=== PATIENT | female | born 1950 | race Caucasian/White ===

== ENCOUNTER → 2016-05-16 | Outpatient (CLI) | payer BC, OTHER ==
[~2016-05-16] MED LIST: ASPI-428 PO; BUSP15TA70 PO; CHOL2000 PO; CLOP1TAB5 PO; CYCL10TA6 PO; FLUO40CA8 PO; HYDR-5688 PO; INSPMPNVLG; ISOS60TA2 PO; LISI-725 PO; MISCCHW PO; MYCO500T5 PO; NITR0.4S UT; OXYC1TAB3 PO; POTA-74 PO; ROPI0.25 PO; ROSU40TA PO; TPRSR/100 PO
[2016-05-16 13:05] LABS: BASO % 0.6 %; BASO ABS # 0.04 K/uL (0-0.2); COMPLETE YES; EOS % 2.2 %; HEMATOCRIT 41.7 % (37-47); IG% 0.1 %; LYMPH % 21.6 %; LYMPH ABS # 1.44 K/uL (1.2-3.4); MEAN CELL VOLUME 86.9 fL (80-100); MEAN CORPUSCULAR HEMOGLOBIN 28.3 pg (25-34); MEAN CORPUSCULAR HGB CONC 32.6 g/dl (32-36); MEAN PLATELET VOLUME 10.5 fL (7.4-10.4); MONO % 14.2 %; NEUT % 61.3 %; PLATELET COUNT 272 K/uL (130-400); WHITE BLOOD COUNT 6.67 K/uL (4.8-10.8)
[2016-05-16 13:39] LABS: ESTIMATED AVERAGE GLUCOSE 232 mg/dl; HA1C FLAG Normal (Normal)
[2016-05-16 13:41] LABS: ALT/SGPT 40 U/L (12-78); AST/SGOT 20 U/L (15-37); BLOOD UREA NITROGEN 18 mg/dl (7-18); BUN/CREATININE RATIO 19.9 (10-20); CALCIUM 9.8 mg/dl (8.5-10.1); CARBON DIOXIDE 24 mmol/L (21-32); CHLORIDE 105 mmol/L (98-107); CREATININE 0.88 mg/dl (0.60-1.20); GLUCOSE 186 mg/dl (70-99); POTASSIUM 4.5 mmol/L (3.5-5.1); SODIUM 138 mmol/L (136-145)
[2016-05-16 13:43] LABS: ALB/GLOB RATIO 1.2 (0.9-2); ALKALINE PHOSPHATASE 106 U/L (45-117)
== END | disposition home or self-care (01) ==
LOC: C.LABPVFM 08:48
PROVIDERS: ATTEND Psychiatry & Neurology Clinical Neurophysiology
DX: G70.00 Myasthenia gravis without (acute) exacerbation (principal); E10.65 Type 1 diabetes mellitus with hyperglycemia

== ENCOUNTER → 2016-06-26 | Outpatient (CLI) | payer BC ==
[2016-06-26 13:46] LABS: BLOOD UREA NITROGEN 31 mg/dl (7-18)
[2016-06-26 14:02] LABS: ESTIMATED AVERAGE GLUCOSE 240 mg/dl; HA1C FLAG Normal (Normal)
== END | disposition home or self-care (01) ==
LOC: C.LAB 12:12
PROVIDERS: ATTEND Podiatrist Primary Podiatric Medicine
DX: E10.65 Type 1 diabetes mellitus with hyperglycemia (principal); Z13.9 Encounter for screening, unspecified; E55.9 Vitamin D deficiency, unspecified

== ENCOUNTER → 2016-07-01 | Outpatient (CLI) | payer BC ==
[~2016-07-01] MED LIST changes: +GADAVIST IV PRN
--- NOTE | 2016-07-01 21:38 | DIAGNOSTIC IMAGING REPORT ---
MRI OF THE LEFT FOOT WITH AND WITHOUT CONTRAST CLINICAL HISTORY: Left plantar fibroma. Plantar fibromatosis. Painful left foot lump. COMPARISON STUDY: Left foot ultrasound November 25, 2015. TECHNIQUE: Utilizing 1.5 Tisha magnet and dedicated coil, multiplanar, multiecho imaging of the left foot was performed pre and postcontrast ministration. Injection of 6 cc of Gadavist IV was uneventful. FINDINGS: A marker was placed on the skin at site of palpable abnormality. This overlies the plantar aspect of the medial left midfoot. Immediately deep to this marker, there is an ill-defined 1.8 x 0.9 x 0.5 cm T1 and T2 hypointense abnormality along the inferior aspect of the plantar fascia. This likely corresponds to the abnormality shown on ultrasound of November 25, 2015. This demonstrates minimal enhancement. A second marker was placed with the left forefoot. No corresponding abnormality was identified at this marker. Alignment of the left foot is anatomic. The tarsometatarsal joints are intact. There is no marrow replacement or marrow edema. No erosions are identified. No additional masses are identified. No neuroma is identified. Visual portions of the flexor and extensor tendons are intact. IMPRESSION: Ill-defined 1.8 x 0.9 x 0.5 cm T1 and T2 hypointense minimally enhancing abnormality of the plantar medial left midfoot, along the inferior aspect of the plantar fascia. This likely corresponds to the abnormality shown on exam of November 25, 2015 and is suggestive of plantar fibromatosis. Electronically signed by: Brady Marcelo M.D. 07/01/2016 9:37 PM Dictated Date/Time: 07/01/2016 4:22 PM
== END | disposition home or self-care (01) ==
LOC: C.MRI 14:37
PROVIDERS: ATTEND Podiatrist Primary Podiatric Medicine
DX: M79.672 Pain in left foot (principal)

== ENCOUNTER 2016-08-18 15:43 | Emergency (ER) | payer BC ==
[~2016-08-18] VITALS: Ht 149.9 cm; Wt 68.2 kg
[~2016-08-18 15:43] MED LIST changes: -CYCL10TA6 PO; -GADAVIST IV PRN; -HYDR-5688 PO; -INSPMPNVLG; -LISI-725 PO; -MISCCHW PO; -MYCO500T5 PO; -OXYC1TAB3 PO; -POTA-74 PO; -ROPI0.25 PO; -TPRSR/100 PO
[2016-08-18 15:44] VITALS: TEMP 36.7; Ht 149.9 cm; Wt 68.2 kg
[2016-08-18] MEDS ORDERED: KETOROLAC TROMETHAMINE 60 MG/2 ML VIAL IM STA (15:58)
[2016-08-18] MEDS ORDERED: CYCLOBENZAPRINE HCL 10 MG TAB PO STA (15:58)
[2016-08-18] MEDS ORDERED: OXYCODONE HCL IR 5 MG TAB (IMMEDIATE RELEASE) PO STA (15:58)
--- NOTE | 2016-08-18 16:50 | DIAGNOSTIC IMAGING REPORT ---
L-SPINE MIN 4 VIEWS ROUTINE CLINICAL HISTORY: Low back pain. COMPARISON: Lumbar spine radiographs November 02, 2014. FINDINGS: Incidental note is made of bilateral common iliac artery stents. There are also stents which project over each groin. Alignment of the lumbar spine is anatomic. Vertebral body heights are maintained. There is no fracture or suspicious lesion. Mild concavity of the superior endplate of T12 is unchanged. Mild multiple the level osteophytosis and facet arthrosis is noted. IMPRESSION: 1. No acute lumbar spine fracture or subluxation. 2. Mild multilevel degenerative disc disease and facet arthrosis. Electronically signed by: Brady Marcelo M.D. 08/18/2016 4:49 PM Dictated Date/Time: 08/18/2016 4:47 PM
[2016-08-18] MEDS ORDERED: MoRPHine SULFATE 10 MG/ML CARP/VIAL IM STA (17:00)
[2016-08-18] MEDS ORDERED: MoRPHine SULFATE 4 MG/ML 1 ML CARP\\VIAL ONE (17:23)
[2016-08-18] MEDS ORDERED: OXYC1TAB3 PO (17:58)
[2016-08-18] MEDS ORDERED: CYCL10TA6 PO (17:58)
--- NOTE | 2016-08-18 17:58 | EMERGENCY ROOM VISIT NOTE ---
History First contact with patient: 15:48 Chief Complaint: BACK PAIN Stated Complaint: BACK PAIN History of Present Illness The patient is a 66 year old female who presents to the Emergency Room with complaints of low back pain the patient states yesterday morning when she was trying to get out of bed she twisted to the right and felt a sharp pain in the lower back. The patient states that she had surgery to her left leg on July 23 and therefore she hasn't been rolling to her right side in order to get out of bed. The patient states the pain is in the lower back and hurts with any type of movement. The patient states it goes into the right buttocks. But does not go down the leg. The patient denies any numbness and tingling in her lower leg. The patient denies any saddle anesthesia. The patient denies any loss of bowel or bladder control. The patient denies any urinary symptoms. Review of Systems 10 system review was performed and was negative unless stated otherwise history of present illness. Past Medical/Surgical History Medical Problems: (1) Anxiety (2) CAD (coronary artery disease) (3) Compression fracture (4) Depression (5) GERD (gastroesophageal reflux disease) (6) HTN (hypertension) (7) Hypercholesteremia (8) Myasthenia gravis (9) Rosacea (10) Type 1 diabetes mellitus (11) Vitamin D deficiency Surgical Problems: (1) H/O vertebroplasty (2) History of laparoscopic cholecystectomy (3) History of thymectomy (4) History of tracheostomy Social History Smoking Status: Former Smoker Alcohol Use: none Drug Use: none Marital Status: Housing Status: lives with family Occupation Status: employed Current/Historical Medications Scheduled Aspirin (Ecotrin Low Strength), 81 MG PO DAILY Buspirone Hcl (Buspar), 15 MG PO BID Cholecalciferol (Vitamin D3), 2,000 INTER.UNIT PO DAILY Clopidogrel Bisulfate (Plavix), 75 MG PO DAILY Fluoxetine Hcl (Prozac), 40 MG PO DAILY Insulin Aspart (novoLOG INSULIN PUMP ), 1 EA N/A UD Isosorbide Mononitrate (Imdur Ext Rel), 60 MG PO QAM Lisinopril (Zestril), 20 MG PO DAILY Metoprolol Succinate (Metoprolol Succinate ER), 100 MG PO BID Mycophenolate Mofetil (Mycophenolate Mofetil), 1,000 MG PO BID Potassium Chloride (Potassium Chloride Er), 10 MEQ PO BID Probiotic Product (Acidophilus), 1 TAB PO DAILY Rosuvastatin Calcium (Crestor), 40 MG PO DAILY Scheduled PRN Nitroglycerin (Nitrostat), 0.4 MG UT UD PRN for Chest Pain Ropinirole (Requip), 0.25 MG PO HS PRN for Restless Legs Allergies Coded Allergies: Chlorpromazine (Verified Allergy, Unknown, PHENOTHIAZINES, 08/18/16) Colistin (Verified Allergy, Unknown, 08/18/16) Gentamicin (Verified Allergy, Unknown, 08/18/16) Kanamycin (Verified Allergy, Unknown, 08/18/16) Neomycin (Verified Allergy, Unknown, 08/18/16) Polymyxin B (Verified Allergy, Unknown, 08/18/16) Procainamide (Verified Allergy, Unknown, 08/18/16) Propranolol (Verified Allergy, Unknown, 08/18/16) Quinidine (Verified Allergy, Unknown, 08/18/16) Streptomycin (Verified Allergy, Unknown, 08/18/16) Tetracycline (Verified Allergy, Unknown, 08/18/16) Physical Exam Vital Signs Date Time Temp Pulse Resp B/P Pulse Ox O2 Delivery O2 Flow Rate FiO2 08/18/16 17:24 78 17 164/74 96 08/18/16 15:44 36.7 92 20 159/79 98 Room Air Physical Exam PHYSICAL EXAM: Vital Signs normal: Reviewed Nurse's notes and agree. GEN.: 66- year-old white female appears uncomfortable secondary to back pain. MENTAL STATUS: Alert and oriented in no acute distress. LUMBAR SPINE: No gross bony abnormality noted. Patient is tender to palpation over the mid to l. Muscle strength is 5 out of 5 bilateral lower extremities and symmetrical. NEURO: Patient is able to heel and toe walk without difficulty. I lateral patellar and Achilles reflexes are 2+. Sensation is intact to pinprick bilateral lower extremities. Negative straight leg raise bilaterally. Medical Decision & Procedures ER Provider Diagnostic Interpretation: L-SPINE MIN 4 VIEWS ROUTINE CLINICAL HISTORY: Low back pain. COMPARISON: Lumbar spine radiographs November 02, 2014. FINDINGS: Incidental note is made of bilateral common iliac artery stents. There are also stents which project over each groin. Alignment of the lumbar spine is anatomic. Vertebral body heights are maintained. There is no fracture or suspicious lesion. Mild concavity of the superior endplate of T12 is unchanged. Mild multiple the level osteophytosis and facet arthrosis is noted. IMPRESSION: 1. No acute lumbar spine fracture or subluxation. 2. Mild multilevel degenerative disc disease and facet arthrosis. Electronically signed by: Brady Marcelo M.D. 08/18/2016 4:49 PM Medications Administered Medications (Trade) Dose Ordered Sig/Yovana Route Start Time Stop Time Status Last Admin Dose Admin Cyclobenzaprine HCl (Flexeril Tab) 10 mg NOW STAT PO 08/18/16 15:58 08/18/16 16:00 DC 08/18/16 16:15 10 MG Ketorolac Tromethamine (Toradol Inj) 60 mg NOW STAT IM 08/18/16 15:58 08/18/16 16:00 DC 08/18/16 16:16 60 MG Oxycodone HCl (Roxicodone Immediate Rel Tab) 10 mg NOW STAT PO 08/18/16 15:58 08/18/16 16:00 DC 08/18/16 16:16 10 MG Morphine Sulfate (MoRPHine SULFATE INJ) 4 mg STK-MED ONCE .ROUTE 08/18/16 17:23 08/18/16 17:24 DC 08/18/16 17:26 4 MG ED Course The patient was evaluated. The patient was given Flexeril 10 mg by mouth, Toradol 60 mg IM and OxyIR 10 mg by mouth. X-ray of the lumbar spine was ordered and interpreted by the radiologist and myself as above without any acute fractures. The patient was informed of the findings. The patient was reevaluated and was still in significant pain and therefore she was given morphine 4 mg IM. The patient was once again reevaluated and was feeling much better. The patient was discharged home in stable condition with a family member driving.. Medical Decision Differential diagnosis include muscular strain, compression fracture, sciatica, degenerative disc disease Impression Primary Impression: Strain of lumbar region Departure Information Dispostion Home / Self-Care Condition GOOD Prescriptions Oxycodone Immediate Rel Tab (ROXICODONE IR) 5 Mg Tab 1-2 TAB PO Q6 Y for Pain, #20 TAB Prov: Lindsay Clark, CHACHA 08/18/16 Cyclobenzaprine Hcl (FLEXERIL) 10 Mg Tab 10 MG PO TID for 7 Days, #21 TAB Prov: Lindsay Clark PA-C 08/18/16 Referrals Amanda Sequeira C.R.N.P (PCP) Forms HOME CARE DOCUMENTATION FORM, IMPORTANT VISIT INFORMATION Patient Instructions My [facility] Additional Instructions DISCHARGE INSTRUCTIONS AND TREATMENT: Ibuprofen 600 mg every 6 hours with food for pain. Rx is given for OxyIR 5 mg. 1-2 tablets every 6 hours as needed for more severe pain. Dispense [address] while taking the OxyIR. Patient was also given Rx for Flexeril 10 mg. One tablet p.o. every 8 hours for muscle spasms. Dispense [address] taking the Flexeril. Avoid staying in any one position for an extended period of time. If symptoms persist or worsen, follow up with your family doctor for referral for additional testing. Problem Qualifiers Primary Impression: Strain of lumbar region Encounter type: initial encounter Qualified Codes: S39.012A - Strain of muscle, fascia and tendon of lower back, initial encounter
[2016-08-18 18:07] VITALS: BP 158/67; PULSE 80; O2SAT 95
[2016-08-18] MEDS ORDERED: ROPI0.25 PO (21:32)
[2016-08-18] MEDS ORDERED: INSPMPNVLG (21:32)
[2016-08-18] MEDS ORDERED: TPRSR/100 PO (21:32)
[2016-08-18] MEDS ORDERED: POTA-74 PO (21:32)
[2016-08-18] MEDS ORDERED: LISI-725 PO (21:32)
[2016-08-18] MEDS ORDERED: MYCO500T5 PO (21:32)
[2016-08-18] MEDS ORDERED: MISCCHW PO (21:32)
[2017-01-06] MEDS ORDERED: HYDR-5688 PO (14:06)
== END 2016-08-18 18:09 | disposition home or self-care (01) ==
LOC: C.EDB 15:43
DX: S39.012A Strain of muscle, fascia and tendon of lower back, initial encounter (principal); X58.XXXA Exposure to other specified factors, initial encounter; M54.5 Low back pain; F41.9 Anxiety disorder, unspecified; I25.10 Atherosclerotic heart disease of native coronary artery without angina pectoris; I10 Essential (primary) hypertension; F32.9 Major depressive disorder, single episode, unspecified; E78.00 Pure hypercholesterolemia, unspecified; G70.00 Myasthenia gravis without (acute) exacerbation; E10.9 Type 1 diabetes mellitus without complications; E55.9 Vitamin D deficiency, unspecified; Z87.891 Personal history of nicotine dependence; Z79.4 Long term (current) use of insulin

== ENCOUNTER → 2016-09-11 | Outpatient (CLI) | payer BC ==
[~2016-09-11] MED LIST changes: +HYDR-5688 PO; +INSPMPNVLG; +LISI-725 PO; +MISCCHW PO; +MYCO500T5 PO; +OXYC1TAB3 PO; +POTA-74 PO; +ROPI0.25 PO; +TPRSR/100 PO
--- NOTE | 2016-09-11 12:53 | MAMMOGRAPHY REPORT ---
BILATERAL DIGITAL SCREENING MAMMOGRAM WITH CAD: 09/11/2016 TECHNIQUE: Current study was also evaluated with a Computer Aided Detection (CAD) system. Bilatera l CC and MLO views were obtained. COMPARISON: Comparison is made to exams dated: 09/02/2015 mammogram, 08/30/2014 mammogram, 10/30/2011 mammogram, 10/24/2010 mammogram, 10/18/2009 mammogram - [facility], and 10/03/2008. BREAST COMPOSITION: There are scattered areas of fibroglandular density in both breasts. FINDINGS: No suspicious masses, calcifications, or areas of architectural distortion are noted in e ither breast. There has been no significant interval change compared to prior exams. Scattered bila teral benign-appearing calcifications are not significantly changed. Benign-appearing masses scatte red within the left breast are stable compared to prior exams. IMPRESSION: ACR BI-RADS CATEGORY 2: BENIGN There is no mammographic evidence of malignancy. A 1 year screening mammogram is recommended. The p atient will receive written notification of the results. Approximately 10% of breast cancers are not detected with mammography. A negative mammographic repor t should not delay biopsy if a clinically suggestive mass is present. Johanna Thayer M.D. ah/:09/11/2016 11:47:42 Stave Hewer: Mayra BUNN(Clive)(M), [facility] letter sent: Normal 1/2 BI-RADS Code: ACR BI-RADS Category 2: Benign
== END | disposition home or self-care (01) ==
LOC: C.MAMM 10:01
PROVIDERS: ATTEND Nurse Practitioner
DX: Z12.31 Encounter for screening mammogram for malignant neoplasm of breast (principal)

== ENCOUNTER → 2016-09-26 | Outpatient (CLI) | payer BC ==
[2016-09-26 13:18] LABS: BASO % 0.7 %; BASO ABS # 0.04 K/uL (0-0.2); COMPLETE YES; EOS % 2.3 %; HEMATOCRIT 39.3 % (37-47); IG% 0.4 %; LYMPH ABS # 1.45 K/uL (1.2-3.4); MEAN CELL VOLUME 87.5 fL (80-100); MEAN CORPUSCULAR HEMOGLOBIN 27.2 pg (25-34); MEAN PLATELET VOLUME 10.1 fL (7.4-10.4); MONO % 12.7 %; NEUT % 57.9 %; PLATELET COUNT 278 K/uL (130-400); RED BLOOD COUNT 4.49 M/uL (4.2-5.4); WHITE BLOOD COUNT 5.58 K/uL (4.8-10.8)
[2016-09-26 13:39] LABS: ALT/SGPT 42 U/L (12-78); AST/SGOT 22 U/L (15-37); BLOOD UREA NITROGEN 18 mg/dl (7-18); BUN/CREATININE RATIO 18.6 (10-20); CALCIUM 9.4 mg/dl (8.5-10.1); CARBON DIOXIDE 25 mmol/L (21-32); CHLORIDE 106 mmol/L (98-107); CREATININE 0.99 mg/dl (0.60-1.20); ESTIMATED AVERAGE GLUCOSE 214 mg/dl; GLUCOSE 299 mg/dl (70-99); HA1C FLAG Normal (Normal); POTASSIUM 4.5 mmol/L (3.5-5.1); SODIUM 139 mmol/L (136-145)
[2016-09-26 13:41] LABS: ALB/GLOB RATIO 0.9 (0.9-2); ALKALINE PHOSPHATASE 148 U/L (45-117)
== END | disposition home or self-care (01) ==
LOC: C.LABPVFM 08:52
PROVIDERS: ATTEND Psychiatry & Neurology Clinical Neurophysiology
DX: G70.00 Myasthenia gravis without (acute) exacerbation (principal)

== ENCOUNTER → 2016-11-19 | Outpatient (CLI) | payer BC | END | disposition home or self-care (01) | LOC: C.MAMM 13:12 | PROVIDERS: ATTEND Nurse Practitioner | DX: S22.000A Wedge compression fracture of unspecified thoracic vertebra, initial encounter for closed fracture (principal); X58.XXXA Exposure to other specified factors, initial encounter; M85.852 Other specified disorders of bone density and structure, left thigh ==

== ENCOUNTER → 2017-01-09 | Outpatient (CLI) | payer BC ==
[2017-01-09 13:21] LABS: BASO ABS # 0.06 K/uL (0-0.2); COMPLETE YES; EOS % 2.8 %; HEMATOCRIT 41.8 % (37-47); IG% 0.3 %; LYMPH % 25.3 %; LYMPH ABS # 1.55 K/uL (1.2-3.4); MEAN CELL VOLUME 87.8 fL (80-100); MEAN CORPUSCULAR HEMOGLOBIN 27.9 pg (25-34); MEAN CORPUSCULAR HGB CONC 31.8 g/dl (32-36); MONO % 11.3 %; NEUT % 59.3 %; PLATELET COUNT 240 K/uL (130-400); RED BLOOD COUNT 4.76 M/uL (4.2-5.4); WHITE BLOOD COUNT 6.13 K/uL (4.8-10.8)
[2017-01-09 13:42] LABS: ALT/SGPT 32 U/L (12-78); AST/SGOT 20 U/L (15-37); BLOOD UREA NITROGEN 10 mg/dl (7-18); BUN/CREATININE RATIO 13.1 (10-20); CALCIUM 9.5 mg/dl (8.5-10.1); CARBON DIOXIDE 28 mmol/L (21-32); CHLORIDE 106 mmol/L (98-107); CREATININE 0.77 mg/dl (0.60-1.20); GLUCOSE 110 mg/dl (70-99); POTASSIUM 4.3 mmol/L (3.5-5.1); SODIUM 140 mmol/L (136-145)
[2017-01-09 13:44] LABS: ALB/GLOB RATIO 0.9 (0.9-2); ALKALINE PHOSPHATASE 139 U/L (45-117)
== END | disposition home or self-care (01) ==
LOC: C.LABPVFM 08:58
PROVIDERS: ATTEND Psychiatry & Neurology Clinical Neurophysiology
DX: G47.00 Insomnia, unspecified (principal)

== ENCOUNTER → 2017-02-25 | Outpatient (CLI) | payer BC ==
[~2017-02-25] MED LIST changes: -HYDR-5688 PO; -OXYC1TAB3 PO; -ROPI0.25 PO
[2017-02-25 13:41] LABS: CREATININE RANDOM URINE 99.9 mg/dl
[2017-02-25 13:51] LABS: RATIO 18.8 mcg/mg (0-30.0)
== END | disposition home or self-care (01) ==
LOC: C.LABPVFM 13:05
PROVIDERS: ATTEND Nurse Practitioner Adult Health
DX: E10.65 Type 1 diabetes mellitus with hyperglycemia (principal); I10 Essential (primary) hypertension; E78.5 Hyperlipidemia, unspecified; R80.9 Proteinuria, unspecified; E55.9 Vitamin D deficiency, unspecified

== ENCOUNTER → 2017-03-20 | Outpatient (CLI) | payer BC ==
[2017-03-20 13:05] LABS: BLOOD UREA NITROGEN 14 mg/dl (7-18); CALCIUM 9.3 mg/dl (8.5-10.1); CARBON DIOXIDE 30 mmol/L (21-32); CHLORIDE 103 mmol/L (98-107); CREATININE 0.83 mg/dl (0.60-1.20); GLUCOSE 160 mg/dl (70-99); POTASSIUM 3.9 mmol/L (3.5-5.1); SODIUM 137 mmol/L (136-145)
== END | disposition home or self-care (01) ==
LOC: C.LABPVFM 08:03
PROVIDERS: ATTEND Nurse Practitioner Adult Health
DX: E10.65 Type 1 diabetes mellitus with hyperglycemia (principal); E87.8 Other disorders of electrolyte and fluid balance, not elsewhere classified

== ENCOUNTER → 2017-03-27 | Outpatient (CLI) | payer BC ==
[2017-03-27 13:21] LABS: ALT/SGPT 27 U/L (12-78); BLOOD UREA NITROGEN 18 mg/dl (7-18); BUN/CREATININE RATIO 19.9 (10-20); CALCIUM 9.4 mg/dl (8.5-10.1); CARBON DIOXIDE 26 mmol/L (21-32); CHLORIDE 103 mmol/L (98-107); GLUCOSE 190 mg/dl (70-99); POTASSIUM 4.2 mmol/L (3.5-5.1); SODIUM 135 mmol/L (136-145)
[2017-03-27 13:24] LABS: ALKALINE PHOSPHATASE 130 U/L (45-117); AST/SGOT 17 U/L (15-37)
== END | disposition home or self-care (01) ==
LOC: C.LABPVFM 09:05
PROVIDERS: ATTEND Psychiatry & Neurology Clinical Neurophysiology
DX: G70.00 Myasthenia gravis without (acute) exacerbation (principal)

== ENCOUNTER → 2017-04-30 | Outpatient (CLI) | payer BC ==
[2017-04-30 12:45] LABS: BASO % 0.8 %; BASO ABS # 0.06 K/uL (0-0.2); EOS % 1.6 %; EOS ABS # 0.13 K/uL (0-0.5); HEMATOCRIT 43.2 % (37-47); HEMOGLOBIN 14.1 g/dL (12.0-16.0); IG# 0.02 K/uL (0.00-0.02); LYMPH % 23.9 %; MEAN CELL VOLUME 89.4 fL (80-100); MEAN CORPUSCULAR HEMOGLOBIN 29.2 pg (25-34); MEAN CORPUSCULAR HGB CONC 32.6 g/dl (32-36); MEAN PLATELET VOLUME 9.8 fL (7.4-10.4); MONO % 12.2 %; MONO ABS # 0.97 K/uL (0.11-0.59); NEUT % 61.2 %; NEUT ABS # 4.86 K/uL (1.4-6.5); PLATELET COUNT 310 K/uL (130-400); RED CELL DISTRIBUTION WIDTH CV 14.4 % (11.5-14.5); RED CELL DISTRIBUTION WIDTH SD 47.3 fL (36.4-46.3); WHITE BLOOD COUNT 7.94 K/uL (4.8-10.8)
[2017-04-30 13:51] LABS: ALBUMIN 4.1 gm/dl (3.4-5.0); ALT/SGPT 29 U/L (12-78); AST/SGOT 14 U/L (15-37); BLOOD UREA NITROGEN 27 mg/dl (7-18); CALCIUM 9.4 mg/dl (8.5-10.1); CARBON DIOXIDE 27 mmol/L (21-32); CREATININE 0.92 mg/dl (0.60-1.20); GLUCOSE 86 mg/dl (70-99); POTASSIUM 4.5 mmol/L (3.5-5.1); SODIUM 138 mmol/L (136-145)
[2017-04-30 13:53] LABS: ALKALINE PHOSPHATASE 121 U/L (45-117); TOTAL PROTEIN 8.2 gm/dl (6.4-8.2)
== END | disposition home or self-care (01) ==
LOC: C.LABPVFM 08:56
PROVIDERS: ATTEND Psychiatry & Neurology Clinical Neurophysiology
DX: G70.00 Myasthenia gravis without (acute) exacerbation (principal)

== ENCOUNTER → 2017-05-25 | Outpatient (CLI) | payer BC ==
--- NOTE | 2017-05-25 15:10 | DIAGNOSTIC IMAGING REPORT ---
(CHEST) THORAX WITHOUT CLINICAL HISTORY: R91.1 pulmonary nodule COMPARISON STUDY: 02/21/2017 CT DOSE: 433.23 mGy.cm TECHNIQUE: CT of the thorax was performed from the thoracic inlet to the lung bases. Images are reviewed in the axial, sagittal, and coronal planes. IV contrast was not administered for this examination. A dose lowering technique was utilized adhering to the principles of ALARA. FINDINGS: Thyroid: Imaged portions of the thyroid gland are normal in appearance. Thoracic aorta: The thoracic aorta is normal in course and caliber, noting standard 3 vessel arch anatomy. Heart: There are coronary artery calcifications present. The heart is borderline enlarged. Lungs and pleural spaces: There are mild dependent atelectatic changes. There are no pleural effusions. There is no focal pulmonary consolidation. There is a persistent pancake ovoid nodule abutting the minor fissure measuring 12 mm in long axis as measured on the reformatted sagittal image. This is felt to remain essentially unchanged in size compared the prior study. There are multiple scattered calcified granulomas. Continued follow-up is recommended Mediastinum: There is no mediastinal lymphadenopathy. Eri: Clear. Axilla: Clear. Upper abdomen: Partially visualized upper abdominal viscera is within normal limits. Skeletal structures: There is a stable T8 compression deformity. IMPRESSION: Stable, pancake ovoid nodule abutting the minor fissure measuring 12 mm in long axis. Continued follow-up is recommended. An additional 3-6 month follow-up is recommended Please refer to below summary of Fleischner criteria recommendations for follow-up of incidental CT nodules (Emery Echeverria, Guidelines for management of small pulmonary nodules detected on CT scans: A statement from the Fleischner Society, Radiology 237: [phone].) SOLID NODULES Solitary nodule size: <6 mm * low risk patients: no follow-up needed * high risk patients: optional CT at 12 months Solitary nodule size: 6-8 mm * low risk patients: follow-up at 6-12 months, then consider further follow-up at 18-24 months * high risk patients: initial follow-up CT at 6-12 months and then at 18-24 months if no change Solitary nodule size: >8 mm * either low or high risk patients - consider follow-up CT at 3 months, and/or CT-PET, and/or biopsy Multiple nodules size: <6 mm * low risk patients: no routine follow-up * high risk patients: optional CT at 12 months Multiple nodules size: 6-8 mm * low risk patients: follow-up at 3-6 months, then consider further follow-up at 18-24 months * high risk patients: follow-up at 3-6 months, then at 18-24 months if no change Multiple nodules size: >8 mm * low risk patients: follow-up at 3-6 months, then consider further follow-up at 18-24 months * high risk patients: follow-up at 3-6 months, then at 18-24 months if no change Note: newly detected indeterminate nodule in persons 35 years of age or older. * low risk patients: minimal or absent history of smoking and/or other known risk factors * high risk patients: history of smoking or of other known risk factors (e.g. first degree relative with lung cancer, or exposure to asbestos, radon, uranium) * if a nodule up to 8 mm is partly solid or is ground glass further follow-up is required after 24 months to exclude possible slow growing adenocarcinoma (STACEY) SUBSOLID NODULES Solitary pure ground-glass nodule * nodule size <6 mm - no CT follow-up required * nodule size >=6 mm - follow-up CT at 6-12 months, then every 2 years until 5 years Solitary part-solid nodule * nodule size <6 mm - no CT follow-up required * nodule size >=6 mm - follow-up CT at 3-6 months. If unchanged, and solid component remains <6 mm, then annual follow-up for 5 years Multiple subsolid nodules * nodule size <6 mm - follow-up CT at 3-6 months, consider further follow-up at 2 and 4 years if stable * nodule size >=6 mm - follow-up CT at 3-6 months, subsequent management based on the most suspicious nodule(s) Electronically signed by: Guy Cavazos M.D. 05/25/2017 3:08 PM Dictated Date/Time: 05/25/2017 2:59 PM
== END | disposition home or self-care (01) ==
LOC: C.CTS 14:43
PROVIDERS: ATTEND Nurse Practitioner
DX: R91.1 Solitary pulmonary nodule (principal)

== ENCOUNTER → 2017-07-23 | Outpatient (CLI) | payer OTHER ==
[~2017-07-23] MED LIST changes: +ASPI-563
--- NOTE | 2017-07-23 10:38 | DIAGNOSTIC IMAGING REPORT ---
L-SPINE MIN 4 VIEWS ROUTINE CLINICAL HISTORY: LUMBAGO COMPARISON: Lumbar spine radiographs August 18, 2016. FINDINGS: Incidental note is made of bilateral common iliac artery stents. There is a bone island within the left acetabulum. There is mild leftward curvature of the lumbar spine which has developed since exam of August 18, 2016. In addition, there has been interval development of a L3 fracture with moderate loss of vertebral body height as well as a mild L1 fracture. The bones appear heterogeneous, particularly the L3 vertebral body. Disc spaces are preserved. There is mild multilevel facet arthrosis. IMPRESSION: 1. Interval development of L1 and L3 fractures since exam of August 18, 2016 with moderate loss of height of L3. Heterogeneity of L3 could be seen with a benign compression fracture however the appearance raises the possibility of a pathologic fracture in the setting of metastatic disease or multiple myeloma. An MRI of the lumbar spine is recommended for further evaluation. 2. Mild multilevel degenerative disc disease and mild to moderate multilevel facet arthrosis. Electronically signed by: Brady Marcelo M.D. 07/23/2017 10:36 AM Dictated Date/Time: 07/23/2017 10:25 AM
== END | disposition home or self-care (01) ==
LOC: C.LABBC 09:57
PROVIDERS: ATTEND Physician Assistant
DX: M54.5 Low back pain (principal); S32.019A Unspecified fracture of first lumbar vertebra, initial encounter for closed fracture; S32.039A Unspecified fracture of third lumbar vertebra, initial encounter for closed fracture; X58.XXXA Exposure to other specified factors, initial encounter

== ENCOUNTER → 2017-07-28 | Outpatient (CLI) | payer OTHER ==
[2017-07-28 13:17] LABS: BLOOD UREA NITROGEN 26 mg/dl (7-18); CREATININE 0.98 mg/dl (0.60-1.20)
== END | disposition home or self-care (01) ==
LOC: C.LABPVFM 10:35
PROVIDERS: ATTEND Physician Assistant
DX: Z01.812 Encounter for preprocedural laboratory examination (principal); I10 Essential (primary) hypertension; E55.9 Vitamin D deficiency, unspecified

== ENCOUNTER → 2017-07-30 | Outpatient (CLI) | payer OTHER ==
[~2017-07-30] MED LIST changes: +GADAVIST IV PRN
--- NOTE | 2017-07-30 15:46 | DIAGNOSTIC IMAGING REPORT ---
LUMBAR SPINE MRI WITH AND WITHOUT CONTRAST HISTORY: LOW BACK PAIN TECHNIQUE: Multiplanar multisequence MRI of the lumbar spine was performed both before and after the intravenous administration of contrast. COMPARISON: Lumbar spine 05/25/2017. FINDINGS: For the purpose of the report the L5-S1 disc space will be located on axial image 28 of 30. Mild levoscoliosis. Alignment is intact. Mild superior endplate compression fracture at T12. No associated edema. Therefore, this is likely old. Moderate supra endplate compression fracture and a mild inferior endplate compression fracture at L1. This demonstrates up to 50% loss of height centrally. There is an enhancing mass within the left posterior L1 vertebral body which extends into the left pedicle. This measures approximately 2.5 x 1.8 cm. This extends into the left posterior epidural space. However, this does not result in significant central canal narrowing. The epidural component measures approximate 1 mm in thickness. There is mild left-sided neural foraminal narrowing at L1-L2. The conus terminates at the L1 level. There is also a [id number] compression deformity within the L3 vertebral body. The L3 vertebral body is completely replaced with an enhancing mass. This mass extends into the right pedicle and right L3 facet. This also extends beyond the cortex into the paravertebral/right paraspinal soft tissues. This extends into the right posterior epidural space with a maximal thickness of 2 mm. This does not result in significant central canal narrowing. This results in mild right L3-L4 neural foraminal narrowing. Paraspinal soft tissue extension of the mass measures up to 4 mm in thickness. No additional fractures or lesions identified within the lumbar spine. A few bilateral renal cysts. The 1.1 cm exophytic cyst within the lower pole demonstrates layering T1 hyperintense signal suggestive of calcification. IMPRESSION: Enhancing lesions at L1 and L3 resulting in the pathologic compression fractures as described above. These lesions demonstrate a small amount of epidural extension. However, there is no significant central canal narrowing at this time. This is consistent with metastatic disease until proven otherwise. Electronically signed by: Ryan Geronimo M.D. 07/30/2017 3:45 PM Dictated Date/Time: 07/30/2017 3:32 PM
== END | disposition home or self-care (01) ==
LOC: C.MRI 14:28
PROVIDERS: ATTEND Physician Assistant
DX: M54.5 Low back pain (principal); M84.48XA Pathological fracture, other site, initial encounter for fracture

== ENCOUNTER → 2017-08-05 | Outpatient (CLI) | payer OTHER ==
[~2017-08-05] MED LIST changes: -GADAVIST IV PRN
[2017-08-05 12:29] LABS: BASO % 0.3 %; BASO ABS # 0.03 K/uL (0-0.2); EOS % 1.6 %; EOS ABS # 0.16 K/uL (0-0.5); HEMATOCRIT 37.2 % (37-47); HEMOGLOBIN 12.1 g/dL (12.0-16.0); IG# 0.02 K/uL (0.00-0.02); LYMPH % 14.2 %; LYMPH ABS # 1.38 K/uL (1.2-3.4); MEAN CELL VOLUME 87.5 fL (80-100); MEAN CORPUSCULAR HEMOGLOBIN 28.5 pg (25-34); MEAN CORPUSCULAR HGB CONC 32.5 g/dl (32-36); MEAN PLATELET VOLUME 9.7 fL (7.4-10.4); MONO % 13.5 %; MONO ABS # 1.31 K/uL (0.11-0.59); NEUT % 70.2 %; NEUT ABS # 6.82 K/uL (1.4-6.5); PLATELET COUNT 251 K/uL (130-400); RED CELL DISTRIBUTION WIDTH CV 14.7 % (11.5-14.5); WHITE BLOOD COUNT 9.72 K/uL (4.8-10.8)
[2017-08-05 13:16] LABS: ALBUMIN 4.2 gm/dl (3.4-5.0); ALT/SGPT 34 U/L (12-78); AST/SGOT 17 U/L (15-37); BLOOD UREA NITROGEN 16 mg/dl (7-18); CALCIUM 9.6 mg/dl (8.5-10.1); CARBON DIOXIDE 25 mmol/L (21-32); CREATININE 0.97 mg/dl (0.60-1.20); GLUCOSE 221 mg/dl (70-99); POTASSIUM 4.3 mmol/L (3.5-5.1); SODIUM 140 mmol/L (136-145)
[2017-08-05 13:18] LABS: ALKALINE PHOSPHATASE 84 U/L (45-117); TOTAL PROTEIN 6.4 gm/dl (6.4-8.2)
== END | disposition home or self-care (01) ==
LOC: C.LABPVFM 10:34
PROVIDERS: ATTEND Nurse Practitioner
DX: M54.2 Cervicalgia (principal); R93.7 Abnormal findings on diagnostic imaging of other parts of musculoskeletal system; R51 Headache; R42 Dizziness and giddiness; R26.81 Unsteadiness on feet; G89.3 Neoplasm related pain (acute) (chronic); G95.9 Disease of spinal cord, unspecified

== ENCOUNTER → 2017-08-11 | Outpatient (CLI) | payer OTHER ==
[~2017-08-11] MED LIST changes: +ACET-24 PO; +DRGTP12 TD; +FRRG PO; +IMDSR/30 PO; +INSDGI SC; +METO1TAB54 PO; +MRLP17X PO; +NVLG INJ; +OPTIRAY 320 IV PRN; +RXC5 PO; +SENN-61 PO; +TPRSR/50 PO
--- NOTE | 2017-08-11 12:43 | DIAGNOSTIC IMAGING REPORT ---
CT SCAN OF THE BRAIN WITHOUT IV CONTRAST CLINICAL HISTORY: Metastatic survey. COMPARISON STUDY: CT of the brain dated 09/29/2011. TECHNIQUE: Axial CT scan of the brain is performed from the vertex to the skull base before and following the IV administration of 95 cc of Optiray 320. IV contrast was administered without complication. A dose lowering technique was utilized adhering to the principles of ALARA. CT DOSE: 2233.28 mGycm FINDINGS: Brain parenchyma: There are age-related involutional changes noting minimal subcortical and periventricular microangiopathic change. There is no hemorrhage, mass effect, or evidence of acute territorial ischemia by CT criteria. No enhancing intracranial lesions on the postcontrast series. Parisi-white matter is preserved. No extra-axial fluid collection is seen. Ventricles, sulci, cisterns: Prominent secondary to involutional change. Intracranial vasculature: There is atherosclerotic calcification of the cavernous carotid vertebral arteries. 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 No additional calvarial lesion is suspected. Sinuses and mastoids: The visualized paranasal sinuses are clear. The mastoid air cells are well pneumatized. Orbits: The bony orbits are grossly intact. There are bilateral ocular lens implants. IMPRESSION: 1. There is no hemorrhage, enhancing mass, or evidence of acute territorial ischemia by CT criteria. 2. 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 No additional calvarial lesion is suggested. Electronically signed by: Emile Godwin M.D. 08/11/2017 12:41 PM Dictated Date/Time: 08/11/2017 12:33 PM
--- NOTE | 2017-08-11 13:45 | DIAGNOSTIC IMAGING REPORT ---
ABDOMEN AND PELVIS CT WITH IV AND ORAL CONTRAST CT DOSE: HISTORY: R93.7 Abnormal MRI, lumbar [id number] Malignant bone [id number] TECHNIQUE: Multiaxial CT images of the abdomen and pelvis were performed following the use of intravenous and oral contrast. A dose lowering technique was utilized adhering to the principles of ALARA. COMPARISON STUDY: Lumbar spine MRI 07/30/2017. FINDINGS: Multiple scattered osteolytic lesions seen throughout the abdomen and pelvis. This includes the proximal right femur, right iliac wing, bilateral ribs, and the L1 and L3 vertebral bodies. These demonstrate pathologic compression fractures which are better appreciated on the recent lumbar spine MRI. There is small amount of tumor extending into the posterior epidural space at these levels. The L3 lesion extends into the right posterior elements. No hepatic or splenic masses. Small bilateral adrenal gland nodules. The largest on the left measures 11 mm. Cholecystectomy. The pancreas is unremarkable. Mild fullness within the right renal collecting system without benitez hydronephrosis. Subcentimeter bilateral renal hypodense lesions are too small to characterize but statistically represent cysts. No retroperitoneal lymphadenopathy. Bilateral common iliac artery stents are noted. No bowel wall thickening or obstruction. Normal appendix. Multifocal stenosis of the superior mesenteric artery due to the calcified plaque. No pelvic lymphadenopathy. The bladder is unremarkable. The uterus and right ovary are within normal limits. A 4.2 cm cyst within the left adnexa. Colonic diverticulosis. Ill-defined 11 mm soft tissue focus adjacent to the descending colon on image 320 within the left lower quadrant. Scarring seen within the left groin. There is a left superficial femoral artery stent which is occluded. There is evidence for bypass of the left superficial femoral artery. A right superficial femoral artery stent is patent. Of note, the 1.6 cm lytic lesion within the proximal shaft of the right femur results in destruction of the posterior cortex. Therefore, this would be consistent with an impending fracture of the subtrochanteric right femur. Possible 1 cm enhancing nodule within the right breast on image 1. This is only partially visualized. IMPRESSION: 1. Multiple scattered osteolytic metastatic lesions as described above. The 1.6 cm lytic lesion within the proximal shaft of the right femur results in destruction of the posterior cortex. Therefore, this would be consistent with an impending fracture of the subtrochanteric right femur. Orthopedic consultation is recommended. 2. Redemonstration of the pathologic compression fractures within the L1 and L3 vertebral bodies. These demonstrate tumor extension into the epidural space. This is better appreciated on the recent lumbar spine MRI. 3. 4.2 cm cyst within the left adnexa. This is considered pathologic in a postmenopausal female. This is nonspecific and could represent an adnexal cyst, hydrosalpinx, or exophytic ovarian cyst. Neoplasm is considered less likely but not entirely excluded. Gynecologic consultation recommended. 4. An ill-defined 11 mm soft tissue nodule within the left lower quadrant adjacent to the descending colon. This is of uncertain clinical significance. One month abdomen and pelvis CT follow is recommended to exclude the possibility of a peritoneal implant. 5. Possible 1 cm enhancing nodule within the right breast which is only partially visualized. Dedicated mammogram and ultrasound is recommended to exclude a primary malignancy. 6. These findings were called/faxed to the referring physician's office following dictation. Electronically signed by: Ryan Geronimo M.D. 08/11/2017 1:43 PM Dictated Date/Time: 08/11/2017 1:11 PM
== END | disposition home or self-care (01) ==
LOC: C.CTS 11:50
PROVIDERS: ATTEND Nurse Practitioner
DX: G89.3 Neoplasm related pain (acute) (chronic) (principal); R93.7 Abnormal findings on diagnostic imaging of other parts of musculoskeletal system; M54.2 Cervicalgia; R42 Dizziness and giddiness; R26.81 Unsteadiness on feet; R51 Headache; G95.9 Disease of spinal cord, unspecified; R11.2 Nausea with vomiting, unspecified

== ENCOUNTER → 2017-08-13 | Outpatient (CLI) | payer OTHER ==
[~2017-08-13] MED LIST changes: -DRGTP12 TD; -FRRG PO; -IMDSR/30 PO; -INSDGI SC; -METO1TAB54 PO; -MRLP17X PO; -NVLG INJ; -OPTIRAY 320 IV PRN; -SENN-61 PO; -TPRSR/50 PO
--- NOTE | 2017-08-13 11:57 | DIAGNOSTIC IMAGING REPORT ---
CERVICAL SPINE MRI HISTORY: R51 New onset of [id number] Cervical spinal mass. TECHNIQUE: Multiplanar multisequence MRI of the cervical spine was performed without the use of contrast. COMPARISON STUDY: Head CT 08/11/2017. FINDINGS: Alignment and curvature intact. The T1 and T2 hyperintense lesions at the C6 and T1 vertebral bodies favors hemangiomas. The suprasellar the inversion recovery sequences. No fractures of dictation within the cervical spine. Prevertebral soft tissues and the C1-C2 interval are intact. Disc spaces are preserved. The visualized posterior fossa is unremarkable. The cervical spinal cord is normal and course, caliber, and signal intensity. Small broad-based posterior disc bulges at C3-C4 and C4-C5 without significant central canal narrowing. There is mild left-sided neural foraminal narrowing at C4-C5. There is a 7 mm T2 hyperintense, T1 hypointense focus within the right C7 facet. There is also a 9 mm T2 hyperintense, T1 hypointense focus within the C7 spinous process. These are concerning for metastatic foci. Questionable nondisplaced pathologic fracture at the tip of the C7 spinous process. IMPRESSION: 1. There are 2, T2 hyperintense, T1 hypointense foci seen within the right C7 facet and C7 spinous process. These likely represent metastatic foci. 2. There is also a questionable nondisplaced pathologic fracture the tip of the C7 spinous process. 3. No significant central canal narrowing. Electronically signed by: Ryan Geronimo M.D. 08/13/2017 11:56 AM Dictated Date/Time: 08/13/2017 11:38 AM
== END | disposition home or self-care (01) ==
LOC: C.MRI 10:20
PROVIDERS: ATTEND Nurse Practitioner
DX: R42 Dizziness and giddiness (principal); R51 Headache; G95.9 Disease of spinal cord, unspecified

== ENCOUNTER 2017-08-16 15:53 | Inpatient (IN) | payer OTHER ==
[~2017-08-16] VITALS: Ht 149.9 cm; Wt 68.2 kg
[~2017-08-16 15:53] MED LIST changes: -ACET-24 PO; -RXC5 PO
[2017-08-16] MEDS ORDERED: ACETAMINOPHEN 325 MG TAB PO PRN (16:15)
[2017-08-16 17:00] VITALS: BP 108/70; PULSE 86; TEMP 36.4; O2SAT 97
[2017-08-16] MEDS ORDERED: PATIENT'S HEIGHT AND/OR WEIGHT NEEDED SCH (17:15)
[2017-08-16 17:20] LABS: HEMATOCRIT 38.7 % (37-47); HEMOGLOBIN 12.7 g/dL (12.0-16.0); MEAN CELL VOLUME 86.4 fL (80-100); MEAN CORPUSCULAR HEMOGLOBIN 28.3 pg (25-34); MEAN CORPUSCULAR HGB CONC 32.8 g/dl (32-36); MEAN PLATELET VOLUME 9.5 fL (7.4-10.4); PLATELET COUNT 270 K/uL (130-400); RED CELL DISTRIBUTION WIDTH CV 14.5 % (11.5-14.5); RED CELL DISTRIBUTION WIDTH SD 45.6 fL (36.4-46.3); WHITE BLOOD COUNT 8.84 K/uL (4.8-10.8)
[2017-08-16 17:36] LABS: BLOOD UREA NITROGEN 20 mg/dl (7-18); CALCIUM 10.1 mg/dl (8.5-10.1); CARBON DIOXIDE 26 mmol/L (21-32); CREATININE 1.26 mg/dl (0.60-1.20); GLUCOSE 171 mg/dl (70-99); POTASSIUM 4.4 mmol/L (3.5-5.1); SODIUM 137 mmol/L (136-145)
--- NOTE | 2017-08-16 17:56 | HISTORY & PHYSICAL EXAMINATION ---
DATE OF ADMISSION: 08/16/2017 CHIEF COMPLAINT: Right thigh pain. HISTORY OF PRESENT ILLNESS: Jillian is a 67-year-old female, insulin-dependent diabetic who presented to the office today with right thigh pain with possible metastatic disease and impending pathological fracture of her femur. She has had pain in the thigh for over 2 months now. No injury that she recalls. She began with low back pain and then had MRI study which showed a L1-L3 pathological compression fractures that were likely metastatic. She had CT scan done as well on 08/11/2017 which showed multiple osteolytic metastatic lesions including one of the proximal femoral shaft with destruction of the posterior cortex. At this time, she complains of low back pain and right thigh pain. She has had pain and difficulty with weightbearing. She denies any pain in the left lower extremity or her upper extremities at this time. PAST MEDICAL HISTORY: Includes insulin-dependent diabetes, heart disease with cardiac stenting, elevated cholesterol, hypertension, history of cancer, which they thought maybe multiple myeloma, but with possible breast lesion, history of vertebral fractures L1-L3, myasthenia gravis, Gerber esophagus. PAST SURGICAL HISTORY: Thymus surgery, , venous surgery on her lower extremity. FAMILY HISTORY: Includes cardiac disease, hypertension, and cancer. SOCIAL HISTORY: Rarely drinks alcohol. Quit tobacco use 25 years ago. Lives with her . MEDICATIONS: Include aspirin, Imdur, nitroglycerin, Plavix, omeprazole, buspirone, fluoxetine, Crestor, amlodipine, lisinopril, potassium chloride, Toprol-XL, cyclobenzaprine, CellCept, fexofenadine, metronidazole, prednisone, and NovoLog insulin pump. ALLERGIES: INCLUDE GENTAMICIN SULFATE, INDERAL, KANAMYCIN, NEOMYCIN, PRIMAXIN, PROCAINAMIDE, CLONIDINE, STREPTOMYCIN SULFATE, AND SULFA DRUGS. REVIEW OF SYSTEMS: Positive for gastrointestinal symptoms including vomiting and nausea and endocrine including diabetes. Denies any chest pain, shortness of breath. PHYSICAL EXAMINATION: Today, she ambulates independently but with an abnormal antalgic gait favoring her right lower extremity. She has painful motion with minimal motion of the right hip. She is able to flex and extend her knee. She has no pain or tenderness along the tibia. She is tender along her thigh and femur area of the right leg. No pain with range of motion of her left lower extremity. She is able to dorsiflex, plantarflex bilaterally. Her sensation is intact to touch. Imaging studies were reviewed again. She had CT scan showing multiple osteolytic lesions including of the right femoral shaft as well as compression fractures L1 and L3. Her CT scan did show a 4.2 cm cyst within the left adnexa, 11 mm soft tissue nodule in the left lower quadrant adjacent to the descending colon, possible 1 cm nodule within the right breast, only partially visualized on her CT scan. IMPRESSION: Right thigh pain with impending pathological fracture of her right femur with likely metastatic disease. PLAN: She is being admitted a direct admission from our office today under Dr. Perkins's service. We will make her non weightbearing to the [facility] on admission. We will order diet today, but n.p.o. after midnight. Would recommend IM nailing for the right impending femur fracture. She would like to proceed with that. We will order SHE stockings and SCDs for DVT prophylaxis. Consult the [facility] service for further medical management as well. We will plan for IM nailing of the right femur tentatively on Wednesday08/17/2017. SHEKHAR
[2017-08-16 17:57] VITALS: BMI 30.4
[2017-08-16] MEDS ORDERED: NITROGLYCERIN 0.4 MG SL PER TAB CHARGE UT PRN (18:00)
[2017-08-16] MEDS ORDERED: NURSING VERBAL MED ORDER ONE (18:15)
[2017-08-16] MEDS: OXYCODONE/ACETAMINOPHEN 5-325 TAB PO PRN ×2 (18:23→23:53)
[2017-08-16 18:28] LABS: BASO % 0.2 %; BASO ABS # 0.02 K/uL (0-0.2); EOS ABS # 0.18 K/uL (0-0.5); IG# 0.02 K/uL (0.00-0.02); LYMPH % 13.8 %; LYMPH ABS # 1.22 K/uL (1.2-3.4); MONO % 8.4 %; MONO ABS # 0.74 K/uL (0.11-0.59); NEUT % 75.4 %; NEUT ABS # 6.68 K/uL (1.4-6.5)
[2017-08-16] MEDS ORDERED: PHARMACY GLYCEMIC MGMT CONSULT PRN (18:33)
[2017-08-16 18:34] LABS: ALBUMIN 4.7 gm/dl (3.4-5.0); ALKALINE PHOSPHATASE 145 U/L (45-117); ALT/SGPT 35 U/L (12-78); AST/SGOT 28 U/L (15-37); TOTAL PROTEIN 7.9 gm/dl (6.4-8.2)
[2017-08-16] MEDS: SODIUM CHLORIDE 0.9% 1000ML 1,000 ML IV SCH (18:36)
--- NOTE | 2017-08-16 18:41 | Medical Consult ---
Consultation Date of Consultation: Aug 16, 2017. Attending Physician: Connor Perkins M.D. Reason for Consultation: medical co management History of Present Illness 67-year-old female with past medical history of hypertension, dyslipidemia, mycelia gravis, peripheral vascular disease status post left lower extremity venous graft and right arterial stent, CAD status post coronary stent all stents are more than 10 years old. Also has history of left carotid stenosis status post CEA, patient has diabetes mellitus insulin requiring on insulin pump. Around May patient started having lower back pain affecting her right thigh. Patient showed she had some arthritis. CT scan was done in August 11 that showed multiple osteolytic metastatic lesions with a metastatic lesion to the proximal femur, osteolytic in nature associated with femoral shaft destruction. Patient was sent to the hospital for alyson fixation and stabilization of her femur. Currently has no new symptoms. No new complaints aside from her back pain and right femur pain. A lesion was found in her right breast it is under investigation. Dr. Montilla as her oncologist. We were consulted for medical comanagement Past Medical/Surgical History Medical Problems: (1) Diarrhea Status: Acute (2) Hypoglycemia Status: Acute (3) Strain of lumbar region Status: Acute Social History Smoking Status: Former Smoker Drug Use: none Marital Status: Housing Status: lives with family Occupation Status: employed Allergies Coded Allergies: Chlorpromazine (Verified Allergy, Unknown, PHENOTHIAZINES, 02/21/17) Colistin (Verified Allergy, Unknown, 02/21/17) Gentamicin (Verified Allergy, Unknown, 02/21/17) Kanamycin (Verified Allergy, Unknown, 02/21/17) Neomycin (Verified Allergy, Unknown, 02/21/17) Polymyxin B (Verified Allergy, Unknown, 02/21/17) Procainamide (Verified Allergy, Unknown, 02/21/17) Propranolol (Verified Allergy, Unknown, 02/21/17) Quinidine (Verified Allergy, Unknown, 02/21/17) Streptomycin (Verified Allergy, Unknown, 02/21/17) Tetracycline (Verified Allergy, Unknown, 02/21/17) Current Inpatient Medications Current Inpatient Medications Medications (Trade) Dose Ordered Sig/Yovana Route Start Time Stop Time Status Last Admin Dose Admin Oxycodone/ Acetaminophen (Percocet 5-325mg Tab) `1-2 TABS FOR PAIN `1 TAB... Q4H PRN PO 08/16/17 16:15 08/30/17 16:14 Acetaminophen (Tylenol Tab) 650 mg Q6H PRN PO 08/16/17 16:15 09/15/17 16:14 Sodium Chloride 1,000 ml @ 75 mls/hr [id number] IV 08/16/17 17:15 09/15/17 17:14 Cefazolin Sodium 15 ml @ 225 mls/hr PREOP IV 08/17/17 06:00 08/17/17 15:00 Hydromorphone HCl (Dilaudid Inj) 0.5 mg Q3HWA PRN IV 08/16/17 16:15 08/30/17 16:14 Buspirone HCl (BusPAR TAB) 15 mg BID PO 08/16/17 21:00 09/15/17 20:59 Fluoxetine HCl (Prozac Cap) 40 mg DAILY PO 08/17/17 09:00 09/16/17 08:59 Isosorbide Mononitrate (Imdur Ext Rel Tab) 60 mg QAM PO 08/17/17 09:00 09/16/17 08:59 Nitroglycerin (Nitrostat Tab) 0.4 mg UD PRN UT 08/16/17 18:00 09/15/17 17:59 Rosuvastatin Calcium (Crestor Tab) 40 mg DAILY PO 08/17/17 09:00 09/16/17 08:59 Cholecalciferol (Vitamin D Tab) 2,000 inter.unit DAILY PO 08/17/17 09:00 09/16/17 08:59 Metoprolol Succinate (Toprol Xl Tab) 100 mg BID PO 08/16/17 21:00 09/15/17 20:59 Mycophenolate Mofetil (Cellcept Cap) 1,000 mg BID PO 08/16/17 21:00 09/15/17 20:59 Potassium Chloride (Klor-Con M10) 10 meq BID PO 08/16/17 21:00 09/15/17 20:59 Lactobacillus Acidophilus (Floranex Tab) 1 tab DAILY PO 08/17/17 09:00 09/16/17 08:59 Miscellaneous Information (Nursing Verbal Med Order) 1 ea ONE ONCE N/A 08/16/17 18:15 08/16/17 18:16 UNV Miscellaneous Information (Consult Glycemic Management Pharmacy) 1 ea NOW STAT N/A 08/16/17 18:02 08/16/17 18:03 UNV Review of Systems Review of system Constitutional: No fever / no chills / no sweats / no weakness / no fatigue Eyes: no blurring of vision / no eye pain / no discharge / no redness ENT: no hearing loss / no epistaxis /no swallowing problems Respiratory: no cough / no wheezing / no SOB / no hemoptysis Cardiovascular: no Chest pain / no lower extremity edema / no palpitation Abdomen: no pain / no nausea / no vomiting / no constipation Musculoskeletal: Significant lower back pain, right femur pain, Genitourinary: no dysuria / no incontinence / no urinary retention Neurologic: no focal weakness / no numbness/tingling / no ataxia Psychiatric: no depression symptoms / no anxiety / no insomnia Endocrine: no excessive thirst / no excessive urination Hematologic: no abnormal bleeding / no bruising / no LN swelling Skin: No rash / no pallor Physical Exam Date Time Temp Pulse Resp B/P (MAP) Pulse Ox O2 Delivery O2 Flow Rate FiO2 08/16/17 17:00 36.4 86 18 108/70 (83) 97 Room Air Physical examination General patient appears to be comfortable, not in acute distress HEENT: Atraumatic , normocephalic /no jaundice /no pallor /anicteric /no dry mucous membrane /normal external ear inspection Neck: Supple /no swelling /central trach Heart: S1/S2 normal/regular rate and rhythm/no gallop /no rub /no murmur Lungs: Clear to auscultation bilaterally/normal chest with expansion/no rhonchi/ no rales/no wheezing/no use of accessory muscles of respiration Abdomen: Soft/nontender/no guarding/no rebound/no organomegaly/no pulsatile mass Musculoskeletal: No swelling/no edema/tenderness and decreased range of motion in right hip and lower back Neuro exam: Awake alert oriented 3/cranial nerves II through XII appear to be intact/sensation intact/moves all extremities/no abnormal movements Psychiatric evaluation: No depressed mood/normal affect Skin: No rash on exposed skin area/no erythema Extremity: Normal pulse/no pitting edema/no clubbing or cyanosis Endocrine/lymphatic: No obvious lymphadenopathy /no lymphedema Laboratory Results Last 24 Hours Test 08/16/17 17:02 08/16/17 17:38 08/16/17 17:48 08/16/17 18:18 White Blood Count 8.84 K/uL Red Blood Count 4.48 M/uL Hemoglobin 12.7 g/dL Hematocrit 38.7 % Mean Corpuscular Volume 86.4 fL Mean Corpuscular Hemoglobin 28.3 pg Mean Corpuscular Hemoglobin Concent 32.8 g/dl RDW Standard Deviation 45.6 fL RDW Coefficient of Variation 14.5 % Platelet Count 270 K/uL Mean Platelet Volume 9.5 fL Prothrombin Time 10.4 SECONDS Prothromb Time International Ratio 1.0 Sodium Level 137 mmol/L Potassium Level 4.4 mmol/L Chloride Level 104 mmol/L Carbon Dioxide Level 26 mmol/L Anion Gap 7.0 mmol/L Blood Urea Nitrogen 20 mg/dl Creatinine 1.26 mg/dl Estimated GFR () 51.8 Estimated GFR (Non- 44.7 BUN/Creatinine Ratio 15.9 Random Glucose 171 mg/dl Calcium Level 10.1 mg/dl Bedside Glucose 150 mg/dl Assessment & Plan 67-year-old female with past medical history of hypertension, dyslipidemia, myasthenia gravis, peripheral vascular disease status post left lower extremity venous graft and right arterial stent, CAD status post coronary stent all stents are more than 10 years old. Also has history of left carotid stenosis status post CEA, patient has diabetes mellitus insulin requiring on insulin pump. 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 Assessment Pathologic fracture of shaft of right femur Pathologic compression vertebral fracture with osteolytic metastatic lesions Right breast lesion Diabetes mellitus insulin requiring on insulin pump Hypertension controlled on medication Myasthenia gravis Dyslipidemia Obesity Peripheral vascular disease status post venous graft left lower extremity and arterial stent on right lower extremity Carotid stenosis status post left CEA CAD status post cardiac stent Plan Old patient stents are more than 10 years old. Patient is currently on Plavix and aspirin Last Plavix dose was today, patient will start holding Plavix and aspirin Patient does not have any active chest pain symptoms, despite of significant risk of the procedure, it appears to be that benefits outweighs the risk. Also a biopsy will be obtained from her lesion in the shaft of femur. Timing of the surgery will be left up to the discretion of orthopedic team in regards of the time she stopped her Plavix. Continue her home medications except losartan which will be held to avoid hypotension during the procedure. Continue supportive care. Physical therapy and DVT prophylaxis will be left up to the discretion of primary orthopedic team
[2017-08-16] MEDS ORDERED: GLUCAGON FOR INJ 1 MG VIAL SQ PRN (19:45)
[2017-08-16] MEDS ORDERED: GLUCOSE 40% GEL 15 GM TUBE PO PRN (19:45)
[2017-08-16] MEDS ORDERED: GLUCOSE 10 TABS/TUBE PO PRN (19:45)
[2017-08-16] MEDS ORDERED: INSULIN ASPART 100 UNITS/ML VIAL SC PRN (19:45)
[2017-08-16] MEDS ORDERED: DEXTROSE 50% 50 ML SYR IV PRN (19:45)
[2017-08-16] MEDS: NovoLOG INSULIN PUMP SCH ×2 (20:00→23:51)
--- NOTE | 2017-08-16 20:18 | Pharmacy Progress Note ---
Glycemic: Assessment & Plan Date of Service Aug 16, 2017. Assessment & Plan Pt is a type-I DM with fractured femur, scheduled for surgery to pin 08/17/17. ASSESSMENT: [facility] Endo manages her diabetes. See was last seen 07/26/17 and had the following pump settings noted. She has an OmniPod-Novolog Insulin Pump. * Reported Basal Rates (from Allscripts 07/26/17) * 0000: 2.85 u/hr * 0700: 2 u/hr * 1630: 2.85 u/hr * Total Basal Dose: 60 units * Goal BSG Range: 80-110 mg/dL * Ordered Correction Factor: 15mg/dL/unit * Ordered Carb Ratio: 1 unit per 4 or 5 grams CHO consumed. PLAN: 1. Check BSGs q 4 hours. Continue Pt's Own OmniPod (Novolog) sq Insulin Pump per basal rate settings and correction factor (sensitivity factor). 2. If BSG less than 100mg/dL. Stop insulin sq pump and start IV-Insulin infusion once BSG > 140mg/dL (use q 1 hour BSG monitoring). IV Insulin infusion- -No Bolus. Start infusion at 1.5 units/hour then per insulin calculator to achieve goal BSG 140-180 mg/dL. 3. If BSG > 275mg/dL, stop sq insulin pump. Start IV Insulin infusion--No Bolus. Start infusion at 2 units/hour then per insulin calculator to achieve goal BSG 140-180 mg/dL. Pharmacy will REASSESS 5/1-am with new orders in preparation of upcoming surgery. * Please note that the plan above was derived based on current level of insulin resistance and hospital stress. These recommendations are appropriate for inpatient admission only. Plan of care upon discharge will need to be reassessed to avoid potential outpatient hypo/hyperglycemia.
--- NOTE | 2017-08-16 20:20 | DIAGNOSTIC IMAGING REPORT ---
R FEMUR 2 VIEWS ROUTINE CLINICAL HISTORY: Right Femur mets - need entire femur on film metastatic disease COMPARISON: None. DISCUSSION: Several lytic defects are identified within the right femur. There is a vague 8 mm focal area of demineralization of the femoral neck. The proximal femoral shaft demonstrates a 2 cm lytic defect. At the medial aspect of the proximal femoral shaft is a 1 cm cortical defect. There is a 3 mm cortical defect of the distal femoral shaft. There is soft tissue vascular stents. There is no evidence for soft tissue swelling. IMPRESSION: 1. Several lytic defects involving the proximal and mid right femoral shaft. 2. Less prominent lytic defect involving the distal femoral shaft posteriorly. 3. The largest proximal femoral shaft lesion measures 2 cm 4. Largest distal femoral lesion measures 3 mm. 5. No evidence for fracture or pathologic fracture at this time. The above report was generated using voice recognition software. It may contain grammatical, syntax or spelling errors. Electronically signed by: Bebo Clark M.D. 08/16/2017 8:19 PM Dictated Date/Time: 08/16/2017 8:16 PM
[2017-08-16] MEDS: BusPIRone 15 MG TAB PO SCH (20:42)
[2017-08-16 20:43] VITALS: BP 118/69; PULSE 86
[2017-08-16] MEDS: MYCOPHENOLATE MOFETIL 250 MG CAP (CELLCEPT) PO SCH (20:43)
[2017-08-16] MEDS: POTASSIUM CHLORIDE 10 MEQ TABCR PO SCH (20:43)
[2017-08-16] MEDS: METOPROLOL SUCC 50MG EXT REL TAB PO SCH (20:44)
[2017-08-16 21:12] LABS: PTT PATIENT 23.1 SECONDS (21.0-31.0)
[2017-08-16 23:25] VITALS: BP 104/58; PULSE 72; TEMP 36.7; O2SAT 96
[2017-08-17] VITALS (10 sets, daily range): BP systolic 86–143; BP diastolic 47–73; PULSE 74–93; TEMP 36.3–37.6; O2SAT 90–99; BMI 30.4
[2017-08-17] MEDS: NovoLOG INSULIN PUMP SCH (03:51)
[2017-08-17] MEDS: SODIUM CHLORIDE 0.9% 1000ML 1,000 ML IV SCH (05:21)
[2017-08-17] MEDS ORDERED: D5W AND NSS 1,000 ML IV SCH (05:45)
[2017-08-17] MEDS ORDERED: CEFAZOLIN 2000MG IV PUSH 15 ML IV SCH (06:00)
[2017-08-17] MEDS: OXYCODONE/ACETAMINOPHEN 5-325 TAB PO PRN (07:44)
--- NOTE | 2017-08-17 08:44 | Pharmacy Progress Note ---
Pharmacy Glycemic Short Note 2 Date of Service August 17, 2017. OUTPATIENT ANTIDIABETIC REGIMEN: * [facility] Endo manages her diabetes. See was last seen 07/26/17 and had the following pump settings noted. She has an OmniPod-Novolog Insulin Pump. * Reported Basal Rates (from Allscripts 07/26/17) * 0000: 2.85 u/hr * 0700: 2 u/hr * 1630: 2.85 u/hr * Total Basal Dose: 60 units * Goal BSG Range: 80-110 mg/dL * Ordered Correction Factor: 15mg/dL/unit * Ordered Carb Ratio: 1 unit per 4 or 5 grams CHO consumed. Item Value Date Time Bedside Glucose 150 mg/dl H 08/16/17 1738 Bedside Glucose 121 mg/dl H 08/16/17 2024 Bedside Glucose 105 mg/dl H 08/16/17 2351 Bedside Glucose 68 mg/dl *L 08/17/17 0348 Bedside Glucose 58 mg/dl *L 08/17/17 0449 Bedside Glucose 63 mg/dl *L 08/17/17 0509 Bedside Glucose 118 mg/dl H 08/17/17 0548 Bedside Glucose 192 mg/dl H 08/17/17 0650 ASSESSMENT: * T1DM female currently NPO for surgery this afternoon for fractured femur * Pt remained on insulin pump overnight per outpatient settings and bolused q4hrs * Unfortunately, pt with hypoglycemia around 0400 d/t boluses and continuing full basal rate while NPO * Pump removed for hypoglycemia and D5W IVF started * BSG up to 192 mg/dl after treatment of hypo. * Pt unable to replace her insulin pump because she needs a new site. Pt will need basal insulin despite NPO d/t T1DM. Pt will need ~8-12 hrs of basal insulin coverage while pump off. * Total daily basal rate/needs per insulin pump = 60 units * Pt NPO for surgery, therefore, will reduce outpatient basal dose by 20% ( since T1DM) * Therefore, total basal while NPO - 48 units/day (or ~ 2units/hr) * 2 units/hr * 9hrs hrs (without pump) = 18 units * Will give NPH 18 units now while pump is off and re-evaluate after surgery. PLAN FOR INPATIENT GLYCEMIC CONTROL: * Hold outpatient insulin ppump this morning. May resume post-operatively once supplies brought in by * Basal insulin * NPH 18 units SQ x 1 dose this AM while pump off * Bolus insulin * not needed at this time for NPO
--- NOTE | 2017-08-17 08:53 | Orthopedic Progress Note ---
Orthopedic Progress Note Date of Service August 17, 2017. Subjective Additional Notes: 67 y/o female with continued right thigh/hip pain. No new complaints this am. Objective She's alert/oriented. NAD. Tender to palpation along right thigh. able to DF/ PF. NVI Date Time Temp Pulse Resp B/P (MAP) Pulse Ox O2 Delivery O2 Flow Rate FiO2 08/17/17 07:53 37.0 75 18 108/70 (83) 98 Room Air 08/16/17 23:50 Room Air 08/16/17 23:25 36.7 72 16 104/58 (73) 96 Room Air 08/16/17 20:43 86 118/69 (85) 08/16/17 19:26 Room Air 08/16/17 17:10 Room Air 08/16/17 17:00 36.4 86 18 108/70 (83) 97 Room Air Laboratory Results 24 Hours: Test 08/16/17 17:02 White Blood Count 8.84 K/uL Red Blood Count 4.48 M/uL Hemoglobin 12.7 g/dL Hematocrit 38.7 % Mean Corpuscular Volume 86.4 fL Mean Corpuscular Hemoglobin 28.3 pg Mean Corpuscular Hemoglobin Concent 32.8 g/dl Platelet Count 270 K/uL Mean Platelet Volume 9.5 fL Neutrophils (%) (Auto) 75.4 % Lymphocytes (%) (Auto) 13.8 % Monocytes (%) (Auto) 8.4 % Eosinophils (%) (Auto) 2.0 % Basophils (%) (Auto) 0.2 % Neutrophils # (Auto) 6.68 K/uL Lymphocytes # (Auto) 1.22 K/uL Monocytes # (Auto) 0.74 K/uL Eosinophils # (Auto) 0.18 K/uL Basophils # (Auto) 0.02 K/uL Prothromb Time International Ratio 1.0 Prothrombin Time 10.4 SECONDS Assessment & Plan Assessment: Impending pathologic right femur fx Plan: NPO except meds. Plan for OR today for prophylactic IM nailing of right femur. Procedure explained including risks, benefits, alternatives to surgery. She wished to proceed. Consent obtained. Shahriar's/scd's for dvt prophylaxis
[2017-08-17] MEDS ORDERED: NovoLIN-N (NPH) PER UNIT CHARGE SQ SCH (09:00)
--- NOTE | 2017-08-17 09:20 | Hospitalist Progress Note ---
Hospitalist Progress Note Date of Service August 17, 2017. Objective Vital Signs Date Time Temp Pulse Resp B/P (MAP) Pulse Ox O2 Delivery O2 Flow Rate FiO2 08/17/17 07:53 37.0 75 18 108/70 (83) 98 Room Air 08/16/17 23:50 Room Air 08/16/17 23:25 36.7 72 16 104/58 (73) 96 Room Air 08/16/17 20:43 86 118/69 (85) 08/16/17 19:26 Room Air 08/16/17 17:10 Room Air 08/16/17 17:00 36.4 86 18 108/70 (83) 97 Room Air Laboratory Results Last 24 Hours Test 08/16/17 17:02 08/16/17 17:38 08/16/17 18:25 08/16/17 18:30 White Blood Count 8.84 K/uL Red Blood Count 4.48 M/uL Hemoglobin 12.7 g/dL Hematocrit 38.7 % Mean Corpuscular Volume 86.4 fL Mean Corpuscular Hemoglobin 28.3 pg Mean Corpuscular Hemoglobin Concent 32.8 g/dl Platelet Count 270 K/uL Mean Platelet Volume 9.5 fL Neutrophils (%) (Auto) 75.4 % Lymphocytes (%) (Auto) 13.8 % Monocytes (%) (Auto) 8.4 % Eosinophils (%) (Auto) 2.0 % Basophils (%) (Auto) 0.2 % Neutrophils # (Auto) 6.68 K/uL Lymphocytes # (Auto) 1.22 K/uL Monocytes # (Auto) 0.74 K/uL Eosinophils # (Auto) 0.18 K/uL Basophils # (Auto) 0.02 K/uL RDW Standard Deviation 45.6 fL RDW Coefficient of Variation 14.5 % Immature Granulocyte % (Auto) 0.2 % Immature Granulocyte # (Auto) 0.02 K/uL Nucleated RBC Absolute Count (auto) 0.00 K/uL Nucleated Red Blood Cells % 0.0 % Prothrombin Time 10.4 SECONDS Prothromb Time International Ratio 1.0 Sodium Level 137 mmol/L Potassium Level 4.4 mmol/L Chloride Level 104 mmol/L Carbon Dioxide Level 26 mmol/L Anion Gap 7.0 mmol/L Blood Urea Nitrogen 20 mg/dl Creatinine 1.26 mg/dl Estimated GFR () 51.8 Estimated GFR (Non- 44.7 BUN/Creatinine Ratio 15.9 Random Glucose 171 mg/dl Calcium Level 10.1 mg/dl Total Bilirubin 0.5 mg/dl Aspartate Amino Transf (AST/SGOT) 28 U/L Alanine Aminotransferase (ALT/SGPT) 35 U/L Alkaline Phosphatase 145 U/L Total Protein 7.9 gm/dl Albumin 4.7 gm/dl Globulin 3.2 gm/dl Albumin/Globulin Ratio 1.5 Bedside Glucose 150 mg/dl Procalcitonin 0.06 ng/ml Test 08/16/17 20:24 08/16/17 20:42 08/16/17 23:51 08/17/17 03:48 Bedside Glucose 121 mg/dl 105 mg/dl 68 mg/dl Activated Partial Thromboplast Time 23.1 SECONDS Partial Thromboplastin Ratio 0.9 Test 08/17/17 04:49 08/17/17 05:09 08/17/17 05:48 08/17/17 06:24 Bedside Glucose 58 mg/dl 63 mg/dl 118 mg/dl Magnesium Level 2.0 mg/dl Test 08/17/17 06:50 08/17/17 07:52 Bedside Glucose 192 mg/dl 168 mg/dl Assessment and Plan 67-year-old female with past medical history of hypertension, dyslipidemia, myasthenia gravis, peripheral vascular disease status post left lower extremity venous graft and right arterial stent, CAD status post coronary stent all stents are more than 10 years old. Also has history of left carotid stenosis status post CEA, patient has diabetes mellitus insulin requiring on insulin pump. 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 Pathologic fracture of shaft of right femur Pathologic compression vertebral fracture with osteolytic metastatic lesions - Old patient stents are more than 10 years old. Patient is currently on Plavix and aspirin - Last Plavix dose was today, patient will start holding Plavix and aspirin Patient does not have any active chest pain symptoms, despite of significant risk of the procedure, it appears to be that benefits outweighs the risk. - Also a biopsy will be obtained from her lesion in the shaft of femur. - Timing of the surgery will be left up to the discretion of orthopedic team in regards of the time she stopped her Plavix. - Continue her home medications except losartan which will be held to avoid hypotension during the procedure. Right breast lesion Diabetes mellitus insulin requiring on insulin pump Hypertension controlled on medication Myasthenia gravis Dyslipidemia Obesity Peripheral vascular disease status post venous graft left lower extremity and arterial stent on right lower extremity Carotid stenosis status post left CEA CAD status post cardiac stent Plan DVT ppx: Physical therapy and DVT prophylaxis will be left up to the discretion of primary orthopedic team
[2017-08-17] MEDS: BusPIRone 15 MG TAB PO SCH ×2 (09:34→20:35)
[2017-08-17] MEDS: ROSUVASTATIN CALCIUM 20 MG TAB PO SCH (09:35)
[2017-08-17] MEDS: LACTOBACILLUS ACIDOPHILUS (FLORANEX) TAB PO SCH (09:36)
[2017-08-17] MEDS: POTASSIUM CHLORIDE 10 MEQ TABCR PO SCH (09:36)
[2017-08-17] MEDS: CHOLECALCIFEROL 1000 INTER.UNIT TAB PO SCH (09:37)
[2017-08-17] MEDS: FLUOXETINE HCL 20 MG CAP PO SCH (09:37)
[2017-08-17] MEDS ORDERED: LIDOCAINE HCL 2% 2 ML VIAL (20MG/ML) ONE (09:38)
[2017-08-17] MEDS ORDERED: MIDAZOLAM HCL 1 MG/ML 2ML VIAL ONE (09:38)
[2017-08-17] MEDS: MYCOPHENOLATE MOFETIL 250 MG CAP (CELLCEPT) PO SCH ×2 (09:38→20:36)
[2017-08-17] MEDS ORDERED: FENTANYL CITRATE INJ 50 MCG/1 ML 2 ML VIAL ONE (09:38)
[2017-08-17] MEDS ORDERED: PROPOFOL IV EMULSION 10 MG/ML 20 ML VIAL ONE (09:38)
[2017-08-17] MEDS ORDERED: EpHEDrine SULFATE 50MG/5ML SYR ONE (09:38)
[2017-08-17] MEDS: METOPROLOL SUCC 50MG EXT REL TAB PO SCH ×2 (09:46→20:39)
[2017-08-17] MEDS: ISOSORBIDE MONONITRATE 60 MG TABCR PO SCH (09:47)
--- NOTE | 2017-08-17 09:59 | History & Physical Bridge Note ---
H&P Re-Evaluation Bridge Note: I have examined the patient, reviewed the History & Physical and in the interval since the performance of the History & Physical I have noted the following changes of clinical significance: No changes noted
[2017-08-17] MEDS ORDERED: ONDANSETRON INJ 2 MG/ML 2 ML VIAL ONE (10:52)
--- NOTE | 2017-08-17 10:54 | PROGRESS NOTE ---
DATE: 08/17/2017 SUBJECTIVE: A 67-year-old female admitted from our clinic yesterday with impending pathological fracture of her right femur. The exact primary is unknown. She got multiple metastatic lesions including her cervical and thoracic spine as well as her skull and possible abdomen. No new complaints. She describes isolated thigh pain. She is ready to have her thigh fixed. OBJECTIVE: VITAL SIGNS: Temperature is 37.0. Stable. GENERAL: Examination reveals a pleasant middle-aged female, looks a little bit older than her stated age. She is lying in bed, looks pretty comfortable. EXTREMITIES: Examination of the right leg reveals no obvious deformity. There are no palpable masses. Leg lengths are equal. Minimal pain with hip and knee motion. No knee effusion. She is neurologically intact. IMAGING: X-rays of the right femur were reviewed. She has multiple lytic lesions in her femur extending from the subtroch region down to the distal diaphyseal region. ASSESSMENT: A 67-year-old female with impending pathological fracture of her right femur from unknown primary. There is certainly a metastatic disease. PLAN: We talked about treatment options with the patient as well as with her oncologist. We are going to proceed with prophylactic IM nailing. We will send the reamings off for pathological evaluation. The risks and benefits of this procedure were explained to the patient in depth and include but not limited to DVT, PE, , infection, neurological injury, vascular injury, bleeding problem, pain, persistent pain, fracture despite the nailing, etc. The patient understands and desires to proceed. Informed consent was obtained.
[2017-08-17] MEDS ORDERED: SUCCINYLCHOLINE CHLORIDE 20 MG/ML 10 ML VIAL IV ONE (11:20)
[2017-08-17] MEDS ORDERED: BUPIVACAINE 0.25% 30 ML VIAL ONE (11:53)
[2017-08-17] MEDS ORDERED: EpINEphrine INJ 1MG/ML AMP 1 MG/ML AMP ONE (11:53)
[2017-08-17] MEDS ORDERED: HYDROmorphone INJ 2 MG/ML SYR/VIAL ONE (12:21)
[2017-08-17] MEDS ORDERED: ONDANSETRON INJ 2 MG/ML 2 ML VIAL IV PRN (13:15)
[2017-08-17] MEDS ORDERED: PHENYLEPHRINE 100MCG/ML 5ML SYR IV PRN (13:15)
[2017-08-17] MEDS ORDERED: ATROPINE SULFATE 0.1 MG/ML 5ML SYR IV PRN (13:15)
[2017-08-17] MEDS ORDERED: EpHEDrine SULFATE INJ 50 MG/ML AMP IV PRN (13:15)
[2017-08-17] MEDS ORDERED: HYDROmorphone INJ 2 MG/ML SYR/VIAL IV PRN (13:15)
--- NOTE | 2017-08-17 13:16 | DIAGNOSTIC IMAGING REPORT ---
INTRAOPERATIVE RADIOGRAPHS CLINICAL HISTORY: Internal fixation of the right hip. Femoral metastases. Fluoroscopy time: 67 seconds. FINDINGS: 4 spot fluoroscopic views of the right hip are presented. Intertrochanteric and intramedullary nails have been placed. A single screw transfixes the distal aspect of the intramedullary nail. No fracture is clearly identified on the fluoroscopic images. A stent is noted in the right femoral artery. IMPRESSION: Intraoperative images from intertrochanteric and intramedullary nail placement in the right femur. Electronically signed by: Emile Godwin M.D. 08/17/2017 1:15 PM Dictated Date/Time: 08/17/2017 1:13 PM
--- NOTE | 2017-08-17 13:22 | [facility] Post Operative Brief Note ---
Immediate Operative Summary Operative Date August 17, 2017. Pre-Operative Diagnosis Right thigh pain with impending pathological fracture of her right femur with likely metastatic disease. Post-Operative Diagnosis Same Procedure(s) Performed 1.) Right Long Trochanteric nail of Impending Pathological Femur Fracture 2.) Biopsy Right Femur Surgeon Dr. Garo Perkins Brand Mgr Surgeon(s) Clint Urbina PA-C Estimated Blood Loss 100ml Findings Consistent with Post-Op Diagnosis Specimens A: Right IM reaming of femur B: Currettings of right femur Drains None Anesthesia Type General Complication(s) none Disposition Accompanied Pt To Recover: no Disposition: Recovery Room / PACU
[2017-08-17] MEDS ORDERED: NovoLOG INSULIN PUMP SCH (13:30)
[2017-08-17] MEDS ORDERED: METOCLOPRAMIDE HCL INJ 5 MG/ML 2 ML VIAL IV PRN (13:30)
[2017-08-17] MEDS ORDERED: BISACODYL 10 MG SUPP PR PRN (13:30)
[2017-08-17] MEDS ORDERED: ALUMINUM/MAGNESIUM/SIMETH (MAALOX MAX) 30 ML UDC PO PRN (13:30)
[2017-08-17] MEDS ORDERED: ZOLPIDEM TARTRATE 5 MG TAB PO PRN (13:30)
[2017-08-17] MEDS ORDERED: MAGNESIUM HYDROXIDE SUSP 30 ML UDC PO PRN (13:30)
--- NOTE | 2017-08-17 14:24 | Anesthesiology Progress Note ---
Anesthesia Post Op Note Date & Time August 17, 2017 at 14:24 Vital Signs Pain Intensity: 0 Vital Signs Past 12 Hours Date Time Temp Pulse Resp B/P (MAP) Pulse Ox O2 Delivery O2 Flow Rate FiO2 08/17/17 14:15 74 12 117/56 100 Nasal Cannula 2 08/17/17 14:05 36.6 74 16 129/66 98 Nasal Cannula 2 08/17/17 13:55 73 13 133/63 99 Nasal Cannula 2 08/17/17 13:45 74 11 125/66 100 Oxymask 10 08/17/17 13:35 79 13 136/73 99 Oxymask 10 08/17/17 13:25 36.8 82 13 145/67 97 Oxymask 10 08/17/17 09:44 86 130/73 (92) 08/17/17 07:53 37.0 75 18 108/70 (83) 98 Room Air 08/17/17 07:30 Room Air Notes Mental Status: alert / awake / arousable, participated in evaluation Pt Amnestic to Procedure: Yes Nausea / Vomiting: adequately controlled Pain: adequately controlled Airway Patency, RR, SpO2: stable & adequate BP & HR: stable & adequate Hydration State: stable & adequate Anesthetic Complications: no major complications apparent
[2017-08-17] MEDS ORDERED: INSULIN HUMAN NPH SC ONE (15:00)
[2017-08-17] MEDS ORDERED: INSULIN ASPART 100 UNITS/ML 3 ML PEN SC ONE (15:00)
[2017-08-17] MEDS: OXYCODONE HCL IR 5 MG TAB (IMMEDIATE RELEASE) PO PRN (15:08)
--- NOTE | 2017-08-17 16:18 | OPERATIVE REPORT ---
DATE OF OPERATION: 08/17/2017 SYSTEMS DESIGN ENGINEER: Jagjit BRAUN. PREOPERATIVE DIAGNOSIS: Right impending pathological femur fracture from metastatic disease. POSTOPERATIVE DIAGNOSIS: Right impending pathological femur fracture from metastatic disease. PROCEDURES PERFORMED: 1. Right femur long cephalomedullary prophylactic intramedullary nailing. 2. Right femur biopsy. COMPLICATIONS: None. ESTIMATED BLOOD LOSS: 100 mL FLUID REPLACEMENT: 1750 mL of crystalloid fluid replacement. ANESTHESIA: General. SPECIMENS: 1. Right femur reaming sent for pathology. 2. Right femur curettings sent for pathology. OPERATIVE INDICATIONS: The patient is a 67-year-old female who has had about a 2 months history of increasing right thigh pain and discomfort. She had an extensive workup which revealed likely metastatic disease with lesions to her lumbar and cervical spine as well as her skull and possibly abdominal area and right femur. She was indicated for prophylactic IM nailing of a right impending femur fracture as well as biopsy the tissue. OPERATIVE IMPLANTS: Consisted of 1. Synthes right 320 mm x 10 mm long trochanteric nail. 2. An 80 mm helical blade. 3. A 5.0 x 38 mm distal interlocking screw. OPERATIVE PROCEDURE: The patient was taken to the operating room, identified and placed on the operating room table in supine position. All contact areas were appropriately padded. IV antibiotics provided by anesthesia team. A general anesthetic was implemented by the anesthesia team. The patient was then placed on the fracture table. The right leg was placed in boot traction, and the left leg was placed in a well leg wilkins. I then applied some longitudinal traction to the leg and internally rotated the foot so that the kneecap pointed to the ceiling. X-rays brought in, and we could get adequate x-rays. The right leg was then scrubbed with Hibiclens, then prepped with ChloraPrep, and draped in the usual sterile fashion. A slightly curvilinear incision was made just proximal to the tip of the greater trochanter. Sharp dissection was carried through subcutaneous tissue down to the level of the gluteal fascia. The gluteal fascia was incised longitudinally in line with skin incision. I then took a guidewire and placed guidewire just lateral to the tip of the trochanter in line with the IM canal in both the AP and lateral planes. It was advanced down the IM canal. It was overreamed with a 17 mm reamer. Guidewire was removed. We did send some of these reamings off for pathology. I, also, used a curet to curet some of the intramedullary canal contents to sent for pathology. The ball tipped guidewire was then placed. I measured for nail length, and a 320 mm nail was selected. I then made a stab incision in the area of the proposed helical blade and drilled a 4.0mm hole in the lateral cortex to vent the femur and allow marrow content to escape during reaming and placing the nail. I then reamed over the guidewire beginning with a size 10 and progressing up to 11.5 mm reamer. We sent all the reamings we could get for pathology as well. A 320 mm x 10 mm long trochanteric nail was placed over the guidewire. We tapped this into position. The lateral aiming arm was attached. The distal stab incision was extended proximally. The lateral aiming arm was advanced to the lateral aspect of the femur. A guidewire was placed in the central aspect of the femoral head and neck in both the AP and lateral planes. I measured for a helical blade length. A cortical step drill was then used to breach the cortex for the helical blade. We did take these reamings and sent them for pathology as well. I did also place a curette in the IM canal before placing the nail and sent these intramedullary contents for analysis. I then overreamed the guidewire with a triple reamer. An 80 mm helical blade was then placed. The proximal set screw was tightened. The lateral aiming arm was removed, and some final x-rays were obtained. Attention was then drawn toward distal interlocking. Using the perfect [place] technique, a distal interlocking screw was placed in the central aspect of the dynamic hole. Stab incision was made. I drilled across the canal with a 4.0 drill bit. A 35.0 x 38 mm interlocking screw was selected and placed through the distal interlocking hole. Some final x-rays were obtained. Attention was then drawn toward closing. All wounds were irrigated with copious amounts of normal saline. I injected locally with 30 mL of 0.5% Marcaine with epinephrine. The gluteal fascia and the IT band of all wounds were closed with #1 Vicryl suture in running fashion. The subcutaneous tissues of all incisions were closed with 2-0 Dexon suture in buried interrupted fashion. Skin was closed with skin tex. Leg was then cleaned and dried, and a sterile dressing of Xeroform, 4x4s, sterile ABD pad, and foam tape was applied. The patient was then taken off the fracture table. She was brought out of general anesthesia and transferred to the recovery room in stable condition. The patient tolerated the procedure well without complication. All needle and sponge counts were correct at the end of the operation. I attest to the content of the Intraoperative Record and any orders documented therein. Any exceptions are noted below. MTDD
[2017-08-17] MEDS: FERROUS GLUCONATE 324 MG TAB PO SCH (17:45)
[2017-08-17] MEDS: ONDANSETRON INJ 2 MG/ML 2 ML VIAL IV PRN (18:13)
--- NOTE | 2017-08-17 18:21 | Hospitalist Progress Note ---
Hospitalist Progress Note Date of Service August 17, 2017. Subjective Pt evaluation today including: conversation w/ patient, conversation w/ family , chart review (reviewed outpatient records) Voiding: no voiding problems Pt returned from surgery this evening. Denies pain. Is having her usual nausea and feels like she is going to vomit. Has a long h/o gastroparesis, but feels she has vomited almost daily for the last 3 months, not related to opioid pain meds. No abd pain, no blood in stool, no hematemesis, no CP or SOB. Does have right shoulder pain with shooting pains down rt arm for months. Constitutional: No fever Eyes: No problem reported ENT: No problem reported Respiratory: No shortness of breath Cardiovascular: No chest pain Breast: No problem reported Abdomen: + nausea, + vomiting, No diarrhea, No constipation, No GI bleeding Musculoskeletal: + joint pain Female : No problem reported Neurologic: No problem reported Psychiatric: No problem reported Heme: No problem reported Endo: No problem reported Skin: No problem reported All Other Systems: Reviewed and Negative Objective Vital Signs Date Time Temp Pulse Resp B/P (MAP) Pulse Ox O2 Delivery O2 Flow Rate FiO2 08/17/17 17:33 36.8 86 16 97/58 (71) 97 Nasal Cannula 2.0 08/17/17 16:27 36.7 83 18 91/48 (62) 99 Nasal Cannula 2.0 08/17/17 15:34 36.3 86 16 90/47 (61) 99 Nasal Cannula 2.0 08/17/17 15:30 Nasal Cannula 2.0 08/17/17 15:00 36.7 82 18 113/67 (82) 99 Nasal Cannula 2.0 08/17/17 14:30 36.6 74 16 143/71 (95) 98 Nasal Cannula 2.0 08/17/17 14:30 98 Nasal Cannula 2.0 08/17/17 14:15 74 12 117/56 100 Nasal Cannula 2 08/17/17 14:05 36.6 74 16 129/66 98 Nasal Cannula 2 08/17/17 13:55 73 13 133/63 99 Nasal Cannula 2 08/17/17 13:45 74 11 125/66 100 Oxymask 10 08/17/17 13:35 79 13 136/73 99 Oxymask 10 08/17/17 13:25 36.8 82 13 145/67 97 Oxymask 10 08/17/17 09:44 86 130/73 (92) 08/17/17 07:53 37.0 75 18 108/70 (83) 98 Room Air 08/17/17 07:30 Room Air 08/16/17 23:50 Room Air 08/16/17 23:25 36.7 72 16 104/58 (73) 96 Room Air 08/16/17 20:43 86 118/69 (85) 08/16/17 19:26 Room Air Physical Exam General Appearance: WD/WN, no apparent distress Eyes: normal inspection, EOMI, sclerae normal ENT: hearing grossly normal, pharynx normal, + pertinent finding (bulbous nose with mild erythema) Neck: trachea midline Respiratory/Chest: lungs clear, normal breath sounds, no respiratory distress, no accessory muscle use Cardiovascular: regular rate, rhythm, no edema, no gallop, no murmur Abdomen: normal bowel sounds, non tender, soft, no organomegaly Extremities: no pedal edema, no calf tenderness, + pertinent finding (rt hip in dressing not removed) Neurologic/Psychiatric: alert, normal mood/affect, oriented x 3 Skin: normal color, warm/dry, no rash Laboratory Results Last 24 Hours Test 08/16/17 18:25 08/16/17 18:30 08/16/17 20:24 08/16/17 20:42 Procalcitonin 0.06 ng/ml Bedside Glucose 121 mg/dl Activated Partial Thromboplast Time 23.1 SECONDS Partial Thromboplastin Ratio 0.9 Test 08/16/17 23:51 08/17/17 03:48 08/17/17 04:49 08/17/17 05:09 Bedside Glucose 105 mg/dl 68 mg/dl 58 mg/dl 63 mg/dl Test 08/17/17 05:48 08/17/17 06:24 08/17/17 06:50 08/17/17 07:52 Bedside Glucose 118 mg/dl 192 mg/dl 168 mg/dl Magnesium Level 2.0 mg/dl Hepatitis C Antibody Screen NEG Test 08/17/17 10:46 08/17/17 13:29 08/17/17 17:03 Bedside Glucose 202 mg/dl 210 mg/dl 195 mg/dl Assessment and Plan Ths pt is a 67-year-old female with past medical history of hypertension, dyslipidemia, myasthenia gravis since age 15 s/p thymectomy x 2, peripheral vascular disease status post left lower extremity venous graft and right arterial stent, CAD status post coronary stent 10 years ago. Also has history of left carotid stenosis status post CEA, patient has diabetes mellitus insulin requiring on insulin pump, and gastroparesis. Patient was found to have multiple metastatic osteolytic lesions to lower back with compression fractures , Cspine lesions with possible C7 spinous process fracture, and with impending pathologic fracture shaft of right femur. Also with breast mass,ovarian cystic lesion, and rectal mass on imaging. Impending Pathologic fracture of shaft of right femur-with multiple osteolytic bony lesions on imaging recently. Now POD#0 right hip nailing. -Orthopedics/primary service post-op management -restarted home ASA, Plavix which can serve as DVT proph -pain control prn -biopsy of bone pending Pathology Pathologic compression vertebral fracture/C7 bony lesions and possible spinous process fracture- with osteolytic likely metastatic lesions . CT abd/pel with redemonstration of the pathologic compression fractures within the L1 and L3 vertebral bodies. These demonstrate tumor extension into the epidural space. This is better appreciated on the recent lumbar spine MRI. -likely with metastatic disease, unknown primary -await pathology results of bone -Consult Heme/Onc while here -consider Ortho spine consult vs Rad Onc Progressively worsening N/V x 2-3 months/Chronic gastroparesis/Early satiety -continue Zofran and add reglan prn -consider EGD in future Right breast lesion-seen on recent CT abd/pel. A mammogram was ordered as outpt by Oncology-awaiting for this to be completed Ovarian cyst- 4.2 cm cyst within the left adnexa seen on recent CT. This is considered pathologic in a postmenopausal female. This is nonspecific and could represent an adnexal cyst, hydrosalpinx, or exophytic ovarian cyst. Neoplasm is considered less likely but not entirely excluded. Gynecologic consultation recommended as an outpt LLQ mass seen on CT--> An ill-defined 11 mm soft tissue nodule within the left lower quadrant adjacent to the descending colon. This is of uncertain clinical significance. One month abdomen and pelvis CT follow is recommended to exclude the possibility of a peritoneal implant. CAD status post cardiac stent/CARLIE status post left CEA/HTN/HL-stable -continue ASA, Plavix, statin, Toprol XL, Imdur -holding lisinopril in post-op period in case of renal dysfunction and low blood pressures Diabetes mellitus insulin requiring on insulin pump-off pump now, Pharmacy Glycemic consult in place -basal bolus insulin -accuchecks Myasthenia gravis s/p tracheostomy x 3 for VDRF-stable for many years, trach removed 10 yrs ago -continue CellCept Obesity, BMI 30.3 PAD status post bilat iliac artery stents-stable -continue ASA,Plavix, statin as above Proph-SCDs, ASA, Plavix Dispo-to home when stable from Ortho perspective
[2017-08-17] MEDS: INSULIN ASPART 100 UNITS/ML 3 ML PEN SC SCH ×2 (18:22→20:45)
[2017-08-17] MEDS ORDERED: METOCLOPRAMIDE HCL INJ 5 MG/ML 2 ML VIAL IV. PRN (18:30)
[2017-08-17] MEDS ORDERED: RXC5 PO (19:40)
[2017-08-17] MEDS ORDERED: ACET-24 PO (19:40)
--- NOTE | 2017-08-17 19:43 | Discharge Instructions ---
Discharge Instructions Date of Service August 17, 2017. Admission Reason for Admission: Impending Pathologic Fracture Discharge Discharge Diagnosis / Problem: Right Femur IM Nailing for impending fracture Discharge Goals Goal(s): Decrease discomfort, Improve function, Increase independence, Improve disease control Activity Recommendations Activity Limitations: per Instructions/Follow-up section Weightbearing Status: Right weightbearing . Instructions / Follow-Up Instructions / Follow-Up May fully Weight-bear on right leg as tolerated Return to clinic 2 weeks from surgery date for suture/staple removal. Current Hospital Diet Patient's current hospital diet: Diabetes Type 2 Diet Discharge Diet Recommended Diet: Diabetes Type 2 Diet Procedures Procedures Performed: 1.) Right Long Trochanteric nail of Impending Pathological Femur Fracture 2.) Biopsy Right Femur Pending Studies Studies pending at discharge: no Medical Emergencies . Who to Call and When: Medical Emergencies: If at any time you feel your situation is an emergency, please call 911 immediately. . Non-Emergent Contact Non-Emergency issues call your: Surgeon . "Provider Documentation" section prepared by Connor Perkins. .
[2017-08-17] MEDS: SENNA 8.6 MG TAB PO SCH (20:34)
[2017-08-17] MEDS: DOCUSATE SODIUM 100 MG CAP PO SCH (20:37)
[2017-08-17] MEDS: CEFAZOLIN IV 2,000 MG in SYRINGE 0 ML IV SCH (20:47)
[2017-08-17] MEDS: ACETAMINOPHEN 500 MG TAB PO SCH (21:00)
[2017-08-18] VITALS (9 sets, daily range): BP systolic 82–132; BP diastolic 43–77; PULSE 85–109; TEMP 37.2–38; O2SAT 89–99; BMI 30.4
[2017-08-18] MEDS: OXYCODONE HCL IR 5 MG TAB (IMMEDIATE RELEASE) PO PRN ×4 (00:19→21:55)
[2017-08-18] MEDS: CEFAZOLIN IV 2,000 MG in SYRINGE 0 ML IV SCH (03:40)
[2017-08-18] MEDS: ACETAMINOPHEN 500 MG TAB PO SCH ×2 (05:10→13:37)
[2017-08-18 08:04] LABS: HEMOGLOBIN A1C 8.3 % (4.5-5.6)
[2017-08-18] MEDS ORDERED: INSULIN HUMAN NPH SC SCH (08:30)
[2017-08-18] MEDS: BusPIRone 15 MG TAB PO SCH ×2 (08:43→21:35)
[2017-08-18] MEDS: DOCUSATE SODIUM 100 MG CAP PO SCH ×2 (08:44→21:35)
[2017-08-18] MEDS: FERROUS GLUCONATE 324 MG TAB PO SCH ×3 (08:44→18:51)
[2017-08-18] MEDS: MYCOPHENOLATE MOFETIL 250 MG CAP (CELLCEPT) PO SCH ×2 (08:45→21:35)
[2017-08-18] MEDS: ROSUVASTATIN CALCIUM 20 MG TAB PO SCH (08:45)
[2017-08-18] MEDS: MULTIVITAMIN TAB PO SCH (08:46)
[2017-08-18] MEDS: CLOPIDOGREL BISULFATE 75 MG TAB PO SCH (08:46)
[2017-08-18] MEDS: LACTOBACILLUS ACIDOPHILUS (FLORANEX) TAB PO SCH (08:46)
[2017-08-18] MEDS: PANTOprazole SOD 40 MG TAB PO SCH (08:46)
[2017-08-18] MEDS: ASPIRIN 81 MG ECTAB PO SCH (08:46)
[2017-08-18] MEDS: FLUOXETINE HCL 20 MG CAP PO SCH (08:47)
[2017-08-18] MEDS: CHOLECALCIFEROL 1000 INTER.UNIT TAB PO SCH (08:47)
[2017-08-18] MEDS: INSULIN ASPART 100 UNITS/ML 3 ML PEN SC SCH ×4 (08:58→21:39)
[2017-08-18] MEDS: INSULIN HUMAN NPH SC SCH ×2 (08:59→18:48)
[2017-08-18] MEDS ORDERED: LISINOPRIL 20 MG TAB PO SCH (09:00)
[2017-08-18] MEDS ORDERED: METOPROLOL SUCC 50MG EXT REL TAB PO SCH (09:30)
--- NOTE | 2017-08-18 11:37 | PROGRESS NOTE ---
DATE: 08/18/2017 SUBJECTIVE: A 67-year-old white female postop day 1 from IM nailing of a right impending pathological femur fracture as well as biopsy. She is doing well. Having a moderate amount of pain. Therapy went pretty well this morning. She is doing okay with the pain medicines. No chest pain or shortness of breath. Not feeling dizzy or lightheaded. OBJECTIVE: VITAL SIGNS: Temperature is 37.5. Vital signs stable. GENERAL: Reveals a pleasant elderly female. She is sitting up in bed and talking to her . She looks comfortable. EXTREMITIES: Examination of the right leg reveals the leg to be well aligned. Dressing is clean, dry, and intact. Minimal swelling. She can dorsiflex and plantarflex her foot appropriately. ASSESSMENT: A 67-year-old white female postop day 1 from IM nailing of an impending pathological femur fracture as well as biopsy. The pathology results are pending. PLAN: 1. DVT prophylaxis including thigh-high TEDs, SCDs, and back on her Plavix as well as her baby aspirin once a day. I think this is adequate for her intervention. 2. PT/OT. She can fully weightbear on this right leg. 3. Pain control. Doing reasonably well with current pain regimen. 4. Disposition. Plan to discharge to home. We gave her options of alternatives and she has elected to go home and I think she can do fine with her 's assistance. I will see her back 2 weeks' postop. SHEKHAR
[2017-08-18] MEDS: SODIUM CHLORIDE 0.9% 1000ML 1,000 ML IV SCH ×2 (14:01→23:27)
[2017-08-18 14:03] LABS: CALCIUM 8.9 mg/dl (8.5-10.1); CREATININE 0.9 mg/dl (0.60-1.20); POTASSIUM 3.3 mmol/L (3.5-5.1)
[2017-08-18 14:09] LABS: HEMATOCRIT 27.7 % (37-47); HEMOGLOBIN 9.1 g/dL (12.0-16.0); MEAN CELL VOLUME 86.6 fL (80-100); MEAN CORPUSCULAR HEMOGLOBIN 28.4 pg (25-34); MEAN CORPUSCULAR HGB CONC 32.9 g/dl (32-36); MEAN PLATELET VOLUME 9.1 fL (7.4-10.4); PLATELET COUNT 177 K/uL (130-400); RED CELL DISTRIBUTION WIDTH CV 14.4 % (11.5-14.5); RED CELL DISTRIBUTION WIDTH SD 45.6 fL (36.4-46.3); WHITE BLOOD COUNT 7.17 K/uL (4.8-10.8)
--- NOTE | 2017-08-18 14:31 | Pharmacy Progress Note ---
Pharmacy Glycemic Short Note 2 Date of Service August 18, 2017. OUTPATIENT ANTIDIABETIC REGIMEN: * [facility] Endo manages her diabetes. See was last seen 07/26/17 and had the following pump settings noted. She has an OmniPod-Novolog Insulin Pump. * Reported Basal Rates (from Allscripts 07/26/17) * 0000: 2.85 u/hr * 0700: 2 u/hr * 1630: 2.85 u/hr * Total Basal Dose: 60 units * Goal BSG Range: 80-110 mg/dL * Ordered Correction Factor: 15mg/dL/unit * Ordered Carb Ratio: 1 unit per 4 or 5 grams CHO consumed. Test 08/17/17 17:03 08/17/17 20:37 08/18/17 08:15 08/18/17 13:18 Bedside Glucose 195 mg/dl (70-90) 190 mg/dl (70-90) 190 mg/dl (70-90) Random Glucose 200 mg/dl (70-99) ASSESSMENT: 08/18/17 * Patient was transitioned to SQ basal/bolus dosing yesterday and received a total of 70 units * BSGs remain slightly above goal * She was going to be discharged today but this has now been held until tomorrow d/t orthostatic issues * She will receive her outpatient dose of basal today, slightly higher than what she received yesterday, so I'm hesitant to make changes at this point * CR already fairly aggressive so will just tighten CF slightly to provide more correctional if necessary 08/17/17 * T1DM female currently NPO for surgery this afternoon for fractured femur * Pt remained on insulin pump overnight per outpatient settings and bolused q4hrs * Unfortunately, pt with hypoglycemia around 0400 d/t boluses and continuing full basal rate while NPO * Pump removed for hypoglycemia and D5W IVF started * BSG up to 192 mg/dl after treatment of hypo. * Pt unable to replace her insulin pump because she needs a new site. Pt will need basal insulin despite NPO d/t T1DM. Pt will need ~8-12 hrs of basal insulin coverage while pump off. * Total daily basal rate/needs per insulin pump = 60 units * Pt NPO for surgery, therefore, will reduce outpatient basal dose by 20% ( since T1DM) * Therefore, total basal while NPO - 48 units/day (or ~ 2units/hr) * 2 units/hr * 9hrs hrs (without pump) = 18 units * Will give NPH 18 units now while pump is off and re-evaluate after surgery. PLAN FOR INPATIENT GLYCEMIC CONTROL * Basal insulin * NPH 30 units BID - utilizing NPH for easier transition back to pump * Bolus insulin * Novolog ACHS * Goal 120-150 * TIGHTEN CF to 12 * CR 4 * Resume insulin pump on discharge as discussed w/ patient yesterday * Diet has been changed from type 2 to type 1
[2017-08-18] MEDS ORDERED: POTASSIUM CHLORIDE 20 MEQ TABCR PO STA (15:19)
[2017-08-18] MEDS: MAGNESIUM SULFATE 1GM / D5W 100 ML IV SCH ×2 (16:22→17:41)
--- NOTE | 2017-08-18 20:51 | Progress Note ---
Subjective Date of Service: August 18, 2017. Subjective Pt evaluation today including: conversation w/ patient, conversation w/ family ( at bedside), physical exam, chart review, lab review, review of inpatient medication list Pain: right leg, back PO Intake: fair Voiding: no voiding problems patient with significantly positive orthostatics today with 50-point drop in systolic BP w/ standing also, supine BPs were low most of yesterday & overnight she feels tired surprisingly she denies significant lightheadedness no stool yet but passing flatus Problem List Medical Problems: (1) Diarrhea Status: Acute (2) Hypoglycemia Status: Acute (3) Strain of lumbar region Status: Acute Review of Systems Constitutional: No chills Respiratory: No cough, No shortness of breath, No dyspnea on exertion Cardiac: No chest pain Abdomen: + constipation, No pain Female : No dysuria Objective Vital Signs Date Time Temp Pulse Resp B/P (MAP) Pulse Ox O2 Delivery O2 Flow Rate FiO2 08/18/17 16:54 Room Air 08/18/17 15:06 37.6 90 18 95/57 (70) 94 Room Air 08/18/17 12:52 93 130/77 (94) 100 132/75 (94) 109 82/43 (56) 08/18/17 11:27 37.5 94 18 91 Room Air 08/18/17 11:00 37.5 94 18 122/72 (89) 91 Room Air 08/18/17 10:33 91 106/64 (78) 08/18/17 07:30 Room Air 08/18/17 07:23 37.2 85 18 98/60 (73) 93 Room Air 08/18/17 02:57 37.4 86 14 91/50 (64) 91 Room Air 08/18/17 00:20 Room Air 08/17/17 23:46 37.6 88 14 86/47 (60) 90 Room Air 91 94/52 (66) 08/17/17 20:39 93 111/56 (74) Physical Exam General Appearance: no apparent distress ENT: + pertinent finding (MM dry) Neck: no JVD Respiratory/Chest: lungs clear, no respiratory distress, no accessory muscle use Cardiovascular: regular rate, rhythm, no gallop, no murmur Abdomen: normal bowel sounds, non tender, soft, no organomegaly Extremities: + swelling (right thigh) Neurologic/Psychiatric: alert, oriented x 3 Skin: + pertinent finding (dressings intact right leg) Laboratory Results Last 24 Hours Test 08/18/17 07:27 08/18/17 08:15 08/18/17 12:09 08/18/17 13:18 Estimated Average Glucose 192 mg/dl Hemoglobin A1c 8.3 % Bedside Glucose 190 mg/dl 208 mg/dl White Blood Count 7.17 K/uL Red Blood Count 3.20 M/uL Hemoglobin 9.1 g/dL Hematocrit 27.7 % Mean Corpuscular Volume 86.6 fL Mean Corpuscular Hemoglobin 28.4 pg Mean Corpuscular Hemoglobin Concent 32.9 g/dl RDW Standard Deviation 45.6 fL RDW Coefficient of Variation 14.4 % Platelet Count 177 K/uL Mean Platelet Volume 9.1 fL Sodium Level 136 mmol/L Potassium Level 3.3 mmol/L Chloride Level 102 mmol/L Carbon Dioxide Level 26 mmol/L Anion Gap 8.0 mmol/L Blood Urea Nitrogen 11 mg/dl Creatinine 0.90 mg/dl Est Creatinine Clear Calc Drug Dose 52.3 ml/min Estimated GFR () 77.8 Estimated GFR (Non- 67.1 BUN/Creatinine Ratio 12.5 Random Glucose 200 mg/dl Calcium Level 8.9 mg/dl Magnesium Level 1.6 mg/dl Test 08/18/17 17:01 Bedside Glucose 188 mg/dl Assessment and Plan 67yo female - 1. impending Pathologic fracture of shaft of right femur, POD#1 s/p right hip nailing - path pending. Appreciate orthopedic assistance. Asa/plavix for DVT proph. Pain control. 2. Pathologic compression vertebral fracture of L1/L3, C7 bony lytic lesions - likely due to metastatic disease from unknown primary. Await intra-op pathology report. Pain control. Heme/onc consulted for their opinion and any other additional recommendations. 3. severe orthostasis - check cortisol level in am, r/o adrenal insufficiency. this may be due to acute blood loss anemia with poor oral intake. holding SHALONDA. holding imdur. cut back beta jamarcus. hydrate. repeat orthostatic BPs in am. 4. nausea/emesis x 2-3 months/chronic gastroparesis/Early satiety - this could all be due to malignancy; also could be from her gastroparesis. 5. acute blood loss anemia 2nd to #1 - cbc in am for stability. 6. right breast lesion seen on recent imaging - outpatient mammo needed. 7. ovarian cyst- 4.2 cm cyst within the left adnexa seen on recent CT - control clerk subassembly follow-up after d/c. 8. LLQ mass seen on CT - at a minimum "One month abdomen and pelvis CT follow up is recommended to exclude the possibility of a peritoneal implant". 9. CAD status post cardiac stent - no ischemic symptoms at this time. Cont asa , plavix. Lower BB due to low BP. Holding SHALONDA, imdur due to low BP. 10. T1DM - pharmacy managing and assistance appreciated. 11. Myasthenia gravis - continue CellCept 12. low-grade fevers - possibly due to post-op inflammatory reaction, but in light of cellcept use she is immunocompromised and I would have low threshold for blood cultures, urine cx, cxr, etc. STOP scheduled tylenol for now and follow temps off the tylenol. 13. PAD - s/p iliac artery stents in the past - asa, plavix, statin. left message for Dr. Perkins about her orthostatic BPs and need to continue remaining hospitalized Continued [facility] stay due to: multiple IV medications needed Discharge planning: home with home health
[2017-08-18] MEDS ORDERED: POTASSIUM CHLORIDE 20 MEQ TABCR PO ONE (21:00)
[2017-08-18] MEDS: SENNA 8.6 MG TAB PO SCH (21:35)
[2017-08-18] MEDS: ACETAMINOPHEN 500 MG TAB PO PRN (23:27)
[2017-08-19] VITALS (11 sets, daily range): BP systolic 95–181; BP diastolic 55–93; PULSE 84–104; TEMP 37.1–38.4; O2SAT 89–94
[2017-08-19 07:26] LABS: BASO % 0.3 %; BASO ABS # 0.02 K/uL (0-0.2); EOS % 2.1 %; EOS ABS # 0.15 K/uL (0-0.5); HEMATOCRIT 28.1 % (37-47); HEMOGLOBIN 9.1 g/dL (12.0-16.0); IG# 0.01 K/uL (0.00-0.02); LYMPH % 11.3 %; LYMPH ABS # 0.81 K/uL (1.2-3.4); MEAN CELL VOLUME 87.5 fL (80-100); MEAN CORPUSCULAR HEMOGLOBIN 28.3 pg (25-34); MEAN CORPUSCULAR HGB CONC 32.4 g/dl (32-36); MEAN PLATELET VOLUME 8.9 fL (7.4-10.4); MONO % 16.5 %; MONO ABS # 1.18 K/uL (0.11-0.59); NEUT % 69.7 %; PLATELET COUNT 176 K/uL (130-400); RED CELL DISTRIBUTION WIDTH CV 14.6 % (11.5-14.5); RED CELL DISTRIBUTION WIDTH SD 46.6 fL (36.4-46.3); WHITE BLOOD COUNT 7.17 K/uL (4.8-10.8)
[2017-08-19 08:02] LABS: CALCIUM 8.4 mg/dl (8.5-10.1); CREATININE 0.7 mg/dl (0.60-1.20); POTASSIUM 3.9 mmol/L (3.5-5.1)
--- NOTE | 2017-08-19 08:20 | PROGRESS NOTE ---
DATE: 08/19/2017 SUBJECTIVE: A 67-year-old white female postop day 2 from a prophylactic IM nailing and biopsy of the right femoral lesion. She is doing better today. No complaints. Not feeling dizzy or lightheaded. No chest pain or shortness of breath. OBJECTIVE: VITAL SIGNS: Temperature 37.6. Vital signs stable. Blood pressure 133/75. GENERAL: Physical examination shows a pleasant, middle-aged female. She was in the bathroom when I visited her today. EXTREMITIES: Dressing is clean, dry and intact. Leg lengths were equal. NEUROLOGIC: She is neurologically intact. LABORATORY DATA: Hemoglobin is 9.1. Hematocrit 28.1. Electrolytes are pending. ASSESSMENT: A 67-year-old white female postop day 2 from a prophylactic IM nailing of the right femoral impending pathological fracture with biopsy, doing reasonably well. She was hypotensive previously, but blood pressure seems to be bounce back and certainly stable. She does not have any symptoms. Hemoglobin and hematocrit are stable. PLAN: 1. DVT prophylaxis including thigh high TEDs, SCDs, and she is back on her Plavix and aspirin. 2. PT, OT. She can weightbear as tolerated. 3. Pain control. Doing reasonably well with current pain regimen. 4. Pathology. Pathology results are still pending. 5. Disposition: From the orthopedic standpoint, she is acceptable for discharge. We will check with the medicine doctors. As long as they are okay, we will likely discharge later today.
[2017-08-19] MEDS ORDERED: BISACODYL 10 MG SUPP PR STA (09:03)
[2017-08-19] MEDS: DOCUSATE SODIUM 100 MG CAP PO SCH ×2 (09:18→09:19)
[2017-08-19] MEDS: OXYCODONE HCL IR 5 MG TAB (IMMEDIATE RELEASE) PO PRN ×2 (09:18→13:38)
[2017-08-19] MEDS: FERROUS GLUCONATE 324 MG TAB PO SCH ×3 (09:18→17:45)
[2017-08-19] MEDS: PANTOprazole SOD 40 MG TAB PO SCH (09:19)
[2017-08-19] MEDS: MULTIVITAMIN TAB PO SCH (09:19)
[2017-08-19] MEDS: METOPROLOL SUCC 50MG EXT REL TAB PO SCH (09:19)
[2017-08-19] MEDS: BusPIRone 15 MG TAB PO SCH ×2 (09:20→20:37)
[2017-08-19] MEDS: ASPIRIN 81 MG ECTAB PO SCH (09:20)
[2017-08-19] MEDS: FLUOXETINE HCL 20 MG CAP PO SCH (09:20)
[2017-08-19] MEDS: ROSUVASTATIN CALCIUM 20 MG TAB PO SCH (09:20)
[2017-08-19] MEDS: LACTOBACILLUS ACIDOPHILUS (FLORANEX) TAB PO SCH (09:21)
[2017-08-19] MEDS: CHOLECALCIFEROL 1000 INTER.UNIT TAB PO SCH (09:21)
[2017-08-19] MEDS: CLOPIDOGREL BISULFATE 75 MG TAB PO SCH (09:21)
[2017-08-19] MEDS: MYCOPHENOLATE MOFETIL 250 MG CAP (CELLCEPT) PO SCH ×2 (09:21→20:37)
[2017-08-19] MEDS: INSULIN ASPART 100 UNITS/ML 3 ML PEN SC SCH ×4 (09:28→20:35)
--- NOTE | 2017-08-19 09:53 | Pharmacy Progress Note ---
Pharmacy Glycemic Short Note 2 Date of Service August 19, 2017. OUTPATIENT ANTIDIABETIC REGIMEN: * [facility] Endo manages her diabetes. See was last seen 07/26/17 and had the following pump settings noted. She has an OmniPod-Novolog Insulin Pump. * Reported Basal Rates (from Allscripts 07/26/17) <---note: this was a 10% increase when on prednisone * 0000: 2.85 u/hr * 0700: 2 u/hr * 1630: 2.85 u/hr * Total Basal Dose: 60 units * Goal BSG Range: 80-110 mg/dL * Ordered Correction Factor: 15mg/dL/unit * Ordered Carb Ratio: 1 unit per 4 or 5 grams CHO consumed. Test 08/18/17 12:09 08/18/17 13:18 08/18/17 17:01 08/18/17 20:52 Bedside Glucose 208 mg/dl (70-90) 188 mg/dl (70-90) 202 mg/dl (70-90) Random Glucose 200 mg/dl (70-99) Test 08/19/17 07:07 Random Glucose 85 mg/dl (70-99) ASSESSMENT: 08/19/17 * Patient received 90 units of insulin yesterday, still using SQ basal/bolus injections with plan to transition back to pump upon discharge * She was potentially going to be discharged today but the nurse reports this is not happening now * PO intake minimal this AM (only 1/2 a banana) and fasting BSG on the lower side this AM * Will continue same scale of NPH - she will only receive 25 units this AM * Will loosen CF back to outpatient parameter of 15 08/18/17 * Patient was transitioned to SQ basal/bolus dosing yesterday and received a total of 70 units * BSGs remain slightly above goal * She was going to be discharged today but this has now been held until tomorrow d/t orthostatic issues * She will receive her outpatient dose of basal today, slightly higher than what she received yesterday, so I'm hesitant to make changes at this point * CR already fairly aggressive so will just tighten CF slightly to provide more correctional if necessary 08/17/17 * T1DM female currently NPO for surgery this afternoon for fractured femur * Pt remained on insulin pump overnight per outpatient settings and bolused q4hrs * Unfortunately, pt with hypoglycemia around 0400 d/t boluses and continuing full basal rate while NPO * Pump removed for hypoglycemia and D5W IVF started * BSG up to 192 mg/dl after treatment of hypo. * Pt unable to replace her insulin pump because she needs a new site. Pt will need basal insulin despite NPO d/t T1DM. Pt will need ~8-12 hrs of basal insulin coverage while pump off. * Total daily basal rate/needs per insulin pump = 60 units * Pt NPO for surgery, therefore, will reduce outpatient basal dose by 20% ( since T1DM) * Therefore, total basal while NPO - 48 units/day (or ~ 2units/hr) * 2 units/hr * 9hrs hrs (without pump) = 18 units * Will give NPH 18 units now while pump is off and re-evaluate after surgery. PLAN FOR INPATIENT GLYCEMIC CONTROL * Basal insulin * NPH 30 units BID (25 units if BSG < 100), will start 27 units BID tomorrow AM - utilizing NPH for easier transition back to pump * Bolus insulin * Novolog ACHS * Goal 120-150 * LOOSEN CF to 15 * CR 4 DISCHARGE RECOMMENDATIONS: * Transition back to Novolog pump on discharge * Make sure patient is using basal 1 on settings as per recent outpatient endo note. Her basal was increased 10% back in July when she was on prednisone. Patient was supposed to change it back after finishing prednisone.
--- NOTE | 2017-08-19 10:18 | DIAGNOSTIC IMAGING REPORT ---
CHEST 2 VIEWS ROUTINE CLINICAL HISTORY: assess for pneumonia dyspnea COMPARISON STUDY: 02/21/2017 FINDINGS: The bones soft tissues and hemidiaphragms are normal. The cardiomediastinal silhouette is normal. The lungs are clear. The pulmonary vasculature is normal. IMPRESSION: Negative chest. The above report was generated using voice recognition software. It may contain grammatical, syntax or spelling errors. Electronically signed by: Bebo Clark M.D. 08/19/2017 10:16 AM Dictated Date/Time: 08/19/2017 10:16 AM
[2017-08-19] MEDS: ISOSORBIDE MONONITRATE 60 MG TABCR PO SCH (10:31)
[2017-08-19] MEDS: FENTANYL 12 MCG/HR TDSY TD SCH (10:32)
[2017-08-19] MEDS: INSULIN HUMAN NPH SC SCH ×2 (10:35→18:53)
[2017-08-19] MEDS: SODIUM CHLORIDE 0.9% 1000ML 1,000 ML IV SCH (10:36)
[2017-08-19] MEDS: CHECK FENTANYL PATCH PLACEMENT SCH (15:28)
[2017-08-19] MEDS: ONDANSETRON INJ 2 MG/ML 2 ML VIAL IV PRN ×2 (15:35→23:49)
[2017-08-19] MEDS: HYDROmorphone INJ 0.5 MG/0.5 ML SYR IV PRN ×3 (15:36→23:49)
[2017-08-19 16:20] LABS: INFLUENZA A PCR Neg for Influ A (NEG); INFLUENZA B PCR Neg for Influ B (NEG)
[2017-08-19] MEDS ORDERED: BISACODYL 5 MG TABEC PO ONE (17:00)
--- NOTE | 2017-08-19 17:06 | Progress Note ---
Subjective Date of Service: August 19, 2017. Subjective Pt evaluation today including: conversation w/ patient, conversation w/ family ( at bedside), physical exam, chart review, lab review, conversation w/ customer sales consultant (ortho - Dr. Perkins) Pain: right leg, back PO Intake: very poor Voiding: no voiding problems still no BM; passing flatus pain is 7-8/10 at all times ambulating albeit very little nausea x 2 months 5 pounds of weight loss x 2 months no dyspnea no cough had fevers/chills/fatigue for 2 - 3 days prior to admission denies calf pain/cramps has insulin pump w/ her at bedside Problem List Medical Problems: (1) Diarrhea Status: Acute (2) Hypoglycemia Status: Acute (3) Strain of lumbar region Status: Acute Review of Systems Constitutional: + fever, + chills, + weakness, + fatigue Respiratory: No cough, No shortness of breath Cardiac: No chest pain, No orthopnea Abdomen: + nausea, + constipation, No pain, No vomiting, No diarrhea Objective Vital Signs Date Time Temp Pulse Resp B/P (MAP) Pulse Ox O2 Delivery O2 Flow Rate FiO2 08/19/17 08:10 Room Air 08/19/17 07:30 37.6 91 18 133/75 (94) 94 Room Air 172/69 (103) 181/93 (122) 08/19/17 05:28 84 117/61 (79) 92 118/67 (84) 96 128/69 (88) 08/19/17 01:27 37.2 08/19/17 00:43 37.9 08/18/17 23:31 Nasal Cannula 2.0 08/18/17 23:15 38.0 89 16 95/58 (70) 99 Nasal Cannula 2.0 08/18/17 23:14 89 Room Air 08/18/17 16:54 Room Air 08/18/17 15:06 37.6 90 18 95/57 (70) 94 Room Air 08/18/17 12:52 93 130/77 (94) 100 132/75 (94) 109 82/43 (56) 08/18/17 11:27 37.5 94 18 91 Room Air 08/18/17 11:00 37.5 94 18 122/72 (89) 91 Room Air 08/18/17 10:33 91 106/64 (78) Physical Exam General Appearance: no apparent distress ENT: pharynx normal Neck: no JVD Respiratory/Chest: lungs clear, no respiratory distress, no accessory muscle use Cardiovascular: regular rate, rhythm, no gallop, no murmur Abdomen: normal bowel sounds, non tender, soft, no organomegaly Extremities: no pedal edema, + swelling (right thigh) Neurologic/Psychiatric: alert, oriented x 3 Laboratory Results Last 24 Hours Test 08/18/17 12:09 08/18/17 13:18 08/18/17 17:01 08/18/17 20:52 Bedside Glucose 208 mg/dl 188 mg/dl 202 mg/dl White Blood Count 7.17 K/uL Red Blood Count 3.20 M/uL Hemoglobin 9.1 g/dL Hematocrit 27.7 % Mean Corpuscular Volume 86.6 fL Mean Corpuscular Hemoglobin 28.4 pg Mean Corpuscular Hemoglobin Concent 32.9 g/dl RDW Standard Deviation 45.6 fL RDW Coefficient of Variation 14.4 % Platelet Count 177 K/uL Mean Platelet Volume 9.1 fL Sodium Level 136 mmol/L Potassium Level 3.3 mmol/L Chloride Level 102 mmol/L Carbon Dioxide Level 26 mmol/L Anion Gap 8.0 mmol/L Blood Urea Nitrogen 11 mg/dl Creatinine 0.90 mg/dl Est Creatinine Clear Calc Drug Dose 52.3 ml/min Estimated GFR () 77.8 Estimated GFR (Non- 67.1 BUN/Creatinine Ratio 12.5 Random Glucose 200 mg/dl Calcium Level 8.9 mg/dl Magnesium Level 1.6 mg/dl Test 08/19/17 07:07 08/19/17 09:03 White Blood Count 7.17 K/uL Red Blood Count 3.21 M/uL Hemoglobin 9.1 g/dL Hematocrit 28.1 % Mean Corpuscular Volume 87.5 fL Mean Corpuscular Hemoglobin 28.3 pg Mean Corpuscular Hemoglobin Concent 32.4 g/dl Platelet Count 176 K/uL Mean Platelet Volume 8.9 fL Neutrophils (%) (Auto) 69.7 % Lymphocytes (%) (Auto) 11.3 % Monocytes (%) (Auto) 16.5 % Eosinophils (%) (Auto) 2.1 % Basophils (%) (Auto) 0.3 % Neutrophils # (Auto) 5.00 K/uL Lymphocytes # (Auto) 0.81 K/uL Monocytes # (Auto) 1.18 K/uL Eosinophils # (Auto) 0.15 K/uL Basophils # (Auto) 0.02 K/uL RDW Standard Deviation 46.6 fL RDW Coefficient of Variation 14.6 % Immature Granulocyte % (Auto) 0.1 % Immature Granulocyte # (Auto) 0.01 K/uL Sodium Level 140 mmol/L Potassium Level 3.9 mmol/L Chloride Level 108 mmol/L Carbon Dioxide Level 27 mmol/L Anion Gap 5.0 mmol/L Blood Urea Nitrogen 9 mg/dl Creatinine 0.70 mg/dl Est Creatinine Clear Calc Drug Dose 67.3 ml/min Estimated GFR () 105.4 Estimated GFR (Non- 90.9 BUN/Creatinine Ratio 12.4 Random Glucose 85 mg/dl Calcium Level 8.4 mg/dl Magnesium Level 2.1 mg/dl Cortisol AM Sample 19.84 mcg/dl Assessment and Plan 67yo female - 1. impending Pathologic fracture of shaft of right femur, POD#2 s/p right hip nailing - path report has returned; unfortunately nondiagnostic (no neoplastic cells seen). Appreciate orthopedic assistance. Asa/plavix for DVT proph. WBAT. 2. Pathologic compression vertebral fracture of L1/L3, C7 bony lytic lesions - likely due to metastatic disease from unknown primary. Path report from right femur bx nondiagnostic. Pain control is suboptimal - see below. 3. severe orthostasis - improved with fluids and with-holding/cutting back her normal meds. Cortisol wnl. 4. nausea/emesis x 2-3 months - 2008 gastric emptying study with gastroparesis. Will trial her on reglan 5mg/ac/hs. 5. acute blood loss anemia 2nd to #1 - cbc stable. 6. right breast lesion seen on recent imaging - outpatient mammo needed. 7. ovarian cyst- 4.2 cm cyst within the left adnexa seen on recent CT - transportation assistant follow-up after d/c. 8. LLQ mass seen on CT - at a minimum "One month abdomen and pelvis CT follow up is recommended to exclude the possibility of a peritoneal implant". 9. CAD status post cardiac stent - no ischemic symptoms at this time. Cont asa , plavix. Cont BB. Resume imdur. Holding SHALONDA. 10. T1DM - pharmacy managing and assistance appreciated. 11. Myasthenia gravis - continue CellCept 12. low-grade fevers - patient now reporting she had these fevers for 2-3 days prior to admission. In light of her cellcept use she is immunocompromised. Will check blood cx's x 2 sets, u/a & urine cx, PCR flu test, and cxr. Then re- eval. Hold off on antibiotics at this time unless focus of infection occurs. 13. PAD - s/p iliac artery stents in the past - asa, plavix, statin. 14. pain - due to metastatic disease to the bone - start fentanyl patch 12.5mcg. Cont oxycodone prn. 15. constipation - dulcolax suppos x 1 today w/o effect. Try dulcolax by mouth x 1. If still no improvement then milk of mag or mag citrate. Consider x-rays if not improving. I spoke with Dr. Perkins and recommended ongoing hospitalization due to the above issues. I plan to change the attending to myself today. Daughters updated at bedside today; updated at bedside today. total time today - 60 minutes which includes multiple visits to see patient, speaking with ortho, reviewing labs/imaging/etc Continued [facility] stay due to: fever, abnormal vital signs, inadequate po fluid intake, inadequate oral pain control, multiple IV medications needed Discharge planning: home with home health
[2017-08-19] MEDS: METOCLOPRAMIDE HCL 5 MG TAB PO SCH ×2 (17:09→20:37)
[2017-08-19] MEDS: SENNA 8.6 MG TAB PO SCH (20:37)
[2017-08-19] MEDS ORDERED: ENOXAPARIN 40 MG/0.4 ML SYR SQ ONE (20:45)
[2017-08-19] MEDS: ACETAMINOPHEN 500 MG TAB PO PRN (23:48)
[2017-08-20] VITALS (8 sets, daily range): BP systolic 104–168; BP diastolic 61–74; PULSE 94–122; TEMP 37–37.3; O2SAT 92–94
[2017-08-20] MEDS: SODIUM CHLORIDE 0.9% 1000ML 1,000 ML IV SCH ×2 (05:21→23:31)
[2017-08-20 06:49] LABS: BASO % 0.4 %; BASO ABS # 0.02 K/uL (0-0.2); EOS % 3.1 %; EOS ABS # 0.17 K/uL (0-0.5); HEMATOCRIT 24.7 % (37-47); HEMOGLOBIN 8.2 g/dL (12.0-16.0); IG# 0.01 K/uL (0.00-0.02); LYMPH % 18.9 %; LYMPH ABS # 1.04 K/uL (1.2-3.4); MEAN CELL VOLUME 87.6 fL (80-100); MEAN CORPUSCULAR HEMOGLOBIN 29.1 pg (25-34); MEAN CORPUSCULAR HGB CONC 33.2 g/dl (32-36); MEAN PLATELET VOLUME 8.8 fL (7.4-10.4); MONO % 16.4 %; NEUT ABS # 3.35 K/uL (1.4-6.5); PLATELET COUNT 210 K/uL (130-400); RED CELL DISTRIBUTION WIDTH CV 14.4 % (11.5-14.5); RED CELL DISTRIBUTION WIDTH SD 47.2 fL (36.4-46.3); WHITE BLOOD COUNT 5.49 K/uL (4.8-10.8)
[2017-08-20 07:22] LABS: CALCIUM 8.8 mg/dl (8.5-10.1); CREATININE 0.76 mg/dl (0.60-1.20); POTASSIUM 3.6 mmol/L (3.5-5.1)
[2017-08-20] MEDS: HYDROmorphone INJ 0.5 MG/0.5 ML SYR IV PRN ×3 (07:38→20:59)
[2017-08-20] MEDS: CHECK FENTANYL PATCH PLACEMENT SCH ×4 (07:46→23:29)
[2017-08-20] MEDS: METOCLOPRAMIDE HCL 5 MG TAB PO SCH ×4 (07:46→20:37)
[2017-08-20] MEDS: INSULIN ASPART 100 UNITS/ML 3 ML PEN SC SCH ×4 (08:00→20:41)
[2017-08-20] MEDS ORDERED: INSULIN HUMAN NPH SC SCH ×2 (08:30→17:45)
[2017-08-20] MEDS: ASPIRIN 81 MG ECTAB PO SCH (09:05)
[2017-08-20] MEDS: MYCOPHENOLATE MOFETIL 250 MG CAP (CELLCEPT) PO SCH ×2 (09:05→20:37)
[2017-08-20] MEDS: BusPIRone 15 MG TAB PO SCH ×2 (09:06→20:37)
[2017-08-20] MEDS: FLUOXETINE HCL 20 MG CAP PO SCH (09:06)
[2017-08-20] MEDS: FERROUS GLUCONATE 324 MG TAB PO SCH ×3 (09:06→17:45)
[2017-08-20] MEDS: ROSUVASTATIN CALCIUM 20 MG TAB PO SCH (09:06)
[2017-08-20] MEDS: DOCUSATE SODIUM 100 MG CAP PO SCH ×2 (10:22→20:37)
[2017-08-20] MEDS: PANTOprazole SOD 40 MG TAB PO SCH (10:23)
[2017-08-20] MEDS: MULTIVITAMIN TAB PO SCH (10:23)
[2017-08-20] MEDS: CLOPIDOGREL BISULFATE 75 MG TAB PO SCH (10:23)
[2017-08-20] MEDS: OXYCODONE HCL IR 5 MG TAB (IMMEDIATE RELEASE) PO PRN ×3 (10:28→23:34)
[2017-08-20] MEDS: CHOLECALCIFEROL 1000 INTER.UNIT TAB PO SCH (10:52)
[2017-08-20] MEDS: LACTOBACILLUS ACIDOPHILUS (FLORANEX) TAB PO SCH (10:53)
--- NOTE | 2017-08-20 10:55 | PROGRESS NOTE ---
DATE: 08/20/2017 SUBJECTIVE: A 67-year-old female postop day 3 from IM nailing of a right impending pathological femur fracture and biopsy. She appears stable. Still having some right thigh pain. She is having several other medical issues and they decided to keep her for a day or so to try and straighten things out. She is not eating well. Pain has been difficult to control. OBJECTIVE: VITAL SIGNS: Temperature 37.0. Vital signs stable. GENERAL: Physical examination shows a pleasant, middle-aged female. She is sitting up in bed and talking to her . Looks pretty comfortable. EXTREMITIES: Examination of the right hip and leg reveals the leg lengths were equal. Incisions are clean, dry and intact. Not much swelling. She is tender to palpate anywhere around her leg. She is neurologically intact. LABORATORY DATA: Hemoglobin 8.2. Hematocrit 24.7. Electrolytes are stable. PATHOLOGY: Pathology results show no obvious metastatic lesions or underlying pathology. No neoplasm identified. ASSESSMENT: A 67-year-old female postop day 3 from prophylactic IM nailing of right impending pathological femur fracture. Unfortunately, the biopsy specimens have been negative. She will likely need biopsy of some other location. PLAN: 1. DVT prophylaxis including thigh-high TEDs, SCDs, and back on her Plavix and her aspirin. 2. PT/OT. She can weightbear as tolerated, right leg. 3. Medical management as per the medicine service. She is orthopedically acceptable for discharge any time medically stable. 4. Pathology. Unfortunately, we do not have any specimen that showed any pathology. She will likely need biopsy of one of these other areas. Possible breast versus lumbar spine. If there is interest in lumbar spine biopsy, I would recommend contact Dr. Ochoa. 5. Disposition: She is orthopedically acceptable for discharge any time medically stable. I need to see her back 2 weeks out from her surgery date. Any questions can be directed to me at [phone].
--- NOTE | 2017-08-20 15:45 | Pharmacy Progress Note ---
Pharmacy Glycemic Short Note 2 Date of Service August 20, 2017. OUTPATIENT ANTIDIABETIC REGIMEN: * [facility] Endo manages her diabetes. See was last seen 07/26/17 and had the following pump settings noted. She has an OmniPod-Novolog Insulin Pump. * Reported Basal Rates (from Allscripts 07/26/17) <---note: this was a 10% increase when on prednisone * 0000: 2.85 u/hr * 0700: 2 u/hr * 1630: 2.85 u/hr * Total Basal Dose: 60 units * Goal BSG Range: 80-110 mg/dL * Ordered Correction Factor: 15mg/dL/unit * Ordered Carb Ratio: 1 unit per 4 or 5 grams CHO consumed. Item Value Date Time Bedside Glucose 99 mg/dl H 08/19/17 0809 Bedside Glucose 137 mg/dl H 08/19/17 1202 Bedside Glucose 113 mg/dl H 08/19/17 171 Bedside Glucose 120 mg/dl H 08/19/172015 Random Glucose 74 mg/dl 08/20/17 0608 Bedside Glucose 105 mg/dl 08/20/17 1100 ASSESSMENT: * Patient received 64 units of insulin yesterday, still using SQ basal/bolus injections with plan to transition back to pump upon discharge * 55 units of basal insulin with NPH * 9 units of prandial insulin with NovoLog * Prandial insulin coverage much less than basal insulin dosing secondary to poor PO intake * AM fasting BSG below goal range at 74 mg/dl this morning --> will decrease total daily basal insulin dose * Post-prandial BSGs in range, no changes needed PLAN FOR INPATIENT GLYCEMIC CONTROL * Basal insulin: decrease dosing * NPH 25 units BIDM (utilizing NPH for easier transition back to pump d/t its 12hr duration instead of 24hr Lantus) * Patient already received 27 units of NPH this morning, therefore, will give NPH 23 units this evening for a total dose of 50 units today * Bolus insulin: No change * Novolog ACHS * Goal 120-150 * CF 15 * CR 4 DISCHARGE RECOMMENDATIONS: * Transition back to Novolog pump on discharge * Make sure patient is using basal 1 on settings as per recent outpatient endo note. Her basal was increased 10% back in July when she was on prednisone. Patient was supposed to change it back after finishing prednisone.
[2017-08-20] MEDS: SENNA 8.6 MG TAB PO SCH (20:37)
[2017-08-20] MEDS: ENOXAPARIN 40 MG/0.4 ML SYR SQ SCH (20:38)
--- NOTE | 2017-08-20 23:39 | Progress Note ---
Subjective Date of Service: August 20, 2017. Subjective Pt evaluation today including: conversation w/ patient, conversation w/ family (daughter, - bedside), physical exam, chart review, lab review, conversation w/ law firm consultant (heme/onc), review of inpatient medication list Pain: back - severe; right leg PO Intake: tolerated meals better today; improved appetite Voiding: no voiding problems overall feels better finally had moderate bowel movement nausea improved w/ reglan no vomiting main issue is that of back pain despite institution of fentanyl patch yesterday was more active today reports she has had several months of sweats at home Problem List Medical Problems: (1) Diarrhea Status: Acute (2) Hypoglycemia Status: Acute (3) Strain of lumbar region Status: Acute Review of Systems Constitutional: + fever, + sweats Respiratory: No cough, No shortness of breath Cardiac: No chest pain Abdomen: + nausea, No pain, No vomiting, No constipation Female : No dysuria Objective Vital Signs Date Time Temp Pulse Resp B/P (MAP) Pulse Ox O2 Delivery O2 Flow Rate FiO2 08/20/17 21:00 117 138/61 (86) 120 134/70 (91) 122 128/70 (89) 08/20/17 15:40 93 Room Air 08/20/17 15:16 37.3 98 16 117/70 (86) 93 Room Air 08/20/17 07:35 Room Air 08/20/17 07:27 37.0 97 18 104/61 (75) 92 Room Air 08/20/17 05:30 94 111/61 (78) 103 144/69 (94) 105 152/74 (100) 08/20/17 00:45 37.2 08/19/17 23:45 38.4 08/19/17 23:41 Room Air 08/19/17 22:43 37.4 98 16 127/61 (83) 91 Room Air Physical Exam General Appearance: no apparent distress, + pertinent finding (overall looks better today) ENT: pharynx normal Neck: + adenopathy present (left neck, angle of jaw / posterior cervical chain) Respiratory/Chest: lungs clear, no respiratory distress, no accessory muscle use Cardiovascular: no gallop, no murmur, + tachycardia Abdomen: normal bowel sounds, non tender, soft, no organomegaly Extremities: no pedal edema, + swelling (right thigh) Neurologic/Psychiatric: alert, oriented x 3 Skin: + pallor, + pertinent finding (dressings intact right lateral thigh) Laboratory Results Last 24 Hours Test 08/20/17 06:08 08/20/17 12:16 08/20/17 13:26 08/20/17 14:27 White Blood Count 5.49 K/uL Red Blood Count 2.82 M/uL Hemoglobin 8.2 g/dL Hematocrit 24.7 % Mean Corpuscular Volume 87.6 fL Mean Corpuscular Hemoglobin 29.1 pg Mean Corpuscular Hemoglobin Concent 33.2 g/dl Platelet Count 210 K/uL Mean Platelet Volume 8.8 fL Neutrophils (%) (Auto) 61.0 % Lymphocytes (%) (Auto) 18.9 % Monocytes (%) (Auto) 16.4 % Eosinophils (%) (Auto) 3.1 % Basophils (%) (Auto) 0.4 % Neutrophils # (Auto) 3.35 K/uL Lymphocytes # (Auto) 1.04 K/uL Monocytes # (Auto) 0.90 K/uL Eosinophils # (Auto) 0.17 K/uL Basophils # (Auto) 0.02 K/uL RDW Standard Deviation 47.2 fL RDW Coefficient of Variation 14.4 % Immature Granulocyte % (Auto) 0.2 % Immature Granulocyte # (Auto) 0.01 K/uL Red Blood Cell Morphology Unremarkable Sodium Level 138 mmol/L Potassium Level 3.6 mmol/L Chloride Level 107 mmol/L Carbon Dioxide Level 26 mmol/L Anion Gap 5.0 mmol/L Blood Urea Nitrogen 9 mg/dl Creatinine 0.76 mg/dl Est Creatinine Clear Calc Drug Dose 62.0 ml/min Estimated GFR () 95.4 Estimated GFR (Non- 82.3 BUN/Creatinine Ratio 11.6 Random Glucose 74 mg/dl Calcium Level 8.8 mg/dl Bedside Glucose 105 mg/dl Erythrocyte Sedimentation Rate 78 mm/hr Lyme Disease IgG Antibody NEG Lyme Disease IgM Antibody NEG Test 08/20/17 17:13 08/20/17 20:20 Bedside Glucose 148 mg/dl 206 mg/dl Assessment and Plan 67yo female - 1. impending pathologic fracture of shaft of right femur, POD#3 s/p right hip nailing - bone bx/path report unfortunately nondiagnostic (no neoplastic cells seen). Appreciate orthopedic assistance. Asa/plavix for DVT proph. WBAT. 2. Pathologic compression vertebral fracture of L1/L3, C7 bony lytic lesions - due to metastatic disease from unknown primary. Path report from right femur bx nondiagnostic. Pain control still problematic despite institution of fentanyl patch 12mcg on 08/19. Increase dilaudid to 1mg q3h; increase oxycodone to 10mg prn. ?palliative radiation? 3. severe orthostasis - resolved. Cortisol wnl. 4. nausea/emesis x 2-3 months - 2008 gastric emptying study with gastroparesis. Improved with reglan 5mg/ac/hs suggesting gastroparesis playing a big role in this. Cont reglan. No apparent side effects. 5. acute blood loss anemia 2nd to #1 - cbc w/ Hb drop of 1gm overnight; dilutional? no obvious blood loss on exam. Repeat cbc am. 6. right breast lesion seen on recent imaging - outpatient mammo needed. 7. ovarian cyst- 4.2 cm cyst within the left adnexa seen on recent CT - last inserter follow-up after d/c. 8. LLQ mass seen on CT - at a minimum "One month abdomen and pelvis CT follow up is recommended to exclude the possibility of a peritoneal implant". 9. CAD status post cardiac stent - no ischemic symptoms at this time. Cont asa , plavix. Cont BB. Holding SHALONDA and imdur due to low BPs. 10. T1DM - pharmacy managing and assistance appreciated. 11. Myasthenia gravis - continue CellCept; not in exacerbation. 12. low-grade fevers - I am concerned this is due to her malignancy. Blood/urine cx's negative. Lyme titer negative. cxr negative. en re-eval. Hold off on antibiotics at this time unless focus of infection occurs. 13. PAD - s/p iliac artery stents in the past - asa, plavix, statin. 14. pain - due to metastatic disease to the bone - fentanyl patch 12.5mcg. Cont oxycodone prn and dilaudid prn - see above. Consider titration of fentanyl patch next couple of days if needed. 15. constipation - improved; continue on bowel regimen. 16. concern of malignancy - bones with numerous lytic lesions on imaging. Multiple myeloma?? Other solid organ tumor w/ mets? Send sed rate, SPEP, UPEP, light chains, etc. Spoke with Dr. Tate who will see in am. Biopsy of lytic lesion ultimately needed to make dx unless SPEP/UPEP suggest MM. Family updated. Cont low-grade fluids. PT, OT. Continued [facility] stay due to: fever, inadequate po fluid intake, inadequate oral pain control, multiple IV medications needed Discharge planning: home with home health
[2017-08-21] VITALS (18 sets, daily range): BP systolic 95–150; BP diastolic 55–79; PULSE 75–96; TEMP 36.5–37.2; O2SAT 91–97
[2017-08-21 07:07] LABS: BASO % 0.2 %; BASO ABS # 0.01 K/uL (0-0.2); EOS % 4.5 %; HEMOGLOBIN 7.6 g/dL (12.0-16.0); IG# 0.01 K/uL (0.00-0.02); LYMPH % 21.5 %; LYMPH ABS # 0.95 K/uL (1.2-3.4); MEAN CELL VOLUME 87.9 fL (80-100); MEAN CORPUSCULAR HEMOGLOBIN 27.8 pg (25-34); MEAN CORPUSCULAR HGB CONC 31.7 g/dl (32-36); MEAN PLATELET VOLUME 8.3 fL (7.4-10.4); MONO ABS # 0.75 K/uL (0.11-0.59); NEUT % 56.6 %; PLATELET COUNT 226 K/uL (130-400); RED CELL DISTRIBUTION WIDTH CV 14.6 % (11.5-14.5); RED CELL DISTRIBUTION WIDTH SD 47.2 fL (36.4-46.3); WHITE BLOOD COUNT 4.42 K/uL (4.8-10.8)
[2017-08-21 07:39] LABS: CALCIUM 8.4 mg/dl (8.5-10.1); CREATININE 0.67 mg/dl (0.60-1.20); POTASSIUM 3.5 mmol/L (3.5-5.1)
--- NOTE | 2017-08-21 08:05 | PROGRESS NOTE ---
DATE: 08/21/2017 SUBJECTIVE: A 67-year-old white female postop day 4 from prophylactic IM nailing and biopsy of impending pathological femur fracture. She seems stable. Continues to have some pain. She is seen in the hospital for medical issues and medical reasons. OBJECTIVE: VITAL SIGNS: Temperature 37.2. Vital signs stable. EXTREMITIES: Examination of the right hip and leg reveals incisions to be clean, dry and intact. Leg is well aligned. She is diffusely tender to palpation. She is neurologically intact. LABORATORY DATA: Hemoglobin 7.6. Hematocrit 24.0. Electrolytes are pending. ASSESSMENT: A 67-year-old white female postop day 4 from prophylactic IM nailing of impending pathological femur fracture as well as a biopsy. Unfortunately, the biopsy specimen has not shown any pathological cells. We took quite a bit of sample as well which is a bit surprising. Pain is reasonably well controlled. Everything from the orthopedic standpoint looks okay. She is pretty anemic. PLAN: 1. DVT prophylaxis including thigh-high TEDs, SCDs, and back on her Plavix as well as her aspirin. 2. PT/OT. She can fully weightbear on the right lower extremity. 3. Anemia. I do not think she will likely need a transfusion, but will leave that up to the medicine physicians. 4. Medical management as per the medicine service physicians. 5. Disposition: She is orthopedically stable and acceptable for discharge. I need to see her back 2 weeks from her surgery date. Any orthopedic questions can be directed to me at [phone].
[2017-08-21] MEDS: CHECK FENTANYL PATCH PLACEMENT SCH ×3 (09:09→23:47)
[2017-08-21] MEDS: METOCLOPRAMIDE HCL 5 MG TAB PO SCH ×4 (09:10→21:16)
[2017-08-21] MEDS: DOCUSATE SODIUM 100 MG CAP PO SCH ×2 (09:10→21:16)
[2017-08-21] MEDS: FERROUS GLUCONATE 324 MG TAB PO SCH ×3 (09:10→17:45)
[2017-08-21] MEDS: LACTOBACILLUS ACIDOPHILUS (FLORANEX) TAB PO SCH (09:10)
[2017-08-21] MEDS: METOPROLOL SUCC 50MG EXT REL TAB PO SCH (09:11)
[2017-08-21] MEDS: FLUOXETINE HCL 20 MG CAP PO SCH (09:11)
[2017-08-21] MEDS: CLOPIDOGREL BISULFATE 75 MG TAB PO SCH (09:11)
[2017-08-21] MEDS: CHOLECALCIFEROL 1000 INTER.UNIT TAB PO SCH (09:11)
[2017-08-21] MEDS: MULTIVITAMIN TAB PO SCH (09:12)
[2017-08-21] MEDS: MYCOPHENOLATE MOFETIL 250 MG CAP (CELLCEPT) PO SCH ×2 (09:12→21:16)
[2017-08-21] MEDS: ASPIRIN 81 MG ECTAB PO SCH (09:12)
[2017-08-21] MEDS: PANTOprazole SOD 40 MG TAB PO SCH (09:12)
[2017-08-21] MEDS: ROSUVASTATIN CALCIUM 20 MG TAB PO SCH (09:12)
[2017-08-21] MEDS: BusPIRone 15 MG TAB PO SCH ×2 (09:12→21:16)
[2017-08-21] MEDS: INSULIN ASPART 100 UNITS/ML 3 ML PEN SC SCH ×4 (09:22→21:00)
[2017-08-21] MEDS: INSULIN HUMAN NPH SC SCH ×2 (09:23→18:35)
[2017-08-21] MEDS: OXYCODONE HCL IR 5 MG TAB (IMMEDIATE RELEASE) PO PRN ×3 (09:24→21:21)
--- NOTE | 2017-08-21 10:18 | ONCOLOGY CONSULTATION ---
DATE OF CONSULTATION: 08/21/2017 REASON FOR CONSULTATION: The patient with extensive lytic osseous disease, diagnosis unknown. HISTORY OF PRESENT ILLNESS: Jillian is a pleasant 67-year-old female patient who was admitted on 08/16/2017 by the orthopedic service to correct an impending pathologic fracture of the right femur. She was admitted on Dr. Perkins's service for intramedullary nailing of the right femur which took place on 08/17/2017. Biopsy of the fracture site was also sent to pathology for analysis. Jillian is well known to [facility], evaluated initially by Dr. Zia Montilla on 08/13/2017. The patient was sent because of radiographically evident widespread bony metastatic disease. The patient had been suffering from back pain for quite a while; however, increased in intensity over the past couple of months. She had initial CT scan of the chest in February of 2017 for pleuritic chest pain that revealed an indeterminate 9 mm pleural based nodule in the right middle lobe. Repeat CT to followup the nodule was performed in May 2017 revealing a persistent 1.2 cm nodule abutting the minor fissure essentially unchanged in size, but also had revealed a compression deformity at T8. X-ray of the lumbar spine for low back pain was performed in early July revealing interval L1 and L3 fractures suspicious for pathologic fracture. Subsequent MRI was then performed revealing enhancing lesions at those sites with both lesions suggestive of epidural extension and/or without central canal narrowing. Finally, a CT scan of the abdomen and pelvis again in late July revealed scattered osteolytic lesions throughout her abdomen and pelvis with an 11 mm focus of soft tissue adjacent to the descending colon in the left lower quadrant and a 1 cm enhancing nodule within the right breast. A 1.6 cm lytic lesion was seen in the proximal shaft of the right femur with changes concerning for an impending fracture. Biopsy of the fracture site unfortunately was nondiagnostic. Serum protein electrophoresis with immunofixation has been ordered with results pending. PAST MEDICAL HISTORY: Includes insulin-dependent diabetes mellitus, heart disease with a cardiac stenting, hypercholesterolemia, hypertension, myasthenia gravis, Gerber's esophagus. Gastroparesis, hypertension, obesity, peripheral vascular disease, allergic rhinitis. PAST SURGICAL HISTORY: Includes thymus surgery, section and vein stripping of the lower extremity. MEDICATIONS: Include aspirin, Imdur, nitroglycerin, Plavix, omeprazole, buspirone, fluoxetine, Crestor, amlodipine, lisinopril, potassium chloride, Toprol-XL, cyclobenzaprine, CellCept, fexofenadine, metronidazole, prednisone and NovoLog insulin pump. ALLERGIES: INCLUDE GENTAMICIN, INDERAL, KANAMYCIN, NEOMYCIN, PRIMAXIN, PROCAINAMIDE, CLONIDINE, STREPTOMYCIN AND SULFA DRUGS. FAMILY HISTORY: Includes heart problems, hypertension and cancer. SOCIAL HISTORY: Lives with her . Rare social alcohol consumption, quit tobacco use 25 years ago. REVIEW OF SYSTEMS: CONSTITUTIONAL: Positive for skeletal pain. No fevers, chills or sweats. The patient is not anorexic or losing weight. SKIN: No rashes or lesions. No history of dermatosis. HEENT: Negative for headaches, lightheadedness or dizziness. No acute visual or hearing deficits. No sinus symptoms, sore throat or dysphagia. LYMPH: No history of lymphoproliferative disease. CARDIAC: Positive history of coronary artery disease. No current angina or palpitations. PULMONARY: Negative for COPD. She is not short of breath, dyspneic or orthopneic. No cough or hemoptysis. GASTROINTESTINAL: Positive for gastroparesis. No current abdominal pain, nausea, vomiting, diarrhea or constipation. GENITOURINARY: No hematuria, dysuria, urinary incontinence. PSYCHIATRIC: Negative for anxiety, depression or psychoses. ENDOCRINE: Positive for insulin-dependent diabetes mellitus. NEUROLOGIC: Negative for seizures or strokes. Positive history of myasthenia gravis. HEMATOLOGIC: Positive for normocytic normochromic anemia. PHYSICAL EXAMINATION: GENERAL: She is a very pleasant 67-year-old female patient, awake, alert and appropriate, in no acute distress at this time. VITAL SIGNS: Temperature 37.2, pulse 92, respiration 16, blood pressure 105/58. SKIN: Warm, dry, noncyanotic without petechiae, rash or ecchymosis. HEENT: Head: Atraumatic, normocephalic. Eyes: PERRLA, EOMI. Sclerae nonicteric. Nares patent without rhinorrhea or discharge. Throat is clear. Tongue is midline. Mucous membranes are moist. NECK: Supple without JVD or thyromegaly. LYMPH: No cervical, supraclavicular, axillary or inguinal palpable nodes. HEART: Regular rate and rhythm. No clicks, rubs, murmurs or gallops. LUNGS: Clear to auscultation bilaterally. ABDOMEN: Soft, nontender, nondistended, without palpable hepatosplenomegaly. EXTREMITIES: No calf tenderness or swelling. No clubbing, cyanosis or edema. Pneumatic device is in place. NEUROLOGICALLY: She is awake, alert and oriented. Cranial nerves are grossly intact. LABORATORY DATA: Sodium 136, potassium 3.5, chloride 105, carbon dioxide 27, creatinine 0.67, BUN 9. WBC count 4420, hemoglobin 7.6, platelet count 226,000. IMPRESSION: 1. Diffuse osteolytic disease, diagnosis unclear. Pathologic fracture of the right femur, status post intramedullary nailing. 2. Normocytic normochromic anemia. 3. Insulin-dependent diabetes mellitus. 4. Myasthenia gravis by history. PLAN: Jillina is a very pleasant 67-year-old female patient who was admitted to [facility] by the orthopedic service to perform intramedullary nailing for an impending proximal right femoral fracture. The fracture site pathology was nondiagnostic. This patient clearly has diffuse osteolytic disease, documented by multiple radiographic studies. Certainly, plasma cell dyscrasia such as multiple myeloma is high on the differential diagnosis list. SPEP with immunofixation was sent by the primary service and results pending. If both serum and urine are negative for multiple myeloma, would proceed with additional biopsies of the most assessable skeletal site. The patient remains hospitalized because she has been slow to recover and is not quite ready for rehabilitation placement. Dr. Montilla is aware that the fracture biopsy was nondiagnostic and will take over her workup moving forward. I have nothing further to add at this juncture. Thank you very much for allowing us to participate in the care of this very pleasant lady. I will remain call throughout the weekend if there are any questions or concerns. SHEKHAR
[2017-08-21] MEDS: HYDROmorphone INJ 0.5 MG/0.5 ML SYR IV PRN ×3 (10:52→22:12)
[2017-08-21] MEDS ORDERED: ONDANSETRON INJ 2 MG/ML 2 ML VIAL IV STA (15:47)
[2017-08-21] MEDS ORDERED: KETOROLAC TROMETHAMINE 30 MG/ML VIAL IV STA (15:47)
[2017-08-21] MEDS: SENNA 8.6 MG TAB PO SCH (21:16)
[2017-08-21] MEDS: ENOXAPARIN 40 MG/0.4 ML SYR SQ SCH (21:16)
[2017-08-22 02:16] VITALS: BP_SYST 107; BP_SYST 125; BP_SYST 154; BP_DIAS 62; BP_DIAS 70; BP_DIAS 76; PULSE 74; PULSE 81; PULSE 89
[2017-08-22] MEDS: OXYCODONE HCL IR 5 MG TAB (IMMEDIATE RELEASE) PO PRN ×4 (02:25→19:55)
[2017-08-22 07:41] VITALS: BP 128/71; PULSE 83; TEMP 36.8; O2SAT 96
--- NOTE | 2017-08-22 08:15 | Progress Note ---
Subjective Date of Service: August 21, 2017. Subjective Pt evaluation today including: conversation w/ patient, conversation w/ family (daughter at bedside), physical exam, chart review, lab review, review of inpatient medication list Pain: back, right leg - modestly improved today PO Intake: improved; tolerating regular diet w/ use of scheduled reglan Voiding: no voiding problems main complaint today is that of severe headache behind the eyes/frontal having "double vision" and vertigo with it this is not unusual for her with her headaches has had migraines "for years" and has had double vision w/ them before; latter resolves when headache resolves daughter has migraines usually has nausea w/ headaches +photophobia no stool yet but passing plenty of flatus no fevers overnight Problem List Medical Problems: (1) Diarrhea Status: Acute (2) Hypoglycemia Status: Acute (3) Strain of lumbar region Status: Acute Review of Systems Constitutional: No fever, No chills Respiratory: No shortness of breath, No dyspnea on exertion Cardiac: No chest pain Abdomen: No pain, No nausea, No vomiting Objective Vital Signs Date Time Temp Pulse Resp B/P (MAP) Pulse Ox O2 Delivery O2 Flow Rate FiO2 08/21/17 21:59 80 18 126/79 (95) 97 Nasal Cannula 1.0 08/21/17 21:58 76 18 108/61 (77) 96 Nasal Cannula 1.0 08/21/17 21:56 36.8 76 108/61 (77) 96 Nasal Cannula 1.0 08/21/17 21:55 36.8 78 18 108/61 96 1.0 08/21/17 21:15 36.6 75 18 102/58 97 2.0 08/21/17 20:53 36.5 75 18 99/58 95 08/21/17 20:18 36.9 75 20 95/62 95 08/21/17 19:04 36.7 75 18 103/61 95 1.0 08/21/17 18:05 36.8 83 17 110/65 95 1.0 08/21/17 17:35 36.9 79 16 105/61 97 2.0 08/21/17 17:20 37.0 80 17 95/59 91 08/21/17 17:02 36.9 82 20 95/55 91 08/21/17 15:50 94 Room Air 08/21/17 15:26 37.1 85 17 115/68 (84) 94 Room Air 08/21/17 09:24 96 150/68 (95) 95 Room Air 08/21/17 08:40 Room Air 96 08/21/17 07:09 37.2 92 16 105/58 (74) 92 2.0 08/20/17 23:37 115 17 152/74 (100) 93 Room Air 122 168/74 (105) 08/20/17 23:35 Nasal Cannula 2.0 08/20/17 23:24 37.2 101 16 125/66 (85) 94 Room Air Physical Exam General Appearance: no apparent distress, + pertinent finding (looks pretty good today) Eyes: PERRL, + pertinent finding (extraocular muscles intact except it appears she cannot move her right eye superiorly and laterally ) ENT: pharynx normal Neck: no JVD Respiratory/Chest: lungs clear, no respiratory distress, no accessory muscle use Cardiovascular: regular rate, rhythm, no gallop, no JVD, no murmur Abdomen: normal bowel sounds, non tender, soft, no organomegaly Extremities: no pedal edema, + swelling (right upper thigh) Neurologic/Psychiatric: no motor/sensory deficits, alert, oriented x 3 Skin: + pertinent finding (dressings intact right hip) Laboratory Results Last 24 Hours Test 08/21/17 06:51 08/21/17 08:07 08/21/17 12:08 08/21/17 17:05 White Blood Count 4.42 K/uL Red Blood Count 2.73 M/uL Hemoglobin 7.6 g/dL Hematocrit 24.0 % Mean Corpuscular Volume 87.9 fL Mean Corpuscular Hemoglobin 27.8 pg Mean Corpuscular Hemoglobin Concent 31.7 g/dl Platelet Count 226 K/uL Mean Platelet Volume 8.3 fL Neutrophils (%) (Auto) 56.6 % Lymphocytes (%) (Auto) 21.5 % Monocytes (%) (Auto) 17.0 % Eosinophils (%) (Auto) 4.5 % Basophils (%) (Auto) 0.2 % Neutrophils # (Auto) 2.50 K/uL Lymphocytes # (Auto) 0.95 K/uL Monocytes # (Auto) 0.75 K/uL Eosinophils # (Auto) 0.20 K/uL Basophils # (Auto) 0.01 K/uL RDW Standard Deviation 47.2 fL RDW Coefficient of Variation 14.6 % Immature Granulocyte % (Auto) 0.2 % Immature Granulocyte # (Auto) 0.01 K/uL Red Blood Cell Morphology Unremarkable Sodium Level 136 mmol/L Potassium Level 3.5 mmol/L Chloride Level 105 mmol/L Carbon Dioxide Level 27 mmol/L Anion Gap 4.0 mmol/L Blood Urea Nitrogen 9 mg/dl Creatinine 0.67 mg/dl Est Creatinine Clear Calc Drug Dose 70.3 ml/min Estimated GFR () 106.9 Estimated GFR (Non- 92.2 BUN/Creatinine Ratio 13.0 Random Glucose 107 mg/dl Calcium Level 8.4 mg/dl Bedside Glucose 116 mg/dl 165 mg/dl 154 mg/dl Test 08/21/17 20:56 Bedside Glucose 97 mg/dl Assessment and Plan 67yo female - 1. impending pathologic fracture of shaft of right femur, POD#4 s/p right hip nailing - bone bx/path report unfortunately nondiagnostic (no neoplastic cells seen). Appreciate orthopedic assistance. Asa/plavix for DVT proph. WBAT. 2. Pathologic compression vertebral fracture of L1/L3, C7 bony lytic lesions - due to metastatic disease from unknown primary. Path report from right femur bx nondiagnostic. Cont fentanyl patch 12mcg. Cont dilaudid 1mg q3h and oxycodone to 10mg prn. ?palliative radiation? 3. severe orthostasis - resolved. Cortisol wnl. 4. nausea/emesis x 2-3 months - 2008 gastric emptying study with gastroparesis. Improved with reglan 5mg/ac/hs suggesting gastroparesis playing a big role in this. Cont reglan. No apparent side effects. 5. acute blood loss anemia 2nd to #1 - H/H again lower today; her tachycardia is likely from such. Tx 2units PRBCs today. CBC in am. Fecal occult her stool to ensure this is not GI in origin. Dilutional from fluids possible as well. 6. right breast lesion seen on recent imaging - outpatient mammo needed. 7. ovarian cyst- 4.2 cm cyst within the left adnexa seen on recent CT - business executive follow-up after d/c. 8. LLQ mass seen on CT - at a minimum "One month abdomen and pelvis CT follow up is recommended to exclude the possibility of a peritoneal implant". 9. CAD status post cardiac stent - no ischemic symptoms at this time. Cont asa , plavix. Cont BB. Holding SHALONDA and imdur due to low BPs. Reinstitute when able. 10. T1DM - pharmacy managing and assistance appreciated. 11. Myasthenia gravis - continue CellCept; not in exacerbation. 12. low-grade fevers - I am concerned this is due to her malignancy. Blood/urine cx's negative. Lyme titer negative. cxr negative. en re-eval. Hold off on antibiotics at this time unless focus of infection occurs. 13. PAD - s/p iliac artery stents in the past - asa, plavix, statin. 14. pain - due to metastatic disease to the bone - fentanyl patch 12.5mcg. Cont oxycodone prn and dilaudid prn. Consider titration of fentanyl patch next couple of days if needed. 15. constipation - improved; continue on bowel regimen. Next stool will check fecal occult blood. 16. concern of malignancy - bones with numerous lytic lesions on imaging. Multiple myeloma?? Other solid organ tumor w/ mets? Sent sed rate, SPEP, UPEP, light chains, etc. Appreciate Dr. Tate's consultation. 17. FEN - stop fluids. Diet as tolerated. Family updated. PT, OT. home when counts are stable, eating fine, and pain is controlled Continued [facility] stay due to: inadequate oral pain control, multiple IV medications needed Discharge planning: home with home health
[2017-08-22] MEDS: DOCUSATE SODIUM 100 MG CAP PO SCH ×2 (08:22→21:13)
[2017-08-22] MEDS: FERROUS GLUCONATE 324 MG TAB PO SCH ×3 (08:22→18:55)
[2017-08-22] MEDS: LACTOBACILLUS ACIDOPHILUS (FLORANEX) TAB PO SCH (08:22)
[2017-08-22] MEDS: MULTIVITAMIN TAB PO SCH (08:23)
[2017-08-22] MEDS: CLOPIDOGREL BISULFATE 75 MG TAB PO SCH (08:23)
[2017-08-22] MEDS: METOPROLOL SUCC 50MG EXT REL TAB PO SCH (08:23)
[2017-08-22] MEDS: METOCLOPRAMIDE HCL 5 MG TAB PO SCH ×4 (08:23→21:14)
[2017-08-22] MEDS: MYCOPHENOLATE MOFETIL 250 MG CAP (CELLCEPT) PO SCH ×2 (08:23→21:14)
[2017-08-22] MEDS: CHOLECALCIFEROL 1000 INTER.UNIT TAB PO SCH (08:24)
[2017-08-22] MEDS: BusPIRone 15 MG TAB PO SCH ×2 (08:24→21:13)
[2017-08-22] MEDS: FLUOXETINE HCL 20 MG CAP PO SCH (08:24)
[2017-08-22] MEDS: ASPIRIN 81 MG ECTAB PO SCH (08:25)
[2017-08-22] MEDS: ROSUVASTATIN CALCIUM 20 MG TAB PO SCH (08:25)
[2017-08-22] MEDS: INSULIN ASPART 100 UNITS/ML 3 ML PEN SC SCH ×4 (08:38→21:13)
[2017-08-22] MEDS: CHECK FENTANYL PATCH PLACEMENT SCH ×3 (08:39→23:47)
[2017-08-22] MEDS: INSULIN HUMAN NPH SC SCH (08:39)
--- NOTE | 2017-08-22 08:47 | PROGRESS NOTE ---
DATE: 08/22/2017 SUBJECTIVE: A 67-year-old white female, 5 days out from a prophylactic IM nailing of an impending pathological femur fracture. She is doing okay. Pain seems to be getting a little better daily. Needed some blood yesterday. No new complaints. OBJECTIVE: VITAL SIGNS: Temperature is 36.8. Vital signs stable. GENERAL: Physical examination shows a pleasant elderly female. I did wake her this morning. EXTREMITIES: Examination of right hip and leg reveals incisions to be clean, dry and intact. The leg is well aligned. Still quite tender to palpation. Minimal pain with hip and knee motion. She is neurologically intact. LABORATORY DATA: Labs are pending. ASSESSMENT: A 67-year-old female, 5 days out from IM nailing of impending pathological femur fracture and biopsy. Unfortunately, the biopsy specimens were nondiagnostic. Oncology has been consulted. She is in the hospital for medical issues. PLAN: 1. DVT prophylaxis including thigh-high TEDs, SCDs, and Plavix and her aspirin. 2. PT/OT. She can fully weightbear on right leg. 3. Medical management as per the medicine service. 4. Disposition: She is orthopedically acceptable for discharge any time medically stable. I need to see her back 2 weeks out from her surgery date. Any orthopedic questions can be directed at [phone].
[2017-08-22 08:53] LABS: HEMATOCRIT 35.4 % (37-47); HEMOGLOBIN 11.6 g/dL (12.0-16.0); MEAN CELL VOLUME 85.1 fL (80-100); MEAN CORPUSCULAR HEMOGLOBIN 27.9 pg (25-34); MEAN CORPUSCULAR HGB CONC 32.8 g/dl (32-36); MEAN PLATELET VOLUME 8.6 fL (7.4-10.4); PLATELET COUNT 254 K/uL (130-400); RED CELL DISTRIBUTION WIDTH SD 49.5 fL (36.4-46.3); WHITE BLOOD COUNT 3.94 K/uL (4.8-10.8)
[2017-08-22 08:58] LABS: CALCIUM 9.1 mg/dl (8.5-10.1); CREATININE 0.82 mg/dl (0.60-1.20); POTASSIUM 3.8 mmol/L (3.5-5.1)
[2017-08-22] MEDS ORDERED: FENTANYL PATCH REMOVE & WASTE SCH (10:00)
[2017-08-22] MEDS: FENTANYL 12 MCG/HR TDSY TD SCH (10:59)
--- NOTE | 2017-08-22 13:14 | Pharmacy Progress Note ---
Pharmacy Glycemic Short Note 2 Date of Service August 22, 2017. OUTPATIENT ANTIDIABETIC REGIMEN: * [facility] Endo manages her diabetes. See was last seen 07/26/17 and had the following pump settings noted. She has an OmniPod-Novolog Insulin Pump. * Reported Basal Rates (from [employer] 07/26/17) <---note: this was a 10% increase when on prednisone * 0000: 2.85 u/hr * 0700: 2 u/hr * 1630: 2.85 u/hr * Total Basal Dose: 60 units * Goal BSG Range: 80-110 mg/dL * Ordered Correction Factor: 15mg/dL/unit * Ordered Carb Ratio: 1 unit per 4 or 5 grams CHO consumed. Test 08/21/17 17:05 08/21/17 20:56 08/22/17 08:04 08/22/17 08:24 Bedside Glucose 154 mg/dl (70-90) 97 mg/dl (70-90) 78 mg/dl (70-90) Random Glucose 82 mg/dl (70-99) Test 08/22/17 12:01 Bedside Glucose 97 mg/dl (70-90) ASSESSMENT: * Patient received 72 units of insulin yesterday, still using SQ basal/bolus injections with plan to transition back to pump upon discharge * 50 units of basal insulin with NPH * 22 units of prandial insulin with NovoLog * AM fasting BSG below goal range at 78 mg/dl --> decrease PM NPH dose * Post-prandial BSGs in range, no changes needed PLAN FOR INPATIENT GLYCEMIC CONTROL * Basal insulin: decrease dosing * NPH 25 units with breakfast, DECREASE to 20 units with dinner tonight (utilizing NPH for easier transition back to pump d/t its 12hr duration instead of 24hr Lantus) * Bolus insulin: No change * Novolog ACHS * Goal 120-150mg/dl * CF 15mg/dl/unit * CR 1 unit per 4grams CHO consumed DISCHARGE RECOMMENDATIONS: * Transition back to Novolog pump on discharge * Make sure patient is using basal 1 on settings as per recent outpatient endo note. Her basal was increased 10% back in July when she was on prednisone. Patient was supposed to change it back after finishing prednisone.
[2017-08-22] MEDS ORDERED: BISACODYL 10 MG SUPP PR STA (14:19)
[2017-08-22 14:59] VITALS: BP 108/64; PULSE 75; TEMP 36.9; O2SAT 93
[2017-08-22 15:20] VITALS: O2SAT 93
[2017-08-22] MEDS ORDERED: RXC5 PO (16:53)
[2017-08-22] MEDS ORDERED: DRGTP12 TD (16:53)
[2017-08-22] MEDS ORDERED: METO1TAB54 PO (16:53)
[2017-08-22] MEDS ORDERED: SENN-61 PO (16:53)
[2017-08-22] MEDS ORDERED: FRRG PO (16:53)
[2017-08-22] MEDS ORDERED: IMDSR/30 PO (16:53)
[2017-08-22] MEDS ORDERED: MRLP17X PO (16:53)
[2017-08-22] MEDS ORDERED: TPRSR/50 PO (16:53)
[2017-08-22] MEDS: CARBOHYDRATES FOR HYPOGLYCEMIA PO PRN ×3 (17:09→17:56)
--- NOTE | 2017-08-22 17:19 | Discharge Instructions ---
Discharge Instructions Date of Service August 22, 2017. Admission Reason for Admission: Impending Fracture of right Femur bone Discharge Discharge Diagnosis / Problem: Impending fracture of right femur bone with surgery by Dr. Perkins Discharge Goals Goal(s): Decrease discomfort, Improve function, Improve disease control, Learn about illness, Diagnostic testing, Therapeutic intervention Activity Recommendations Activity Limitations: as noted below At this time you CAN WEIGHT BEAR TOLERATED ON THE RIGHT LEG. PLEASE FOLLOW ANY OTHER INSTRUCTIONS OUTLINED BY DR. PERKINS IN HIS SEPARATE INSTRUCTIONAL SHEETS. . Instructions / Follow-Up Instructions / Follow-Up From Dr. Neri - 1. The exact cause of the spots in the bones is unknown at this time. Unfortunately the bone biopsy from your operation was inconclusive. You were seen by Dr. Tate, Dr. Montilla's partner from the cancer center, and he recommended blood work to rule out multiple myeloma. Hopefully this blood & urine work will be back when Dr. Montilla sees you. 2. When you have lesions in the bone this causes tremendous pain. For your pain please do the following - * fentanyl patch 12mcg, place on the skin and leave for 3 days * you are due to change the current patch on the AM of 08/25/17 * oxycodone, 10mg by mouth every 6 hours as needed for pain * fvok-kyx-elqgqwj tylenol up to 1000mg every 8 hours as needed for additional pain relief * you can take occasional kilt-lyn-paobhkj ibuprofen if desired as well * you can use a heating pad on your back if desired 3. Continue on your aspirin and plavix for your heart. These medications will also serve as prevention against blood clots in your legs. Please wear the TEDS hose for the next few weeks as well. 4. Because you have lost weight you no longer need the higher doses of your heart medications. Please note the following changes - * your metoprolol xl is now 50mg once daily in the morning; new prescription sent to your pharmacy for you * your imdur (isosorbide mononitrate) is now 30mg once daily in the morning; new prescription sent to your pharmacy for you * for now we have STOPPED your lisinopril 5. For constipation prevention and treatment you will need to take a combination of medications. Please do the following - * spji-rke-teiyfwx miralax once-twice daily EVERY DAY * gfbp-vwi-pcrwwur senna (senakot) 2 tablets EVERY DAY * you may need to increase the senna to 4 tablets if you are not having regular bowel movements * all of the narcotics will cause constipation 6. Gastroparesis - * the chronic nausea you had been having was likely due in part from the gastroparesis * this condition causes food to sit in your stomach longer than usual, causing nausea and sometimes vomiting * you were started on a medication called REGLAN (METOCLOPRAMIDE) before meals which helped your nausea * please continue this medication as follows - * take 5mg about 30 minutes prior to breakfast, lunch, and dinner 7. Headaches - * you have a spot in the bone of the skull which may be contributing to your headaches * you can take bewf-uyp-mudpwku tylenol, ibuprofen, or excedrin migraine as needed for pain/headaches 8. Diabetes - please resume your insulin pump as previous and report any troubles with your pump or your blood sugars to your diabetes doctors right away. 9. Follow-up appointments - * please see Dr. Montilla at the [facility] within 1 week * please see Amanda Sequeira, your family provider, within 1 week * see Dr. Connor Perkins, orthopedics, within 1 week 10. Please use your walker at all times when you ambulate. 11. Please take sgcw-jjz-lkicedd iron (Ferrous Sulfate 325mg) twice a day for 1 -2 months. Note that the iron will contribute to constipation and make your stool look dark. 12. Return to [facility] if - * your pain in your back, head, leg, etc is uncontrolled despite the pain medications * you have persistent fevers over 100.5 degrees * you have shortness of breath, chest pain, significant swelling in your legs * you have severe abdominal pain, persistent vomiting, or inability to have bowel movements * any other concerns Current Hospital Diet Patient's current hospital diet: Diabetes Type 1 Diet Discharge Diet Recommended Diet: Diabetes Type 1 Diet Procedures Procedures Performed: 1.) Right Long Trochanteric nail of Impending Pathological Femur Fracture 2.) Biopsy Right Femur Pending Studies Studies pending at discharge: yes List of pending studies: BLOOD AND URINE STUDIES TO RULE OUT MULTIPLE MYELOMA Laboratory Results Hemoglobin A1c Test 08/18/17 07:27 Range/Units Estimated Average Glucose 192 mg/dl Hemoglobin A1c 8.3 H 4.5-5.6 % Medical Emergencies . Who to Call and When: Medical Emergencies: If at any time you feel your situation is an emergency, please call 911 immediately. . Non-Emergent Contact Non-Emergency issues call your: Primary Care Provider, Oncologist, Surgeon ( ORTHOPEDICS) Call Non-Emergent contact if: temperature is above 100.5, your pain is not controlled, your pain is worsening, your pain is unusual for you, your pain is concerning you, wound has increased drainage, wound has increased redness, wound has increased pain, you have any medication questions . . "Provider Documentation" section prepared by Audie Neri. .
[2017-08-22] MEDS ORDERED: INSULIN HUMAN NPH SC SCH (17:45)
[2017-08-22] MEDS ORDERED: INSULIN HUMAN NPH SC STA (18:18)
[2017-08-22] MEDS ORDERED: HYDROmorphone INJ 0.5 MG/0.5 ML SYR IV PRN (20:00)
[2017-08-22] MEDS ORDERED: SENNA 8.6 MG TAB PO SCH (21:00)
--- NOTE | 2017-08-22 21:08 | Progress Note ---
Subjective Date of Service: August 22, 2017. Subjective Pt evaluation today including: conversation w/ patient, conversation w/ family (daughter - multiple times today), physical exam, chart review, lab review, review of studies (recent head CT in late July), conversation w/ websphere consultant ( pharmacy, heme/onc), review of inpatient medication list Pain: back, right leg - improved w/ pain med regimen PO Intake: much improved; tolerating regular diet Voiding: no voiding problems patient reports that her migraine headache has resolved she still has a little blurry vision in her right eye but states that is not unusual following a migraine (?) no vertigo, no dizziness double vision has resolved did very well with PT today; walked twice around unit with walker; had no assistance from the PT or BRIM RAISER late in the day today we attempted to transition the patient back to her pump ( at dinner-time) I was at bedside reviewing d/c instructions w/ the patient and her daughter I asked the patient what her basal rates were and also asked her if she knew how to manipulate her device it became very clear that she was not knowledgable about her pump I reviewed the outpatient diabetes clinic notes in [employer] and several notes mentioned that the patient has had a difficult time with the pump the outpatient record noted she uses about 50-60 units of basal per day and about 30-40 unites of bolus per day for a total of 90-100 units/day the pt's daughter mentioned that she has been uncomfortable with her mother's use of the pump after much discussion we all agreed to STOP/NOT restart the pump and instead continue with N & R insulin SC coincidentally, during the visit, the patient had a low of 66 requiring glucose tabs, a banana, and juice daughter expressed concerns about the frequency of her mother's headaches at home as well as mild confusion at times Problem List Medical Problems: (1) Diarrhea Status: Acute (2) Hypoglycemia Status: Acute (3) Strain of lumbar region Status: Acute Review of Systems Constitutional: No fever, No chills Respiratory: No cough, No shortness of breath, No dyspnea on exertion Cardiac: No chest pain, No orthopnea, No PND, No edema Abdomen: + constipation, No pain, No nausea, No vomiting Female : No dysuria Objective Vital Signs Date Time Temp Pulse Resp B/P (MAP) Pulse Ox O2 Delivery O2 Flow Rate FiO2 5/6/18 15:20 93 Room Air 08/22/17 14:59 36.9 75 16 108/64 (79) 93 Room Air 08/22/17 08:00 Room Air 08/22/17 07:41 36.8 83 15 128/71 (90) 96 Room Air 08/22/17 02:16 74 107/62 (77) 81 125/70 (88) 89 154/76 (102) 08/21/17 23:25 36.7 79 18 109/65 (80) 94 Nasal Cannula 1.0 08/21/17 23:25 94 Nasal Cannula 1.0 08/21/17 22:50 36.9 75 17 110/64 (79) 94 Nasal Cannula 1.0 08/21/17 21:59 80 18 126/79 (95) 97 Nasal Cannula 1.0 08/21/17 21:58 76 18 108/61 (77) 96 Nasal Cannula 1.0 08/21/17 21:56 36.8 76 108/61 (77) 96 Nasal Cannula 1.0 08/21/17 21:55 36.8 78 18 108/61 96 1.0 08/21/17 21:15 36.6 75 18 102/58 97 2.0 08/21/17 20:53 36.5 75 18 99/58 95 Physical Exam General Appearance: no apparent distress Eyes: + pertinent finding (surgical pupil right eye; but both pupils reactive; EOMI today in all directions ) ENT: pharynx normal Neck: no JVD Respiratory/Chest: lungs clear, no respiratory distress, no accessory muscle use Cardiovascular: regular rate, rhythm, no gallop, no murmur Abdomen: normal bowel sounds, non tender, soft, no organomegaly Extremities: no pedal edema, + swelling (right hip) Neurologic/Psychiatric: no motor/sensory deficits, alert, oriented x 3 Skin: no rash, + pertinent finding (dressings intact right upper thigh ) Laboratory Results Last 24 Hours Test 08/21/17 20:56 08/22/17 08:04 08/22/17 08:24 08/22/17 12:01 Bedside Glucose 97 mg/dl 78 mg/dl 97 mg/dl White Blood Count 3.94 K/uL Red Blood Count 4.16 M/uL Hemoglobin 11.6 g/dL Hematocrit 35.4 % Mean Corpuscular Volume 85.1 fL Mean Corpuscular Hemoglobin 27.9 pg Mean Corpuscular Hemoglobin Concent 32.8 g/dl RDW Standard Deviation 49.5 fL RDW Coefficient of Variation 16.0 % Platelet Count 254 K/uL Mean Platelet Volume 8.6 fL Sodium Level 140 mmol/L Potassium Level 3.8 mmol/L Chloride Level 103 mmol/L Carbon Dioxide Level 32 mmol/L Anion Gap 5.0 mmol/L Blood Urea Nitrogen 9 mg/dl Creatinine 0.82 mg/dl Est Creatinine Clear Calc Drug Dose 57.5 ml/min Estimated GFR () 87.0 Estimated GFR (Non- 75.1 BUN/Creatinine Ratio 11.4 Random Glucose 82 mg/dl Calcium Level 9.1 mg/dl Magnesium Level 1.8 mg/dl Test 08/22/17 18:00 Bedside Glucose 84 mg/dl Assessment and Plan 67yo female - 1. impending pathologic fracture of shaft of right femur, POD#5 s/p right hip nailing - bone bx/path report unfortunately nondiagnostic (no neoplastic cells seen). Appreciate orthopedic assistance. Asa/plavix for DVT proph at home; also has lovenox while hospitalized. WBAT. 2. Pathologic compression vertebral fracture of L1/L3, C7 bony lytic lesions - due to metastatic disease from unknown primary. Path report from right femur bx nondiagnostic. Cont fentanyl patch 12mcg. Since patient will hopefully be returning home tomorrow will d/c dilaudid. Cont oxycodone 10mg prn. 3. severe orthostasis - resolved. Cortisol wnl. Lisinopril stopped. Imdur dose cut to 30mg daily. Toprol xl dose cut to 50mg daily. 4. nausea/emesis x 2-3 months - 2008 gastric emptying study with gastroparesis. Improved with reglan 5mg/ac/hs suggesting gastroparesis playing a big role in this. Cont reglan. No apparent side effects. 5. acute blood loss anemia 2nd to #1 - s/p 2 units of PRBCs yesterday with nice improvement in H/H and resolution of her tachycardia. CBC in am for stability. Fecal occult her stool to ensure this is not GI in origin. 6. right breast lesion seen on recent imaging - outpatient mammo - defer to heme/onc. 7. ovarian cyst- 4.2 cm cyst within the left adnexa seen on recent CT - heme/ onc & [employer] follow-up after d/c. 8. LLQ mass seen on CT - at a minimum "One month abdomen and pelvis CT follow up is recommended to exclude the possibility of a peritoneal implant". Defer w/u to heme/onc. 9. CAD status post cardiac stent - no ischemic symptoms at this time. Cont asa , plavix. Cont BB. Holding SHALONDA. resume imdur but at 30mg daily. 10. T1DM - much of the visit today was spent discussing her insulin regimen. It is very clear that the patient does not have a mastery of her insulin pump. It is very concerning that she cannot manipulate the device, change settings, etc. This has been well-documented in the outpatient record that she has had ongoing difficulties w/ the pump. We decided today that we will NOT resume the pump on d/c. She wishes to return to N & R insulin. I spoke several times w/ pharmacy today. In light of her hypoglycemia we will loosen her novolog w/ meals and decrease her NPH. She sees Yara Elenaor in the DM clinic - will need to inform her of the changes tomorrow on Wednesday. 11. Myasthenia gravis - continue CellCept; not in exacerbation. 12. low-grade fevers - these have resolved in the last 48 hours. Uncertain if these were post-op fevers from cytokine release or due to her malignancy. Blood/urine cx's negative. Lyme titer negative. cxr negative. 13. PAD - s/p iliac artery stents in the past - asa, plavix, statin. 14. pain - due to metastatic disease to the bone - fentanyl patch 12.5mcg. Cont oxycodone prn. Stop dilaudid. 15. constipation - ongoing. Increase senna to 4 tabs daily. Miralax. Colace. Dulcolax suppos x 1 today. 16. concern of malignancy - bones with numerous lytic lesions on imaging. Multiple myeloma?? Other solid organ tumor w/ mets? Sent sed rate, SPEP, UPEP, light chains, etc. Appreciate Dr. Tate's consultation. Has f/u with Dr. Montilla on 08/27/17. 17. FEN - eating well, lytes stable. 18. h/o chronic migraines with increased frequency of headaches in the last 1- 2 months - due to lytic lesions of skull (as seen on CT head late July)?? Ideally would get MRI brain but unable due to tex in right hip from recent surgery. Headache from yesterday did resolve fortunately. Follow for now. discharge canceled today hopefully d/c tomorrow daughter extensively updated several times today need to reach out to Yara Efrain tomorrow social work aware of need for HH, home PT, home OT total time today about 70 minutes over several visits Continued [facility] stay due to: other (issues with T1DM) Discharge planning: home with home health
[2017-08-22] MEDS: ENOXAPARIN 40 MG/0.4 ML SYR SQ SCH (21:14)
[2017-08-22] MEDS ORDERED: PANTOprazole SOD 40 MG TAB PO ONE (22:00)
[2017-08-22 22:50] VITALS: BP 113/67; PULSE 85; TEMP 37.1; O2SAT 93
[2017-08-23] MEDS: OXYCODONE HCL IR 5 MG TAB (IMMEDIATE RELEASE) PO PRN ×3 (00:05→11:51)
[2017-08-23 04:40] VITALS: BP_SYST 120; BP_SYST 129; BP_SYST 149; BP_DIAS 64; BP_DIAS 72; BP_DIAS 73; PULSE 101; PULSE 108; PULSE 98; TEMP 36.8; O2SAT 96
[2017-08-23 06:35] LABS: HEMATOCRIT 35.8 % (37-47); HEMOGLOBIN 11.8 g/dL (12.0-16.0); MEAN PLATELET VOLUME 8.7 fL (7.4-10.4); PLATELET COUNT 284 K/uL (130-400); RED CELL DISTRIBUTION WIDTH CV 15.7 % (11.5-14.5); RED CELL DISTRIBUTION WIDTH SD 48.5 fL (36.4-46.3); WHITE BLOOD COUNT 5.69 K/uL (4.8-10.8)
[2017-08-23 07:09] LABS: CALCIUM 9.5 mg/dl (8.5-10.1); CREATININE 0.88 mg/dl (0.60-1.20); POTASSIUM 3.6 mmol/L (3.5-5.1)
[2017-08-23 07:14] VITALS: BP 129/73; PULSE 88; TEMP 37.1; O2SAT 91
[2017-08-23] MEDS: CHECK FENTANYL PATCH PLACEMENT SCH (08:01)
[2017-08-23] MEDS: METOCLOPRAMIDE HCL 5 MG TAB PO SCH ×2 (08:01→11:51)
[2017-08-23] MEDS: CLOPIDOGREL BISULFATE 75 MG TAB PO SCH (08:01)
[2017-08-23] MEDS: CHOLECALCIFEROL 1000 INTER.UNIT TAB PO SCH (08:01)
[2017-08-23] MEDS: ROSUVASTATIN CALCIUM 20 MG TAB PO SCH (08:02)
[2017-08-23] MEDS: MULTIVITAMIN TAB PO SCH (08:02)
[2017-08-23] MEDS: METOPROLOL SUCC 50MG EXT REL TAB PO SCH (08:02)
[2017-08-23] MEDS: DOCUSATE SODIUM 100 MG CAP PO SCH (08:03)
[2017-08-23] MEDS: FERROUS GLUCONATE 324 MG TAB PO SCH ×2 (08:03→12:42)
[2017-08-23] MEDS: ASPIRIN 81 MG ECTAB PO SCH (08:03)
[2017-08-23] MEDS: FLUOXETINE HCL 20 MG CAP PO SCH (08:03)
[2017-08-23] MEDS: BusPIRone 15 MG TAB PO SCH (08:04)
[2017-08-23] MEDS: MYCOPHENOLATE MOFETIL 250 MG CAP (CELLCEPT) PO SCH (08:04)
[2017-08-23] MEDS: LACTOBACILLUS ACIDOPHILUS (FLORANEX) TAB PO SCH (08:04)
[2017-08-23] MEDS: INSULIN ASPART 100 UNITS/ML 3 ML PEN SC SCH ×2 (08:11→12:41)
[2017-08-23] MEDS ORDERED: INSULIN HUMAN NPH SC SCH ×3 (08:30→17:45)
[2017-08-23] MEDS ORDERED: ISOSORBIDE MONONITRATE 30 MG TABCR PO SCH (09:00)
[2017-08-23] MEDS ORDERED: PANTOprazole SOD 40 MG TAB PO SCH (09:00)
[2017-08-23] MEDS ORDERED: POLYETHYLENE (MIRALAX) 17 GM PACK PO SCH (09:00)
--- NOTE | 2017-08-23 10:06 | Hematology/Oncology Prog Note ---
Hematology/Onc Progress Note Date of Service August 23, 2017. Diagnoses Lytic bony lesions Impending fracture right femur now status post fixation Medications Medications Administered Medications (Trade) Dose Ordered Sig/Yovana Route Start Time Stop Time Status Last Admin Dose Admin Oxycodone/ Acetaminophen (Percocet 5-325mg Tab) `1-2 TABS FOR PAIN `1 TAB... Q4H PRN PO 08/16/17 16:15 08/17/17 13:29 DC 08/17/17 07:44 2 TAB Sodium Chloride 1,000 ml @ 75 mls/hr [id number] IV 08/16/17 17:15 08/17/17 05:37 DC 08/17/17 05:21 75 MLS/HR Cefazolin Sodium 15 ml @ 225 mls/hr PREOP IV 08/17/17 06:00 08/17/17 15:00 DC 08/17/17 11:50 225 MLS/HR Hydromorphone HCl (Dilaudid Inj) 0.5 mg Q3HWA PRN IV 08/16/17 16:15 08/20/17 19:20 DC 08/20/17 14:16 0.5 MG Miscellaneous Information (Patient'S Height And/Or Weight Needed) 1 ea Q2H N/A 08/16/17 17:15 08/16/17 18:13 DC 08/16/17 17:15 1 EA Buspirone HCl (BusPAR TAB) 15 mg BID PO 08/16/17 21:00 09/15/17 20:59 08/23/17 08:04 15 MG Fluoxetine HCl (Prozac Cap) 40 mg DAILY PO 08/17/17 09:00 09/16/17 08:59 08/23/17 08:03 40 MG Isosorbide Mononitrate (Imdur Ext Rel Tab) 60 mg QAM PO 08/17/17 09:00 08/22/17 21:00 DC 08/19/17 10:31 60 MG Rosuvastatin Calcium (Crestor Tab) 40 mg DAILY PO 08/17/17 09:00 09/16/17 08:59 08/23/17 08:02 40 MG Cholecalciferol (Vitamin D Tab) 2,000 inter.unit DAILY PO 08/17/17 09:00 09/16/17 08:59 08/23/17 08:01 2,000 INTER.UNIT Metoprolol Succinate (Toprol Xl Tab) 100 mg BID PO 08/16/17 21:00 08/18/17 09:01 DC 08/17/17 20:39 100 MG Mycophenolate Mofetil (Cellcept Cap) 1,000 mg BID PO 08/16/17 21:00 09/15/17 20:59 08/23/17 08:04 1,000 MG Potassium Chloride (Klor-Con M10) 10 meq BID PO 08/16/17 21:00 09/15/17 20:59 Future Hold 08/17/17 09:36 10 MEQ Lactobacillus Acidophilus (Floranex Tab) 1 tab DAILY PO 08/17/17 09:00 09/16/17 08:59 08/23/17 08:04 1 TAB Insulin Aspart (novoLOG INSULIN PUMP) 1 ea Q4 N/A 08/16/17 20:00 08/22/17 18:00 DC 08/17/17 03:51 1 EA Glucose (Glucose 40% Gel) 15-30 GRAMS 15 GRAMS... UD PRN PO 08/16/17 19:45 09/15/17 19:44 08/17/17 04:56 15 GM Miscellaneous Information (Pending Order) 1 ea Q4 N/A 08/16/17 20:00 08/17/17 07:06 DC 08/17/17 03:51 1 EA Dextrose/Sodium Chloride 1,000 ml @ 75 mls/hr [id number] IV 08/17/17 05:45 08/17/17 07:07 DC 08/17/17 05:52 75 MLS/HR Insulin Human NPH (novoLIN-N U-100 NPH PER UNIT) 18 units TODAY@0900 SQ 08/17/17 09:00 08/17/17 12:00 DC 08/17/17 09:43 18 UNITS Carbohydrates (Carbohydrates For Hypoglycemia) 15-30 GRAMS 15 grams if BSG 54-69... PRN PRN PO 08/17/17 08:45 09/16/17 08:44 08/22/17 17:56 27 GM Ondansetron HCl (Zofran Inj) 4 mg STK-MED ONCE .ROUTE 08/17/17 10:52 08/17/17 10:53 DC 08/17/17 10:57 4 MG Bupivacaine HCl (Sensorcaine 0.25% Inj) 30 ml STK-MED ONCE .ROUTE 08/17/17 11:53 08/17/17 11:54 DC 08/17/17 13:10 10 ML Epinephrine HCl (EpINEphrine INJ 1MG/ML AMP/VIAL) 1 mg STK-MED ONCE .ROUTE 08/17/17 11:53 08/17/17 11:54 DC 08/17/17 13:11 0.15 MG Oxycodone HCl (Roxicodone Immediate Rel Tab) 1-2 TABS FOR PAIN 1 TABLET ... Q4H PRN PO 08/17/17 13:30 08/20/17 19:20 DC 08/20/17 15:42 10 MG Acetaminophen (Tylenol Tab) 1,000 mg Q8H PO 08/17/17 22:00 08/18/17 20:41 DC 08/18/17 13:37 1,000 MG Senna (Senokot Tab) 17.2 mg HS PO 08/17/17 21:00 08/22/17 20:45 DC 08/21/17 21:16 17.2 MG Docusate Sodium (coLACE CAP) 100 mg BID PO 08/17/17 21:00 09/16/17 20:59 08/23/17 08:03 100 MG Multivitamins (Multivitamin Tab) 1 tab QAM PO 08/18/17 09:00 09/17/17 08:59 08/23/17 08:02 1 TAB Ondansetron HCl (Zofran Inj) 4 mg Q6H PRN IV 08/17/17 13:30 09/16/17 13:29 08/19/17 23:49 4 MG Ferrous Gluconate (Ferrous Gluconate Tab) 324 mg TIDM PO 08/17/17 17:45 09/16/17 17:44 08/23/17 08:03 324 MG Pantoprazole Sodium (Protonix Tab) 40 mg QAM PO 08/18/17 09:00 08/21/17 09:01 DC 08/21/17 09:12 40 MG Cefazolin Sodium 2000 mg/Syringe 15 ml @ 100 mls/hr Q8H IV 08/17/17 20:00 08/18/17 04:08 DC 08/18/17 03:40 100 MLS/HR Aspirin (Ecotrin Tab) 81 mg DAILY PO 08/18/17 09:00 09/17/17 08:59 08/23/17 08:03 81 MG Clopidogrel Bisulfate (plAVix TAB) 75 mg DAILY PO 08/18/17 09:00 09/17/17 08:59 08/23/17 08:01 75 MG Insulin Aspart (novoLOG ASPART) SLIDING SCALE ACHS SC 08/17/17 17:15 09/16/17 17:14 08/23/17 08:11 6 UNITS Insulin Aspart (novoLOG ASPART) SLIDING SCALE NOW ONCE SC 08/17/17 15:00 08/17/17 15:01 DC 08/17/17 15:23 6 UNITS Insulin Human NPH (novoLIN-N NPH) 40 units NOW ONCE SC 08/17/17 15:00 08/17/17 15:01 DC 08/17/17 15:24 40 UNITS Insulin Human NPH (novoLIN-N NPH) see protocol text BIDM SC 08/18/17 08:30 08/19/17 09:35 DC 08/18/17 18:48 30 UNITS Metoprolol Succinate (Toprol Xl Tab) 50 mg BID PO 08/18/17 09:30 08/18/17 20:38 DC 08/18/17 10:35 50 MG Sodium Chloride 1,000 ml @ 50 mls/hr Q20H IV 08/18/17 13:45 08/21/17 15:32 DC 08/20/17 23:31 50 MLS/HR Magnesium Sulfate 100 ml @ 100 mls/hr Q1H IV 08/18/17 15:30 08/18/17 17:29 DC 08/18/17 17:41 100 MLS/HR Potassium Chloride (Klor-Con Tab) 20 meq NOW STAT PO 08/18/17 15:19 08/18/17 15:20 DC 08/18/17 16:12 20 MEQ Potassium Chloride (Klor-Con Tab) 20 meq TODAY@2100 ONCE PO 08/18/17 21:00 08/18/17 21:01 DC 08/18/17 21:34 20 MEQ Metoprolol Succinate (Toprol Xl Tab) 50 mg QAM PO 08/19/17 09:00 09/15/17 09:29 08/23/17 08:02 50 MG Acetaminophen (Tylenol Tab) 1,000 mg Q8H PRN PO 08/18/17 22:00 09/16/17 21:59 08/19/17 23:48 1,000 MG Bisacodyl (Dulcolax Supp) 10 mg NOW STAT OK 08/19/17 09:03 08/19/17 09:11 DC 08/19/17 09:18 10 MG Fentanyl (Duragesic Patch) 12 mcg Q3D@1000 TD 08/19/17 10:00 09/02/17 09:59 08/22/17 10:59 12 MCG Miscellaneous (Fentanyl Patch Remove & Waste) 1 ea Q3D N/A 08/22/17 10:00 09/21/17 09:59 08/22/17 11:01 1 EA Miscellaneous Information (Check Fentanyl Patch Placement) 1 ea QS N/A 08/19/17 16:00 09/18/17 15:59 08/23/17 08:01 1 EA Insulin Human NPH (novoLIN-N NPH) see protocol text BIDM SC 08/19/17 09:30 08/19/17 23:59 DC 08/19/17 18:53 30 UNITS Insulin Human NPH (novoLIN-N NPH) 27 units BIDM SC 08/20/17 08:30 08/20/17 15:37 DC 08/20/17 09:13 27 UNITS Metoclopramide HCl (Reglan Tab) 5 mg ACHS PO 08/19/17 17:15 09/18/17 17:14 08/23/17 08:01 5 MG Bisacodyl (Dulcolax Tab) 5 mg NOW ONCE PO 08/19/17 17:00 08/19/17 17:01 DC 08/19/17 17:05 5 MG Enoxaparin Sodium (Lovenox Inj) 40 mg NOW ONCE SQ 08/19/17 20:45 08/19/17 21:18 DC 08/19/17 21:28 40 MG Enoxaparin Sodium (Lovenox Inj) 40 mg DAILY@2100 SQ 08/20/17 21:00 09/19/17 20:59 08/22/17 21:14 40 MG Insulin Human NPH (novoLIN-N NPH) 23 units 08/20/17@1745 SC 08/20/17 17:45 08/20/17 17:46 DC 08/20/17 18:22 23 UNITS Insulin Human NPH (novoLIN-N NPH) 25 units BIDM SC 08/21/17 08:30 08/22/17 13:07 DC 08/22/17 08:39 25 UNITS Hydromorphone HCl (Dilaudid Inj) 1 mg Q3HWA PRN IV 08/20/17 19:30 08/22/17 19:55 DC 08/21/17 22:12 1 MG Oxycodone HCl (Roxicodone Immediate Rel Tab) 10 mg Q4H PRN PO 08/20/17 19:30 08/31/17 13:29 08/23/17 06:34 10 MG Ketorolac Tromethamine (Toradol Inj) 30 mg NOW STAT IV 08/21/17 15:47 08/21/17 15:59 DC 08/21/17 16:05 30 MG Ondansetron HCl (Zofran Inj) 4 mg NOW STAT IV 08/21/17 15:47 08/21/17 15:59 DC 08/21/17 16:05 4 MG Bisacodyl (Dulcolax Supp) 10 mg NOW STAT OK 08/22/17 14:19 08/22/17 14:23 DC 08/22/17 15:25 10 MG Insulin Human NPH (novoLIN-N NPH) 18 units NOW STAT SC 08/22/17 18:18 08/22/17 18:19 DC 08/22/17 18:55 18 UNITS Insulin Human NPH (novoLIN-N NPH) PLEASE SEE PROTOCOL TE... DAILY@0830 SC 08/23/17 08:30 09/22/17 08:29 08/23/17 08:13 20 UNITS Senna (Senokot Tab) 34.4 mg HS PO 08/22/17 21:00 09/16/17 20:59 08/22/17 22:23 34.4 MG Polyethylene (Miralax Powder Packet) 17 gm DAILY PO 08/23/17 09:00 09/22/17 08:59 08/23/17 08:05 17 GM Isosorbide Mononitrate (Imdur Ext Rel Tab) 30 mg QAM PO 08/23/17 09:00 09/16/17 08:59 08/23/17 08:05 30 MG Pantoprazole Sodium (Protonix Tab) 40 mg TODAY@2200 ONCE PO 08/22/17 22:00 08/22/17 22:01 DC 08/22/17 22:23 40 MG Pantoprazole Sodium (Protonix Tab) 40 mg BID PO 08/23/17 09:00 08/26/17 10:00 08/23/17 08:04 40 MG Subjective Visited her today with her in the room. She seems to be very comfortable. Really offers no new complaints from what I can glean although does have some lower back pain. Review of Systems: Constitutional: Negative for night sweats, or fever. Has had some weight loss she states amount is unclear Eyes: Negative for event change of vision ENT: Negative for epistaxis, nasal discharge, sore throat, or deafness Cardiovascular: Negative for chest pain, palpitations, dizziness, diaphoresis Respiratory: Negative for new shortness of breath,hemoptysis, or purulent cough Gastrointestinal: Negative for diarrhea, hematemesis, melena, nausea, vomiting , or dyspepsia Integumentary (skin): Negative for rash or jaundice discoloration Genitourinary: Negative for urinary frequency, hematuria, or dysuria Neurological: Negative for weakness, seizure activity, headache, or dizziness Lymphatic/Hematologic: Negative for petechiae, bleeding or new adenopathy Musculoskeletal: Back pain as stated Allergic/Immunologic: Negative for unusual rash or pruritis. Vital Signs Vital Signs Past 12 Hours Date Time Temp Pulse Resp B/P (MAP) Pulse Ox O2 Delivery O2 Flow Rate FiO2 08/23/17 07:14 37.1 88 16 129/73 (91) 91 Room Air 08/23/17 04:40 36.8 98 20 149/73 (98) 96 Room Air 101 120/64 (82) 108 129/72 (91) 08/22/17 23:35 Room Air 08/22/17 22:50 37.1 85 16 113/67 (82) 93 Room Air Physical Exam Constitutional: vitals are stable. Eyes: Eyes are LYNDON EOMI without conjuctival erythema or icterus. ENT: External examination was negative for masses. Neck: Negative for masses or palpable thyromegaly Respiratory: Lung sounds were generally clear bilaterally Cardiovascular: Heart was RRR without significant murmur, gallops aoe rubs Gastrointestinal: No palpable hepatic or splenomegaly. The abdomen was soft with normal bowel sounds. Lymphatic system: there was no palpable peripheral lymphadenopathy Musculoskeletal System: The musculoskeletal system seemed concordant with age. Skin: The skin was negative for jaundice. Neurologic exam: The exam was negative for any focal findings. Deep tendon reflexes were equal and symmetrical. Psychiatric exam: Was essentially negative with normal mood and effect. Breast exam: Done with patient permission was negative for palpable masses or corollary supraclavicular or axillary palpable adenopathy. Exam was witnessed by either a relative, fire hazard inspector, or clinic staff. Laboratory Last 24 Hours Test 08/22/17 12:01 08/22/17 18:00 08/22/17 20:41 08/22/17 21:00 Bedside Glucose 97 mg/dl 84 mg/dl 156 mg/dl Stool Occult Blood POSITIVE Test 08/23/17 06:28 08/23/17 06:49 White Blood Count 5.69 K/uL Red Blood Count 4.21 M/uL Hemoglobin 11.8 g/dL Hematocrit 35.8 % Mean Corpuscular Volume 85.0 fL Mean Corpuscular Hemoglobin 28.0 pg Mean Corpuscular Hemoglobin Concent 33.0 g/dl RDW Standard Deviation 48.5 fL RDW Coefficient of Variation 15.7 % Platelet Count 284 K/uL Mean Platelet Volume 8.7 fL Sodium Level 136 mmol/L Potassium Level 3.6 mmol/L Chloride Level 102 mmol/L Carbon Dioxide Level 29 mmol/L Anion Gap 5.0 mmol/L Blood Urea Nitrogen 10 mg/dl Creatinine 0.88 mg/dl Est Creatinine Clear Calc Drug Dose 53.5 ml/min Estimated GFR () 79.9 Estimated GFR (Non- 68.9 BUN/Creatinine Ratio 11.3 Random Glucose 139 mg/dl Calcium Level 9.5 mg/dl Bedside Glucose 138 mg/dl Assessment & Plan Scans reviewed. She does have some back pain and most likely in time radiation therapy be necessary. The lytic bony defects or not and an area that will be reliably obtainable by bone marrow biopsy. There is a suspicious defect deep in the right breast. It is not palpable but seen on CT images. The patient states that she has an appointment in breast imaging in a day or 2. She also has a follow-up in our clinic on the 11th of this month. As I understand discharge is rather imminent.
--- NOTE | 2017-08-23 10:08 | Pharmacy Progress Note ---
Pharmacy Glycemic Short Note 2 Date of Service August 23, 2017. OUTPATIENT ANTIDIABETIC REGIMEN: * [facility] Endo manages her diabetes. See was last seen 07/26/17 and had the following pump settings noted. She has an OmniPod-Novolog Insulin Pump. * Reported Basal Rates (from [employer] 07/26/17) <---note: this was a 10% increase when on prednisone * 0000: 2.85 u/hr * 0700: 2 u/hr * 1630: 2.85 u/hr * Total Basal Dose: 60 units * Goal BSG Range: 80-110 mg/dL * Ordered Correction Factor: 15mg/dL/unit * Ordered Carb Ratio: 1 unit per 4 or 5 grams CHO consumed. Item Value Date Time Bedside Glucose 78 mg/dl 08/22/17 0804 Bedside Glucose 97 mg/dl H 08/22/17 1201 Bedside Glucose 84 mg/dl 08/22/17 1800 Bedside Glucose 156 mg/dl H 08/22/172040 ASSESSMENT: * Patient received 63 units of insulin yesterday. * 43 units of basal insulin with NPH * 20 units of prandial insulin with NovoLog * Patient became hypoglycemia in the afternoon, BSG of 66 mg/dL. - Evening dose of NPH and CF/CR was loosened at this time. * Fasting BSG of 138 mg/dL is near goal range. Continue with decreased dose of NPH * Post-prandial BSGs in range, no changes needed. * Initial plan was to transition back to pump upon discharge. Per physician progress notes, a decision was made not to continue pump on discharge. PLAN FOR INPATIENT GLYCEMIC CONTROL * Basal insulin: decrease * If patient continues on NPH: NPH 20 units with breakfast, 18 units with dinner * If transition to a once daily (24HR) insulin is desired: Partial dose of 15 units SQ with dinner TONIGHT ONLY, then start Lantus 40 units SQ qAM on 08/24 * Bolus insulin: No change * Novolog ACHS * Goal 120-150mg/dl * CF 15mg/dl/unit * CR 1 unit per 4grams CHO consumed DISCHARGE RECOMMENDATIONS: Per discussion with Aiyana Jett, patient will NOT resume insulin pump on discharge. I recommend the following basal/bolus insulin regimen: * Goal range is 90 - 150 mg/dL. * Basal insulin (Lantus or Levemir based on insurance coverage) * 15 units SQ at dinnertime TODAY ONLY, then start 40 units SQ once daily in the morning on 08/24 * If your fasting blood sugars in the morning are mostly higher than your target range, then increase your long acting insulin by 2 units every 3 days. Your Max Dose is 50 units daily. * Bolus insulin with Novolog sliding scale three times daily with meals and at bedtime * Administer 5 units SQ with meals plus sliding scale (see below) * Sliding scale: * For BSG 150 -170 give 1 unit * For BSG 171- 190 give 2 units * For BSG 191- 210 give 3 units * For BSG 211- 230 give 4 units * For BSG 231- 250 give 5 units * For BSG above 250 give 6 units Recommend follow up with PCP or Endocrinology within one week recommended for further dose titration.
[2017-08-23] MEDS ORDERED: NVLG INJ (11:09)
[2017-08-23] MEDS ORDERED: INSDGI SC (13:18)
--- NOTE | 2017-08-23 13:37 | Discharge Summary ---
Discharge Summary Date of Service August 23, 2017. Discharge Summary Admission Date: Aug 16, 2017 at 16:49 Discharge Date: August 22, 2017 Discharge Disposition: Home Principal Diagnosis: pathologic fracture of shaft of right femur Problems/Secondary Diagnoses: Medical Problems: (1) Anxiety (2) CAD (coronary artery disease) (3) Compression fracture (4) Depression (5) GERD (gastroesophageal reflux disease) (6) HTN (hypertension) (7) Hypercholesteremia (8) Impending pathologic fracture (9) Myasthenia gravis (10) Pathological fracture of right femur (11) Vit D deficiency (12) Rosacea (13) Insulin dependent diabetes mellitus peripheral vascular disease status post left lower extremity venous graft and right arterial stent CAD status post coronary stent 10 years ago left carotid stenosis status post CEA gastroparesis multiple osteolytic lesions vertebral compression fractures Cspine lesions with possible C7 spinous process fracture breast mass ovarian cystic lesion LLQ mass Myasthenia gravis s/p tracheostomy x 3 for VDRF Obesity, BMI 30.3 Surgical Problems: (1) H/O vertebroplasty (2) History of laparoscopic cholecystectomy (3) History of thymectomy (4) History of tracheostomy Immunizations: Have You Had Influenza Vaccine: Yes Influenza Vaccine Date: Jan 29, 2006 History of Tetanus Vaccine?: Yes History of Pneumococcal: Yes History of Hepatitis B Vaccine: No Procedures: R FEMUR 2 VIEWS ROUTINE 08/16/17 IMPRESSION: 1. Several lytic defects involving the proximal and mid right femoral shaft. 2. Less prominent lytic defect involving the distal femoral shaft posteriorly. 3. The largest proximal femoral shaft lesion measures 2 cm 4. Largest distal femoral lesion measures 3 mm. 5. No evidence for fracture or pathologic fracture at this time. R HIP INTRAOPERATIVE RADIOGRAPHS 08/17/17 FINDINGS: 4 spot fluoroscopic views of the right hip are presented. Intertrochanteric and intramedullary nails have been placed. A single screw transfixes the distal aspect of the intramedullary nail. No fracture is clearly identified on the fluoroscopic images. A stent is noted in the right femoral artery. IMPRESSION: Intraoperative images from intertrochanteric and intramedullary nail placement in the right femur. CHEST 2 VIEWS ROUTINE 08/19/17 FINDINGS: The bones soft tissues and hemidiaphragms are normal. The cardiomediastinal silhouette is normal. The lungs are clear. The pulmonary vasculature is normal. IMPRESSION: Negative chest. Consultations: Heme/Onc Glycemic Pharmacy Orthopedics Medication Reconciliation New Medications: Insulin Aspart (Novolog) 100 Units/Ml Inj 10 ML INJ UD for 30 Days, #1 VIAL Take 5 Units with meals as a fixed dose. Use sliding scale with carbs as directed. Insulin Glargine (Lantus) 100 Unit/Ml Inj 10 ML SC AM for 30 Days, #2 VIAL 1 Refill Polyethylene (Miralax) 17 Gm Pow 17 GM PO DAILY, #1 BTL 2 Refills can purchase [id number] Fentanyl (Fentanyl) 12 Mcg Tdsy 12 MCG TD q3day, #10 PATCH 0 Refills Ferrous Gluconate (Ferrous Gluconate) 324 Mg Tab 324 MG PO BID, #60 TAB 1 Refill Metoclopramide Hcl (Reglan) 5 Mg Tab 5 MG PO AC, #90 TAB 2 Refills take about 30 minutes prior to eating your meals Oxycodone HCl (Oxycodone HCl) 5 Mg Tab 10 MG PO Q4H PRN for Pain, #45 TAB 0 Refills Senna (Senokot) 8.6 Mg Tab 17.2 MG PO HS, #60 TAB 5 Refills purchase [id number] Changed Medications: Isosorbide Mononitrate (Isosorbide Mononitrate ER) 30 Mg Tabcr 30 MG PO DAILY, #30 TABS 5 Refills (Changed from: Isosorbide Mononitrate (Imdur Ext Rel) 60 Mg Tab 60 Mg PO QAM) Metoprolol Succinate (Metoprolol Succinate ER) 50 Mg Tabcr 50 MG PO QAM, #30 TABS 5 Refills (Changed from: Metoprolol Succinate ( Metoprolol Succinate ER) 100 Mg Tabcr 100 Mg PO BID) Continued Medications: Aspirin (Ecotrin Low Strength) 81 Mg Tab 81 MG PO DAILY Buspirone Hcl (Buspar) 15 Mg Tab 15 MG PO BID, TAB Cholecalciferol (Vitamin D3) 2,000 Unit Cap 2000 INTER.UNIT PO DAILY, CAP Clopidogrel Bisulfate (Plavix) 75 Mg Tab 75 MG PO DAILY, TAB Fluoxetine Hcl (Prozac) 40 Mg Cap 40 MG PO DAILY, CAP Mycophenolate Mofetil (Mycophenolate Mofetil) 500 Mg Tab 1000 MG PO BID Nitroglycerin (Nitrostat) 0.4 Mg Sub 0.4 MG UT UD PRN for Chest Pain, BTL Probiotic Product (Acidophilus) 1 Chw Chw 1 TAB PO DAILY Rosuvastatin Calcium (Crestor) 40 Mg Tab 40 MG PO DAILY, TAB Discontinued Medications: Aspirin-Caffeine (Gen[employer] Body 500-32.5 mg) 1 Tab Tab BID Insulin Aspart (novoLOG INSULIN PUMP ) 1 Ea Inj 1 EA N/A UD, EA Lisinopril (Zestril) 20 Mg Tab 20 MG PO DAILY, TAB Potassium Chloride (Potassium Chloride Er) 10 Meq Tab 10 MEQ PO BID, TAB Discharge Exam The patient was seen and examined this morning. Pt reports doing well today. Her was present at bedside. Pt denies any acute complaints and is anticipating discharge home today. Discussion was held regarding diabetes management and plan was discussed also with pharmacy at bedside. All their questions and concerns were addressed. Review of Systems: Constitutional: No fever, No chills, No sweats, No fatigue Eyes: No redness, No diplopia ENT: No sore throat, No trouble swallowing Respiratory: No cough, No shortness of breath Cardiovascular: No chest pain, No palpitations Abdomen: No pain, No nausea, No vomiting, No diarrhea, No constipation Musculoskeletal: + swelling (R knee swelling chronic, unchanged), No joint pain Genitourinary - Female: No dysuria Neurologic: No numbness/tingling Psychiatric: No depression symptoms, No anxiety Integumentary: No rash, No itch Physical Exam: General Appearance: WD/WN, no apparent distress Eyes: PERRL, EOMI, + pertinent finding (surgical pupil R eye) ENT: hearing grossly normal, pharynx normal, + pertinent finding (MMM) Neck: supple, no JVD Respiratory/Chest: lungs clear, normal breath sounds, no respiratory distress, no accessory muscle use Cardiovascular: regular rate, rhythm Abdomen / GI: normal bowel sounds, non tender, soft Extremities: no calf tenderness, no pedal edema, + pertinent finding (+ minimal edema R hip) Neurologic/Psychiatric: alert, normal mood/affect, oriented x 3 Skin: normal color, warm/dry Hospital Course 67-year-old female with past medical history of hypertension, dyslipidemia, myasthenia gravis, peripheral vascular disease status post left lower extremity venous graft and right arterial stent, CAD status post coronary stent all stents are more than 10 years old. Also has history of left carotid stenosis status post CEA, patient has diabetes mellitus insulin requiring on insulin pump. 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 1. Impending pathologic fracture of shaft of right femur, POD#6 s/p right hip nailing - bone bx/path report unfortunately nondiagnostic (no neoplastic cells seen). Appreciate orthopedic assistance. Asa/plavix for DVT proph at home; also has lovenox while hospitalized. WBAT per ortho 2. Pathologic compression vertebral fracture of L1/L3, C7 bony lytic lesions - due to metastatic disease from unknown primary. Path report from right femur bx nondiagnostic. Cont fentanyl patch 12mcg. Since patient will hopefully be returning home today - cont oxycodone 10mg prn. 3. severe orthostasis - resolved. Cortisol wnl. Lisinopril stopped. Imdur dose cut to 30mg daily. Toprol xl dose cut to 50mg daily. 4. nausea/emesis x 2-3 months - 2008 gastric emptying study with gastroparesis. Improved with reglan 5mg/ac/hs suggesting gastroparesis playing a big role in this. Cont reglan. No apparent side effects. 5. acute blood loss anemia 2nd to #1 - s/p 2 units of PRBCs on 08/21 with nice improvement in H/H and resolution of her tachycardia. CBC stable Fecal occult her stool to ensure this is not GI in origin- neg 6. right breast lesion seen on recent imaging - outpatient mammo - defer to heme/onc. Pt has radiology practitioner assistant follow up scheduled for 08/27 already as an outpatient 7. ovarian cyst- 4.2 cm cyst within the left adnexa seen on recent CT - heme/ onc & bottom filler follow-up after d/c. 8. LLQ mass seen on CT - at a minimum "One month abdomen and pelvis CT follow up is recommended to exclude the possibility of a peritoneal implant". Defer w/u to heme/onc. 9. CAD status post cardiac stent - no ischemic symptoms at this time. Cont asa , plavix. Cont BB. Holding SHALONDA. resume imdur but at 30mg daily. 10. T1DM - much of the visit today was spent discussing her insulin regimen. It is very clear that the patient does not have a mastery of her insulin pump. It is very concerning that she cannot manipulate the device, change settings, etc. This has been well-documented in the outpatient record that she has had ongoing difficulties w/ the pump. We decided today that we will NOT resume the pump on d/c. - Discussed with the patient and pharmacy and due to ease of injections will use lantus, not NPH Will have pt take Lantus 15 U tonight to cover, then start 40 U QAM tomorrow Novolog fixed dosing of 5 U with meals, and add ISS with carbs for coverage. Scripts for vials and syringes were provided at discharge as the pt was more comfortable with vials vs pens due to knowledge of using vials in the past. She sees Yara Elenaor in the DM clinic - will follow up ith endo as outpatient. 11. Myasthenia gravis - continue CellCept; not in exacerbation. 12. low-grade fevers - these have resolved in the last 48 hours. Uncertain if these were post-op fevers from cytokine release or due to her malignancy. Blood/urine cx's negative. Lyme titer negative. cxr negative. 13. PAD - s/p iliac artery stents in the past - asa, plavix, statin. 14. pain - due to metastatic disease to the bone - fentanyl patch 12.5mcg. Cont oxycodone prn. Stop dilaudid. 15. constipation - ongoing. Increase senna to 4 tabs daily. Miralax. Colace. Dulcolax suppos given on 08/22 - pt is having small bowel movements. 16. concern of malignancy - bones with numerous lytic lesions on imaging. Multiple myeloma?? Other solid organ tumor w/ mets? Sent sed rate, SPEP, UPEP, light chains, etc. Appreciate Dr. Tate's consultation. Has f/u with Dr. Montilla on 08/27/17. 17. FEN - eating well, lytes stable. 18. h/o chronic migraines with increased frequency of headaches in the last 1- 2 months - due to lytic lesions of skull (as seen on CT head late July)?? Ideally would get MRI brain but unable due to tex in right hip from recent surgery. Headache resolved fortunately. Dispos: DC home today Total Time Spent: Greater than 30 minutes This includes examination of the patient, discharge planning, medication reconciliation, and communication with other providers. Discharge Instructions Please refer to the electronic Patient Visit Report (Discharge Instructions) for additional information. Follow-Up Follow up: * please see Dr. Montilla at the [facility] within 1 week * please see Amanda Sequeira, your family provider, within 1 week * see Dr. Connor Perkins, orthopedics, within 1 week * see GRANULATOR OPERATOR within 2 months for follow up * Appointments have been requested Additional Copies To Amanda Sequeira, Marj Reviewed: Pt Seen/Exam by Me History Physician [employer] Worker Supervision Note: I interviewed and examined the patient. Discussed with KADE Jett and agree with findings and plan as documented in the note. Any exceptions or clarifications are listed here: Patient states her pain is controlled. She will no longer be on her insulin pump and knows how to use the basal and bolus insulin. She is ready for discharge today with plans as above Vitals reviewed Gen: AAOx3, NAD HEENT: anicteric sclerae, EOMI CV: RRR no mgr nl S1S2 Pulm: CTAB no wcr Abd: +BS soft NT ND no masses or hernias Ext: no edema, 2+ DP pulses, right femur with dressing in place clean dry and intact Skin: no rashes, warm/dry Patient is a 67-year-old female who is admitted with right femur impending pathological fracture. Unfortunately the bone biopsy did not reveal the primary source, however oncology feels his left most likely multiple myeloma. SPEP and UPEP pending at the time of discharge and she needs to follow-up with oncology and PCP. Also follow-up with orthopedics as scheduled for surgical follow-up. Documented By: Meghan Domingo
[2017-08-23 14:48] VITALS: Ht 149.9 cm; Wt 68.2 kg
== END 2017-08-23 14:10 | disposition home health service (06) | DRG 478 ==
LOC: C.MSN 16:49
PROVIDERS: ADMIT Orthopaedic Surgery Sports Medicine; ATTEND Family Medicine
PROC: 0QB Lower Bones, Excision (ICD-10-PCS; principal; 2017-08-17 06:45)
PROC: 0QH806Z Insertion of Intramedullary Internal Fixation Device into Right Femoral Shaft, Open Approach (ICD-10-PCS; principal; 2017-08-17 06:45)
DX: M84.451A Pathological fracture, right femur, initial encounter for fracture (principal); D62 Acute posthemorrhagic anemia; C79.51 Secondary malignant neoplasm of bone; M84.58XA Pathological fracture in neoplastic disease, other specified site, initial encounter for fracture; E87.6 Hypokalemia; E83.42 Hypomagnesemia; G89.3 Neoplasm related pain (acute) (chronic); K59.00 Constipation, unspecified; C80.1 Malignant (primary) neoplasm, unspecified; N64.89 Other specified disorders of breast; R19.04 Left lower quadrant abdominal swelling, mass and lump; N83.202 Unspecified ovarian cyst, left side; E10.43 Type 1 diabetes mellitus with diabetic autonomic (poly)neuropathy; I11.9 Hypertensive heart disease without heart failure; E78.00 Pure hypercholesterolemia, unspecified; E78.5 Hyperlipidemia, unspecified; K22.70 Barrett's esophagus without dysplasia; G70.00 Myasthenia gravis without (acute) exacerbation; I25.10 Atherosclerotic heart disease of native coronary artery without angina pectoris; I73.9 Peripheral vascular disease, unspecified; F32.9 Major depressive disorder, single episode, unspecified; F41.9 Anxiety disorder, unspecified; L71.9 Rosacea, unspecified; E55.9 Vitamin D deficiency, unspecified; E66.9 Obesity, unspecified; Z79.899 Other long term (current) drug therapy; Z79.82 Long term (current) use of aspirin; Z79.02 Long term (current) use of antithrombotics/antiplatelets; Z79.52 Long term (current) use of systemic steroids; Z96.41 Presence of insulin pump (external) (internal); Z95.5 Presence of coronary angioplasty implant and graft; Z95.828 Presence of other vascular implants and grafts; Z98.890 Other specified postprocedural states; Z68.30 Body mass index [BMI] 30.0-30.9, adult; Z87.891 Personal history of nicotine dependence; Z88.1 Allergy status to other antibiotic agents; Z88.8 Allergy status to other drugs, medicaments and biological substances; Z88.2 Allergy status to sulfonamides; Z82.49 Family history of ischemic heart disease and other diseases of the circulatory system

== ENCOUNTER → 2017-08-25 | Outpatient (CLI) | payer OTHER ==
[~2017-08-25] MED LIST changes: -ASPI-563; +DRGTP12 TD; +FRRG PO; +IMDSR/30 PO; +INSDGI SC; -INSPMPNVLG; -ISOS60TA2 PO; -LISI-725 PO; +METO1TAB54 PO; +MRLP17X PO; +NVLG INJ; -POTA-74 PO; +RXC5 PO; +SENN-61 PO; -TPRSR/100 PO; +TPRSR/50 PO
--- NOTE | 2017-08-25 15:08 | MAMMOGRAPHY REPORT ---
BILATERAL DIGITAL DIAGNOSTIC MAMMOGRAM TOMOSYNTHESIS WITH CAD AND TARGETED RIGHT ULTRASOUND: 08/25/2017 CLINICAL HISTORY: 67-year-old woman initially presented to the hospital with back pain and joint pain . A CT abdomen and pelvis performed 08/11/2017 demonstrated a possible 1 cm enhancing nodule in the r ight breast, only partially visualized. Patient presents for further workup including diagnostic bo mography and ultrasound. Additional CT findings included: pathologic compression fractures, multiple lytic bone lesions, an ill-defined 11 mm soft tissue nodule in the left lower quadrant adjacent to t he descending colon, and a 4.2 cm cyst in the left adnexa. TECHNIQUE: Bilateral breast tomosynthesis in addition to standard 2D mammography was performed. Curr ent study was also evaluated with a Computer Aided Detection (CAD) system. COMPARISON: Comparison is made to exams dated: 09/11/2016 mammogram, 09/02/2015 mammogram, 08/30/2014 m ammogram, 10/30/2011 mammogram, 10/24/2010 mammogram, and 10/18/2009 mammogram - [facility]. BREAST COMPOSITION: There are scattered areas of fibroglandular density in both breasts. FINDINGS: There are 2 newly visualized right breast masses. The larger is in the 9:00 versus retroar eolar, posterior breast. It demonstrates indistinct margins and is ill-defined, measuring approximat annalise 13 x 14 x 15 mm. The second is also indistinct and ill-defined, in the 11:00 middle to anterior right breast measuring 10 x 5 x 7 mm. No other new masses, calcifications, areas of architectural di stortion or asymmetries are seen in the right breast. The pattern of the left breast is similar to numerous prior mammograms. There is a dominant, partial ly circumscribed 6 to lean millimeter mass in the left upper outer quadrant, that has been present an d stable on all available prior mammograms dating back to at least 2008, therefore likely benign. Th ere is also decreasing nodularity of the left breast and a few loosely grouped microcalcifications, t hat appears somewhat similar dating back to 2014, therefore probably benign. No new suspicious ill-d efined mass, developing asymmetry, definite new cluster of calcifications or area of distortion is se en in the left breast. Targeted ultrasound was performed throughout the right breast with particular attention to the upper outer quadrant. In the 11:00 axis, 4 cm from the nipple, there is an ill-defined hypoechoic, taller than wide solid mass measuring 5.7 x 6.7 x 5.2 mm. A second slightly larger irregular and ill-define d mass is identified in the 9:00 right breast, 1 cm from the nipple measuring 7.7 x 7.9 x 11.6 mm. A dditional ultrasound was performed in the right axilla which demonstrates a 1 morphologically normal lymph node with a thin cortex. No suspicious right axillary lmphadenopathy identified. IMPRESSION: ACR BI-RADS CATEGORY 5: HIGHLY SUGGESTIVE OF MALIGNANCY, TARGETED ULTRASOUND ACR BI-RADS CATEGORY 5: HIGHLY SUGGESTIVE OF MALIGNANCY 1. Ultrasound-guided core biopsy 2 is recommended in the right breast for a newly visualized ill-def ined solid mass in the 9:00 axis measuring 12 mm, and a newly visualized 7 mm mass in the 11:00 axis. The larger mass in the 9:00 axis is felt to correlate with the CT finding. 2. No suspicious right axillary lymphadenopathy identified on targeted ultrasound. 3. Stable mammographic appearance of the left breast, without mammographic evidence of malignancy. These results and recommendations were discussed with the patient at the time of the exam. She tenta tively scheduled the right breast biopsies prior to leaving the department. The patient should not d iscontinue aspirin or Plavix prior to biopsy. Approximately 10% of breast cancers are not detected with mammography. A negative mammographic report should not delay biopsy if a clinically suggestive mass is present. Lauren Estevez M.D. ay/:08/25/2017 09:35:57 Card Doffer: Tiffanie BUNN(Clive)(Paola), [facility] [address] letter sent: Abnormal 4/5 BI-RADS Code: ACR BI-RADS Category 5: Highly Suggestive Of Malignancy Ultrasound BI-RADS: ACR BI-RAD S Category 5: Highly Suggestive Of Malignancy
== END | disposition home or self-care (01) ==
LOC: C.MAMM 08:44
PROVIDERS: ATTEND Internal Medicine Hematology & Oncology
DX: N63.13 Unspecified lump in the right breast, lower outer quadrant (principal)

== ENCOUNTER 2017-09-01 17:46 | Inpatient (IN) | payer OTHER ==
[~2017-09-01] VITALS: Ht 149.9 cm; Wt 68.4 kg
[2017-09-01] MEDS ORDERED: ONDANSETRON INJ 2 MG/ML 2 ML VIAL IV STA (17:50)
[2017-09-01] MEDS ORDERED: SODIUM CHLORIDE 0.9% 1000ML 1,000 ML IV STA (17:50)
[2017-09-01] MEDS ORDERED: OPTIRAY 320 IV PRN (18:00)
--- NOTE | 2017-09-01 18:02 | EMERGENCY ROOM VISIT NOTE ---
History Report prepared by Christian: Zia Back Under the Supervision of: Dr. Rock Crotf D.O. First contact with patient: 17:29 Stated Complaint: FLANK PAIN, LUMBAR & R SHOULDER PAIN History of Present Illness The patient is a 67 year old female who presents to the Emergency Room with complaints of constant right-sided chest pain beginning this morning at 0500. Per EMS, the patient developed left flank pain, right shoulder pain, and right chest pain this morning. The patient also complains of mild SOB. She states that her chest pain is an 8/10 and worsens with movement. She denies any abdominal pain and recent falls. She notes that she recently had surgery on her right leg and had a pin placed for a fracture caused by her osteoporosis. She reports that she also sees a cancer doctor but has no specific cancer diagnoses at this time. The patient states that she has a biopsy of her breast scheduled for tomorrow. The patient states that she does not have a port and is not currently receiving chemotherapy. Per EMS, the patient has a history of a cholecystectomy. Source of History: patient, EMS Onset: this morning at 0500 Position: chest (right) Symptom Intensity: 8/10 Timing: constant Modifying Factors (Worsening): movement Associated Symptoms: + SOB (mild), No abdominal pain Note: Per EMS, the patient also has left flank pain and right shoulder pain. Review of Systems See HPI for pertinent positives & negatives. A total of 10 systems reviewed and were otherwise negative. Past Medical & Surgical Medical Problems: (1) Anxiety (2) CAD (coronary artery disease) (3) Cancer (4) Compression fracture (5) Depression (6) GERD (gastroesophageal reflux disease) (7) HTN (hypertension) (8) Hypercholesteremia (9) Impending pathologic fracture (10) Myasthenia gravis (11) Pathological fracture of right femur (12) Pathological fracture of right femur (13) Rosacea (14) Type 1 diabetes mellitus (15) Vitamin D deficiency Surgical Problems: (1) H/O vertebroplasty (2) History of laparoscopic cholecystectomy (3) History of thymectomy (4) History of tracheostomy (5) Hx of cholecystectomy Family History Cancer Diabetes mellitus Gallbladder disease Heart disease Hypertension Lung disease Social History Smoking Status: Former Smoker Alcohol Use: none Drug Use: none Marital Status: Housing Status: lives with family Occupation Status: retired Current/Historical Medications Scheduled Aspirin (Ecotrin Low Strength), 81 MG PO DAILY Buspirone Hcl (Buspirone Hcl), 10 MG PO TID Cholecalciferol (D3 Maximum Strength), 5,000 UNITS PO QAM Clopidogrel Bisulfate (Plavix), 75 MG PO DAILY Fentanyl (Fentanyl), 12 MCG TD [id number] Fentanyl (Fentanyl), 25 MCG TD [id number] Ferrous Gluconate (Ferrous Gluconate), 324 MG PO BID Fluoxetine Hcl (Prozac), 40 MG PO DAILY Insulin Aspart (Novolog), 5 UNITS SC AC Insulin Glargine (Lantus), Unknown Dose SC QAM Isosorbide Mononitrate Ext Rel (Imdur Ext Rel), 30 MG PO QAM Metoclopramide Hcl (Reglan), 5 MG PO AC Metoprolol Succ (Toprol Xl) (Toprol-Xl), 50 MG PO QAM Mycophenolate Mofetil (Mycophenolate Mofetil), 1,000 MG PO BID Polyethylene Glycol 3350 (Miralax), 17 GM PO DAILY Probiotic Product (Acidophilus), 1 TAB PO DAILY Rosuvastatin Calcium (Crestor), 40 MG PO DAILY Senna (Senokot), 17.2 MG PO HS Scheduled PRN Nitroglycerin (Nitrostat), 0.4 MG UT UD PRN for Chest Pain Oxycodone Ir (Roxicodone Ir), 10 MG PO Q4H PRN for Severe Pain Allergies Coded Allergies: Chlorpromazine (Verified Allergy, Unknown, PHENOTHIAZINES, 09/01/17) Colistin (Verified Allergy, Unknown, 09/01/17) Gentamicin (Verified Allergy, Unknown, 09/01/17) Kanamycin (Verified Allergy, Unknown, 09/01/17) Neomycin (Verified Allergy, Unknown, 09/01/17) Polymyxin B (Verified Allergy, Unknown, 09/01/17) Procainamide (Verified Allergy, Unknown, 09/01/17) Propranolol (Verified Allergy, Unknown, 09/01/17) Quinidine (Verified Allergy, Unknown, 09/01/17) Streptomycin (Verified Allergy, Unknown, 09/01/17) Tetracycline (Verified Allergy, Unknown, 09/01/17) Physical Exam Vital Signs Date Time Temp Pulse Resp B/P (MAP) Pulse Ox O2 Delivery O2 Flow Rate FiO2 09/01/17 19:15 80 13 92 Room Air 09/01/17 19:01 110/65 09/01/17 18:45 78 13 93 Room Air 09/01/17 18:43 77 17 137/62 94 Room Air 09/01/17 18:13 77 09/01/17 17:47 94 Room Air 09/01/17 17:47 36.8 77 20 154/96 94 Room Air 09/01/17 17:47 94 Room Air Physical Exam GENERAL: Patient is awake, alert, very anxious and uncomfortable. EYES: Asymmetry in the pupils with post surgical changes on the right. EARS, NOSE, MOUTH AND THROAT: The nose is without any evidence of any deformity. Mucous membranes are moist tongue is midline NECK: The neck is nontender and supple. RESPIRATORY: Lung sounds diminished throughout with scattered rhonchi. CARDIOVASCULAR: Regular rate and rhythm noted there no murmurs rubs or gallops normal S1 normal S2 GASTROINTESTINAL: Abdomen moderately distended but no tenderness appreciated, appears to be significant ascites. MUSCULOSKELETAL/EXTREMITIES: There is no evidence of gross deformity full range of motion is noted in the hips and shoulders, significant chest wall tenderness on the right. SKIN: There is no obvious evidence of any rash. There are no petechiae, pallor or cyanosis noted. NEUROLOGIC: Patient is awake alert and oriented x3 strength is symmetric patellar reflexes are 2+ bilaterally Medical Decision & Procedures ER Provider Diagnostic Interpretation: Radiology results as stated below per my review and radiologist interpretation: ORIGINAL REPORT (CHEST FOR PE) ANGIO WITH FINDINGS: CTA: Mild multichamber cardiac enlargement with coronary arterial calcifications. No pericardial effusion. Prior median sternotomy with CABG. Thoracic aorta and trace moderate mixed plaque formation. Imaged great vessels appear patent. There is no aortic aneurysm or dissection identified. Pulmonary arterial tree is opacified to the level of the subsegmental branches and demonstrates no focal filling defects to suggest pulmonary thromboembolic disease. CT CHEST: Mildly heterogeneous thyroid without dominant nodule identified. No pathologically enlarged lymph nodes about the chest identified. Mildly prominent subcarinal lymph node measures 9 mm. Lobulated soft tissue attenuating nodule of the right middle lobe abutting the minor fissure is redemonstrated on image 115 series 4 measuring 1.3 x 0.8 cm, previously measuring 1.3 x 0.6 cm. No new or enlarging pulmonary nodules identified. Mild dependent subsegmental bibasilar atelectasis. Calcified granulomata about the lung bases. Central airways are patent. 7 mm soft tissue nodule anterior to the spleen. Small sliding-type hilar hernia. Moderate thickening about the bilateral adrenal glands. There are lesions about the bilateral breasts measuring 1.2 cm of the lateral left breast and 1.2 cm within the central right breast. Lucent lesion with pathologic fracture involves the lateral aspect right sixth rib with pathologic fracture involving the spinous process C7. Additional lucent lesions are noted involving the bilateral shoulders and right C7 lamina with large destructive lesion involving the vertebral body and posterior elements at T6 there is extension into the posterior epidural space at this level with possible neural foraminal encroachment. Lytic lesion of the posterior left seventh rib is also seen. Remote appearing compression deformity of the T8 vertebral body. IMPRESSION: 1. Multiple lytic skeletal metastasis as above including a large destructive lesion involving the vertebral body and posterior elements at T6 with extension into the region of the posterior epidural space likely causing a degree of central canal and foraminal encroachment. Pathologic fracture involves a lytic lesion of the right sixth rib. 2. No acute aortic pathology or pulmonary thromboembolic disease. 3. 1.3 cm lobular soft tissue attenuating lesion of the right middle lobe abutting the minor fissure has not significantly changed from comparison study. 4. Soft tissue nodules of the abdomen, further discussed on CT abdomen and pelvis study of same day. 5. Additional findings as above. The above report was generated using voice recognition software. It may contain grammatical, syntax or spelling errors. Electronically signed by: Robin King M.D. 09/01/2017 7:01 PM ADDENDUM Lytic metastatic lesion with pathologic fracture also involves the right second rib. Electronically signed by: Robin King M.D. 09/01/2017 7:34 PM Dictated Date/Time: 09/01/2017 7:34 PM ABDOMEN AND PELVIS CT WITH IV CONTRAST FINDINGS: There is again noted a 13 mm enhancing nodule within the right breast. Subtle 6 mm hypodense lesion within the right hepatic lobe inferiorly on image 180. This is too small to characterize. This was likely present on the prior study. Cholecystectomy. The pancreas is unremarkable. Bilateral renal hypodense lesions are again noted. These are difficult to characterize due to their small size but likely represent cysts. Left-sided nephrolithiasis. Duplicated left renal collecting system. No ureteral stones. No hydronephrosis. Normal spleen. Nodular thickening of the bilateral adrenal glands is again noted. Dominant nodule within the left adrenal gland measures 11 mm. Small hiatus hernia. There are 2 ill-defined soft tissue nodules within the left side the abdomen. These are seen adjacent to the spleen measuring 8 mm and adjacent to the descending colon measuring 11 mm. These are highly suspicious for peritoneal metastatic disease. No retroperitoneal or mesenteric lymphadenopathy. Extensive calcified plaque within the aorta. Occluded left femoral stent remains unchanged. The bladder and uterus are unremarkable. No change in the 4.2 cm left adnexal cyst. Moderate stool seen throughout the colon. Colonic diverticulosis. No bowel wall thickening or obstruction. Normal appendix. Destructive masses at L1 and L3 with epidural extension and pathologic compression fractures are again noted. There is mild to moderate central canal narrowing at the L3 level due to the epidural extension and retropulsion. This lesion also extends into the right posterior elements with severe neural foraminal narrowing at L3-L4. The pathologic L3 compression fracture has slightly progressed as well as the mild to moderate central canal narrowing. Interval intramedullary alyson and femoral neck pin within the right femur. Fracture at the greater trochanter which may be related to recent postoperative change. Destructive lesion within the posterior cortex of proximal right femur is again noted. A 6 mm lytic lesion within the left ischial tuberosity. Lytic lesion within the right iliac wing. Bilateral rib destructive lesions. IMPRESSION: 1. Redemonstration of the 13 mm right breast mass with scattered metastatic osseous lesions. There are also 2 small soft tissue nodules within the left side the abdomen which are highly suspicious for metastatic peritoneal disease. 2. The L3 pathologic compression fracture has slightly progressed with progressive mild to moderate central canal narrowing and severe right L3-L4 neural foraminal narrowing. 3. Stable nodular thickening of the adrenal glands. 4. No bowel wall thickening or obstruction. 5. Postoperative changes within the right femur. Fracture of the right greater trochanter likely due to the recent postoperative change. 6. Additional findings as described above. Electronically signed by: Ryan Geronimo M.D. 09/01/2017 7:08 PM CHEST ONE VIEW PORTABLE FINDINGS: Lungs are mildly hypoinflated. Cardiac silhouette is enlarged. Atherosclerosis of the aorta. Prior median sternotomy. Mild right hemidiaphragmatic elevation. No pneumothorax or pleural effusion. Minimal subsegmental bibasilar opacities compatible with atelectasis. Nodular opacity of the right middle lobe seen on comparison chest CT is not identified. The described multiple skeletal lesions are better characterized on CT chest of same day. Lytic lesion of the acromium is noted. Lytic lesion with pathologic fracture also noted involving the lateral aspect right second and sixth ribs. IMPRESSION: 1. Cardiomegaly with mild subsegmental bibasilar atelectasis. 2. Multiple lytic skeletal metastasis including lytic lesions with pathologic fractures involving the right second and sixth ribs, better characterized on CT chest of same day. The above report was generated using voice recognition software. It may contain grammatical, syntax or spelling errors. Electronically signed by: Robin King M.D. 09/01/2017 7:33 PM Laboratory Results 09/01/17 18:06 Red Blood Count 4.57, Mean Corpuscular Volume 85.1, Mean Corpuscular Hemoglobin 27.6, Mean Corpuscular Hemoglobin Concent 32.4, Mean Platelet Volume 8.8, Neutrophils (%) (Auto) 70.6, Lymphocytes (%) (Auto) 14.7, Monocytes (%) (Auto) 12.1, Eosinophils (%) (Auto) 1.7, Basophils (%) (Auto) 0.3, Neutrophils # (Auto ) 6.38, Lymphocytes # (Auto) 1.33, Monocytes # (Auto) 1.09, Eosinophils # (Auto ) 0.15, Basophils # (Auto) 0.03 09/01/17 18:06 Test 09/01/17 18:06 09/01/17 18:13 White Blood Count 9.03 K/uL (4.8-10.8) Red Blood Count 4.57 M/uL (4.2-5.4) Hemoglobin 12.6 g/dL (12.0-16.0) Hematocrit 38.9 % (37-47) Mean Corpuscular Volume 85.1 fL (80-100) Mean Corpuscular Hemoglobin 27.6 pg (25-34) Mean Corpuscular Hemoglobin Concent 32.4 g/dl (32-36) Platelet Count 342 K/uL (130-400) Mean Platelet Volume 8.8 fL (7.4-10.4) Neutrophils (%) (Auto) 70.6 % Lymphocytes (%) (Auto) 14.7 % Monocytes (%) (Auto) 12.1 % Eosinophils (%) (Auto) 1.7 % Basophils (%) (Auto) 0.3 % Neutrophils # (Auto) 6.38 K/uL (1.4-6.5) Lymphocytes # (Auto) 1.33 K/uL (1.2-3.4) Monocytes # (Auto) 1.09 K/uL (0.11-0.59) Eosinophils # (Auto) 0.15 K/uL (0-0.5) Basophils # (Auto) 0.03 K/uL (0-0.2) RDW Standard Deviation 45.4 fL (36.4-46.3) RDW Coefficient of Variation 14.7 % (11.5-14.5) Immature Granulocyte % (Auto) 0.6 % Immature Granulocyte # (Auto) 0.05 K/uL (0.00-0.02) Prothrombin Time 10.9 SECONDS (9.0-12.0) Prothromb Time International Ratio 1.0 (0.9-1.1) Activated Partial Thromboplast Time 25.1 SECONDS (21.0-31.0) Partial Thromboplastin Ratio 1.0 Est Creatinine Clear Calc Drug Dose 60.6 ml/min Estimated GFR () 93.9 Estimated GFR (Non- 81.0 BUN/Creatinine Ratio 15.4 (10-20) Calcium Level 10.3 mg/dl (8.5-10.1) Phosphorus Level 4.2 mg/dl (2.5-4.9) Magnesium Level 2.1 mg/dl (1.8-2.4) Total Bilirubin 0.3 mg/dl (0.2-1) Direct Bilirubin < 0.1 mg/dl (0-0.2) Aspartate Amino Transf (AST/SGOT) 25 U/L (15-37) Alanine Aminotransferase (ALT/SGPT) 22 U/L (12-78) Alkaline Phosphatase 223 U/L (45-117) Total Creatine Kinase 33 U/L (26-192) Creatine Kinase MB 1.3 ng/ml (0.5-3.6) Creatine Kinase MB Ratio 3.9 (0-3.0) Troponin I < 0.015 ng/ml (0-0.045) Total Protein 7.5 gm/dl (6.4-8.2) Albumin 3.6 gm/dl (3.4-5.0) Lipase 259 U/L (73-393) Thyroid Stimulating Hormone (TSH) 0.965 uIu/ml (0.300-4.500) Bedside Hemoglobin 13.3 g/dl (12.0-16.0) Bedside Hematocrit 39 % (37-47) Bedside Sodium 137 mEq/L (135-144) Bedside Potassium 3.9 mEq/L (3.3-5.0) Bedside Chloride 102 mEq/L (101-112) Bedside Total CO2 25 mEq/l (24-31) Anion Gap 15.0 mmol/L (16-25) Bedside Blood Urea Nitrogen 12 mg/dl (7-18) Bedside Creatinine 0.8 mg/dl (0.6-1.3) Bedside Glucose (other) 88 mg/dl (70-99) Bedside Ionized Calcium (Jack) 1.17 mmol/l (1.12-1.32) Laboratory results per my review. Medications Administered Medications (Trade) Dose Ordered Sig/Oyvana Route Start Time Stop Time Status Last Admin Dose Admin Sodium Chloride 1,000 ml @ 250 mls/hr Q4H STAT IV 09/01/17 17:50 09/01/17 21:49 09/01/17 18:15 250 MLS/HR Hydromorphone HCl (Dilaudid Inj) 0.5 mg Q15M PRN IV 09/01/17 18:00 09/15/17 17:59 09/01/17 18:47 0.5 MG Ondansetron HCl (Zofran Inj) 4 mg NOW STAT IV 09/01/17 17:50 09/01/17 17:54 DC 09/01/17 18:09 4 MG ECG Per My Interpretation Indication: chest pain Rate (beats per minute): 77 Rhythm: normal sinus Findings: no ectopy, other (No acute ST segments) ED Course 1744: The patient was evaluated in room C4. A complete history and physical examination were performed. 0: Zofran Inj 4mg IV 1915: I reevaluated and updated the patient. 1921: Upon reevaluation, the patient is stable. I discussed results and treatment plan with her. She verbalizes agreement and understanding. I spoke with Dr. Miller of the [facility] Hospitalist Service. The patient will be evaluated for further management and care. Medical Decision Prior records/ancillary studies reviewed. Triage Nursing notes reviewed. Additional history obtained from the patient's significant other. The patient's history was concerning for chest pain. Differential diagnosis: Etiologies such as cardiac ischemia, aortic dissection, pulmonary embolism, pneumonia, pneumothorax, musculoskeletal, infections, pericarditis, myocarditis , esophageal rupture, gastrointestinal, as well as others were entertained. The patient is a 67-year-old female who was recently diagnosed with metastatic cancer however the primary cancer has yet to be identified. The patient was recently discharged from our facility. She is currently taking fentanyl patches because she has very severe pain. She presented today with worsening abdominal pain back pain as well as right-sided chest pain. The patient was found to have worsening of her metastatic disease with compression fractures of the lumbar and thoracic spine. She was also found to have a pathologic rib fracture. The patient does not have a very good prognosis at this time. I discussed patient's laboratory and radiographic studies with her. I discussed her case with the on-call [facility] hospitalist. At this time I feel the patient may require an evaluation by the hospitalist for further inpatient treatment of her ongoing pain however she may also require evaluation by her primary oncologist to determine what endpoint should be expected for this patient's condition at this time. The patient was treated with IV pain medicine and IV anti-medics. On subsequent follow-up she was feeling somewhat better. Medication Reconcilliation Current Medication List: was personally reviewed by me Blood Pressure Screening Patient's blood pressure: Normal blood pressure Blood pressure disposition: Did not require urgent referral Consults Time Called: 1919 Consulting Physician: Dr. Miller - Hospitalist, [facility] Returned Call: 1921 I discussed the patient's case with Dr. Miller. The patient will be evaluated for further management. Impression Primary Impression: Metastatic cancer Additional Impressions: Pathologic rib fracture Pathologic compression fracture of lumbar vertebra Intractable pain Scribe Attestation The scribe's documentation has been prepared under my direction and personally reviewed by me in its entirety. I confirm that the note above accurately reflects all work, treatment, procedures, and medical decision making performed by me. Departure Information Dispostion Being Evaluated By Hospitalist Referrals Amanda Sequeira C.R.NDwight (PCP) Problem Qualifiers Additional Impressions: Pathologic rib fracture Encounter type: initial encounter Qualified Codes: M84.48XA - Pathological fracture, other site, initial encounter for fracture Pathologic compression fracture of lumbar vertebra Encounter type: initial encounter Qualified Codes: M48.56XA - Collapsed vertebra, not elsewhere classified, lumbar region, initial encounter for fracture
[2017-09-01] MEDS: HYDROmorphone INJ 0.5 MG/0.5 ML SYR IV PRN ×3 (18:09→20:28)
[2017-09-01 18:18] LABS: BASO % 0.3 %; BASO ABS # 0.03 K/uL (0-0.2); EOS % 1.7 %; EOS ABS # 0.15 K/uL (0-0.5); HEMATOCRIT 38.9 % (37-47); HEMOGLOBIN 12.6 g/dL (12.0-16.0); IG# 0.05 K/uL (0.00-0.02); LYMPH % 14.7 %; LYMPH ABS # 1.33 K/uL (1.2-3.4); MEAN CELL VOLUME 85.1 fL (80-100); MEAN CORPUSCULAR HEMOGLOBIN 27.6 pg (25-34); MEAN CORPUSCULAR HGB CONC 32.4 g/dl (32-36); MEAN PLATELET VOLUME 8.8 fL (7.4-10.4); MONO % 12.1 %; MONO ABS # 1.09 K/uL (0.11-0.59); NEUT % 70.6 %; NEUT ABS # 6.38 K/uL (1.4-6.5); PLATELET COUNT 342 K/uL (130-400); RED CELL DISTRIBUTION WIDTH CV 14.7 % (11.5-14.5); RED CELL DISTRIBUTION WIDTH SD 45.4 fL (36.4-46.3); WHITE BLOOD COUNT 9.03 K/uL (4.8-10.8)
[2017-09-01 18:22] LABS: ISTAT CREATININE 0.8 mg/dl (0.6-1.3); ISTAT IONIZED CALCIUM 1.17 mmol/l (1.12-1.32); ISTAT POTASSIUM 3.9 mEq/L (3.3-5.0)
[2017-09-01 18:32] LABS: PTT PATIENT 25.1 SECONDS (21.0-31.0)
[2017-09-01 18:49] LABS: ALBUMIN 3.6 gm/dl (3.4-5.0); ALKALINE PHOSPHATASE 223 U/L (45-117); ALT/SGPT 22 U/L (12-78); AST/SGOT 25 U/L (15-37); BLOOD UREA NITROGEN 12 mg/dl (7-18); CALCIUM 10.3 mg/dl (8.5-10.1); CARBON DIOXIDE 26 mmol/L (21-32); CKMB 1.3 ng/ml (0.5-3.6); CREATININE 0.77 mg/dl (0.60-1.20); GLUCOSE 84 mg/dl (70-99); LIPASE 259 U/L (73-393); PHOSPHORUS 4.2 mg/dl (2.5-4.9); SODIUM 136 mmol/L (136-145); TOTAL PROTEIN 7.5 gm/dl (6.4-8.2)
[2017-09-01] MEDS ORDERED: POLY335019 PO (18:53)
[2017-09-01] MEDS ORDERED: FERR325T18 PO (18:53)
[2017-09-01] MEDS ORDERED: DRGTP12 TD (18:53)
[2017-09-01] MEDS ORDERED: METO50TA8 PO (18:53)
[2017-09-01] MEDS ORDERED: BUSP-8 PO (18:53)
[2017-09-01] MEDS ORDERED: SENN-61 PO (18:53)
[2017-09-01] MEDS ORDERED: CHOL1CAP79 PO (18:53)
[2017-09-01] MEDS ORDERED: NVLG SC (18:53)
[2017-09-01] MEDS ORDERED: OXYC1TAB3 PO (18:53)
[2017-09-01] MEDS ORDERED: ISOS30TA3 PO (18:53)
[2017-09-01] MEDS ORDERED: METO1TAB54 PO (18:53)
[2017-09-01] MEDS ORDERED: FNTTP25 TD (18:53)
[2017-09-01] MEDS ORDERED: INSDGI SC (18:53)
--- NOTE | 2017-09-01 19:03 | DIAGNOSTIC IMAGING REPORT ---
ADDENDUM Lytic metastatic lesion with pathologic fracture also involves the right second rib. Electronically signed by: Robin King M.D. 09/01/2017 7:34 PM Dictated Date/Time: 09/01/2017 7:34 PM ORIGINAL REPORT (CHEST FOR PE) ANGIO WITH HISTORY: 67 years-old Female with presents with acute atypical chest and back pain. TECHNIQUE: Multiple CTA images of the chest were obtained after the intravenous administration of 116 ml Optiray 320. Coronal and sagittal MIPS were obtained from the axial data set and were submitted for review. A dose lowering technique was utilized adhering to the principles of ALARA. COMPARISON: CT abdomen and pelvis of same day, chest CT 05/25/2017 FINDINGS: CTA: Mild multichamber cardiac enlargement with coronary arterial calcifications. No pericardial effusion. Prior median sternotomy with CABG. Thoracic aorta and trace moderate mixed plaque formation. Imaged great vessels appear patent. There is no aortic aneurysm or dissection identified. Pulmonary arterial tree is opacified to the level of the subsegmental branches and demonstrates no focal filling defects to suggest pulmonary thromboembolic disease. CT CHEST: Mildly heterogeneous thyroid without dominant nodule identified. No pathologically enlarged lymph nodes about the chest identified. Mildly prominent subcarinal lymph node measures 9 mm. Lobulated soft tissue attenuating nodule of the right middle lobe abutting the minor fissure is redemonstrated on image 115 series 4 measuring 1.3 x 0.8 cm, previously measuring 1.3 x 0.6 cm. No new or enlarging pulmonary nodules identified. Mild dependent subsegmental bibasilar atelectasis. Calcified granulomata about the lung bases. Central airways are patent. 7 mm soft tissue nodule anterior to the spleen. Small sliding-type hilar hernia. Moderate thickening about the bilateral adrenal glands. There are lesions about the bilateral breasts measuring 1.2 cm of the lateral left breast and 1.2 cm within the central right breast. Lucent lesion with pathologic fracture involves the lateral aspect right sixth rib with pathologic fracture involving the spinous process C7. Additional lucent lesions are noted involving the bilateral shoulders and right C7 lamina with large destructive lesion involving the vertebral body and posterior elements at T6 there is extension into the posterior epidural space at this level with possible neural foraminal encroachment. Lytic lesion of the posterior left seventh rib is also seen. Remote appearing compression deformity of the T8 vertebral body. IMPRESSION: 1. Multiple lytic skeletal metastasis as above including a large destructive lesion involving the vertebral body and posterior elements at T6 with extension into the region of the posterior epidural space likely causing a degree of central canal and foraminal encroachment. Pathologic fracture involves a lytic lesion of the right sixth rib. 2. No acute aortic pathology or pulmonary thromboembolic disease. 3. 1.3 cm lobular soft tissue attenuating lesion of the right middle lobe abutting the minor fissure has not significantly changed from comparison study. 4. Soft tissue nodules of the abdomen, further discussed on CT abdomen and pelvis study of same day. 5. Additional findings as above. The above report was generated using voice recognition software. It may contain grammatical, syntax or spelling errors. Electronically signed by: Robin King M.D. 09/01/2017 7:01 PM Dictated Date/Time: 09/01/2017 6:48 PM
--- NOTE | 2017-09-01 19:09 | DIAGNOSTIC IMAGING REPORT ---
ABDOMEN AND PELVIS CT WITH IV CONTRAST CT DOSE: 940.59 mGy.cm HISTORY: L flank pain, cancer TECHNIQUE: Multiaxial CT images of the abdomen and pelvis were performed following the use of intravenous contrast. A dose lowering technique was utilized adhering to the principles of ALARA. COMPARISON STUDY: Abdomen and pelvis CT 08/11/2017. FINDINGS: There is again noted a 13 mm enhancing nodule within the right breast. Subtle 6 mm hypodense lesion within the right hepatic lobe inferiorly on image 180. This is too small to characterize. This was likely present on the prior study. Cholecystectomy. The pancreas is unremarkable. Bilateral renal hypodense lesions are again noted. These are difficult to characterize due to their small size but likely represent cysts. Left-sided nephrolithiasis. Duplicated left renal collecting system. No ureteral stones. No hydronephrosis. Normal spleen. Nodular thickening of the bilateral adrenal glands is again noted. Dominant nodule within the left adrenal gland measures 11 mm. Small hiatus hernia. There are 2 ill-defined soft tissue nodules within the left side the abdomen. These are seen adjacent to the spleen measuring 8 mm and adjacent to the descending colon measuring 11 mm. These are highly suspicious for peritoneal metastatic disease. No retroperitoneal or mesenteric lymphadenopathy. Extensive calcified plaque within the aorta. Occluded left femoral stent remains unchanged. The bladder and uterus are unremarkable. No change in the 4.2 cm left adnexal cyst. Moderate stool seen throughout the colon. Colonic diverticulosis. No bowel wall thickening or obstruction. Normal appendix. Destructive masses at L1 and L3 with epidural extension and pathologic compression fractures are again noted. There is mild to moderate central canal narrowing at the L3 level due to the epidural extension and retropulsion. This lesion also extends into the right posterior elements with severe neural foraminal narrowing at L3-L4. The pathologic L3 compression fracture has slightly progressed as well as the mild to moderate central canal narrowing. Interval intramedullary alyson and femoral neck pin within the right femur. Fracture at the greater trochanter which may be related to recent postoperative change. Destructive lesion within the posterior cortex of proximal right femur is again noted. A 6 mm lytic lesion within the left ischial tuberosity. Lytic lesion within the right iliac wing. Bilateral rib destructive lesions. IMPRESSION: 1. Redemonstration of the 13 mm right breast mass with scattered metastatic osseous lesions. There are also 2 small soft tissue nodules within the left side the abdomen which are highly suspicious for metastatic peritoneal disease. 2. The L3 pathologic compression fracture has slightly progressed with progressive mild to moderate central canal narrowing and severe right L3-L4 neural foraminal narrowing. 3. Stable nodular thickening of the adrenal glands. 4. No bowel wall thickening or obstruction. 5. Postoperative changes within the right femur. Fracture of the right greater trochanter likely due to the recent postoperative change. 6. Additional findings as described above. Electronically signed by: Ryan Geronimo M.D. 09/01/2017 7:08 PM Dictated Date/Time: 09/01/2017 6:44 PM
[2017-09-01] MEDS ORDERED: GLUCOSE 10 TABS/TUBE PO PRN (19:15)
[2017-09-01] MEDS ORDERED: GLUCAGON FOR INJ 1 MG VIAL SQ PRN (19:15)
[2017-09-01] MEDS ORDERED: GLUCOSE 40% GEL 15 GM TUBE PO PRN (19:15)
--- NOTE | 2017-09-01 19:35 | DIAGNOSTIC IMAGING REPORT ---
CHEST ONE VIEW PORTABLE HISTORY: 67 years-old Female EVALUATE ALTERED MENTAL STATUS/WEAKNESS acute altered mental status with weakness COMPARISON: Chest radiograph 08/19/2017, CTA chest 09/01/2017 TECHNIQUE: Portable AP view of the chest FINDINGS: Lungs are mildly hypoinflated. Cardiac silhouette is enlarged. Atherosclerosis of the aorta. Prior median sternotomy. Mild right hemidiaphragmatic elevation. No pneumothorax or pleural effusion. Minimal subsegmental bibasilar opacities compatible with atelectasis. Nodular opacity of the right middle lobe seen on comparison chest CT is not identified. The described multiple skeletal lesions are better characterized on CT chest of same day. Lytic lesion of the acromium is noted. Lytic lesion with pathologic fracture also noted involving the lateral aspect right second and sixth ribs. IMPRESSION: 1. Cardiomegaly with mild subsegmental bibasilar atelectasis. 2. Multiple lytic skeletal metastasis including lytic lesions with pathologic fractures involving the right second and sixth ribs, better characterized on CT chest of same day. The above report was generated using voice recognition software. It may contain grammatical, syntax or spelling errors. Electronically signed by: Robin King M.D. 09/01/2017 7:33 PM Dictated Date/Time: 09/01/2017 7:31 PM
--- NOTE | 2017-09-01 20:09 | History and Physical ---
History & Physical Date & Time of Service: September 01, 2017 at 20:05 Chief Complaint: Flank Pain, Lumbar & R Shoulder Pain Primary Care Physician: Amanda Sequeira C.R.N.P History of Present Illness Source: patient, spouse 67 yo F with pMHx of DM, HTN, HLD, myasthenia gravis, PVD s/p left lower extremity venous graft and right arterial stent, CAD s/p stents (>10 years ago) , h/o left carotid stenosis s/p CEA, recently found to multiple metastatic osteolytic lesions to lower back and right hip with compression fraction of lumbar spines and shaft of right femur s/p right hip nailing, with pending work up for primary lesion presents to the ED with intractable pain. Pain had acute onset, and was worse in the neck, right shoulder, and made her feel breathless and nauseous, but no emesis. Pain had been progressively worsening through out the day, despite q4h scheduled doses of Oxycontin and leading to inability to move secondary to pain. She otherwise denies fevers/chills, headaches, palpitations, abdominal pain, lower extremity swelling or rashes. She has been tolerating diet without nausea or vomiting, ambulating with a walker, and voiding and stooling appropriately. She denies saddle paresthesias, radiculopathy, or incontinence. ROS is unremarkable except as noted above. Past Medical/Surgical History Medical Problems: peripheral vascular disease status post left lower extremity venous graft and right arterial stent CAD status post coronary stent 10 years ago left carotid stenosis status post CEA gastroparesis multiple osteolytic lesions vertebral compression fractures Cspine lesions with possible C7 spinous process fracture breast mass ovarian cystic lesion LLQ mass Myasthenia gravis s/p tracheostomy x 3 for VDRF Obesity, BMI 30.3 Surgical Problems: H/O vertebroplasty H/O laparoscopic cholecystectomy H/O thymectomy H/O tracheostomy H/O cholecystectomy Family History Cancer Diabetes mellitus Gallbladder disease Heart disease Hypertension Lung disease Non contributory Social History Smoking Status: Former Smoker Smokeless Tobacco Use: No Alcohol Use: none Drug Use: none Marital Status: Housing status: lives with family Occupational Status: retired Immunizations History of Influenza Vaccine: Yes Influenza Vaccine Date: Jan 29, 2006 History of Tetanus Vaccine?: Yes History of Pneumococcal: Yes History of Hepatitis B Vaccine: No Allergies Coded Allergies: Chlorpromazine (Verified Allergy, Unknown, PHENOTHIAZINES, 09/01/17) Colistin (Verified Allergy, Unknown, 09/01/17) Gentamicin (Verified Allergy, Unknown, 09/01/17) Kanamycin (Verified Allergy, Unknown, 09/01/17) Neomycin (Verified Allergy, Unknown, 09/01/17) Polymyxin B (Verified Allergy, Unknown, 09/01/17) Procainamide (Verified Allergy, Unknown, 09/01/17) Propranolol (Verified Allergy, Unknown, 09/01/17) Quinidine (Verified Allergy, Unknown, 09/01/17) Streptomycin (Verified Allergy, Unknown, 09/01/17) Tetracycline (Verified Allergy, Unknown, 09/01/17) Home Medications Scheduled Aspirin (Ecotrin Low Strength), 81 MG PO DAILY Buspirone Hcl (Buspirone Hcl), 10 MG PO TID Cholecalciferol (D3 Maximum Strength), 5,000 UNITS PO QAM Clopidogrel Bisulfate (Plavix), 75 MG PO DAILY Fentanyl (Fentanyl), 12 MCG TD [id number] Fentanyl (Fentanyl), 25 MCG TD [id number] Ferrous Gluconate (Ferrous Gluconate), 324 MG PO BID Fluoxetine Hcl (Prozac), 40 MG PO DAILY Insulin Aspart (Novolog), 5 UNITS SC AC Insulin Glargine (Lantus), Unknown Dose SC QAM Isosorbide Mononitrate Ext Rel (Imdur Ext Rel), 30 MG PO QAM Metoclopramide Hcl (Reglan), 5 MG PO AC Metoprolol Succ (Toprol Xl) (Toprol-Xl), 50 MG PO QAM Mycophenolate Mofetil (Mycophenolate Mofetil), 1,000 MG PO BID Polyethylene Glycol 3350 (Miralax), 17 GM PO DAILY Probiotic Product (Acidophilus), 1 TAB PO DAILY Rosuvastatin Calcium (Crestor), 40 MG PO DAILY Senna (Senokot), 17.2 MG PO HS Scheduled PRN Nitroglycerin (Nitrostat), 0.4 MG UT UD PRN for Chest Pain Oxycodone Ir (Roxicodone Ir), 10 MG PO Q4H PRN for Severe Pain Physical Exam Vital Signs Date Time Temp Pulse Resp B/P (MAP) Pulse Ox O2 Delivery O2 Flow Rate FiO2 5/16/18 19:15 80 13 92 Room Air 09/01/17 19:01 110/65 09/01/17 18:45 78 13 93 Room Air 09/01/17 18:43 77 17 137/62 94 Room Air 09/01/17 18:13 77 09/01/17 17:47 94 Room Air 09/01/17 17:47 36.8 77 20 154/96 94 Room Air 09/01/17 17:47 94 Room Air General Appearance: WD/WN, + mild distress (secondary to ongoing pain) Head: normocephalic, atraumatic Eyes: sclerae normal ENT: hearing grossly normal Neck: + pertinent finding (mildly tender to palpation) Respiratory/Chest: no respiratory distress, no accessory muscle use Cardiovascular: regular rate, rhythm, no murmur, normal peripheral pulses Abdomen/GI: normal bowel sounds, non tender, soft Back: + pertinent finding (Unable to assess and patient in too much pain to it up) Extremities/Musculoskelatal: no calf tenderness, no pedal edema Neurologic/Psych: alert, normal mood/affect, oriented x 3 Skin: normal color, warm/dry, no rash Diagnostics Laboratory Results Results Past 24 Hours Test 09/01/17 18:06 09/01/17 18:13 Range/Units White Blood Count 9.03 4.8-10.8 K/uL Red Blood Count 4.57 4.2-5.4 M/uL Hemoglobin 12.6 12.0-16.0 g/dL Hematocrit 38.9 37-47 % Mean Corpuscular Volume 85.1 80-100 fL Mean Corpuscular Hemoglobin 27.6 25-34 pg Mean Corpuscular Hemoglobin Concent 32.4 32-36 g/dl Platelet Count 342 130-400 K/uL Mean Platelet Volume 8.8 7.4-10.4 fL Neutrophils (%) (Auto) 70.6 % Lymphocytes (%) (Auto) 14.7 % Monocytes (%) (Auto) 12.1 % Eosinophils (%) (Auto) 1.7 % Basophils (%) (Auto) 0.3 % Neutrophils # (Auto) 6.38 1.4-6.5 K/uL Lymphocytes # (Auto) 1.33 1.2-3.4 K/uL Monocytes # (Auto) 1.09 0.11-0.59 K/uL Eosinophils # (Auto) 0.15 0-0.5 K/uL Basophils # (Auto) 0.03 0-0.2 K/uL RDW Standard Deviation 45.4 36.4-46.3 fL RDW Coefficient of Variation 14.7 11.5-14.5 % Immature Granulocyte % (Auto) 0.6 % Immature Granulocyte # (Auto) 0.05 0.00-0.02 K/uL Prothrombin Time 10.9 9.0-12.0 SECONDS Prothromb Time International Ratio 1.0 0.9-1.1 Activated Partial Thromboplast Time 25.1 21.0-31.0 SECONDS Partial Thromboplastin Ratio 1.0 Sodium Level 136 136-145 mmol/L Potassium Level 4.0 3.5-5.1 mmol/L Chloride Level 104 98-107 mmol/L Carbon Dioxide Level 26 21-32 mmol/L Anion Gap 6.0 15.0 16-25 mmol/L Blood Urea Nitrogen 12 7-18 mg/dl Creatinine 0.77 0.60-1.20 mg/dl Est Creatinine Clear Calc Drug Dose 60.6 ml/min Estimated GFR () 93.9 Estimated GFR (Non- 81.0 BUN/Creatinine Ratio 15.4 10-20 Random Glucose 84 70-99 mg/dl Calcium Level 10.3 8.5-10.1 mg/dl Phosphorus Level 4.2 2.5-4.9 mg/dl Magnesium Level 2.1 1.8-2.4 mg/dl Total Bilirubin 0.3 0.2-1 mg/dl Direct Bilirubin < 0.1 0-0.2 mg/dl Aspartate Amino Transf (AST/SGOT) 25 15-37 U/L Alanine Aminotransferase (ALT/SGPT) 22 12-78 U/L Alkaline Phosphatase 223 45-117 U/L Total Creatine Kinase 33 26-192 U/L Creatine Kinase MB 1.3 0.5-3.6 ng/ml Creatine Kinase MB Ratio 3.9 0-3.0 Troponin I < 0.015 0-0.045 ng/ml Total Protein 7.5 6.4-8.2 gm/dl Albumin 3.6 3.4-5.0 gm/dl Lipase 259 73-393 U/L Thyroid Stimulating Hormone (TSH) 0.965 0.300-4.500 uIu/ml Bedside Hemoglobin 13.3 12.0-16.0 g/dl Bedside Hematocrit 39 37-47 % Bedside Sodium 137 135-144 mEq/L Bedside Potassium 3.9 3.3-5.0 mEq/L Bedside Chloride 102 101-112 mEq/L Bedside Total CO2 25 24-31 mEq/l Bedside Blood Urea Nitrogen 12 7-18 mg/dl Bedside Creatinine 0.8 0.6-1.3 mg/dl Bedside Glucose (other) 88 70-99 mg/dl Bedside Ionized Calcium (Jack) 1.17 1.12-1.32 mmol/l Diagnostic Radiology CHEST ONE VIEW PORTABLE HISTORY: 67 years-old Female EVALUATE ALTERED MENTAL STATUS/WEAKNESS acute altered mental status with weakness COMPARISON: Chest radiograph 08/19/2017, CTA chest 09/01/2017 TECHNIQUE: Portable AP view of the chest FINDINGS: Lungs are mildly hypoinflated. Cardiac silhouette is enlarged. Atherosclerosis of the aorta. Prior median sternotomy. Mild right hemidiaphragmatic elevation. No pneumothorax or pleural effusion. Minimal subsegmental bibasilar opacities compatible with atelectasis. Nodular opacity of the right middle lobe seen on comparison chest CT is not identified. The described multiple skeletal lesions are better characterized on CT chest of same day. Lytic lesion of the acromium is noted. Lytic lesion with pathologic fracture also noted involving the lateral aspect right second and sixth ribs. IMPRESSION: 1. Cardiomegaly with mild subsegmental bibasilar atelectasis. 2. Multiple lytic skeletal metastasis including lytic lesions with pathologic fractures involving the right second and sixth ribs, better characterized on CT chest of same day. (CHEST FOR PE) ANGIO WITH HISTORY: 67 years-old Female with presents with acute atypical chest and back pain. TECHNIQUE: Multiple CTA images of the chest were obtained after the intravenous administration of 116 ml Optiray 320. Coronal and sagittal MIPS were obtained from the axial data set and were submitted for review. A dose lowering technique was utilized adhering to the principles of ALARA. COMPARISON: CT abdomen and pelvis of same day, chest CT 05/25/2017 FINDINGS: CTA: Mild multichamber cardiac enlargement with coronary arterial calcifications. No pericardial effusion. Prior median sternotomy with CABG. Thoracic aorta and trace moderate mixed plaque formation. Imaged great vessels appear patent. There is no aortic aneurysm or dissection identified. Pulmonary arterial tree is opacified to the level of the subsegmental branches and demonstrates no focal filling defects to suggest pulmonary thromboembolic disease. CT CHEST: Mildly heterogeneous thyroid without dominant nodule identified. No pathologically enlarged lymph nodes about the chest identified. Mildly prominent subcarinal lymph node measures 9 mm. Lobulated soft tissue attenuating nodule of the right middle lobe abutting the minor fissure is redemonstrated on image 115 series 4 measuring 1.3 x 0.8 cm, previously measuring 1.3 x 0.6 cm. No new or enlarging pulmonary nodules identified. Mild dependent subsegmental bibasilar atelectasis. Calcified granulomata about the lung bases. Central airways are patent. 7 mm soft tissue nodule anterior to the spleen. Small sliding-type hilar hernia. Moderate thickening about the bilateral adrenal glands. There are lesions about the bilateral breasts measuring 1.2 cm of the lateral left breast and 1.2 cm within the central right breast. Lucent lesion with pathologic fracture involves the lateral aspect right sixth rib with pathologic fracture involving the spinous process C7. Additional lucent lesions are noted involving the bilateral shoulders and right C7 lamina with large destructive lesion involving the vertebral body and posterior elements at T6 there is extension into the posterior epidural space at this level with possible neural foraminal encroachment. Lytic lesion of the posterior left seventh rib is also seen. Remote appearing compression deformity of the T8 vertebral body. IMPRESSION: 1. Multiple lytic skeletal metastasis as above including a large destructive lesion involving the vertebral body and posterior elements at T6 with extension into the region of the posterior epidural space likely causing a degree of central canal and foraminal encroachment. Pathologic fracture involves a lytic lesion of the right sixth rib. 2. No acute aortic pathology or pulmonary thromboembolic disease. 3. 1.3 cm lobular soft tissue attenuating lesion of the right middle lobe abutting the minor fissure has not significantly changed from comparison study. 4. Soft tissue nodules of the abdomen, further discussed on CT abdomen and pelvis study of same day. 5. Additional findings as above. ADDENDUM Lytic metastatic lesion with pathologic fracture also involves the right second rib. ABDOMEN AND PELVIS CT WITH IV CONTRAST CT DOSE: 940.59 mGy.cm HISTORY: L flank pain, cancer TECHNIQUE: Multiaxial CT images of the abdomen and pelvis were performed following the use of intravenous contrast. A dose lowering technique was utilized adhering to the principles of ALARA. COMPARISON STUDY: Abdomen and pelvis CT 08/11/2017. FINDINGS: There is again noted a 13 mm enhancing nodule within the right breast. Subtle 6 mm hypodense lesion within the right hepatic lobe inferiorly on image 180. This is too small to characterize. This was likely present on the prior study. Cholecystectomy. The pancreas is unremarkable. Bilateral renal hypodense lesions are again noted. These are difficult to characterize due to their small size but likely represent cysts. Left-sided nephrolithiasis. Duplicated left renal collecting system. No ureteral stones. No hydronephrosis. Normal spleen. Nodular thickening of the bilateral adrenal glands is again noted. Dominant nodule within the left adrenal gland measures 11 mm. Small hiatus hernia. There are 2 ill-defined soft tissue nodules within the left side the abdomen. These are seen adjacent to the spleen measuring 8 mm and adjacent to the descending colon measuring 11 mm. These are highly suspicious for peritoneal metastatic disease. No retroperitoneal or mesenteric lymphadenopathy. Extensive calcified plaque within the aorta. Occluded left femoral stent remains unchanged. The bladder and uterus are unremarkable. No change in the 4.2 cm left adnexal cyst. Moderate stool seen throughout the colon. Colonic diverticulosis. No bowel wall thickening or obstruction. Normal appendix. Destructive masses at L1 and L3 with epidural extension and pathologic compression fractures are again noted. There is mild to moderate central canal narrowing at the L3 level due to the epidural extension and retropulsion. This lesion also extends into the right posterior elements with severe neural foraminal narrowing at L3-L4. The pathologic L3 compression fracture has slightly progressed as well as the mild to moderate central canal narrowing. Interval intramedullary alyson and femoral neck pin within the right femur. Fracture at the greater trochanter which may be related to recent postoperative change. Destructive lesion within the posterior cortex of proximal right femur is again noted. A 6 mm lytic lesion within the left ischial tuberosity. Lytic lesion within the right iliac wing. Bilateral rib destructive lesions. IMPRESSION: 1. Redemonstration of the 13 mm right breast mass with scattered metastatic osseous lesions. There are also 2 small soft tissue nodules within the left side the abdomen which are highly suspicious for metastatic peritoneal disease. 2. The L3 pathologic compression fracture has slightly progressed with progressive mild to moderate central canal narrowing and severe right L3-L4 neural foraminal narrowing. 3. Stable nodular thickening of the adrenal glands. 4. No bowel wall thickening or obstruction. 5. Postoperative changes within the right femur. Fracture of the right greater trochanter likely due to the recent postoperative change. 6. Additional findings as described above. EKG Normal sinus rhythm Normal ECG When compared with ECG of 16-AUG-2017 18:21, No significant change was found Impression Assessment and Plan 67 yo F with pMHx of DM, HTN, HLD, myasthenia gravis, PVD s/p left lower extremity venous graft and right arterial stent, CAD s/p stents (>10 years ago) , h/o left carotid stenosis s/p CEA, recently found to multiple metastatic osteolytic lesions to lower back and right hip with compression fraction of lumbar spines and shaft of right femur s/p right hip nailing, with pending work up for primary lesion presents to the ED with intractable pain. Pain secondary to metastatic cancer with pathologic compression vertebral fracture of L1/L3 plus T6, C7, and 2nd rib bony lytic lesions - Imaging negative for PE, initial trop negative - Pain management: continue fentanyl patch, IV morphine 3mg q3h, PO cyclobenzaprine, heat pack - Continue aggressive bowel regimen in view of opioid use - Oncologist, Dr. Montilla consulted - Palliative consulted to discuss goals of care Hypercalcemia - likely related to multiple lytic lesions. ALP elevated. Gentle hydration IVF NSS @ 75cc/hr Recent pathologic fracture of shaft of right femur s/p right hip nailing - Patient was scheduled for staple removal tomorrow - Orthopedist, consulted - Continue PT/OT while in hospital Right breast lesion seen on recent imaging - Patient was scheduled for lesion biopsy tomorrow, this will need to be rescheduled Persistent nausea/emesis - related also to gastroparesis seen on gastric emptying study in 2008. Continue metoclopramide CAD s/p cardiac stent / PVD s/p iliac artery stents - no ischemic symptoms at this time. Continue aspirin, clopidogrel, metoprolol, ISMN, rosuvastatin T1DM - Continue Lantus 10mg BID + ISS with checks ac/hs Myasthenia gravis - not in exacerbation. Continue mycophenolate Depression/anxiety - continue fluoxetine, buspirone VTE ppx - Hep SC FULL CODE Attending addendum: I have physically seen this patient, have supervised the medical residents activities, and agree with the H&P unless as otherwise noted. Assessment and Plan: Metastatic cancer to bone-- Fractures at L1, L3, T6, T7 and second rib. Continue fentanyl patch current dosing, will likely need to increase. Morphine IV for breakthrough pain. Cyclobenzaprine for associated muscle spasm. Consult palliative medicine. Consult oncology Dr. Montilla or covering physician. [email or web address] Right hip fracture status post right hip nailing-- Consult , as she was scheduled in the outpatient setting for staple removal tomorrow. Right breast lesion-- She was due for outpatient biopsy tomorrow 09/02. We will cancel outpatient biopsy, and try to arrange as inpatient. CAD/hypertension/PAD-- Continue metoprolol with hold parameters and isosorbide mononitrate. Should be okay to continue aspirin and clopidogrel prebiopsy. Diabetes mellitus-- Hold Lantus. Place on Accu-Cheks before meals and at bedtime with NovoLog coverage per scale. Other notations as above. Advanced Directives Existing Advance Directive: No Existing Living Will: No Existing Power of Cooling Pan Tender: No Resuscitation Status FULL VTE Prophylaxis Will order VTE Prophylaxis: Yes Social Service Consult Cancer Patient Under [place] Resident Tracking Resident Involvement: Resident Care Provided Care Provided: Adult Hospital Medicine
[2017-09-01] MEDS ORDERED: FENTANYL 25 MCG/HR TDSY TD SCH (21:15)
[2017-09-01] MEDS ORDERED: ONDANSETRON INJ 2 MG/ML 2 ML VIAL IV PRN ×2 (21:15→22:45)
[2017-09-01] MEDS ORDERED: ALUMINUM/MAGNESIUM/SIMETH (MAALOX MAX) 30 ML UDC PO PRN ×2 (21:15→22:45)
[2017-09-01] MEDS ORDERED: ACETAMINOPHEN 325 MG TAB PO PRN ×2 (21:15→22:45)
[2017-09-01] MEDS ORDERED: MAGNESIUM HYDROXIDE SUSP 30 ML UDC PO PRN ×2 (21:15→22:45)
[2017-09-01] MEDS ORDERED: MoRPHine SULFATE 4 MG/ML 1 ML CARP\\VIAL IV PRN (21:15)
[2017-09-01] MEDS ORDERED: HEPARIN SOD 5000 UNIT/0.5 ML CARP SQ SCH (21:15)
[2017-09-01] MEDS ORDERED: FENTANYL 12 MCG/HR TDSY TD SCH (21:15)
[2017-09-01] MEDS ORDERED: CARBOHYDRATES FOR HYPOGLYCEMIA PO PRN (21:30)
[2017-09-01] MEDS ORDERED: IV FLUIDS COMPLETED PRN (21:45)
[2017-09-01 21:49] VITALS: Ht 149.9 cm; Wt 68.4 kg
[2017-09-01] MEDS ORDERED: CYCLOBENZAPRINE HCL 5 MG TAB PO PRN (22:15)
[2017-09-01 22:24] VITALS: O2SAT 96
[2017-09-01] MEDS ORDERED: CYCLOBENZAPRINE HCL 5 MG TAB PO STA (22:25)
[2017-09-01 22:53] VITALS: BP 165/74; PULSE 84; TEMP 36.7; O2SAT 92
[2017-09-01] MEDS: MoRPHine SULFATE 4 MG/ML 1 ML CARP\\VIAL IV PRN (23:15)
[2017-09-01] MEDS: CHECK FENTANYL PATCH PLACEMENT SCH ×2 (23:27)
[2017-09-02] MEDS: SODIUM CHLORIDE 0.9% 1000ML 1,000 ML IV SCH ×2 (02:34→15:54)
[2017-09-02] MEDS: MoRPHine SULFATE 4 MG/ML 1 ML CARP\\VIAL IV PRN ×4 (04:05→21:45)
[2017-09-02 04:18] VITALS: BP 121/89; PULSE 84; TEMP 36.8; O2SAT 93
[2017-09-02] MEDS: METOCLOPRAMIDE HCL 5 MG TAB PO SCH ×3 (05:49→16:13)
[2017-09-02] MEDS ORDERED: METOCLOPRAMIDE HCL 5 MG TAB PO SCH (06:30)
[2017-09-02 07:14] LABS: HEMATOCRIT 38.7 % (37-47); HEMOGLOBIN 12.3 g/dL (12.0-16.0); MEAN CELL VOLUME 85.6 fL (80-100); MEAN CORPUSCULAR HEMOGLOBIN 27.2 pg (25-34); MEAN CORPUSCULAR HGB CONC 31.8 g/dl (32-36); MEAN PLATELET VOLUME 8.7 fL (7.4-10.4); PLATELET COUNT 282 K/uL (130-400); RED CELL DISTRIBUTION WIDTH CV 14.9 % (11.5-14.5); RED CELL DISTRIBUTION WIDTH SD 46.1 fL (36.4-46.3); WHITE BLOOD COUNT 6.24 K/uL (4.8-10.8)
[2017-09-02 07:30] VITALS: BP 146/73; PULSE 86; TEMP 36.6; O2SAT 94
[2017-09-02 07:44] LABS: ALBUMIN 3.6 gm/dl (3.4-5.0); ALKALINE PHOSPHATASE 211 U/L (45-117); ALT/SGPT 21 U/L (12-78); AST/SGOT 24 U/L (15-37); BLOOD UREA NITROGEN 9 mg/dl (7-18); CALCIUM 9.5 mg/dl (8.5-10.1); CARBON DIOXIDE 27 mmol/L (21-32); CREATININE 0.69 mg/dl (0.60-1.20); GLUCOSE 80 mg/dl (70-99); POTASSIUM 3.7 mmol/L (3.5-5.1); SODIUM 137 mmol/L (136-145)
[2017-09-02] MEDS ORDERED: FENTANYL PATCH REMOVE & WASTE SCH (07:59)
[2017-09-02] MEDS ORDERED: POLYETHYLENE (MIRALAX) 17 GM PACK PO SCH (08:00)
[2017-09-02] MEDS ORDERED: FENTANYL 25 MCG/HR TDSY TD SCH (08:00)
[2017-09-02] MEDS ORDERED: ISOSORBIDE MONONITRATE 30 MG TABCR PO SCH (08:00)
[2017-09-02] MEDS ORDERED: PROBIOTIC PRODUCT PO SCH (08:00)
[2017-09-02] MEDS ORDERED: HEPARIN SOD 5000 UNIT/0.5 ML CARP SQ SCH (08:00)
[2017-09-02] MEDS ORDERED: ROSUVASTATIN CALCIUM 20 MG TAB PO SCH (08:00)
[2017-09-02] MEDS ORDERED: FENTANYL 12 MCG/HR TDSY TD SCH (08:00)
[2017-09-02] MEDS ORDERED: METOPROLOL SUCC 50MG EXT REL TAB PO SCH (08:00)
[2017-09-02] MEDS ORDERED: MYCOPHENOLATE MOFETIL 1000 MG PO SCH (08:00)
[2017-09-02] MEDS ORDERED: INSULIN GLARGINE SOLOSTAR 100 UNITS/ML 3 ML PEN SC SCH (08:00)
[2017-09-02] MEDS: ISOSORBIDE MONONITRATE 30 MG TABCR PO SCH (08:54)
[2017-09-02] MEDS: MYCOPHENOLATE MOFETIL 250 MG CAP (CELLCEPT) PO SCH ×2 (08:54→21:22)
[2017-09-02] MEDS: ROSUVASTATIN CALCIUM 20 MG TAB PO SCH (08:55)
[2017-09-02] MEDS: FERROUS GLUCONATE 324 MG TAB PO SCH ×2 (08:55→21:18)
[2017-09-02] MEDS: DOCUSATE SODIUM 100 MG CAP PO SCH ×2 (08:56→21:18)
[2017-09-02] MEDS: FLUOXETINE HCL 20 MG CAP PO SCH (08:56)
[2017-09-02] MEDS: CLOPIDOGREL BISULFATE 75 MG TAB PO SCH (08:56)
[2017-09-02] MEDS: ASPIRIN 81 MG ECTAB PO SCH (08:56)
[2017-09-02] MEDS: METOPROLOL SUCC 50MG EXT REL TAB PO SCH (08:57)
[2017-09-02] MEDS: POLYETHYLENE (MIRALAX) 17 GM PACK PO SCH (08:58)
[2017-09-02] MEDS: CHECK FENTANYL PATCH PLACEMENT SCH ×6 (08:58→23:57)
[2017-09-02] MEDS ORDERED: FLUOXETINE HCL 20 MG CAP PO SCH (09:00)
[2017-09-02] MEDS ORDERED: DOCUSATE SODIUM 100 MG CAP PO SCH (09:00)
[2017-09-02] MEDS: INSULIN ASPART 100 UNITS/ML 3 ML PEN SC SCH ×4 (09:00→21:23)
[2017-09-02] MEDS ORDERED: FERROUS GLUCONATE 324 MG TAB PO SCH (09:00)
[2017-09-02] MEDS ORDERED: BUSPIRONE HCL 10 MG PO SCH (09:00)
[2017-09-02] MEDS ORDERED: ASPIRIN 81 MG ECTAB PO SCH (09:00)
[2017-09-02] MEDS ORDERED: CLOPIDOGREL BISULFATE 75 MG TAB PO SCH (09:00)
[2017-09-02] MEDS: HEPARIN SOD 5000 UNIT/0.5 ML CARP SQ SCH ×2 (09:06→16:16)
[2017-09-02] MEDS: FENTANYL PATCH REMOVE & WASTE SCH (09:07)
[2017-09-02] MEDS ORDERED: LIDODERM (LIDOCAINE) PATCH 5% TD ONE (10:27)
[2017-09-02] MEDS ORDERED: POLYETHYLENE (MIRALAX) 17 GM PACK PO PRN (10:30)
[2017-09-02] MEDS: OXYCODONE HCL IR 5 MG TAB (IMMEDIATE RELEASE) PO PRN ×2 (10:45→17:34)
[2017-09-02 11:24] VITALS: BP 129/65; PULSE 84; TEMP 36.7; O2SAT 94
[2017-09-02] MEDS ORDERED: INSULIN GLARGINE SOLOSTAR 100 UNITS/ML 3 ML PEN SC ONE (13:00)
[2017-09-02] MEDS ORDERED: IV FLUIDS COMPLETED PRN (13:15)
[2017-09-02 15:59] VITALS: BP 125/64; PULSE 80; TEMP 36.8; O2SAT 93
--- NOTE | 2017-09-02 16:19 | Oncology Consultation ---
Oncology/Heme Consultation Date of Consultation: September 02, 2017. Attending Physician: William Lopez D.O. Reason for Consultation: Osteolytic bone metastases Primary site unclear, possibly breast Intractable pain History of Present Illness Ms. Baig is a 67 year old woman who was recently discovered to have numerous osteolytic bone tumors. Scans did not suggest an obvious primary site, though a few potential sites include a RUL lung nodule and bilateral small breast masses seen on CT. She was scheduled for an ultrasound-guided biopsy of the more prominent of the breast lesions, on the right, today, but she was admitted with intractable pain that is attributable to a pathologic rib fracture. I recently increased her transdermal Fentanyl to 37 mcg/hr. This had been more adequate prior to the rib fracture. Past Medical/Surgical History Medical Problems: (1) Diarrhea Status: Acute (2) Hypoglycemia Status: Acute (3) Intractable pain Status: Acute (4) Metastatic cancer Status: Acute (5) Pathologic compression fracture of lumbar vertebra Status: Acute (6) Pathologic compression fracture of thoracic vertebra Status: Acute (7) Pathologic rib fracture Status: Acute (8) Strain of lumbar region Status: Acute Family History Cancer Diabetes mellitus Gallbladder disease Heart disease Hypertension Lung disease Social History Smoking Status: Former Smoker Smokeless Tobacco Use: No Alcohol Use: none Drug Use: none Marital Status: Housing Status: lives with family Occupation Status: retired Allergies Coded Allergies: Chlorpromazine (Verified Allergy, Unknown, PHENOTHIAZINES, 09/01/17) Colistin (Verified Allergy, Unknown, 09/01/17) Gentamicin (Verified Allergy, Unknown, 09/01/17) Kanamycin (Verified Allergy, Unknown, 09/01/17) Neomycin (Verified Allergy, Unknown, 09/01/17) Polymyxin B (Verified Allergy, Unknown, 09/01/17) Procainamide (Verified Allergy, Unknown, 09/01/17) Propranolol (Verified Allergy, Unknown, 09/01/17) Quinidine (Verified Allergy, Unknown, 09/01/17) Streptomycin (Verified Allergy, Unknown, 09/01/17) Tetracycline (Verified Allergy, Unknown, 09/01/17) Home Medications Scheduled Aspirin (Ecotrin Low Strength), 81 MG PO DAILY Buspirone Hcl (Buspirone Hcl), 10 MG PO TID Cholecalciferol (D3 Maximum Strength), 5,000 UNITS PO QAM Clopidogrel Bisulfate (Plavix), 75 MG PO DAILY Fentanyl (Fentanyl), 12 MCG TD [id number] Fentanyl (Fentanyl), 25 MCG TD [id number] Ferrous Gluconate (Ferrous Gluconate), 324 MG PO BID Fluoxetine Hcl (Prozac), 40 MG PO DAILY Insulin Aspart (Novolog), 5 UNITS SC AC Insulin Glargine (Lantus), Unknown Dose SC QAM Isosorbide Mononitrate Ext Rel (Imdur Ext Rel), 30 MG PO QAM Metoclopramide Hcl (Reglan), 5 MG PO AC Metoprolol Succ (Toprol Xl) (Toprol-Xl), 50 MG PO QAM Mycophenolate Mofetil (Mycophenolate Mofetil), 1,000 MG PO BID Polyethylene Glycol 3350 (Miralax), 17 GM PO DAILY Probiotic Product (Acidophilus), 1 TAB PO DAILY Rosuvastatin Calcium (Crestor), 40 MG PO DAILY Senna (Senokot), 17.2 MG PO HS Scheduled PRN Nitroglycerin (Nitrostat), 0.4 MG UT UD PRN for Chest Pain Oxycodone Ir (Roxicodone Ir), 10 MG PO Q4H PRN for Severe Pain Current Inpatient Medications Current Inpatient Medications Medications (Trade) Dose Ordered Sig/Yovana Route Start Time Stop Time Status Last Admin Dose Admin Ioversol (Optiray 320) 100 ml UD PRN IV 09/01/17 18:00 18 17:59 Glucagon (Glucagon Inj) 1 mg UD PRN SQ 09/01/17 19:15 10/01/17 19:14 Glucose (Glucose 40% Gel) 15-30 GRAMS 15 GRAMS... UD PRN PO 09/01/17 19:15 10/01/17 19:14 Glucose (Glucose Chew Tab) 4-8 Tablets 4 Tabl... UD PRN PO 09/01/17 19:15 10/01/17 19:14 Carbohydrates (Carbohydrates For Hypoglycemia) 15-30 GRAMS 15 grams if BSG 54-69... UD PRN PO 09/01/17 21:30 10/01/17 21:29 Insulin Aspart (novoLOG ASPART) SLIDING SCALE If C... ACHS SC 09/02/17 06:30 10/02/17 06:59 Miscellaneous (Iv Fluids Completed) 1 ea PRN PRN N/A 09/01/17 21:45 09/01/18 21:44 Cyclobenzaprine HCl (Flexeril Tab) 10 mg BID PRN PO 09/01/17 22:15 10/01/17 22:14 Buspirone HCl (Buspar Tab) 10 mg TID PO 09/02/17 08:00 10/02/17 08:59 09/02/17 14:48 10 MG Aspirin (Ecotrin Tab) 81 mg DAILY PO 09/02/17 08:00 10/02/17 08:59 09/02/17 08:56 81 MG Clopidogrel Bisulfate (plAVix TAB) 75 mg DAILY PO 09/02/17 08:00 10/02/17 08:59 09/02/17 08:56 75 MG Ferrous Gluconate (Ferrous Gluconate Tab) 324 mg BID PO 09/02/17 08:00 10/02/17 08:59 09/02/17 08:55 324 MG Fluoxetine HCl (Prozac Cap) 40 mg DAILY PO 09/02/17 08:00 10/02/17 08:59 09/02/17 08:56 40 MG Docusate Sodium (coLACE CAP) 100 mg BID PO 09/02/17 08:00 10/02/17 08:59 09/02/17 08:56 100 MG Acetaminophen (Tylenol Tab) 650 mg Q4H PRN PO 09/01/17 22:45 10/01/17 22:44 09/02/17 14:07 650 MG Al Hydrox/Mg Hydrox/Simethicone (Maalox Max Susp) 15 ml Q4H PRN PO 09/01/17 22:45 10/01/17 22:44 Magnesium Hydroxide (Milk Of Magnesia Susp) 30 ml Q6H PRN PO 09/01/17 22:45 10/01/17 22:44 Ondansetron HCl (Zofran Inj) 4 mg Q6H PRN IV 09/01/17 22:45 10/01/17 22:44 Mycophenolate Mofetil (Cellcept Cap) 1,000 mg BID PO 09/02/17 08:00 10/02/17 07:59 09/02/17 08:54 1,000 MG Isosorbide Mononitrate (Imdur Ext Rel Tab) 30 mg QAM PO 09/02/17 08:00 10/02/17 07:59 09/02/17 08:54 30 MG Metoclopramide HCl (Reglan Tab) 5 mg AC PO 09/02/17 06:30 10/02/17 06:29 09/02/17 10:43 5 MG Polyethylene (Miralax Powder Packet) 17 gm DAILY PO 09/02/17 08:00 10/02/17 07:59 09/02/17 08:58 17 GM Metoprolol Succinate (Toprol Xl Tab) 50 mg QAM PO 09/02/17 08:00 10/02/17 07:59 09/02/17 08:57 50 MG Rosuvastatin Calcium (Crestor Tab) 40 mg DAILY PO 09/02/17 08:00 10/02/17 07:59 09/02/17 08:55 40 MG Senna (Senokot Tab) 17.2 mg HS PO 09/02/17 21:00 10/02/17 20:59 Morphine Sulfate (MoRPHine SULFATE INJ) 3 mg Q3H PRN IV 09/01/17 23:00 09/15/17 22:59 09/02/17 16:03 3 MG Fentanyl (Duragesic Patch) 25 mcg Q3D TD 09/02/17 08:00 09/16/17 07:59 09/02/17 08:52 25 MCG Miscellaneous (Fentanyl Patch Remove & Waste) 1 ea Q3D N/A 09/02/17 07:59 10/02/17 07:58 09/02/17 09:07 1 EA Miscellaneous Information (Check Fentanyl Patch Placement) 1 ea QS N/A 09/02/17 00:00 10/02/17 00:00 09/02/17 15:56 1 EA Fentanyl (Duragesic Patch) 12 mcg Q3D TD 09/02/17 08:00 09/16/17 07:59 09/02/17 08:52 12 MCG Miscellaneous (Fentanyl Patch Remove & Waste) 1 ea Q3D N/A 09/02/17 07:59 10/02/17 07:58 09/02/17 09:07 1 EA Miscellaneous Information (Check Fentanyl Patch Placement) 1 ea QS N/A 09/02/17 00:00 10/02/17 00:00 09/02/17 15:56 1 EA Sodium Chloride 1,000 ml @ 75 mls/hr [id number] IV 09/02/17 02:15 10/02/17 02:14 09/02/17 15:54 75 MLS/HR Heparin Sodium (Porcine) (Heparin Sq 5000 Unit/0.5ml) 5,000 unit Q8H SQ 09/02/17 08:00 10/02/17 07:59 09/02/17 09:06 5,000 UNIT Lidocaine (Lidoderm Patch 5%) 1 patch QAM TD 09/03/17 08:00 10/03/17 07:59 Miscellaneous (Remove Lidoderm Patch) 1 ea DAILY@21 N/A 09/02/17 21:00 10/02/17 20:59 Polyethylene (Miralax Powder Packet) 17 gm DAILY PRN PO 09/02/17 10:30 10/02/17 10:29 Oxycodone HCl (Roxicodone Immediate Rel Tab) 10 mg Q4 PRN PO 09/02/17 10:30 09/16/17 10:29 09/02/17 10:45 10 MG Insulin Glargine (Lantus Solostar Pen) 20 units QAM SC 09/03/17 08:00 10/03/17 07:59 Miscellaneous (Iv Fluids Completed) 1 ea PRN PRN N/A 09/02/17 13:15 09/02/18 13:14 Review of Systems Constitutional: + weakness, + fatigue Respiratory: No cough, No shortness of breath Cardiovascular: No chest pain Abdomen: No pain, No nausea Musculoskeletal: + problem reported (pain in her right hip and chest wall, at the site of her rib fracture on the right) Hematologic / Lymphatic: + abnormal bleeding/bruising Physical Exam Date Time Temp Pulse Resp B/P (MAP) Pulse Ox O2 Delivery O2 Flow Rate FiO2 09/02/17 15:59 36.8 80 18 125/64 (84) 93 Room Air 09/02/17 11:24 36.7 84 18 129/65 (86) 94 Room Air 09/02/17 08:00 Room Air 09/02/17 07:30 36.6 86 18 146/73 (97) 94 Room Air 09/02/17 04:18 36.8 84 20 121/89 (100) 93 Room Air 09/02/17 00:02 Room Air 09/01/17 22:53 36.7 84 18 165/74 (104) 92 Room Air 09/01/17 22:24 76 17 118/75 96 09/01/17 22:01 118/75 09/01/17 21:49 Room Air 09/01/17 21:36 76 17 96 Room Air 09/01/17 21:31 108/72 09/01/17 21:06 74 20 92 Room Air 09/01/17 21:01 114/69 09/01/17 20:55 76 17 96 Room Air 09/01/17 20:31 140/63 09/01/17 20:25 78 12 92 Room Air 09/01/17 20:20 76 10 94 Room Air 09/01/17 20:01 121/68 09/01/17 19:50 77 14 90 Room Air 09/01/17 19:31 103/69 09/01/17 19:20 78 15 93 Room Air 09/01/17 19:15 80 13 92 Room Air 09/01/17 19:01 110/65 09/01/17 18:45 78 13 93 Room Air 09/01/17 18:43 77 17 137/62 94 Room Air 09/01/17 18:13 77 09/01/17 17:47 94 Room Air 09/01/17 17:47 36.8 77 20 154/96 94 Room Air 09/01/17 17:47 94 Room Air General Appearance: no apparent distress, + pertinent finding (comfortable but somewhat ill-appearing) Respiratory/Chest: lungs clear Cardiovascular: regular rate, rhythm Abdomen/GI: non tender, soft Extremities/Musculoskelatal: no calf tenderness, no pedal edema Neurologic/Psych: alert, oriented x 3 Skin: no rash Laboratory Results Last 24 Hours Test 09/01/17 18:06 09/01/17 18:13 09/02/17 01:45 09/02/17 07:01 White Blood Count 9.03 K/uL 6.24 K/uL Red Blood Count 4.57 M/uL 4.52 M/uL Hemoglobin 12.6 g/dL 12.3 g/dL Hematocrit 38.9 % 38.7 % Mean Corpuscular Volume 85.1 fL 85.6 fL Mean Corpuscular Hemoglobin 27.6 pg 27.2 pg Mean Corpuscular Hemoglobin Concent 32.4 g/dl 31.8 g/dl Platelet Count 342 K/uL 282 K/uL Mean Platelet Volume 8.8 fL 8.7 fL Neutrophils (%) (Auto) 70.6 % Lymphocytes (%) (Auto) 14.7 % Monocytes (%) (Auto) 12.1 % Eosinophils (%) (Auto) 1.7 % Basophils (%) (Auto) 0.3 % Neutrophils # (Auto) 6.38 K/uL Lymphocytes # (Auto) 1.33 K/uL Monocytes # (Auto) 1.09 K/uL Eosinophils # (Auto) 0.15 K/uL Basophils # (Auto) 0.03 K/uL RDW Standard Deviation 45.4 fL 46.1 fL RDW Coefficient of Variation 14.7 % 14.9 % Immature Granulocyte % (Auto) 0.6 % Immature Granulocyte # (Auto) 0.05 K/uL Prothrombin Time 10.9 SECONDS Prothromb Time International Ratio 1.0 Activated Partial Thromboplast Time 25.1 SECONDS Partial Thromboplastin Ratio 1.0 Sodium Level 136 mmol/L 137 mmol/L Potassium Level 4.0 mmol/L 3.7 mmol/L Chloride Level 104 mmol/L 103 mmol/L Carbon Dioxide Level 26 mmol/L 27 mmol/L Anion Gap 6.0 mmol/L 15.0 mmol/L 7.0 mmol/L Blood Urea Nitrogen 12 mg/dl 9 mg/dl Creatinine 0.77 mg/dl 0.69 mg/dl Est Creatinine Clear Calc Drug Dose 60.6 ml/min 67.1 ml/min Estimated GFR () 93.9 105.9 Estimated GFR (Non- 81.0 91.4 BUN/Creatinine Ratio 15.4 13.5 Random Glucose 84 mg/dl 80 mg/dl Calcium Level 10.3 mg/dl 9.5 mg/dl Phosphorus Level 4.2 mg/dl Magnesium Level 2.1 mg/dl Total Bilirubin 0.3 mg/dl 0.3 mg/dl Direct Bilirubin < 0.1 mg/dl Aspartate Amino Transf (AST/SGOT) 25 U/L 24 U/L Alanine Aminotransferase (ALT/SGPT) 22 U/L 21 U/L Alkaline Phosphatase 223 U/L 211 U/L Total Creatine Kinase 33 U/L Creatine Kinase MB 1.3 ng/ml Creatine Kinase MB Ratio 3.9 Troponin I < 0.015 ng/ml < 0.015 ng/ml Total Protein 7.5 gm/dl 7.0 gm/dl Albumin 3.6 gm/dl 3.6 gm/dl Lipase 259 U/L Thyroid Stimulating Hormone (TSH) 0.965 uIu/ml Bedside Hemoglobin 13.3 g/dl Bedside Hematocrit 39 % Bedside Sodium 137 mEq/L Bedside Potassium 3.9 mEq/L Bedside Chloride 102 mEq/L Bedside Total CO2 25 mEq/l Bedside Blood Urea Nitrogen 12 mg/dl Bedside Creatinine 0.8 mg/dl Bedside Glucose (other) 88 mg/dl Bedside Ionized Calcium (Jack) 1.17 mmol/l Bedside Glucose 81 mg/dl Globulin 3.4 gm/dl Albumin/Globulin Ratio 1.0 Test 09/02/17 07:35 09/02/17 11:39 09/02/17 11:40 Bedside Glucose 80 mg/dl 156 mg/dl Urine Color YELLOW Urine Appearance CLEAR Urine pH 5.0 Urine Specific [place] 1.035 Urine Protein NEG Urine Glucose (UA) NEG Urine Ketones NEG Urine Occult Blood NEG Urine Nitrite NEG Urine Bilirubin NEG Urine Urobilinogen NEG Urine Leukocyte Esterase MODERATE Urine WBC (Auto) 10-30 /hpf Urine RBC (Auto) 0-4 /hpf Urine Hyaline Casts (Auto) 1-5 /lpf Urine Epithelial Cells (Auto) >30 /lpf Urine Bacteria (Auto) NEG Assessment & Plan She has gone nearly 6 weeks since initial presentation without a diagnosis. As a result, I did not want her to miss her scheduled biopsy today. I spoke with her primary team and the folks in the breast imaging center and we were able to arrange for her to be taken over for her biopsy. We should see results next week. In the meantime, I suggested consultation with palliative care this morning and the consult has already been placed. Until we know the identity of her cancer, we will have to forgo discussion of treatment options. She will likely need Xgeva for skeletal-related event prophylaxis, though we can start this as an outpatient. She should continue with IV fluids for her mild hypercalcemia.
--- NOTE | 2017-09-02 19:16 | Medical Student: [facility] ---
Med Student Progress Note Date of Service September 02, 2017. Subjective Pt evaluation today including: conversation w/ patient, physical exam, chart review, lab review, review of studies Pain: 8/10 Voiding: no voiding problems This is a 67 year old female with a history of Type 1 DM, CAD, PVD, and bony metastases from an unidentified cancer is admitted for intractable pain. She began having back pain in February 2017. On a CT done in May 2017 for following a pulmonary nodule, a T8 compression was seen. Subsequent x-rays and MRIs of her lumbar spine showed osteolytic and enhancing lesions. Further imaging reveals a cyst in the L adnexa and bilateral breast masses. She was scheduled to undergo a breast biopsy today, but had so much pain she came here. Her pain is currently an 8/10 in her back, chest, neck, and ribs that is worsened with deep breathing. She states a 5/10 would be an acceptable pain level. The morphine does help bring her pain down but wears off after 3 hours. She would like to adjust her medicines so there aren't fluctuations in her pain every 3 hours. Review of Systems Constitutional: No fever, No chills Respiratory: + cough, + shortness of breath Cardiac: No chest pain Abdomen: No pain, No nausea, No diarrhea Musculoskeletal: No calf pain Female : No dysuria, No urinary frequency Objective Vital Signs Date Time Temp Pulse Resp B/P (MAP) Pulse Ox O2 Delivery O2 Flow Rate FiO2 09/02/17 15:59 36.8 80 18 125/64 (84) 93 Room Air 09/02/17 11:24 36.7 84 18 129/65 (86) 94 Room Air 09/02/17 08:00 Room Air 09/02/17 07:30 36.6 86 18 146/73 (97) 94 Room Air 09/02/17 04:18 36.8 84 20 121/89 (100) 93 Room Air 09/02/17 00:02 Room Air 09/01/17 22:53 36.7 84 18 165/74 (104) 92 Room Air 09/01/17 22:24 76 17 118/75 96 09/01/17 22:01 118/75 09/01/17 21:49 Room Air 09/01/17 21:36 76 17 96 Room Air 09/01/17 21:31 108/72 09/01/17 21:06 74 20 92 Room Air 09/01/17 21:01 114/69 09/01/17 20:55 76 17 96 Room Air 09/01/17 20:31 140/63 09/01/17 20:25 78 12 92 Room Air 09/01/17 20:20 76 10 94 Room Air 09/01/17 20:01 121/68 09/01/17 19:50 77 14 90 Room Air 09/01/17 19:31 103/69 09/01/17 19:20 78 15 93 Room Air 09/01/17 19:15 80 13 92 Room Air Physical Exam General Appearance: no apparent distress Eyes: bilateral eyes normal inspection, bilateral eyes PERRL ENT: TMs normal Respiratory/Chest: lungs clear, normal breath sounds, no respiratory distress Cardiovascular: regular rate, rhythm, no gallop, no murmur Abdomen: normal bowel sounds, non tender, soft Extremities: non-tender, normal inspection, no calf tenderness Skin: + pertinent finding (seborrheic keratoses) Laboratory Results Last 24 Hours Test 09/02/17 01:45 09/02/17 07:01 09/02/17 07:35 09/02/17 11:39 Bedside Glucose 81 mg/dl 80 mg/dl 156 mg/dl White Blood Count 6.24 K/uL Red Blood Count 4.52 M/uL Hemoglobin 12.3 g/dL Hematocrit 38.7 % Mean Corpuscular Volume 85.6 fL Mean Corpuscular Hemoglobin 27.2 pg Mean Corpuscular Hemoglobin Concent 31.8 g/dl RDW Standard Deviation 46.1 fL RDW Coefficient of Variation 14.9 % Platelet Count 282 K/uL Mean Platelet Volume 8.7 fL Sodium Level 137 mmol/L Potassium Level 3.7 mmol/L Chloride Level 103 mmol/L Carbon Dioxide Level 27 mmol/L Anion Gap 7.0 mmol/L Blood Urea Nitrogen 9 mg/dl Creatinine 0.69 mg/dl Est Creatinine Clear Calc Drug Dose 67.1 ml/min Estimated GFR () 105.9 Estimated GFR (Non- 91.4 BUN/Creatinine Ratio 13.5 Random Glucose 80 mg/dl Calcium Level 9.5 mg/dl Total Bilirubin 0.3 mg/dl Aspartate Amino Transf (AST/SGOT) 24 U/L Alanine Aminotransferase (ALT/SGPT) 21 U/L Alkaline Phosphatase 211 U/L Troponin I < 0.015 ng/ml Total Protein 7.0 gm/dl Albumin 3.6 gm/dl Globulin 3.4 gm/dl Albumin/Globulin Ratio 1.0 Test 09/02/17 11:40 09/02/17 16:55 Urine Color YELLOW Urine Appearance CLEAR Urine pH 5.0 Urine Specific [place] 1.035 Urine Protein NEG Urine Glucose (UA) NEG Urine Ketones NEG Urine Occult Blood NEG Urine Nitrite NEG Urine Bilirubin NEG Urine Urobilinogen NEG Urine Leukocyte Esterase MODERATE Urine WBC (Auto) 10-30 /hpf Urine RBC (Auto) 0-4 /hpf Urine Hyaline Casts (Auto) 1-5 /lpf Urine Epithelial Cells (Auto) >30 /lpf Urine Bacteria (Auto) NEG Bedside Glucose 147 mg/dl Assessment and Plan Assessment and Plan: This is a 67 year old female with a history of Type 1 DM, CAD, PVD, and bony metastases from an unidentified cancer is admitted for intractable pain. Unidentified metastatic cancer with pathologic compression vertebral fracture of L1/L3 plus T6, C7, and 2nd rib bony lytic lesions - She would like better control of her pain by decreasing fluctuations. Current pain management includes 37.5 fentanyl patch and IV morphine 3mg q3. We have added on her home oxycodone at 10mg q4 and lidocaine patch for local relief near ribs that is impeding deep breathing. She may also continue cyclobenzaprine and heating packs. - For bowel regimen we will continue miralax, senakot, and docusate. - Dr. Montilla is her oncologist and he saw her today. She was supposed to undergo breast biopsy today; he has coordinated to have this done while inpatient. Hypercalcemia - secondary to bone lytic lesions - Improved from 10.3 to 9.5 today with IVF 75cc/hr. - Trend tomorrow. R femur nailing for impending pathologic fracture - Orthopedist, consulted - Continue PT/OT while in hospital CAD s/p cardiac stent & PVD s/p left lower extremity venous graft and arterial stent - Denies angina. Continue aspirin, clopidogrel for dual antiplatelet therapy. Holding nitrate. HTN - BP is acceptable. Continue metoprolol. Dyslipidemia - Continue rosuvastatin T1DM - Continue Lantus 20mg qAM + ISS Myasthenia gravis -stable - Denies symptoms of typical exacerbation such as fatigue and weakness. - Continue mycophenolate Depression/anxiety - Continue fluoxetine, buspirone. Consider switching from SSRI to SNRI for another pain control tactic. Gastroparesis - seen on gastric emptying study in 2008. - Continue metoclopramide VTE ppx - - Heparin Disposition - Med/surg. Unclear discharge at this time. FULL CODE Medical Student Supervision Note: I interviewed and examined the patient. Discussed with Rebecca Castro MS4 and agree with findings and plan as documented in the note. Any exceptions or clarifications are listed here: None Documented By: William Lopez pain better now than when she came in but still bad - R rib pain the worst. hoping to get bx done so she quality technician have actual dx and treatment plan. also has neck and back pain - notes oxycodone normally helps reasonably well at home d/w palliative oncology input appreciated as well vitals noted resting in bed comfortable - when not moving no significant distress. breathing unlabored, no pallor or icterus. present in room for quite a while, long good conversation with pt/. metastatic CA of unknown primary with significant pain in ribs, neck, spine -tissue for dx to allow treatment options to be considered -lidocaine patch over ribs, re-start oxycodone for moderate pain and to bridge between morphine doses, consider increase in fentanyl patch -ongoing supportive care otherwise as above Continued [facility] stay due to: inadequate oral pain control
--- NOTE | 2017-09-02 19:18 | Palliative Care Consultation ---
Consultation Date of Consultation: September 02, 2017. Requesting Physician: Dr Carmona Attending Physician: Dr Lopez Reason for Consultation: Assist with intractable pain that is likely cancer related History of Present Illness Briefly patient is a 67-year-old female who presented to the hospital on 09/01 with a chief complaint of right-sided chest pain, left flank pain and right shoulder pain. Imaging revealed suspected metastatic disease to the spine and bone. Patient had a right breast mass which was biopsied today, primary neoplasm is unknown at this time. Patient had a pathological fracture of the right femur that required surgical repair. Patient continues to have significant pain at the site of the breast biopsy, in her neck, back, and site of rib fractures. Patient was on a fentanyl patch at 37 mcg at home which she reports did help her pain, she was taking 10 mg of oxycodone every 4 hours as needed requiring 5-6 doses daily. Patient was started on a Lidoderm patch which the patient reports did not help relieve the pain. Patient reports that when she takes 10 mg of oxycodone she does not experience any sedation. Discussed possibly using a long-acting form of oxycodone to help with underlying pain with continued as needed for breakthrough pain. Patient and and agreeable meant, discussed with attending physician. Would continue the fentanyl at the current dose. Also introduced the idea of using methadone if sedation becomes an issue or pain significantly increases. Sx: pain Location : neck, back, Rib, R breast Rate: 8-9/10 Duration: months Timing: constant , increasing Precipitating factors: Movement Alleviating factors: Morphine and oxycodone, some relief with fentanyl Past Medical/Surgical History Medical History: Anxiety, CAD, metastatic neoplasm, suspected breast primary, biopsy pending. History of compression fractures, depression, GERD, HTN, HLD, myasthenia gravis , pathological fracture right femur, rosacea, diabetes type 1, vitamin D deficiency. Surgical History: Right femur fracture repair, cholecystectomy, vertebroplasty, thymectomy, history of tracheostomy. Social History Smoking Status: Former Smoker History of Alcohol Use: No Drug Use: none Marital Status: (Lives with and 21-year-old grandson, has 1 son and 1 daughter, has 1 grandson and one granddaughter, granddaughter at bedside.) Housing Status: lives with family Occupation Status: retired Review of Systems Constitutional: No fever, No chills Eyes: No worsening of vision ENT: No hearing loss Respiratory: No cough Cardiac: No orthopnea, No edema Breast: + breast pain (At site of breast biopsy done today) Abdomen: No pain Musculoskeletal: + problem reported (Neck pain, back pain, rib pain due to fracture) Female : No dysuria Neurologic: No memory loss Psychiatric: No anxiety Endo: + fatigue Allergies Coded Allergies: Chlorpromazine (Verified Allergy, Unknown, PHENOTHIAZINES, 09/01/17) Colistin (Verified Allergy, Unknown, 09/01/17) Gentamicin (Verified Allergy, Unknown, 09/01/17) Kanamycin (Verified Allergy, Unknown, 09/01/17) Neomycin (Verified Allergy, Unknown, 09/01/17) Polymyxin B (Verified Allergy, Unknown, 09/01/17) Procainamide (Verified Allergy, Unknown, 09/01/17) Propranolol (Verified Allergy, Unknown, 09/01/17) Quinidine (Verified Allergy, Unknown, 09/01/17) Streptomycin (Verified Allergy, Unknown, 09/01/17) Tetracycline (Verified Allergy, Unknown, 09/01/17) Medications Current Inpatient Medications Medications (Trade) Dose Ordered Sig/Yovana Route Start Time Stop Time Status Last Admin Dose Admin Ioversol (Optiray 320) 100 ml UD PRN IV 09/01/17 18:00 09/05/17 17:59 Glucagon (Glucagon Inj) 1 mg UD PRN SQ 09/01/17 19:15 10/01/17 19:14 Glucose (Glucose 40% Gel) 15-30 GRAMS 15 GRAMS... UD PRN PO 09/01/17 19:15 10/01/17 19:14 Glucose (Glucose Chew Tab) 4-8 Tablets 4 Tabl... UD PRN PO 09/01/17 19:15 10/01/17 19:14 Carbohydrates (Carbohydrates For Hypoglycemia) 15-30 GRAMS 15 grams if BSG 54-69... UD PRN PO 09/01/17 21:30 10/01/17 21:29 Insulin Aspart (novoLOG ASPART) SLIDING SCALE If C... ACHS SC 09/02/17 06:30 10/02/17 06:59 09/02/17 17:37 4 UNITS Miscellaneous (Iv Fluids Completed) 1 ea PRN PRN N/A 09/01/17 21:45 09/01/18 21:44 Cyclobenzaprine HCl (Flexeril Tab) 10 mg BID PRN PO 09/01/17 22:15 10/01/17 22:14 Buspirone HCl (Buspar Tab) 10 mg TID PO 09/02/17 08:00 10/02/17 08:59 09/02/17 14:48 10 MG Aspirin (Ecotrin Tab) 81 mg DAILY PO 09/02/17 08:00 10/02/17 08:59 09/02/17 08:56 81 MG Clopidogrel Bisulfate (plAVix TAB) 75 mg DAILY PO 09/02/17 08:00 10/02/17 08:59 09/02/17 08:56 75 MG Ferrous Gluconate (Ferrous Gluconate Tab) 324 mg BID PO 09/02/17 08:00 10/02/17 08:59 09/02/17 08:55 324 MG Fluoxetine HCl (Prozac Cap) 40 mg DAILY PO 09/02/17 08:00 10/02/17 08:59 09/02/17 08:56 40 MG Docusate Sodium (coLACE CAP) 100 mg BID PO 09/02/17 08:00 10/02/17 08:59 09/02/17 08:56 100 MG Acetaminophen (Tylenol Tab) 650 mg Q4H PRN PO 09/01/17 22:45 10/01/17 22:44 09/02/17 14:07 650 MG Al Hydrox/Mg Hydrox/Simethicone (Maalox Max Susp) 15 ml Q4H PRN PO 09/01/17 22:45 10/01/17 22:44 Magnesium Hydroxide (Milk Of Magnesia Susp) 30 ml Q6H PRN PO 09/01/17 22:45 10/01/17 22:44 Ondansetron HCl (Zofran Inj) 4 mg Q6H PRN IV 09/01/17 22:45 10/01/17 22:44 Mycophenolate Mofetil (Cellcept Cap) 1,000 mg BID PO 09/02/17 08:00 10/02/17 07:59 09/02/17 08:54 1,000 MG Isosorbide Mononitrate (Imdur Ext Rel Tab) 30 mg QAM PO 09/02/17 08:00 10/02/17 07:59 09/02/17 08:54 30 MG Metoclopramide HCl (Reglan Tab) 5 mg AC PO 09/02/17 06:30 10/02/17 06:29 09/02/17 16:13 5 MG Polyethylene (Miralax Powder Packet) 17 gm DAILY PO 09/02/17 08:00 10/02/17 07:59 09/02/17 08:58 17 GM Metoprolol Succinate (Toprol Xl Tab) 50 mg QAM PO 09/02/17 08:00 10/02/17 07:59 09/02/17 08:57 50 MG Rosuvastatin Calcium (Crestor Tab) 40 mg DAILY PO 09/02/17 08:00 10/02/17 07:59 09/02/17 08:55 40 MG Senna (Senokot Tab) 17.2 mg HS PO 09/02/17 21:00 10/02/17 20:59 Morphine Sulfate (MoRPHine SULFATE INJ) 3 mg Q3H PRN IV 09/01/17 23:00 09/15/17 22:59 09/02/17 16:03 3 MG Fentanyl (Duragesic Patch) 25 mcg Q3D TD 09/02/17 08:00 09/16/17 07:59 09/02/17 08:52 25 MCG Miscellaneous (Fentanyl Patch Remove & Waste) 1 ea Q3D N/A 09/02/17 07:59 10/02/17 07:58 09/02/17 09:07 1 EA Miscellaneous Information (Check Fentanyl Patch Placement) 1 ea QS N/A 09/02/17 00:00 10/02/17 00:00 09/02/17 15:56 1 EA Fentanyl (Duragesic Patch) 12 mcg Q3D TD 09/02/17 08:00 09/16/17 07:59 09/02/17 08:52 12 MCG Miscellaneous (Fentanyl Patch Remove & Waste) 1 ea Q3D N/A 09/02/17 07:59 10/02/17 07:58 09/02/17 09:07 1 EA Miscellaneous Information (Check Fentanyl Patch Placement) 1 ea QS N/A 09/02/17 00:00 10/02/17 00:00 09/02/17 15:56 1 EA Sodium Chloride 1,000 ml @ 75 mls/hr [id number] IV 09/02/17 02:15 10/02/17 02:14 09/02/17 15:54 75 MLS/HR Heparin Sodium (Porcine) (Heparin Sq 5000 Unit/0.5ml) 5,000 unit Q8H SQ 09/02/17 08:00 10/02/17 07:59 09/02/17 16:16 5,000 UNIT Lidocaine (Lidoderm Patch 5%) 1 patch QAM TD 09/03/17 08:00 10/03/17 07:59 Miscellaneous (Remove Lidoderm Patch) 1 ea DAILY@21 N/A 09/02/17 21:00 10/02/17 20:59 Polyethylene (Miralax Powder Packet) 17 gm DAILY PRN PO 09/02/17 10:30 10/02/17 10:29 Oxycodone HCl (Roxicodone Immediate Rel Tab) 10 mg Q4 PRN PO 09/02/17 10:30 09/16/17 10:29 09/02/17 17:34 10 MG Insulin Glargine (Lantus Solostar Pen) 20 units QAM SC 09/03/17 08:00 10/03/17 07:59 Miscellaneous (Iv Fluids Completed) 1 ea PRN PRN N/A 09/02/17 13:15 09/02/18 13:14 Physical Exam Date Time Temp Pulse Resp B/P (MAP) Pulse Ox O2 Delivery O2 Flow Rate FiO2 09/02/17 15:59 36.8 80 18 125/64 (84) 93 Room Air 09/02/17 11:24 36.7 84 18 129/65 (86) 94 Room Air 09/02/17 08:00 Room Air 09/02/17 07:30 36.6 86 18 146/73 (97) 94 Room Air 09/02/17 04:18 36.8 84 20 121/89 (100) 93 Room Air 09/02/17 00:02 Room Air 09/01/17 22:53 36.7 84 18 165/74 (104) 92 Room Air 09/01/17 22:24 76 17 118/75 96 09/01/17 22:01 118/75 09/01/17 21:49 Room Air 09/01/17 21:36 76 17 96 Room Air 09/01/17 21:31 108/72 09/01/17 21:06 74 20 92 Room Air 09/01/17 21:01 114/69 09/01/17 20:55 76 17 96 Room Air 09/01/17 20:31 140/63 09/01/17 20:25 78 12 92 Room Air 09/01/17 20:20 76 10 94 Room Air 09/01/17 20:01 121/68 09/01/17 19:50 77 14 90 Room Air 09/01/17 19:31 103/69 09/01/17 19:20 78 15 93 Room Air 09/01/17 19:15 80 13 92 Room Air 09/01/17 19:01 110/65 General Appearance: + moderate distress (Patient with mild distress of perfectly still, winces with any minor movement) Eyes: EOMI ENT: hearing grossly normal Neck: supple Respiratory: no respiratory distress Cardiovascular: regular rate, rhythm, no edema Abdomen: normal bowel sounds, non tender, soft Musculoskeletal: normal tone Neurologic/Psychiatric: alert Skin: normal color Laboratory Results Last 24 Hours Test 09/02/17 01:45 09/02/17 07:01 09/02/17 07:35 09/02/17 11:39 Bedside Glucose 81 mg/dl 80 mg/dl 156 mg/dl White Blood Count 6.24 K/uL Red Blood Count 4.52 M/uL Hemoglobin 12.3 g/dL Hematocrit 38.7 % Mean Corpuscular Volume 85.6 fL Mean Corpuscular Hemoglobin 27.2 pg Mean Corpuscular Hemoglobin Concent 31.8 g/dl RDW Standard Deviation 46.1 fL RDW Coefficient of Variation 14.9 % Platelet Count 282 K/uL Mean Platelet Volume 8.7 fL Sodium Level 137 mmol/L Potassium Level 3.7 mmol/L Chloride Level 103 mmol/L Carbon Dioxide Level 27 mmol/L Anion Gap 7.0 mmol/L Blood Urea Nitrogen 9 mg/dl Creatinine 0.69 mg/dl Est Creatinine Clear Calc Drug Dose 67.1 ml/min Estimated GFR () 105.9 Estimated GFR (Non- 91.4 BUN/Creatinine Ratio 13.5 Random Glucose 80 mg/dl Calcium Level 9.5 mg/dl Total Bilirubin 0.3 mg/dl Aspartate Amino Transf (AST/SGOT) 24 U/L Alanine Aminotransferase (ALT/SGPT) 21 U/L Alkaline Phosphatase 211 U/L Troponin I < 0.015 ng/ml Total Protein 7.0 gm/dl Albumin 3.6 gm/dl Globulin 3.4 gm/dl Albumin/Globulin Ratio 1.0 Test 09/02/17 11:40 09/02/17 16:55 Urine Color YELLOW Urine Appearance CLEAR Urine pH 5.0 Urine Specific [place] 1.035 Urine Protein NEG Urine Glucose (UA) NEG Urine Ketones NEG Urine Occult Blood NEG Urine Nitrite NEG Urine Bilirubin NEG Urine Urobilinogen NEG Urine Leukocyte Esterase MODERATE Urine WBC (Auto) 10-30 /hpf Urine RBC (Auto) 0-4 /hpf Urine Hyaline Casts (Auto) 1-5 /lpf Urine Epithelial Cells (Auto) >30 /lpf Urine Bacteria (Auto) NEG Bedside Glucose 147 mg/dl Assessment & Plan Palliative Performance Scale: 40 % (1) Cancer related pain Assessment & Plan: Patient's pain increasing, despite 37 mcg of fentanyl and 10 mg of oxycodone every 4 hours. Would start MS Contin at either 20 or 30 mg twice daily, monitor patient for sedation. Patient aware of constipation as major side effect. Did discuss possibility of initiating methadone at some point, if sedation with oxycodone becomes an issue. (2) Palliative care encounter Assessment & Plan: Discuss treatment options including methadone and continuing on patient's current meds. Patient and in agreement to try some long-acting oxycodone. (3) Pathologic compression fracture of thoracic vertebra Status: Acute Assessment & Plan: Contributing to patient's pain (4) Pathologic rib fracture Status: Acute Assessment & Plan: Contributing the patient's pain (5) Pathologic compression fracture of lumbar vertebra Status: Acute Assessment & Plan: Contributing to patient's pain (6) Metastatic cancer Status: Acute Assessment & Plan: Primary currently unknown, suspect breast primary given breast mass. Biopsy performed today-awaiting biopsy report. Counseling and Coordination Total time spent 70 minutes with greater than 50% of the time spent at bedside discussing treatment options as well as plan of care and follow-up care, side effects of current medications, with patient and family. Patient will remain a full code at this time.
[2017-09-02 20:05] VITALS: BP 110/64; PULSE 80; TEMP 36.7; O2SAT 92
[2017-09-02] MEDS ORDERED: SENNA 8.6 MG TAB PO SCH (21:00)
[2017-09-02] MEDS: SENNA 8.6 MG TAB PO SCH (21:19)
[2017-09-03] VITALS (7 sets, daily range): BP systolic 119–150; BP diastolic 66–75; PULSE 77–85; TEMP 36.5–36.9; O2SAT 92–94
[2017-09-03] MEDS: HEPARIN SOD 5000 UNIT/0.5 ML CARP SQ SCH ×3 (00:06→15:32)
[2017-09-03] MEDS: OXYCODONE HCL IR 5 MG TAB (IMMEDIATE RELEASE) PO PRN ×4 (00:08→17:00)
[2017-09-03] MEDS: SODIUM CHLORIDE 0.9% 1000ML 1,000 ML IV SCH ×2 (04:43→17:02)
[2017-09-03] MEDS: METOCLOPRAMIDE HCL 5 MG TAB PO SCH ×3 (05:54→17:00)
[2017-09-03] MEDS: MoRPHine SULFATE 4 MG/ML 1 ML CARP\\VIAL IV PRN ×2 (06:03→21:48)
[2017-09-03 07:17] LABS: HEMATOCRIT 35.3 % (37-47); HEMOGLOBIN 11.4 g/dL (12.0-16.0); MEAN CELL VOLUME 84.7 fL (80-100); MEAN CORPUSCULAR HEMOGLOBIN 27.3 pg (25-34); MEAN CORPUSCULAR HGB CONC 32.3 g/dl (32-36); MEAN PLATELET VOLUME 8.5 fL (7.4-10.4); PLATELET COUNT 237 K/uL (130-400); RED CELL DISTRIBUTION WIDTH CV 14.8 % (11.5-14.5); RED CELL DISTRIBUTION WIDTH SD 45.9 fL (36.4-46.3); WHITE BLOOD COUNT 5.17 K/uL (4.8-10.8)
[2017-09-03 07:59] LABS: ALBUMIN 3.3 gm/dl (3.4-5.0); CALCIUM 9.3 mg/dl (8.5-10.1); CREATININE 0.6 mg/dl (0.60-1.20); POTASSIUM 3.8 mmol/L (3.5-5.1); TOTAL PROTEIN 6.7 gm/dl (6.4-8.2)
[2017-09-03] MEDS: CLOPIDOGREL BISULFATE 75 MG TAB PO SCH (08:29)
[2017-09-03] MEDS: ASPIRIN 81 MG ECTAB PO SCH (08:29)
[2017-09-03] MEDS: FERROUS GLUCONATE 324 MG TAB PO SCH ×2 (08:29→21:03)
[2017-09-03] MEDS: ISOSORBIDE MONONITRATE 30 MG TABCR PO SCH (08:29)
[2017-09-03] MEDS: FLUOXETINE HCL 20 MG CAP PO SCH (08:30)
[2017-09-03] MEDS: ROSUVASTATIN CALCIUM 20 MG TAB PO SCH (08:30)
[2017-09-03] MEDS: MYCOPHENOLATE MOFETIL 250 MG CAP (CELLCEPT) PO SCH ×2 (08:30→21:02)
[2017-09-03] MEDS: POLYETHYLENE (MIRALAX) 17 GM PACK PO SCH (08:30)
[2017-09-03] MEDS: METOPROLOL SUCC 50MG EXT REL TAB PO SCH (08:30)
[2017-09-03] MEDS: DOCUSATE SODIUM 100 MG CAP PO SCH ×2 (08:30→21:04)
[2017-09-03] MEDS: LIDODERM (LIDOCAINE) PATCH 5% TD SCH (08:32)
[2017-09-03] MEDS: INSULIN GLARGINE SOLOSTAR 100 UNITS/ML 3 ML PEN SC SCH (08:41)
[2017-09-03] MEDS: INSULIN ASPART 100 UNITS/ML 3 ML PEN SC SCH ×4 (08:41→21:00)
[2017-09-03] MEDS: CHECK FENTANYL PATCH PLACEMENT SCH ×4 (08:42→15:32)
[2017-09-03] MEDS: OXYCODONE HCL 15 MG TABCR (OXYCONTIN) PO SCH (15:31)
[2017-09-03] MEDS: DICLOFENAC SOD 1% GEL 100 GM TUBE EXT SCH ×2 (15:34→21:00)
[2017-09-03] MEDS: FENTANYL PATCH REMOVE & WASTE SCH (15:34)
--- NOTE | 2017-09-03 16:07 | Orthopedic Consultation ---
Orthopedic Consultation Date of Consultation: September 03, 2017. Attending Physician: William Lopez D.O. Reason for Consultation: s/p IM nail of right femur History of Present Illness Jillian is a 67 y/o female now 17 days post op from IM nail of a impending pathologic fx of right femur. She was admitted for pain control and also underwent breast biopsy yesterday. She does not really have much leg/femur pain. She is c/o right shoulder and rib pain. Past Medical/Surgical History Medical Problems: (1) Diarrhea Status: Acute (2) Hypoglycemia Status: Acute (3) Intractable pain Status: Acute (4) Metastatic cancer Status: Acute (5) Pathologic compression fracture of lumbar vertebra Status: Acute (6) Pathologic compression fracture of thoracic vertebra Status: Acute (7) Pathologic rib fracture Status: Acute (8) Strain of lumbar region Status: Acute Family History Cancer Diabetes mellitus Gallbladder disease Heart disease Hypertension Lung disease Social History Smoking Status: Former Smoker Smokeless Tobacco Use: No Alcohol Use: none Drug Use: none Marital Status: (Lives with and 21-year-old grandson, has 1 son and 1 daughter, has 1 grandson and one granddaughter, granddaughter at bedside.) Housing Status: lives with family Occupation Status: retired Allergies Coded Allergies: Chlorpromazine (Verified Allergy, Unknown, PHENOTHIAZINES, 09/01/17) Colistin (Verified Allergy, Unknown, 09/01/17) Gentamicin (Verified Allergy, Unknown, 09/01/17) Kanamycin (Verified Allergy, Unknown, 09/01/17) Neomycin (Verified Allergy, Unknown, 09/01/17) Polymyxin B (Verified Allergy, Unknown, 09/01/17) Procainamide (Verified Allergy, Unknown, 09/01/17) Propranolol (Verified Allergy, Unknown, 09/01/17) Quinidine (Verified Allergy, Unknown, 09/01/17) Streptomycin (Verified Allergy, Unknown, 09/01/17) Tetracycline (Verified Allergy, Unknown, 09/01/17) Home Medications Scheduled Aspirin (Ecotrin Low Strength), 81 MG PO DAILY Buspirone Hcl (Buspirone Hcl), 10 MG PO TID Cholecalciferol (D3 Maximum Strength), 5,000 UNITS PO QAM Clopidogrel Bisulfate (Plavix), 75 MG PO DAILY Fentanyl (Fentanyl), 12 MCG TD [id number] Fentanyl (Fentanyl), 25 MCG TD [id number] Ferrous Gluconate (Ferrous Gluconate), 324 MG PO BID Fluoxetine Hcl (Prozac), 40 MG PO DAILY Insulin Aspart (Novolog), 5 UNITS SC AC Insulin Glargine (Lantus), Unknown Dose SC QAM Isosorbide Mononitrate Ext Rel (Imdur Ext Rel), 30 MG PO QAM Metoclopramide Hcl (Reglan), 5 MG PO AC Metoprolol Succ (Toprol Xl) (Toprol-Xl), 50 MG PO QAM Mycophenolate Mofetil (Mycophenolate Mofetil), 1,000 MG PO BID Polyethylene Glycol 3350 (Miralax), 17 GM PO DAILY Probiotic Product (Acidophilus), 1 TAB PO DAILY Rosuvastatin Calcium (Crestor), 40 MG PO DAILY Senna (Senokot), 17.2 MG PO HS Scheduled PRN Nitroglycerin (Nitrostat), 0.4 MG UT UD PRN for Chest Pain Oxycodone Ir (Roxicodone Ir), 10 MG PO Q4H PRN for Severe Pain Current Inpatient Medications Current Inpatient Medications Medications (Trade) Dose Ordered Sig/Yovana Route Start Time Stop Time Status Last Admin Dose Admin Ioversol (Optiray 320) 100 ml UD PRN IV 09/01/17 18:00 09/05/17 17:59 Glucagon (Glucagon Inj) 1 mg UD PRN SQ 09/01/17 19:15 10/01/17 19:14 Glucose (Glucose 40% Gel) 15-30 GRAMS 15 GRAMS... UD PRN PO 09/01/17 19:15 10/01/17 19:14 Glucose (Glucose Chew Tab) 4-8 Tablets 4 Tabl... UD PRN PO 09/01/17 19:15 10/01/17 19:14 Carbohydrates (Carbohydrates For Hypoglycemia) 15-30 GRAMS 15 grams if BSG 54-69... UD PRN PO 09/01/17 21:30 10/01/17 21:29 Insulin Aspart (novoLOG ASPART) SLIDING SCALE If C... ACHS SC 09/02/17 06:30 10/02/17 06:59 09/03/17 13:03 5 UNITS Miscellaneous (Iv Fluids Completed) 1 ea PRN PRN N/A 09/01/17 21:45 09/01/18 21:44 Cyclobenzaprine HCl (Flexeril Tab) 10 mg BID PRN PO 09/01/17 22:15 10/01/17 22:14 Buspirone HCl (Buspar Tab) 10 mg TID PO 09/02/17 08:00 10/02/17 08:59 09/03/17 13:01 10 MG Aspirin (Ecotrin Tab) 81 mg DAILY PO 09/02/17 08:00 10/02/17 08:59 09/03/17 08:29 81 MG Clopidogrel Bisulfate (plAVix TAB) 75 mg DAILY PO 09/02/17 08:00 10/02/17 08:59 09/03/17 08:29 75 MG Ferrous Gluconate (Ferrous Gluconate Tab) 324 mg BID PO 09/02/17 08:00 10/02/17 08:59 09/03/17 08:29 324 MG Fluoxetine HCl (Prozac Cap) 40 mg DAILY PO 09/02/17 08:00 10/02/17 08:59 09/03/17 08:30 40 MG Docusate Sodium (coLACE CAP) 100 mg BID PO 09/02/17 08:00 10/02/17 08:59 09/03/17 08:30 100 MG Acetaminophen (Tylenol Tab) 650 mg Q4H PRN PO 09/01/17 22:45 10/01/17 22:44 09/02/17 14:07 650 MG Al Hydrox/Mg Hydrox/Simethicone (Maalox Max Susp) 15 ml Q4H PRN PO 09/01/17 22:45 10/01/17 22:44 Magnesium Hydroxide (Milk Of Magnesia Susp) 30 ml Q6H PRN PO 09/01/17 22:45 10/01/17 22:44 Ondansetron HCl (Zofran Inj) 4 mg Q6H PRN IV 09/01/17 22:45 10/01/17 22:44 Mycophenolate Mofetil (Cellcept Cap) 1,000 mg BID PO 09/02/17 08:00 10/02/17 07:59 09/03/17 08:30 1,000 MG Isosorbide Mononitrate (Imdur Ext Rel Tab) 30 mg QAM PO 09/02/17 08:00 10/02/17 07:59 09/03/17 08:29 30 MG Metoclopramide HCl (Reglan Tab) 5 mg AC PO 09/02/17 06:30 10/02/17 06:29 09/03/17 13:01 5 MG Polyethylene (Miralax Powder Packet) 17 gm DAILY PO 09/02/17 08:00 10/02/17 07:59 09/03/17 08:30 17 GM Metoprolol Succinate (Toprol Xl Tab) 50 mg QAM PO 09/02/17 08:00 10/02/17 07:59 09/03/17 08:30 50 MG Rosuvastatin Calcium (Crestor Tab) 40 mg DAILY PO 09/02/17 08:00 10/02/17 07:59 09/03/17 08:30 40 MG Senna (Senokot Tab) 17.2 mg HS PO 09/02/17 21:00 10/02/17 20:59 09/02/17 21:19 17.2 MG Morphine Sulfate (MoRPHine SULFATE INJ) 3 mg Q3H PRN IV 09/01/17 23:00 09/15/17 22:59 09/03/17 06:03 3 MG Miscellaneous Information (Check Fentanyl Patch Placement) 1 ea QS N/A 09/02/17 00:00 10/02/17 00:00 09/03/17 08:42 1 EA Miscellaneous Information (Check Fentanyl Patch Placement) 1 ea QS N/A 09/02/17 00:00 10/02/17 00:00 09/03/17 08:42 1 EA Sodium Chloride 1,000 ml @ 75 mls/hr [id number] IV 09/02/17 02:15 10/02/17 02:14 09/03/17 04:43 75 MLS/HR Heparin Sodium (Porcine) (Heparin Sq 5000 Unit/0.5ml) 5,000 unit Q8H SQ 09/02/17 08:00 10/02/17 07:59 09/03/17 08:42 5,000 UNIT Lidocaine (Lidoderm Patch 5%) 1 patch QAM TD 09/03/17 08:00 10/03/17 07:59 09/03/17 08:32 1 PATCH Miscellaneous (Remove Lidoderm Patch) 1 ea DAILY@21 N/A 09/02/17 21:00 10/02/17 20:59 09/02/17 21:21 1 EA Polyethylene (Miralax Powder Packet) 17 gm DAILY PRN PO 09/02/17 10:30 10/02/17 10:29 Oxycodone HCl (Roxicodone Immediate Rel Tab) 10 mg Q4 PRN PO 09/02/17 10:30 09/16/17 10:29 09/03/17 13:06 10 MG Insulin Glargine (Lantus Solostar Pen) 20 units QAM SC 09/03/17 08:00 10/03/17 07:59 09/03/17 08:41 20 UNITS Miscellaneous (Iv Fluids Completed) 1 ea PRN PRN N/A 09/02/17 13:15 09/02/18 13:14 Oxycodone HCl (Oxycontin Tab) 30 mg Q12H PO 09/03/17 14:30 09/17/17 14:29 09/03/17 15:31 30 MG Diclofenac Sodium (Voltaren 1% Top Gel) 1 appln QID EXT 09/03/17 17:00 10/03/17 16:59 09/03/17 15:34 1 APPLN Physical Exam Date Time Temp Pulse Resp B/P (MAP) Pulse Ox O2 Delivery O2 Flow Rate FiO2 09/03/17 15:03 36.8 80 148/75 (99) 92 09/03/17 12:32 36.7 77 18 150/67 (94) 94 Room Air 09/03/17 08:00 Room Air 09/03/17 07:48 36.9 85 20 132/74 (93) 94 Room Air 09/03/17 05:17 36.6 82 19 135/72 (93) 92 Room Air 09/03/17 00:00 36.8 82 18 135/66 (89) 94 Room Air 09/03/17 00:00 Room Air 09/02/17 21:49 Room Air 09/02/17 20:05 36.7 80 18 110/64 (79) 92 Room Air She's alert/oriented. NAD. She has pain and difficulty actively elevating her right shoulder. Localizes her pain to about the acromion area. Incisions on right leg healing appropriately. Lorna intact. No drainage or redness. No signs of infection. No significant swelling to RLE. Able to DF/PF appropriately. Laboratory Results Last 24 Hours Test 09/02/17 16:55 09/02/17 20:14 09/03/17 07:05 09/03/17 07:48 Bedside Glucose 147 mg/dl 192 mg/dl 121 mg/dl White Blood Count 5.17 K/uL Red Blood Count 4.17 M/uL Hemoglobin 11.4 g/dL Hematocrit 35.3 % Mean Corpuscular Volume 84.7 fL Mean Corpuscular Hemoglobin 27.3 pg Mean Corpuscular Hemoglobin Concent 32.3 g/dl RDW Standard Deviation 45.9 fL RDW Coefficient of Variation 14.8 % Platelet Count 237 K/uL Mean Platelet Volume 8.5 fL Sodium Level 136 mmol/L Potassium Level 3.8 mmol/L Chloride Level 103 mmol/L Carbon Dioxide Level 25 mmol/L Anion Gap 8.0 mmol/L Blood Urea Nitrogen 9 mg/dl Creatinine 0.60 mg/dl Est Creatinine Clear Calc Drug Dose 79.2 ml/min Estimated GFR () 110.9 Estimated GFR (Non- 95.7 BUN/Creatinine Ratio 15.7 Random Glucose 115 mg/dl Calcium Level 9.3 mg/dl Total Bilirubin 0.5 mg/dl Aspartate Amino Transf (AST/SGOT) 21 U/L Alanine Aminotransferase (ALT/SGPT) 19 U/L Alkaline Phosphatase 214 U/L Total Protein 6.7 gm/dl Albumin 3.3 gm/dl Globulin 3.4 gm/dl Albumin/Globulin Ratio 1.0 Test 09/03/17 11:52 Bedside Glucose 172 mg/dl Assessment & Plan Imp: s/p IM nail of impending pathologic fx of right femur Plan: She was seen and examined by Dr. Perkins today as well. Lorna removed today and steri strips applied to RLE. Continue WBAT. We looked at a chest xray from 09/01/17 that does show multiple lytic lesions/rib fx, including a lesion of the right acromion, consistent with her shoulder pain. She is awaiting results of the breast biopsy and further treatment specific to this. She can plan to follow up as needed as an outpatient at this point.
--- NOTE | 2017-09-03 17:25 | Medical Student: [facility] ---
Med Student Progress Note Date of Service September 03, 2017. Subjective Pain: 7/10 PO Intake: Adequate Voiding: no voiding problems This is a 67 year old female with a history of Type 1 DM, CAD, PVD, and bony metastases from an unidentified cancer is admitted for intractable pain. She says she is "better than yesterday" with a pain level of 7/10. With the current pain regimen she is still having fluctuations in her pain when her relief wears off after ~3 hours. She underwent a breast biopsy yesterday and says that it was painful but hopes that "it was worth something." Other than wishing to have more consistent pain control, her only other complaint is R knee pain. She says it hurts on the front of her knee especially when she moves from sitting to standing. There hasn't been any redness or swelling of the knee. She has no nausea and she had one small BM this AM. Review of Systems Constitutional: No fever, No chills Respiratory: No cough, No shortness of breath Cardiac: + chest pain (chest wall pain over pathologic fracture) Abdomen: No pain, No nausea, No vomiting, No diarrhea, No constipation Musculoskeletal: + joint pain (R knee), No calf pain Female : No dysuria, No urinary frequency Objective Vital Signs Date Time Temp Pulse Resp B/P (MAP) Pulse Ox O2 Delivery O2 Flow Rate FiO2 09/03/17 16:18 Room Air 09/03/17 15:03 36.8 80 148/75 (99) 92 09/03/17 12:32 36.7 77 18 150/67 (94) 94 Room Air 09/03/17 08:00 Room Air 09/03/17 07:48 36.9 85 20 132/74 (93) 94 Room Air 09/03/17 05:17 36.6 82 19 135/72 (93) 92 Room Air 09/03/17 00:00 36.8 82 18 135/66 (89) 94 Room Air 09/03/17 00:00 Room Air 09/02/17 21:49 Room Air 09/02/17 20:05 36.7 80 18 110/64 (79) 92 Room Air Physical Exam General Appearance: WD/WN, no apparent distress Eyes: bilateral eyes normal inspection ENT: TMs normal, pharynx normal Respiratory/Chest: lungs clear, normal breath sounds, no respiratory distress Cardiovascular: regular rate, rhythm, no gallop, no murmur Abdomen: normal bowel sounds, non tender, soft Extremities: non-tender, no pedal edema, no calf tenderness, + pertinent finding (R knee has no effusion or erythema. Her patella is deviated laterally. ) Neurologic/Psychiatric: alert, normal mood/affect (in good spirits despite pain and unknown cancer diagnosis) Skin: + pertinent finding (extensive sebhorrhea keratosis) Laboratory Results Last 24 Hours Test 09/02/17 20:14 09/03/17 07:05 09/03/17 07:48 09/03/17 11:52 Bedside Glucose 192 mg/dl 121 mg/dl 172 mg/dl White Blood Count 5.17 K/uL Red Blood Count 4.17 M/uL Hemoglobin 11.4 g/dL Hematocrit 35.3 % Mean Corpuscular Volume 84.7 fL Mean Corpuscular Hemoglobin 27.3 pg Mean Corpuscular Hemoglobin Concent 32.3 g/dl RDW Standard Deviation 45.9 fL RDW Coefficient of Variation 14.8 % Platelet Count 237 K/uL Mean Platelet Volume 8.5 fL Sodium Level 136 mmol/L Potassium Level 3.8 mmol/L Chloride Level 103 mmol/L Carbon Dioxide Level 25 mmol/L Anion Gap 8.0 mmol/L Blood Urea Nitrogen 9 mg/dl Creatinine 0.60 mg/dl Est Creatinine Clear Calc Drug Dose 79.2 ml/min Estimated GFR () 110.9 Estimated GFR (Non- 95.7 BUN/Creatinine Ratio 15.7 Random Glucose 115 mg/dl Calcium Level 9.3 mg/dl Total Bilirubin 0.5 mg/dl Aspartate Amino Transf (AST/SGOT) 21 U/L Alanine Aminotransferase (ALT/SGPT) 19 U/L Alkaline Phosphatase 214 U/L Total Protein 6.7 gm/dl Albumin 3.3 gm/dl Globulin 3.4 gm/dl Albumin/Globulin Ratio 1.0 Assessment and Plan Assessment and Plan: This is a 67 year old female with a history of Type 1 DM, CAD, PVD, and bony metastases from an unidentified cancer is admitted for intractable pain. Unidentified metastatic cancer with pathologic compression vertebral fracture of L1/L3 plus T6, C7, and 2nd rib bony lytic lesions - She would like better control of her pain by decreasing fluctuations. She had been managed with 37 fentanyl patch, IV morphine 3mg q3, oxycodone at 10mg q4, and lidocaine patch for local relief near ribs that is impeding deep breathing. We discussed her case with palliative care, and we are in agreement that she could benefit from longer acting pain medications. Palliative is skeptical that the fentanyl patch is making a difference. We will d/c fentanyl and begin 30 oxycontin BID with 10 oxycodone q4 PRN. We will also continue the 3mg morphine q3 PRN, cyclobenzaprine, lidocaine patch, and heating pads. - For bowel regimen we will continue miralax, senakot, and docusate. - She underwent breast biopsy (09/02/17) and results are pending. Her oncologist , Dr. Montilla is following. Right patellar tendonitis - Her patella is deviated laterally without joint effusion or bony abnormality. Her pain is worse with moving from sitting to standing. This is all consistent with patellar tendonitis. - We have added voltaren gel. She was also taught exercises involving inversion of the ankle with slow active extension of knee to help bring the patella midline. Hypercalcemia - secondary to bone lytic lesions - Improved from 10.3 to 9.3 today with IVF 75cc/hr. - Trend tomorrow. R femur prophylactic nailing for impending pathologic fracture (08/17/17) - Orthopedist, saw her and removed tex and placed steri strips on 09/03/17. Encouraged WBAT. - Continue PT/OT while in hospital CAD s/p cardiac stent & PVD s/p left lower extremity venous graft and arterial stent - Denies angina. Continue aspirin, clopidogrel for dual antiplatelet therapy. Holding nitrate. HTN - BP is acceptable. Continue metoprolol. Dyslipidemia - Continue rosuvastatin T1DM - controlled - Continue Lantus 20mg qAM + ISS Myasthenia gravis - stable - Denies symptoms of typical exacerbation such as fatigue and weakness. - Continue mycophenolate Depression/anxiety - Continue fluoxetine, buspirone. Consider switching from SSRI to SNRI for another pain control tactic. Gastroparesis - seen on gastric emptying study in 2008. - Continue metoclopramide VTE ppx - - Heparin Disposition - Med/surg. Anticipate discharge home when pain is controlled. Medical Student Supervision Note: I interviewed and examined the patient. Discussed with Rebecca Castro MS4 and agree with findings and plan as documented in the note. Any exceptions or clarifications are listed here: None Documented By: William Lopez R knee pain back pain rib pain overall feeling better though d/w palliative vitals noted resting in bed comfortable. L sided Tspine paraspinals high tone/ tender/decreased ROM. R knee lateral patellar tracking metastatic CA of unknown primary with significant pain in ribs, neck, spine -tissue for dx to allow treatment options to be considered -start oxycontin (hold fentanyl) continue current pain meds otherwise - start voltaren gel on knee and back. - would benefit from OMT - will ask for jaison gonzalez referral otherwise as above
[2017-09-03] MEDS ORDERED: NURSING VERBAL MED ORDER ONE (18:15)
[2017-09-03] MEDS: SENNA 8.6 MG TAB PO SCH (21:03)
[2017-09-04] MEDS: OXYCODONE HCL 15 MG TABCR (OXYCONTIN) PO SCH (03:04)
[2017-09-04 04:16] VITALS: BP 119/77; PULSE 74; TEMP 36.6; O2SAT 95
[2017-09-04] MEDS: SODIUM CHLORIDE 0.9% 1000ML 1,000 ML IV SCH ×2 (06:38→19:59)
[2017-09-04] MEDS: METOCLOPRAMIDE HCL 5 MG TAB PO SCH ×3 (06:39→16:40)
[2017-09-04 06:55] VITALS: BP 143/86; PULSE 70; TEMP 35.5; O2SAT 91
[2017-09-04 06:56] VITALS: BP 119/70; PULSE 74; TEMP 36.5; O2SAT 96
[2017-09-04] MEDS ORDERED: OXYCODONE HCL 15 MG TABCR (OXYCONTIN) PO SCH (09:00)
[2017-09-04] MEDS: ASPIRIN 81 MG ECTAB PO SCH (09:33)
[2017-09-04] MEDS: ROSUVASTATIN CALCIUM 20 MG TAB PO SCH (09:34)
[2017-09-04] MEDS: METOPROLOL SUCC 50MG EXT REL TAB PO SCH (09:34)
[2017-09-04] MEDS: CLOPIDOGREL BISULFATE 75 MG TAB PO SCH (09:34)
[2017-09-04] MEDS: FERROUS GLUCONATE 324 MG TAB PO SCH ×2 (09:34→19:59)
[2017-09-04] MEDS: DOCUSATE SODIUM 100 MG CAP PO SCH ×2 (09:35→19:59)
[2017-09-04] MEDS: DICLOFENAC SOD 1% GEL 100 GM TUBE EXT SCH ×4 (09:35→21:14)
[2017-09-04] MEDS: ISOSORBIDE MONONITRATE 30 MG TABCR PO SCH (09:35)
[2017-09-04] MEDS: MYCOPHENOLATE MOFETIL 250 MG CAP (CELLCEPT) PO SCH ×2 (09:35→20:00)
[2017-09-04] MEDS: LIDODERM (LIDOCAINE) PATCH 5% TD SCH (09:36)
[2017-09-04] MEDS: POLYETHYLENE (MIRALAX) 17 GM PACK PO SCH (09:36)
[2017-09-04] MEDS: FLUOXETINE HCL 20 MG CAP PO SCH (09:36)
[2017-09-04] MEDS: HEPARIN SOD 5000 UNIT/0.5 ML CARP SQ SCH ×2 (09:45→16:42)
[2017-09-04] MEDS: INSULIN ASPART 100 UNITS/ML 3 ML PEN SC SCH ×4 (09:45→21:16)
[2017-09-04] MEDS: INSULIN GLARGINE SOLOSTAR 100 UNITS/ML 3 ML PEN SC SCH (09:45)
--- NOTE | 2017-09-04 10:22 | Hematology/Oncology Prog Note ---
Hematology/Onc Progress Note Date of Service September 04, 2017. Diagnoses Metastatic breast cancer Intractable pain Medications Medications Administered Medications (Trade) Dose Ordered Sig/Yovana Route Start Time Stop Time Status Last Admin Dose Admin Sodium Chloride 1,000 ml @ 250 mls/hr Q4H STAT IV 09/01/17 17:50 09/01/17 21:51 DC 09/01/17 18:15 250 MLS/HR Hydromorphone HCl (Dilaudid Inj) 0.5 mg Q15M PRN IV 09/01/17 18:00 09/01/17 23:16 DC 09/01/17 20:28 0.5 MG Ondansetron HCl (Zofran Inj) 4 mg NOW STAT IV 09/01/17 17:50 09/01/17 17:54 DC 09/01/17 18:09 4 MG Insulin Aspart (novoLOG ASPART) SLIDING SCALE If C... ACHS SC 09/02/17 06:30 10/02/17 06:59 09/04/17 09:45 6 UNITS Cyclobenzaprine HCl (Flexeril Tab) 10 mg NOW STAT PO 09/01/17 22:25 09/01/17 22:26 DC 09/01/17 23:25 10 MG Buspirone HCl (Buspar Tab) 10 mg TID PO 09/02/17 08:00 10/02/17 08:59 09/04/17 09:34 10 MG Aspirin (Ecotrin Tab) 81 mg DAILY PO 09/02/17 08:00 10/02/17 08:59 09/04/17 09:33 81 MG Clopidogrel Bisulfate (plAVix TAB) 75 mg DAILY PO 09/02/17 08:00 10/02/17 08:59 09/04/17 09:34 75 MG Ferrous Gluconate (Ferrous Gluconate Tab) 324 mg BID PO 09/02/17 08:00 10/02/17 08:59 09/04/17 09:34 324 MG Fluoxetine HCl (Prozac Cap) 40 mg DAILY PO 09/02/17 08:00 10/02/17 08:59 09/04/17 09:36 40 MG Docusate Sodium (coLACE CAP) 100 mg BID PO 09/02/17 08:00 10/02/17 08:59 09/04/17 09:35 100 MG Acetaminophen (Tylenol Tab) 650 mg Q4H PRN PO 09/01/17 22:45 10/01/17 22:44 09/02/17 14:07 650 MG Mycophenolate Mofetil (Cellcept Cap) 1,000 mg BID PO 09/02/17 08:00 10/02/17 07:59 09/04/17 09:35 1,000 MG Isosorbide Mononitrate (Imdur Ext Rel Tab) 30 mg QAM PO 09/02/17 08:00 10/02/17 07:59 09/04/17 09:35 30 MG Metoclopramide HCl (Reglan Tab) 5 mg AC PO 09/02/17 06:30 10/02/17 06:29 09/04/17 06:39 5 MG Polyethylene (Miralax Powder Packet) 17 gm DAILY PO 09/02/17 08:00 10/02/17 07:59 09/04/17 09:36 17 GM Metoprolol Succinate (Toprol Xl Tab) 50 mg QAM PO 09/02/17 08:00 10/02/17 07:59 09/04/17 09:34 50 MG Rosuvastatin Calcium (Crestor Tab) 40 mg DAILY PO 09/02/17 08:00 10/02/17 07:59 09/04/17 09:34 40 MG Senna (Senokot Tab) 17.2 mg HS PO 09/02/17 21:00 10/02/17 20:59 09/03/17 21:03 17.2 MG Morphine Sulfate (MoRPHine SULFATE INJ) 3 mg Q3H PRN IV 09/01/17 23:00 09/15/17 22:59 09/03/17 21:48 3 MG Fentanyl (Duragesic Patch) 25 mcg Q3D TD 09/02/17 08:00 09/03/17 14:25 DC 09/02/17 08:52 25 MCG Miscellaneous (Fentanyl Patch Remove & Waste) 1 ea Q3D N/A 09/02/17 07:59 09/03/17 14:25 DC 09/02/17 09:07 1 EA Miscellaneous Information (Check Fentanyl Patch Placement) 1 ea QS N/A 09/02/17 00:00 09/03/17 23:36 DC 09/03/17 08:42 1 EA Fentanyl (Duragesic Patch) 12 mcg Q3D TD 09/02/17 08:00 09/03/17 14:25 DC 09/02/17 08:52 12 MCG Miscellaneous (Fentanyl Patch Remove & Waste) 1 ea Q3D N/A 09/02/17 07:59 09/03/17 14:25 DC 09/03/17 15:34 1 EA Miscellaneous Information (Check Fentanyl Patch Placement) 1 ea QS N/A 09/02/17 00:00 09/04/17 04:24 DC 09/03/17 08:42 1 EA Sodium Chloride 1,000 ml @ 75 mls/hr [id number] IV 09/02/17 02:15 10/02/17 02:14 09/04/17 06:38 75 MLS/HR Heparin Sodium (Porcine) (Heparin Sq 5000 Unit/0.5ml) 5,000 unit Q8H SQ 09/02/17 08:00 10/02/17 07:59 Future hold 09/04/17 09:45 5,000 UNIT Lidocaine (Lidoderm Patch 5%) 1 patch QAM TD 09/03/17 08:00 10/03/17 07:59 09/04/17 09:36 1 PATCH Lidocaine (Lidoderm Patch 5%) 1 patch 1027 ONCE TD 09/02/17 10:27 09/02/17 10:31 DC 09/02/17 10:43 1 PATCH Miscellaneous (Remove Lidoderm Patch) 1 ea DAILY@21 N/A 09/02/17 21:00 10/02/17 20:59 09/03/17 21:07 1 EA Oxycodone HCl (Roxicodone Immediate Rel Tab) 10 mg Q4 PRN PO 09/02/17 10:30 09/16/17 10:29 09/03/17 17:00 10 MG Insulin Glargine (Lantus Solostar Pen) 20 units QAM SC 09/03/17 08:00 10/03/17 07:59 09/04/17 09:45 20 UNITS Insulin Glargine (Lantus Solostar Pen) 20 units NOW ONCE SC 09/02/17 13:00 09/02/17 13:01 DC 09/02/17 14:50 20 UNITS Oxycodone HCl (Oxycontin Tab) 30 mg Q12H PO 09/03/17 14:30 09/04/17 08:54 DC 09/04/17 03:04 30 MG Diclofenac Sodium (Voltaren 1% Top Gel) 1 appln QID EXT 09/03/17 17:00 10/03/17 16:59 09/04/17 09:35 1 APPLN Oxycodone HCl (Oxycontin Tab) 30 mg BID PO 09/04/17 09:00 09/17/17 14:29 09/04/17 09:33 30 MG Subjective Ms. Baig looks more comfortable today. Her pain is better controlled. She has no new complaints. Review of Systems: Constitutional: + fatigue, No fever Respiratory: No cough, No shortness of breath Cardiovascular: No chest pain Abdomen: No pain, No nausea Musculoskeletal: + joint pain (improved hip and bone pain) Heme: No abnormal bleeding/bruising Vital Signs Vital Signs Past 12 Hours Date Time Temp Pulse Resp B/P (MAP) Pulse Ox O2 Delivery O2 Flow Rate FiO2 09/04/17 06:56 36.5 74 19 119/70 (86) 96 09/04/17 04:16 36.6 74 18 119/77 (91) 95 Room Air 09/04/17 00:00 Room Air 09/03/17 23:23 36.5 79 18 121/74 (90) 92 Room Air Physical Exam Constitutional: General Apperance: heathly-appearing Level of Distress: NAD Psychiatric: Mental Status: active & alert Orientation: oriented except where noted Lungs: Auscuitation: breath sounds normal Cardiovascular: Heart Auscultation: RRR Abdomen: Inspection & Palpation: soft, no tenderness, guarding & rebound Extremities: no edema Laboratory Last 24 Hours Test 09/03/17 11:52 09/03/17 16:52 09/03/17 20:53 09/04/17 08:00 Bedside Glucose 172 mg/dl 115 mg/dl 87 mg/dl 120 mg/dl Assessment & Plan Ms. Baig's biopsies revealed breast cancers with two different immunophenotypes. Both are equivocal for HER2, but one is strongly ER positive and the other is ER/NV negative. I suspect her metastatic disease arises from the more aggressive of the two, the hormone negative. She will require systemic chemotherapy, though the regimen will depend on her HER2 FISH, which is pending. In the meantime, she can keep her appointment with me early next week to discuss more specifics. I would continue with supportive and palliative care as necessary. I will sign off for now, though I would be happy to return if additional questions arise.
[2017-09-04] MEDS: OXYCODONE HCL IR 5 MG TAB (IMMEDIATE RELEASE) PO PRN ×2 (11:17→16:40)
[2017-09-04 11:28] VITALS: BP 107/65; PULSE 93; TEMP 36.6; O2SAT 98
[2017-09-04] MEDS: MoRPHine SULFATE 4 MG/ML 1 ML CARP\\VIAL IV PRN ×2 (13:25→23:57)
[2017-09-04 15:15] VITALS: BP 131/74; PULSE 75; TEMP 36.5; O2SAT 94
--- NOTE | 2017-09-04 16:05 | Medical Student: [facility] ---
Med Student Progress Note Date of Service September 04, 2017. Subjective Pt evaluation today including: conversation w/ patient, physical exam, lab review This is a 67 year old female with a history of Type 1 DM, CAD, PVD, and bony metastases from an unidentified cancer is admitted for intractable pain. Her pain today is a 7/10 and hurts most in her R shoulder and upper back. She states that she has had decreased fluctuations in her pain, but the overall pain level could have better control (5/10 would be acceptable for her). Her knee pain is much improved with the voltaren gel. She is eating well and still having bowel movements. She has no other complaints at this time. Review of Systems Constitutional: No fever, No chills Respiratory: No cough, No shortness of breath Cardiac: No chest pain, No palpitations Abdomen: No pain, No nausea, No vomiting, No diarrhea, No constipation Musculoskeletal: + joint pain Female : No dysuria, No urinary frequency Neurologic: No weakness Psychiatric: No depression symptoms Endo: No fatigue Objective Vital Signs Date Time Temp Pulse Resp B/P (MAP) Pulse Ox O2 Delivery O2 Flow Rate FiO2 09/04/17 15:58 Room Air 09/04/17 15:15 36.5 75 18 131/74 (93) 94 09/04/17 11:28 36.6 93 18 107/65 (79) 98 09/04/17 08:30 Room Air 09/04/17 06:56 36.5 74 19 119/70 (86) 96 09/04/17 04:16 36.6 74 18 119/77 (91) 95 Room Air 09/04/17 00:00 Room Air 09/03/17 23:23 36.5 79 18 121/74 (90) 92 Room Air 09/03/17 20:00 Room Air 09/03/17 19:22 36.6 79 18 119/73 (88) 94 Room Air 09/03/17 16:18 Room Air Physical Exam General Appearance: WD/WN, no apparent distress (smiling today) Eyes: bilateral eyes PERRL ENT: TMs normal, pharynx normal Respiratory/Chest: lungs clear, normal breath sounds, no respiratory distress Cardiovascular: regular rate, rhythm, no gallop, no murmur Abdomen: normal bowel sounds, non tender, soft Extremities: normal inspection, no pedal edema, no calf tenderness Neurologic/Psychiatric: alert, normal mood/affect, oriented x 3 Skin: + pertinent finding (widespread seborrheic keratoses) Laboratory Results Last 24 Hours Test 09/03/17 16:52 09/03/17 20:53 09/04/17 08:00 09/04/17 12:15 Bedside Glucose 115 mg/dl 87 mg/dl 120 mg/dl 208 mg/dl Assessment and Plan Assessment and Plan: This is a 67 year old female with a history of Type 1 DM, CAD, PVD, and bony metastases from an unidentified cancer is admitted for intractable pain. Unidentified metastatic cancer with pathologic compression vertebral fracture of L1/L3 plus T6, C7, and 2nd rib bony lytic lesions - improving - Our first goal was to better control of her pain by decreasing fluctuations. We discussed her case with palliative care, and we are in agreement that she could benefit from longer acting pain medication so we began 30 oxycontin BID with 10 oxycodone q4 PRN. We also continued the 3mg morphine q3 PRN, cyclobenzaprine, lidocaine patch, and heating pads. - With the above regimen, she still would like overall pain decrease. We will increase the oxycontin to 40mg BID. The rest is the same as above. - For bowel regimen we will continue miralax, senakot, and docusate. - She underwent breast biopsy (09/02/17) and results are pending. Her oncologist , Dr. Montilla is following. Right patellar tendonitis - improving - Her patella is deviated laterally without joint effusion or bony abnormality. Her pain is worse with moving from sitting to standing. This is all consistent with patellar tendonitis. - We have added voltaren gel. She was also taught exercises involving inversion of the ankle with slow active extension of knee to help bring the patella midline. - Improving with the above regimen. Hypercalcemia - secondary to bone lytic lesions - resolved - Improved from 10.3 to 9.3 on 09/04 with IVF 75cc/hr. R femur prophylactic nailing for impending pathologic fracture (08/17/17) - stable - Orthopedist, saw her and removed tex and placed steri strips on 09/03/17. Encouraged WBAT. - Continue PT/OT while in hospital CAD s/p cardiac stent & PVD s/p left lower extremity venous graft and arterial stent - stable - Denies angina. Continue aspirin, clopidogrel for dual antiplatelet therapy. Holding nitrate. HTN - stable - BP is acceptable. Continue metoprolol. Dyslipidemia - stable - Continue rosuvastatin T1DM - controlled - Continue Lantus 20mg qAM + ISS Myasthenia gravis - stable - Denies symptoms of typical exacerbation such as fatigue and weakness. - Continue mycophenolate Depression/anxiety - stable - Continue fluoxetine, buspirone. Consider switching from SSRI to SNRI for another pain control tactic. - In good spirits despite circumstances and pain. Gastroparesis - seen on gastric emptying study in 2008 - stable - Continue metoclopramide VTE ppx - - Heparin Disposition - Med/surg. Anticipate discharge home when pain is controlled, potentially tomorrow. Medical Student Supervision Note: I interviewed and examined the patient. Discussed with Rebecca Castro MS4 and agree with findings and plan as documented in the note. Any exceptions or clarifications are listed here: None Documented By: iWlliam Lopez feeling better but pain still gets to a 7. she notes no sedation from pain meds , notes she's her usual self as well sees no sedation/confusion etc. knee improving vitals noted nad breathing unlabored no pallor or icterus. R eye wandering she notes this happens with her myesthenia at times metastatic cancer w pain -increase oxycontin to 40mg bid -continue remainder of current regimen -improving biomechanical pain -outpt referral for OMT otherwise as above
[2017-09-04 18:37] VITALS: BP 124/72; PULSE 80; TEMP 36.6; O2SAT 98
[2017-09-04] MEDS: OXYCODONE HCL 40 MG TABCR (OXYCONTIN) PO SCH (19:58)
[2017-09-04] MEDS: SENNA 8.6 MG TAB PO SCH (20:01)
[2017-09-05] MEDS: HEPARIN SOD 5000 UNIT/0.5 ML CARP SQ SCH ×3 (00:03→17:38)
[2017-09-05 00:08] VITALS: BP 123/63; PULSE 73; TEMP 36.8; O2SAT 93
[2017-09-05 04:55] VITALS: BP 170/83; PULSE 72; TEMP 36.6; O2SAT 93
[2017-09-05 05:36] VITALS: BP 134/73; PULSE 53
[2017-09-05] MEDS: METOCLOPRAMIDE HCL 5 MG TAB PO SCH ×3 (05:48→16:46)
[2017-09-05 08:27] VITALS: BP 148/72; PULSE 95; TEMP 36.6; O2SAT 95
[2017-09-05] MEDS ORDERED: ALUMINUM/MAGNESIUM SUSP 30 ML UDC PO STA (08:53)
[2017-09-05] MEDS: OXYCODONE HCL 40 MG TABCR (OXYCONTIN) PO SCH ×2 (09:41→21:33)
[2017-09-05] MEDS: CLOPIDOGREL BISULFATE 75 MG TAB PO SCH ×2 (09:41→11:00)
[2017-09-05] MEDS: ASPIRIN 81 MG ECTAB PO SCH ×2 (09:42→11:00)
[2017-09-05] MEDS: MYCOPHENOLATE MOFETIL 250 MG CAP (CELLCEPT) PO SCH ×2 (09:42→21:29)
[2017-09-05] MEDS: DICLOFENAC SOD 1% GEL 100 GM TUBE EXT SCH ×4 (09:42→21:27)
[2017-09-05] MEDS: ISOSORBIDE MONONITRATE 30 MG TABCR PO SCH ×2 (09:43→11:00)
[2017-09-05] MEDS: METOPROLOL SUCC 50MG EXT REL TAB PO SCH ×2 (09:43→11:00)
[2017-09-05] MEDS: DOCUSATE SODIUM 100 MG CAP PO SCH ×3 (09:43→21:28)
[2017-09-05] MEDS ORDERED: ONDANSETRON INJ 8 MG in DEXTROSE 5% 50ML 50 ML IV PRN (09:45)
[2017-09-05] MEDS ORDERED: PROCHLORPERAZINE INJ 10 MG in SYRINGE 8 ML IV PRN (09:45)
[2017-09-05] MEDS ORDERED: FAMOTIDINE IV INJ 20 MG in DEXTROSE 5% 100ML 100 ML IV SCH (09:45)
[2017-09-05] MEDS ORDERED: ONDANSETRON INJ 8 MG in DEXTROSE 5% 50ML 50 ML IV ONE (10:00)
[2017-09-05] MEDS ORDERED: VLTG EXT (10:03)
[2017-09-05] MEDS: FLUOXETINE HCL 20 MG CAP PO SCH ×2 (10:11→11:00)
[2017-09-05] MEDS: LIDODERM (LIDOCAINE) PATCH 5% TD SCH (10:11)
[2017-09-05] MEDS: ROSUVASTATIN CALCIUM 20 MG TAB PO SCH ×2 (10:12→11:00)
[2017-09-05] MEDS: FERROUS GLUCONATE 324 MG TAB PO SCH ×3 (10:12→21:28)
--- NOTE | 2017-09-05 10:15 | Discharge Instructions ---
Discharge Instructions Date of Service September 05, 2017. Admission Reason for Admission: Intractable Pain, Metastatic Cancer Discharge Discharge Diagnosis / Problem: intractable pain in the setting of metastatic cancer Discharge Goals Goal(s): Decrease discomfort, Diagnostic testing, Therapeutic intervention Activity Recommendations Activity Limitations: resume your previous activity . Instructions / Follow-Up Instructions / Follow-Up Ms. Jovanni tavarez were admitted for intractable pain from compression fractures of your spinal vertebrae and ribs in the setting of likely breast metastatic cancer. We changed your pain medication regimen with the help of our palliative care doctor's recommendations. We finally got you on a regimen that seemed to make your pain more tolerable. We are discharging you on that regimen. While you were hospitalized, you also had a breast biopsy which confirmed that you have breast cancer. You will need to follow up with Dr. Wilson in clinic for further management. Please follow the instructions below after your discharge: -Please take OxyContin 40mg twice a day -Take Oxycodone 10mg as needed every 4 hours for pain control -We have also prescribed you Voltaren gel (diclofenac) to apply to your knee, back and ribs to help decrease your muscle spasm and pain three-four times a day -Please follow up with Dr. Montilla on 09/07 at 10: 30 -Please follow up with your doctor, Amanda Sequeira on 09/10 at 10:30am -You also have appointment with Dr. Flowers [employer] on 09/23 at 10am -Please see your doctor or go to the nearest emergency room if you are having intolerance pain not controlled by the above regimen at home as well as any shortness of breath, chest pain, nausea, vomiting or abdominal pain. Current Hospital Diet Patient's current hospital diet: Diabetes Type 2 Diet, AHA Diet (Heart Healthy) Discharge Diet Recommended Diet: Diabetes Type 2 Diet Pending Studies Studies pending at discharge: no Laboratory Results Hemoglobin A1c Test 08/18/17 07:27 Range/Units Estimated Average Glucose 192 mg/dl Hemoglobin A1c 8.3 H 4.5-5.6 % Medical Emergencies . Who to Call and When: Medical Emergencies: If at any time you feel your situation is an emergency, please call 911 immediately. . Non-Emergent Contact Non-Emergency issues call your: Primary Care Provider Call Non-Emergent contact if: temperature is above 100.5, your pain is not controlled, your pain is worsening . . "Provider Documentation" section prepared by Kimberly Plasencia. .
[2017-09-05] MEDS: INSULIN ASPART 100 UNITS/ML 3 ML PEN SC SCH ×4 (10:21→21:30)
[2017-09-05] MEDS: SODIUM CHLORIDE 0.9% 1000ML 1,000 ML IV SCH ×2 (10:21→22:49)
[2017-09-05] MEDS: POLYETHYLENE (MIRALAX) 17 GM PACK PO SCH (10:24)
[2017-09-05] MEDS: FAMOTIDINE IV INJ 20 MG in SYRINGE 3 ML IV SCH ×2 (10:32→21:26)
[2017-09-05 15:41] VITALS: BP 131/68; PULSE 69; TEMP 36.5; O2SAT 93
--- NOTE | 2017-09-05 16:07 | Family Medicine Progress Note ---
Progress Note Date of Service September 05, 2017. Subjective Pt evaluation today including: conversation w/ patient, physical exam, chart review, review of studies Pain: reports persistent R rib, back and R knee pain controlled with meds PO Intake: not tolerating due to reflux associated n/v this AM Voiding: no voiding problems This AM pt reports persistent back, R side of ribcage and knee pain that is relatively well controlled with current pain regimen. However, had mac and cheese sandwich with tomato soup last night she is causing her reflux and nausea /vomiting this AM. Constitutional: No fever Respiratory: No shortness of breath Cardiovascular: No chest pain Abdomen: + nausea, + vomiting, + problem reported (reflux), No pain Female : No dysuria Medications Current Inpatient Medications Medications (Trade) Dose Ordered Sig/Yovana Route Start Time Stop Time Status Last Admin Dose Admin Ioversol (Optiray 320) 100 ml UD PRN IV 09/01/17 18:00 09/05/17 17:59 Glucagon (Glucagon Inj) 1 mg UD PRN SQ 09/01/17 19:15 10/01/17 19:14 Glucose (Glucose 40% Gel) 15-30 GRAMS 15 GRAMS... UD PRN PO 09/01/17 19:15 10/01/17 19:14 Glucose (Glucose Chew Tab) 4-8 Tablets 4 Tabl... UD PRN PO 09/01/17 19:15 10/01/17 19:14 Carbohydrates (Carbohydrates For Hypoglycemia) 15-30 GRAMS 15 grams if BSG 54-69... UD PRN PO 09/01/17 21:30 10/01/17 21:29 Insulin Aspart (novoLOG ASPART) SLIDING SCALE If C... ACHS SC 09/02/17 06:30 10/02/17 06:59 09/05/17 13:03 4 UNITS Miscellaneous (Iv Fluids Completed) 1 ea PRN PRN N/A 09/01/17 21:45 09/01/18 21:44 Cyclobenzaprine HCl (Flexeril Tab) 10 mg BID PRN PO 09/01/17 22:15 10/01/17 22:14 09/04/17 11:54 10 MG Buspirone HCl (Buspar Tab) 10 mg TID PO 09/02/17 08:00 10/02/17 08:59 09/05/17 13:03 10 MG Aspirin (Ecotrin Tab) 81 mg DAILY PO 09/02/17 08:00 10/02/17 08:59 09/04/17 09:33 81 MG Clopidogrel Bisulfate (plAVix TAB) 75 mg DAILY PO 09/02/17 08:00 10/02/17 08:59 09/04/17 09:34 75 MG Ferrous Gluconate (Ferrous Gluconate Tab) 324 mg BID PO 09/02/17 08:00 10/02/17 08:59 09/04/17 19:59 324 MG Fluoxetine HCl (Prozac Cap) 40 mg DAILY PO 09/02/17 08:00 10/02/17 08:59 09/04/17 09:36 40 MG Docusate Sodium (coLACE CAP) 100 mg BID PO 09/02/17 08:00 10/02/17 08:59 09/04/17 19:59 100 MG Acetaminophen (Tylenol Tab) 650 mg Q4H PRN PO 09/01/17 22:45 10/01/17 22:44 09/02/17 14:07 650 MG Al Hydrox/Mg Hydrox/Simethicone (Maalox Max Susp) 15 ml Q4H PRN PO 09/01/17 22:45 10/01/17 22:44 Magnesium Hydroxide (Milk Of Magnesia Susp) 30 ml Q6H PRN PO 09/01/17 22:45 10/01/17 22:44 Mycophenolate Mofetil (Cellcept Cap) 1,000 mg BID PO 09/02/17 08:00 10/02/17 07:59 09/05/17 09:42 1,000 MG Isosorbide Mononitrate (Imdur Ext Rel Tab) 30 mg QAM PO 09/02/17 08:00 10/02/17 07:59 09/04/17 09:35 30 MG Metoclopramide HCl (Reglan Tab) 5 mg AC PO 09/02/17 06:30 10/02/17 06:29 09/05/17 10:36 5 MG Polyethylene (Miralax Powder Packet) 17 gm DAILY PO 09/02/17 08:00 10/02/17 07:59 09/04/17 09:36 17 GM Metoprolol Succinate (Toprol Xl Tab) 50 mg QAM PO 09/02/17 08:00 10/02/17 07:59 09/04/17 09:34 50 MG Rosuvastatin Calcium (Crestor Tab) 40 mg DAILY PO 09/02/17 08:00 10/02/17 07:59 09/04/17 09:34 40 MG Senna (Senokot Tab) 17.2 mg HS PO 09/02/17 21:00 10/02/17 20:59 09/04/17 20:01 17.2 MG Morphine Sulfate (MoRPHine SULFATE INJ) 3 mg Q3H PRN IV 09/01/17 23:00 09/15/17 22:59 09/04/17 23:57 3 MG Sodium Chloride 1,000 ml @ 75 mls/hr [id number] IV 09/02/17 02:15 10/02/17 02:14 09/05/17 10:21 75 MLS/HR Heparin Sodium (Porcine) (Heparin Sq 5000 Unit/0.5ml) 5,000 unit Q8H SQ 09/02/17 08:00 10/02/17 07:59 Future hold 09/05/17 00:03 5,000 UNIT Lidocaine (Lidoderm Patch 5%) 1 patch QAM TD 09/03/17 08:00 10/03/17 07:59 09/05/17 10:11 1 PATCH Miscellaneous (Remove Lidoderm Patch) 1 ea DAILY@21 N/A 09/02/17 21:00 10/02/17 20:59 09/04/17 21:14 1 EA Polyethylene (Miralax Powder Packet) 17 gm DAILY PRN PO 09/02/17 10:30 10/02/17 10:29 Oxycodone HCl (Roxicodone Immediate Rel Tab) 10 mg Q4 PRN PO 09/02/17 10:30 09/16/17 10:29 09/04/17 16:40 10 MG Miscellaneous (Iv Fluids Completed) 1 ea PRN PRN N/A 09/02/17 13:15 09/02/18 13:14 Diclofenac Sodium (Voltaren 1% Top Gel) 1 appln QID EXT 09/03/17 17:00 10/03/17 16:59 09/05/17 13:03 1 APPLN Oxycodone HCl (Oxycontin Tab) 40 mg BID PO 09/04/17 20:00 09/17/17 14:29 09/05/17 09:41 40 MG Insulin Glargine (Lantus Solostar Pen) 25 units QAM SC 09/06/17 08:00 10/03/17 07:59 Ondansetron HCl 8 mg/Dextrose 54 ml @ 200 mls/hr Q6H PRN IV 09/05/17 09:45 10/05/17 09:44 Prochlorperazine Edisylate 10 mg/ Syringe 10 ml @ 5 mls/min Q6 PRN IV 09/05/17 09:45 10/05/17 09:44 Famotidine 20 mg/ Syringe 5 ml @ 2.5 mls/min Q12 IV 09/05/17 10:30 10/05/17 10:29 09/05/17 10:32 2.5 MLS/MIN Objective Vital Signs Date Time Temp Pulse Resp B/P (MAP) Pulse Ox O2 Delivery O2 Flow Rate FiO2 09/05/17 15:41 36.5 69 18 131/68 (89) 93 Room Air 09/05/17 08:30 Room Air 09/05/17 08:27 36.6 95 18 148/72 (97) 95 09/05/17 05:36 53 134/73 (93) 09/05/17 04:55 36.6 72 19 170/83 (112) 93 Room Air 09/05/17 00:08 36.8 73 19 123/63 (83) 93 Room Air 09/05/17 00:00 Room Air 09/04/17 20:00 Room Air 09/04/17 18:37 36.6 80 18 124/72 (89) 98 Physical Exam General Appearance: no apparent distress Respiratory/Chest: lungs clear, normal breath sounds, + pertinent finding (R sided rib cage TTP) Cardiovascular: regular rate, rhythm, no murmur Abdomen: non tender, soft, no organomegaly Extremities: non-tender, no pedal edema Neurologic/Psychiatric: alert, oriented x 3 Skin: warm/dry Notes: Back TTP over spinous processes C, T and L spine and paraspinal TTP Laboratory Results Test 09/05/17 11:54 Bedside Glucose 239 mg/dl (70-90) Assessment and Plan 67 yoF with a history of DM1, CAD, PVD, and pathologic vertebral and rib compression fractures in the setting of likely metastatic breast cancer admitted for intractable pain. 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 - Continue clobenzaprine, lidocaine patch, and voltaren gel for added pain control and improvement of muscle spasm - Continue bowel regimen: miralax, senakot, and docusate. - Breast biopsy (09/02/17) consistent with 2 different types of breast cancer per Dr. Montilla - will follow outpatient Acid reflux w/t nausea/vomiting - Continue Zofran 8mg Q6H PRN - Continue Famotidine 20mg IV Q12H - Received Maalix 30mg once and Zofran 8mg Right patellar tendonitis - improving - patella deviated laterally without joint effusion or bony abnormality - pain is worse with moving from sitting to standing - Improved after staple removal and voltaren gel Hypercalcemia - secondary to bone lytic lesions - resolved - Improved from 10.3 to 9.3 on 09/04 with IVF 75cc/hr R femur prophylactic nailing for impending pathologic fracture (08/17/17) - stable - Orthopedist, saw her and removed tex and placed steri strips on 09/03/17. Encouraged WBAT. - Continue PT/OT while in hospital CAD s/p cardiac stent & PVD s/p left lower extremity venous graft and arterial stent - stable - Denies angina. Continue aspirin, clopidogrel for dual antiplatelet therapy. Holding nitrate. HTN - stable - BP is acceptable. Continue metoprolol. Dyslipidemia - stable - Continue rosuvastatin T1DM - controlled - Continue Lantus 20mg qAM + ISS Myasthenia gravis - stable - Denies symptoms of typical exacerbation such as fatigue and weakness. - Continue mycophenolate Depression/anxiety - stable - Continue fluoxetine, buspirone. Consider switching from SSRI to SNRI for another pain control tactic. Gastroparesis - seen on gastric emptying study in 2008 - stable - Continue metoclopramide VTE ppx - - Heparin Disposition -discharge home when n/v improved and pain controlled, potentially tomorrow. Resident Physician Supervision Note: I interviewed and examined the patient. Discussed with Dr. Plasencia and agree with findings and plan as documented in the note. Any exceptions or clarifications are listed here: None Documented By: William Lopez pain better but nausea/vomiting off and on since last night - relates indigestion after tomato soup but still having trouble vitals noted nad breathing unlabored no pallor or icterus. actively vomiting during our conversation. abdomen soft nd nt no epigastric tenderness, no L sided tenderness or fullness nausea/vomiting -most likely seems indigestion superimposed on overall frailty -obviously increase in pain meds causing this as ddx but seems less likely without findings of constipation leading to vomiting and without findings of sedation/etc --> and also because she tolerated oxycodone at home regularly -- but keep on differential if she doesn't improve -pepcid, supportive care, time. -w/u further for underlying pathology if doesn't resolve in ~24hrs with symptomatic and supportive care metastatic cancer w pain -oxycontin to 40mg bid -continue remainder of current regimen (breakthrough oxycodone, while inpt prn morphine for severe pain) -improving biomechanical pain -outpt referral for OMT, voltaren gel otherwise as above Resident Involvement: Resident Care Provided Care Provided: Adult Hospital Medicine
[2017-09-05] MEDS: SENNA 8.6 MG TAB PO SCH (21:28)
[2017-09-05 23:21] VITALS: BP 136/67; PULSE 72; TEMP 36.7; O2SAT 91
[2017-09-06 04:27] VITALS: BP 152/69; PULSE 72; TEMP 36.8; O2SAT 93
[2017-09-06] MEDS: METOCLOPRAMIDE HCL 5 MG TAB PO SCH ×2 (06:18→11:50)
[2017-09-06 07:25] VITALS: BP 149/74; PULSE 66; TEMP 36.7; O2SAT 94
--- NOTE | 2017-09-06 07:36 | Family Medicine Progress Note ---
Progress Note Date of Service September 06, 2017. Medications Current Inpatient Medications Medications (Trade) Dose Ordered Sig/Yovana Route Start Time Stop Time Status Last Admin Dose Admin Glucagon (Glucagon Inj) 1 mg UD PRN SQ 09/01/17 19:15 10/01/17 19:14 Glucose (Glucose 40% Gel) 15-30 GRAMS 15 GRAMS... UD PRN PO 09/01/17 19:15 10/01/17 19:14 Glucose (Glucose Chew Tab) 4-8 Tablets 4 Tabl... UD PRN PO 09/01/17 19:15 10/01/17 19:14 Carbohydrates (Carbohydrates For Hypoglycemia) 15-30 GRAMS 15 grams if BSG 54-69... UD PRN PO 09/01/17 21:30 10/01/17 21:29 Insulin Aspart (novoLOG ASPART) SLIDING SCALE If C... ACHS SC 09/02/17 06:30 10/02/17 06:59 09/05/17 17:40 1 UNITS Miscellaneous (Iv Fluids Completed) 1 ea PRN PRN N/A 09/01/17 21:45 09/01/18 21:44 Cyclobenzaprine HCl (Flexeril Tab) 10 mg BID PRN PO 09/01/17 22:15 10/01/17 22:14 09/04/17 11:54 10 MG Buspirone HCl (Buspar Tab) 10 mg TID PO 09/02/17 08:00 10/02/17 08:59 09/05/17 21:27 10 MG Aspirin (Ecotrin Tab) 81 mg DAILY PO 09/02/17 08:00 10/02/17 08:59 09/04/17 09:33 81 MG Clopidogrel Bisulfate (plAVix TAB) 75 mg DAILY PO 09/02/17 08:00 10/02/17 08:59 09/04/17 09:34 75 MG Ferrous Gluconate (Ferrous Gluconate Tab) 324 mg BID PO 09/02/17 08:00 10/02/17 08:59 09/05/17 21:28 324 MG Fluoxetine HCl (Prozac Cap) 40 mg DAILY PO 09/02/17 08:00 10/02/17 08:59 09/04/17 09:36 40 MG Docusate Sodium (coLACE CAP) 100 mg BID PO 09/02/17 08:00 10/02/17 08:59 09/05/17 21:28 100 MG Acetaminophen (Tylenol Tab) 650 mg Q4H PRN PO 09/01/17 22:45 10/01/17 22:44 09/02/17 14:07 650 MG Al Hydrox/Mg Hydrox/Simethicone (Maalox Max Susp) 15 ml Q4H PRN PO 09/01/17 22:45 10/01/17 22:44 Magnesium Hydroxide (Milk Of Magnesia Susp) 30 ml Q6H PRN PO 09/01/17 22:45 10/01/17 22:44 Mycophenolate Mofetil (Cellcept Cap) 1,000 mg BID PO 09/02/17 08:00 10/02/17 07:59 09/05/17 21:29 1,000 MG Isosorbide Mononitrate (Imdur Ext Rel Tab) 30 mg QAM PO 09/02/17 08:00 10/02/17 07:59 09/04/17 09:35 30 MG Metoclopramide HCl (Reglan Tab) 5 mg AC PO 09/02/17 06:30 10/02/17 06:29 09/06/17 06:18 5 MG Polyethylene (Miralax Powder Packet) 17 gm DAILY PO 09/02/17 08:00 10/02/17 07:59 09/04/17 09:36 17 GM Metoprolol Succinate (Toprol Xl Tab) 50 mg QAM PO 09/02/17 08:00 10/02/17 07:59 09/04/17 09:34 50 MG Rosuvastatin Calcium (Crestor Tab) 40 mg DAILY PO 09/02/17 08:00 10/02/17 07:59 09/04/17 09:34 40 MG Senna (Senokot Tab) 17.2 mg HS PO 09/02/17 21:00 10/02/17 20:59 09/05/17 21:28 17.2 MG Morphine Sulfate (MoRPHine SULFATE INJ) 3 mg Q3H PRN IV 09/01/17 23:00 09/15/17 22:59 09/04/17 23:57 3 MG Sodium Chloride 1,000 ml @ 75 mls/hr [id number] IV 09/02/17 02:15 10/02/17 02:14 09/05/17 22:49 75 MLS/HR Heparin Sodium (Porcine) (Heparin Sq 5000 Unit/0.5ml) 5,000 unit Q8H SQ 09/02/17 08:00 10/02/17 07:59 Future hold 09/05/17 00:03 5,000 UNIT Lidocaine (Lidoderm Patch 5%) 1 patch QAM TD 09/03/17 08:00 10/03/17 07:59 09/05/17 10:11 1 PATCH Miscellaneous (Remove Lidoderm Patch) 1 ea DAILY@21 N/A 09/02/17 21:00 10/02/17 20:59 09/05/17 21:33 1 EA Polyethylene (Miralax Powder Packet) 17 gm DAILY PRN PO 09/02/17 10:30 10/02/17 10:29 Oxycodone HCl (Roxicodone Immediate Rel Tab) 10 mg Q4 PRN PO 09/02/17 10:30 09/16/17 10:29 09/04/17 16:40 10 MG Miscellaneous (Iv Fluids Completed) 1 ea PRN PRN N/A 09/02/17 13:15 09/02/18 13:14 Diclofenac Sodium (Voltaren 1% Top Gel) 1 appln QID EXT 09/03/17 17:00 10/03/17 16:59 09/05/17 21:27 1 APPLN Oxycodone HCl (Oxycontin Tab) 40 mg BID PO 09/04/17 20:00 09/17/17 14:29 09/05/17 21:33 40 MG Insulin Glargine (Lantus Solostar Pen) 25 units QAM SC 09/06/17 08:00 10/03/17 07:59 Ondansetron HCl 8 mg/Dextrose 54 ml @ 200 mls/hr Q6H PRN IV 09/05/17 09:45 10/05/17 09:44 Prochlorperazine Edisylate 10 mg/ Syringe 10 ml @ 5 mls/min Q6 PRN IV 09/05/17 09:45 10/05/17 09:44 Famotidine 20 mg/ Syringe 5 ml @ 2.5 mls/min Q12 IV 09/05/17 10:30 10/05/17 10:29 09/05/17 21:26 2.5 MLS/MIN Objective Vital Signs Date Time Temp Pulse Resp B/P (MAP) Pulse Ox O2 Delivery O2 Flow Rate FiO2 09/06/17 07:25 36.7 66 18 149/74 (99) 94 Room Air 09/06/17 04:27 36.8 72 20 152/69 (96) 93 Room Air 09/06/17 00:00 Room Air 09/05/17 23:21 36.7 72 20 136/67 (90) 91 Room Air 09/05/17 20:00 Room Air 09/05/17 17:09 Room Air 09/05/17 15:41 36.5 69 18 131/68 (89) 93 Room Air 09/05/17 08:30 Room Air 09/05/17 08:27 36.6 95 18 148/72 (97) 95 Laboratory Results Test 09/05/17 20:48 Bedside Glucose 159 mg/dl (70-90) Resident Tracking Resident Involvement: Resident Care Provided Care Provided: Adult Hospital Medicine (inpatient)
[2017-09-06] MEDS ORDERED: INSULIN GLARGINE SOLOSTAR 100 UNITS/ML 3 ML PEN SC SCH (08:00)
[2017-09-06] MEDS: METOPROLOL SUCC 50MG EXT REL TAB PO SCH (08:57)
[2017-09-06] MEDS: ROSUVASTATIN CALCIUM 20 MG TAB PO SCH (08:57)
[2017-09-06] MEDS: MYCOPHENOLATE MOFETIL 250 MG CAP (CELLCEPT) PO SCH (08:57)
[2017-09-06] MEDS: ASPIRIN 81 MG ECTAB PO SCH (08:57)
[2017-09-06] MEDS: ISOSORBIDE MONONITRATE 30 MG TABCR PO SCH (08:57)
[2017-09-06] MEDS: OXYCODONE HCL 40 MG TABCR (OXYCONTIN) PO SCH (08:57)
[2017-09-06] MEDS: FLUOXETINE HCL 20 MG CAP PO SCH (08:57)
[2017-09-06] MEDS: FERROUS GLUCONATE 324 MG TAB PO SCH (08:58)
[2017-09-06] MEDS: DICLOFENAC SOD 1% GEL 100 GM TUBE EXT SCH ×2 (08:58→11:50)
[2017-09-06] MEDS: POLYETHYLENE (MIRALAX) 17 GM PACK PO SCH (08:58)
[2017-09-06] MEDS: CLOPIDOGREL BISULFATE 75 MG TAB PO SCH (08:58)
[2017-09-06] MEDS: DOCUSATE SODIUM 100 MG CAP PO SCH (08:58)
[2017-09-06] MEDS: FAMOTIDINE IV INJ 20 MG in SYRINGE 3 ML IV SCH (08:59)
[2017-09-06] MEDS: LIDODERM (LIDOCAINE) PATCH 5% TD SCH (08:59)
[2017-09-06] MEDS: INSULIN ASPART 100 UNITS/ML 3 ML PEN SC SCH (09:07)
[2017-09-06] MEDS: HEPARIN SOD 5000 UNIT/0.5 ML CARP SQ SCH ×2 (09:08)
--- NOTE | 2017-09-06 10:12 | Palliative Care Progress Note ---
Palliative Care Progress Note Date of Service September 06, 2017. Subjective Pt evaluation today including: conversation w/ patient, conversation w/ family , physical exam Pain: 6/10 in back PO Intake: improving This patient was evaluated for follow up. The patient was having intractable pain for which she says improved greatly over the weekend, currently ranging 6-7 /10, down from a constant 8/10. She is currently receiving the following medications: Oxycodone 40mg po BID Oxycodone IR 10mg po Q4 PRN - last dose 09/04 Lidoderm Patch Morphine 3mg Q3 PRN - last dose 09/04 Flexeril 10 mg po BID The patient states that her pain has improved, but does not notice any improvement with the Lidoderm patch. We can D/C this and monitor for any additional worsening of pain symptoms. Patient states that her pain does worsen when she is walking, but she is feeling adequately controlled at this time. She was able to localize her pain to her right lower back, she stated that her rib pain is improving. The breast biopsy that was obtained on 09/02 was consistent with two different types of breast CA. The patient was to be discharged this weekend, but experienced nausea and vomiting, likely related to tomato soup she ate. She states that her appetite has returned and she is eager to go home. The patient is to follow up with Dr. Montilla tomorrow at 1450, I will attempt to coordinate through the Patient Navigator to arrange an appt with Dr. Starks to follow up tomorrow as well. Review of Systems General: patient denies acute changes in pain - constant pain 6/10 in lower back on right side HEENT: Pt denies INFANTE, dizziness, visual changes CV: Pt denies chest pain, palpitations Resp: Patient denies any breathing changes GI: Pt denies Abdominal pain, N/V/D : Pt denies any urinary changes Skin: Pt denies any skin rashes/changes Objective Vital Signs Date Time Temp Pulse Resp B/P (MAP) Pulse Ox O2 Delivery O2 Flow Rate FiO2 09/06/17 08:20 Room Air 09/06/17 07:25 36.7 66 18 149/74 (99) 94 Room Air 09/06/17 04:27 36.8 72 20 152/69 (96) 93 Room Air 09/06/17 00:00 Room Air 09/05/17 23:21 36.7 72 20 136/67 (90) 91 Room Air 09/05/17 20:00 Room Air 09/05/17 17:09 Room Air 09/05/17 15:41 36.5 69 18 131/68 (89) 93 Room Air Physical Exam General Appearance: no apparent distress (ambulating in the hallway independently without signs of dizziness or vertigo) Eyes: PERRL Respiratory/Chest: chest non-tender, lungs clear, normal breath sounds Cardiovascular: regular rate, rhythm, no edema, no gallop Abdomen: normal bowel sounds, non tender, soft Neurologic/Psychiatric: oriented x 3 Skin: warm/dry Laboratory Results Last 24 Hours Test 09/05/17 11:54 09/05/17 16:49 09/05/17 20:48 09/06/17 07:46 Bedside Glucose 239 mg/dl 160 mg/dl 159 mg/dl 136 mg/dl Assessment and Plan Palliative Care Encounter Breast Ca cancer-related pain Palliative Care Recommendations: Patients pain is at an acceptable level for her today. It appears that the Oxycodone 40mg po BID has helped. The pain appears to be isolated to the lower back now per the patients response. I would D/C the Lidoderm patch as it does not appear to be helping - D/C and monitor response Patient to see Dr. Montilla tomorrow 09/07 at 1450, Patient Nurse Navigator to assist with coordinating an appointment with Dr. Starks. Attending team to continue with discharge planning to home. Palliative Performance Scale: 40 % Counseling and Coordination Total time spent 35 minutes with > 50% of that time spent assessing the patient and discussing pain management options with patient and at the bedside.
[2017-09-06] MEDS ORDERED: FLX5 PO (10:23)
[2017-09-06] MEDS ORDERED: OXYSR/40 PO (10:23)
[2017-09-06] MEDS ORDERED: ONDA4TAB46 PO (10:24)
[2017-09-06] MEDS ORDERED: MRLP17X PO (10:24)
[2017-09-06] MEDS ORDERED: RXC5 PO (10:24)
[2017-09-06] MEDS ORDERED: CLC100 PO (10:24)
--- NOTE | 2017-09-06 10:33 | Discharge Summary ---
Discharge Summary Date of Service September 06, 2017. Discharge Summary Admission Date: September 02, 2017 at 12:55 Discharge Date: September 06, 2017 Discharge Disposition: Home Principal Diagnosis: Metastatic breast cancer Problems/Secondary Diagnoses: Intractable pain from pathologic thoracic and lumbar vertebral compression fractures Nausea and vomiting Right patellar tendinitis Hypercalcemia Right femur prophylactic nailing for impending pathologic fracture Immunizations: Have You Had Influenza Vaccine: Yes Influenza Vaccine Date: Jan 29, 2006 History of Tetanus Vaccine?: Yes History of Pneumococcal: Yes History of Hepatitis B Vaccine: No Procedures: [address] chest angiography with contrast IMPRESSION: 1. Multiple lytic skeletal metastasis as above including a large destructive lesion involving the vertebral body and posterior elements at T6 with extension into the region of the posterior epidural space likely causing a degree of central canal and foraminal encroachment. Pathologic fracture involves a lytic lesion of the right sixth rib. 2. No acute aortic pathology or pulmonary thromboembolic disease. 3. 1.3 cm lobular soft tissue attenuating lesion of the right middle lobe abutting the minor fissure has not significantly changed from comparison study. 4. Soft tissue nodules of the abdomen, further discussed on CT abdomen and pelvis study of same day. 5. Additional findings as above. ADDENDUM Lytic metastatic lesion with pathologic fracture also involves the right second rib. [id number] CHEST ONE VIEW PORTABLE IMPRESSION: 1. Cardiomegaly with mild subsegmental bibasilar atelectasis. 2. Multiple lytic skeletal metastasis including lytic lesions with pathologic fractures involving the right second and sixth ribs, better characterized on CT chest of same day. [id number] WITH IV CONTRAST IMPRESSION: 1. Redemonstration of the 13 mm right breast mass with scattered metastatic osseous lesions. There are also 2 small soft tissue nodules within the left side the abdomen which are highly suspicious for metastatic peritoneal disease. 2. The L3 pathologic compression fracture has slightly progressed with progressive mild to moderate central canal narrowing and severe right L3-L4 neural foraminal narrowing. 3. Stable nodular thickening of the adrenal glands. 4. No bowel wall thickening or obstruction. 5. Postoperative changes within the right femur. Fracture of the right greater trochanter likely due to the recent postoperative change. 6. Additional findings as described above. Consultations: Palliative care consult on 02 Sep 2017 Assessment & Plan (1) Cancer related pain Assessment & Plan: Patient's pain increasing, despite 37 mcg of fentanyl and 10 mg of oxycodone every 4 hours. Would start MS Guerda at either 20 or 30 mg twice daily, monitor patient for sedation. Patient aware of constipation as major side effect. Did discuss possibility of initiating methadone at some point, if sedation with oxycodone becomes an issue. (2) Palliative care encounter Assessment & Plan: Discuss treatment options including methadone and continuing on patient's current meds. Patient and in agreement to try some long-acting oxycodone. (3) Pathologic compression fracture of thoracic vertebra Status: Acute Assessment & Plan: Contributing to patient's pain (4) Pathologic rib fracture Status: Acute Assessment & Plan: Contributing the patient's pain (5) Pathologic compression fracture of lumbar vertebra Status: Acute Assessment & Plan: Contributing to patient's pain (6) Metastatic cancer Status: Acute Assessment & Plan: Primary currently unknown, suspect breast primary given breast mass. Biopsy performed today-awaiting biopsy report. Oncology progress note on 04 Sep 2017 Ms. Baig's biopsies revealed breast cancers with two different immunophenotypes. Both are equivocal for HER2, but one is strongly ER positive and the other is ER/OH negative. I suspect her metastatic disease arises from the more aggressive of the two, the hormone negative. She will require systemic chemotherapy, though the regimen will depend on her HER2 FISH, which is pending. In the meantime, she can keep her appointment with me early next week to discuss more specifics. I would continue with supportive and palliative care as necessary. I will sign off for now, though I would be happy to return if additional questions arise. Orthopedic progress note on 03 Sep 2017 Imp: s/p IM nail of impending pathologic fx of right femur [[id number]] Plan: She was seen and examined by Dr. Perkins today as well. Lorna removed today and steri strips applied to RLE. Continue WBAT. We looked at a chest xray from 09/01/17 that does show multiple lytic lesions/rib fx, including a lesion of the right acromion, consistent with her shoulder pain. She is awaiting results of the breast biopsy and further treatment specific to this. She can plan to follow up as needed as an outpatient at this point. Medication Reconciliation New Medications: Ondansetron Hcl (Zofran) 4 Mg Tab 4 MG PO Q8 PRN for Nausea for 30 Days, #30 TAB 0 Refills Cyclobenzaprine HCl (Cyclobenzaprine HCl) 5 Mg Tab 10 MG PO BID PRN for muscle pain for 30 Days, #60 TAB 0 Refills Diclofenac Sod (Voltaren) 100 Appln/100 Gm Gel 1 APPLN EXT QID for 30 Days, #1 TUBE 4 Refills Docusate Sodium (Docusate Sodium) 100 Mg Cap 100 MG PO BID for 30 Days, #60 CAP 0 Refills Oxycodone HCl (Oxycontin) 40 Mg Tabcr 40 MG PO BID for 7 Days, #14 TAB 0 Refills Oxycodone HCl (Oxycodone HCl) 5 Mg Tab 10 MG PO Q4 PRN for moderate pain for 7 Days, #30 TAB 0 Refills Polyethylene (Miralax) 17 Gm Pow 17 GM PO DAILY PRN for Constipation for 30 Days, #1 BTL 0 Refills Continued Medications: Aspirin (Ecotrin Low Strength) 81 Mg Tab 81 MG PO DAILY Buspirone Hcl (Buspirone Hcl) 10 Mg Tab 10 MG PO TID, TAB Cholecalciferol (D3 Maximum Strength) 5,000 Unit Cap 5000 UNITS PO QAM Clopidogrel Bisulfate (Plavix) 75 Mg Tab 75 MG PO DAILY, TAB Ferrous Gluconate (Ferrous Gluconate) 324 Mg Tab 324 MG PO BID, TAB Fluoxetine Hcl (Prozac) 40 Mg Cap 40 MG PO DAILY, CAP Insulin Aspart (Novolog) 100 Units/Ml Inj 5 UNITS SC AC DOSE 5 UNITS PLUS SLIDING SCALE CARB RATIO DIRECTED. Insulin Glargine (Lantus) 100 Unit/Ml Inj Unknown Dose SC QAM, VIAL Isosorbide Mononitrate Ext Rel (Imdur Ext Rel) 30 Mg Ertab 30 MG PO QAM, TAB Metoclopramide Hcl (Reglan) 5 Mg Tab 5 MG PO AC, TAB TAKE 30 MIN PRIOR TO MEALS. Metoprolol Succ (Toprol Xl) (Toprol-Xl) 50 Mg Tabcr 50 MG PO QAM, #30 TAB Mycophenolate Mofetil (Mycophenolate Mofetil) 500 Mg Tab 1000 MG PO BID Nitroglycerin (Nitrostat) 0.4 Mg Sub 0.4 MG UT UD PRN for Chest Pain, BTL Oxycodone Ir (Roxicodone Ir) 5 Mg Tab 10 MG PO Q4H PRN for Severe Pain, TAB Polyethylene Glycol 3350 (Miralax) 1 Pow Pow 17 GM PO DAILY, #527 GM Probiotic Product (Acidophilus) 1 Chw Chw 1 TAB PO DAILY Rosuvastatin Calcium (Crestor) 40 Mg Tab 40 MG PO DAILY, TAB Senna (Senokot) 8.6 Mg Tab 17.2 MG PO HS, TAB Discontinued Medications: Fentanyl (Fentanyl) 12 Mcg Tdsy 12 MCG TD [id number] TOTAL DOSE 37 MCG [id number]. Fentanyl (Fentanyl) 25 Mcg Tdsy 25 MCG TD [id number] TOTAL DOSE 37 MCG [id number] Discharge Exam General Appearance: Awake, alert & oriented, comfortable in general, NAD. CV: +S1S2 RRR, no murmur. Pulm: Clear to auscultation throughout. Abdomen: +BS, soft, non-tender, non-distended. Extremities: No pedal edema or calf tenderness. Moving all extremities naturally and easily. Has ongoing tenderness over spinous processes of the cervical, thoracic, and lumbar spine. Neuro: No gross neuro deficits. Review of Systems: Constitutional: No fever, No chills Respiratory: No cough, No shortness of breath Cardiovascular: No chest pain, No edema Musculoskeletal: + joint pain (Right knee), + problem reported (Vertebral compression fracture pain) Genitourinary - Female: No dysuria Hospital Course HPI at time of admission on September 01, 2017 at 20:05 67 yo F with pMHx of DM, HTN, HLD, myasthenia gravis, PVD s/p left lower extremity venous graft and right arterial stent, CAD s/p stents (>10 years ago) , h/o left carotid stenosis s/p CEA, recently found to multiple metastatic osteolytic lesions to lower back and right hip with compression fraction of lumbar spines and shaft of right femur s/p right hip nailing, with pending work up for primary lesion presents to the ED with intractable pain. Pain had acute onset, and was worse in the neck, right shoulder, and made her feel breathless and nauseous, but no emesis. Pain had been progressively worsening through out the day, despite q4h scheduled doses of Oxycontin and leading to inability to move secondary to pain. She otherwise denies fevers/chills, headaches, palpitations, abdominal pain, lower extremity swelling or rashes. She has been tolerating diet without nausea or vomiting, ambulating with a walker, and voiding and stooling appropriately. She denies saddle paresthesias, radiculopathy, or incontinence. Discharge summary on 06 Sep 2017 67 yo F with a history of DM1, CAD, PVD, and pathologic vertebral and rib compression fractures in the setting of likely metastatic breast cancer admitted for intractable pain. Intractable pain from pathologic compression vertebral fracture of L1/L3 plus T6 , C7, and 2nd/6th rib bony lytic lesions likely in the setting of metastatic breast cancer. - Palliative care consulted. See their recommendations. Patient is presently pain controlled on OxyContin 40 mg twice daily as well as prn oxycodone 10 mg q4h. We will provide prescriptions for the same. - Continue as well her Flexeril and Voltaren gel. - She was on a bowel regimen of MiraLAX, Senokot, docusate as an inpatient. Metastatic breast cancer: Breast biopsy (09/02/17) consistent with 2 different types of breast cancer. See oncology notes. She has planned follow-up tomorrow afternoon with them. GERD, nausea/vomiting: Improved, tolerating dinner. Prescribed Zofran as needed for nausea. Right patellar tendinitis: Improving. On Voltaren gel. Hypercalcemia: Likely secondary to lytic lesions. On last recheck had resolved. Recommend outpatient monitoring for the same. Right femur prophylactic nailing for impending pathologic fracture (08/17/17): See related orthopedic notes. Ongoing PT OT while in the hospital. Encouraged weight-bearing as tolerated. Outpatient follow-up with orthopedics per their discussion with the patient. Chronic medical issues: - CAD s/p cardiac stent & PVD s/p left lower extremity venous graft and arterial stent: Stable, denying angina. Continue aspirin, clopidogrel for dual antiplatelet therapy. - HTN: Stable. On metoprolol. No acute issues. - Dyslipidemia: Stable, on rosuvastatin. No acute issues. - Type 1 diabetes: Controlled. On Lantus with sliding scale here. - Myasthenia gravis: Stable. Denies acute symptoms of exacerbation. Continuing mycophenolate. No acute issues. - Depression/anxiety: Stable. Continue fluoxetine and buspirone. No acute issues. - Gastroparesis: Stable. Continue Reglan. No acute issues. Total Time Spent: Greater than 30 minutes This includes examination of the patient, discharge planning, medication reconciliation, and communication with other providers. Discharge Instructions Please refer to the electronic Patient Visit Report (Discharge Instructions) for additional information. Follow-Up -Please follow up with Dr. Montilla on 09/07 at 10: 30 -Please follow up with your doctor, Amanda Sequeira on 09/10 at 10:30am -You also have appointment with Dr. Flowers VP [employer]ODUCT on 09/23 at 10am Additional Copies To Amanda Sequeira C.R.N.P; Zia Montilla MD; Aanmika Flowers M.D.([employer] JUDGE/OB) Resident Tracking Resident Involvement: Resident Care Provided Care Provided: Adult Hospital Medicine (Inpatient) Assessment/Plan Resident Physician Supervision Note: I was present with Dr. Casas during the history and exam. I discussed the case with the resident and agree with the findings and plan as documented in the note. Any exceptions or clarifications are listed here: Pt seen and examined at bedside - significant improvement in pain control with present regimen compared to admission. Accompanying GI symptoms have also resolved and is now tolerating POI well. Will discharge on present management regimen and plan for close follow up with primary care and oncology.
[2017-09-06 11:57] VITALS: BP 149/74; PULSE 66; TEMP 36.7; O2SAT 94
== END 2017-09-06 12:30 | disposition home health service (06) | DRG 948 ==
LOC: EDBD 17:46 → C.EDC 17:48 → C.4E 21:20 → ENRESERV 22:09 → OBSVTOIN 09-02 12:55
PROVIDERS: ADMIT Hospitalist; ATTEND Family Medicine
DX: G89.3 Neoplasm related pain (acute) (chronic) (principal); M84.58XA Pathological fracture in neoplastic disease, other specified site, initial encounter for fracture; C79.51 Secondary malignant neoplasm of bone; M48.48XA Fatigue fracture of vertebra, sacral and sacrococcygeal region, initial encounter for fracture; Z51.5 Encounter for palliative care; C50.619 Malignant neoplasm of axillary tail of unspecified female breast; R11.2 Nausea with vomiting, unspecified; M76.51 Patellar tendinitis, right knee; E83.52 Hypercalcemia; Z82.49 Family history of ischemic heart disease and other diseases of the circulatory system; Z83.3 Family history of diabetes mellitus; C80.1 Malignant (primary) neoplasm, unspecified; Z87.891 Personal history of nicotine dependence; Z88.1 Allergy status to other antibiotic agents; Z79.82 Long term (current) use of aspirin; Z79.4 Long term (current) use of insulin; Z88.8 Allergy status to other drugs, medicaments and biological substances

== ENCOUNTER → 2017-09-02 | Outpatient (CLI) | payer OTHER ==
[~2017-09-02] MED LIST changes: +BUSP-8 PO; -BUSP15TA70 PO; +CHOL1CAP79 PO; -CHOL2000 PO; +CLC100 PO; +FERR325T18 PO; +FLX5 PO; +FNTTP25 TD; -FRRG PO; -IMDSR/30 PO; +ISOS30TA3 PO; +METO50TA8 PO; -NVLG INJ; +NVLG SC; +ONDA4TAB46 PO; +OXYC1TAB3 PO; +OXYSR/40 PO; +POLY335019 PO; -TPRSR/50 PO; +VLTG EXT
--- NOTE | 2017-09-02 13:22 | Discharge Instructions ---
Discharge Instructions Procedure Procedure Date: September 02, 2017. Reason for visit: Right Breast Masses (2). Discharge Discharge Date: September 02, 2017. Discharge Diagnosis: status post breast biopsy Instructions Activity Recommendations: Additional Limitations (see below) Return to School/Work: no limitations Recommended Home Diet: No Limitations Provider Instructions: ACTIVITY RECOMMENDATIONS: * No lifting, pushing, pulling or exercising the affected side for three days. RETURN TO SCHOOL/WORK: * You may return to work/school after the procedure, but do not perform any strenuous activities for 24 to 48 hours. MEDICATIONS: * Tylenol (two 325 mg) every four to six hours if needed for mild pain (if not allergic to Tylenol). DIET: * Resume previous diet. SPECIAL CARE INSTRUCTIONS: * Keep biopsy site dry for 24 hours. May shower after 24 hours, but do not soak (bathe) incision. * May remove Tegaderm (plastic patch) tomorrow AFTER showering. * Leave the steri-strips on for one week. Allow the steri-strips to fall off by themselves. If not off after one week, you may remove them. You may place a Bandaid crosswise over the strips, if desired. * Apply ice 10 minutes on and 10 minutes off as needed. * Wear a bra at bedtime to sleep more comfortably for 2-3 days. * Your referring physician should have the results after approximately 5 to 7 business days. * Call for unusual bleeding, fever, drainage, etc or if you have any questions call during normal business hours or after hours call Dr Thayer, [phone]. FOLLOW UP VISIT: Follow-up with Referring Physician as scheduled. Allergies Coded Allergies: Chlorpromazine (Verified Allergy, Unknown, PHENOTHIAZINES, 09/01/17) Colistin (Verified Allergy, Unknown, 09/01/17) Gentamicin (Verified Allergy, Unknown, 09/01/17) Kanamycin (Verified Allergy, Unknown, 09/01/17) Neomycin (Verified Allergy, Unknown, 09/01/17) Polymyxin B (Verified Allergy, Unknown, 09/01/17) Procainamide (Verified Allergy, Unknown, 09/01/17) Propranolol (Verified Allergy, Unknown, 09/01/17) Quinidine (Verified Allergy, Unknown, 09/01/17) Streptomycin (Verified Allergy, Unknown, 09/01/17) Tetracycline (Verified Allergy, Unknown, 09/01/17) Lit Garzon Recommendations: Call your doctor if: * Temperature above 101 degrees * Pain not relieved by pain medicine ordered * There is increased drainage or redness from any incision * You have any unanswered questions or concerns. Your Doctors Instructions noted above were prepared by provider Johanna Thayer. Patient Signature Section: Patient Instructions Signature Page Jillian Baig Patient (or Guardian) Signature/Date: I have read and understand the instructions given to me by my caregivers. Caregiver/RN/Doctor Signature/Date: The above-named patient and/or guardian has received patient instructions on this date. + Original Patient Signature Page (only) stays with chart. Please make copy for patient.
--- NOTE | 2017-09-02 15:33 | MAMMOGRAPHY REPORT ---
UNILATERAL RIGHT DIGITAL DIAGNOSTIC MAMMOGRAM TOMOSYNTHESIS: 09/02/2017 CLINICAL HISTORY: Status post ultrasound-guided biopsies of right 9 and 11:00 breast masses. TECHNIQUE: Breast tomosynthesis in addition to standard 2D mammography was performed. Postprocedura l right CC and MLO tomosynthesis images were obtained. COMPARISON: Comparison is made to exams dated: 09/02/2017 ultrasound biopsy, 08/25/2017 ultrasound, 08/25 mammogram, 09/11/2016 mammogram, 09/02/2015 mammogram, and 08/30/2014 mammogram - [facility]. BREAST COMPOSITION: There are scattered areas of fibroglandular density in the right breast. FINDINGS: A new ribbon-shaped biopsy marker clip is seen at the site of the biopsied mass in the righ t 9:00 breast. The clip could not be visualized on the cc view due to the far posterior location and difficulties with patient positioning due to a recent rib fracture. A new wing-shaped biopsy marker clip is seen at the site of the biopsied mass in the right 11:00 breast. No significant postbiopsy hematoma is seen. IMPRESSION: POST PROCEDURE IMAGING FOR MARKER PLACEMENT New biopsy marker clips status post ultrasound-guided biopsies of the right breast 2. Pathology res ults are pending. Approximately 10% of breast cancers are not detected with mammography. A negative mammographic report should not delay biopsy if a clinically suggestive mass is present. Johanna Thayer M.D. /:09/02/2017 13:37:53 Enterprise Resource Planner: Mayra Santo, [facility] BI-RADS Code: Post Procedure Imaging For Marker Placement
--- NOTE | 2017-09-02 15:33 | MAMMOGRAPHY REPORT ---
ULTRASOUND GUIDED BIOPSY RIGHT BREAST: 09/02/2017 CLINICAL HISTORY: Two suspicious masses in the right 9 and 11:00 breast. PATIENT CONSENT: The procedure, risks and benefits were discussed with the patient and informed writt en consent was obtained. A timeout was performed immediately prior to the procedure. PROCEDURE DESCRIPTION: With ultrasound guidance, aseptic technique, and lidocaine as the local anesth etic (1% lidocaine to anesthetize the skin and 1% lidocaine with epinephrine to anesthetize the deepe r tissues), the mass of concern in the right 11:00 breast was sampled 4 times with a 14-gauge Achieve biopsy needle. Immediately thereafter, with ultrasound guidance, aseptic technique, and lidocaine a s the local anesthetic, a metallic localizer clip (wing-shaped) was placed centrally in the mass. Di rect pressure was applied to the site immediately post procedure and hemostasis was achieved. Postpr ocedure unilateral mammograms were performed to confirm placement of the clip in the expected locatio n of the breast mass. The patient tolerated the procedure without complication. She was given wound care instructions. The specimens were sent to pathology for analysis. COMPARISON: Comparison is made to exams dated: 08/25/2017 ultrasound, 08/25/2017 mammogram, 09/11/2016 ma mmogram, 09/02/2015 mammogram, and 08/30/2014 mammogram - [facility]. IMPRESSION: ULTRASOUND GUIDED BIOPSY Ultrasound-guided core needle biopsy of the right 11:00 breast mass, with clip placement. The patien t will receive pathology results from her referring provider. Johanna Thayer M.D. /:09/02/2017 13:27:13 Matrix Supervisor: aMyra Santo, [facility]
--- NOTE | 2017-09-02 15:33 | MAMMOGRAPHY REPORT ---
ULTRASOUND GUIDED BIOPSY RIGHT BREAST: 09/02/2017 CLINICAL HISTORY: Two suspicious masses in the right 9 and 11:00 breast. PATIENT CONSENT: The procedure, risks and benefits were discussed with the patient and informed writt en consent was obtained. A timeout was performed immediately prior to the procedure. PROCEDURE DESCRIPTION: With ultrasound guidance, aseptic technique, and lidocaine as the local anesth etic (1% lidocaine to anesthetize the skin and 1% lidocaine with epinephrine to anesthetize the deepe r tissues), the mass of concern in the right 9:00 breast was sampled 4 times with a 14-gauge Achieve biopsy needle. Immediately thereafter, with ultrasound guidance, aseptic technique, and lidocaine a s the local anesthetic, a metallic localizer ribbon-shaped clip was placed centrally in the mass. Di rect pressure was applied to the site immediately post procedure and hemostasis was achieved. Postpr ocedure unilateral mammograms were performed to confirm placement of the clip in the expected locatio n of the breast mass. The patient tolerated the procedure without complication. She was given wound care instructions. The specimens were sent to pathology for analysis. COMPARISON: Comparison is made to exams dated: 08/25/2017 ultrasound, 08/25/2017 mammogram, 09/11/2016 ma mmogram, 09/02/2015 mammogram, 08/30/2014 mammogram, and 10/30/2011 mammogram - [facility]. IMPRESSION: ULTRASOUND GUIDED BIOPSY Ultrasound-guided core needle biopsy of the suspicious mass in the right 9:00 breast, with clip place ment. The patient will receive pathology results from her referring provider. Johanna Thayer M.D. /:09/02/2017 13:24:17 Sas Bi Developer: Mayra Santo, [facility]
== END | disposition home or self-care (01) ==
LOC: C.MAMM 12:35
PROVIDERS: ATTEND Internal Medicine Hematology & Oncology
DX: C50.411 Malignant neoplasm of upper-outer quadrant of right female breast (principal)

== ENCOUNTER → 2017-11-03 | Outpatient (CLI) | payer OTHER ==
[~2017-11-03] MED LIST changes: +ACET-1311 PO; +BISA-16 PO; -CLC100 PO; +DICL1GEL12 TOP; -DRGTP12 TD; +FENT25DI10 TD; +FLX10 PO; -FLX5 PO; -FNTTP25 TD; -MRLP17X PO; +OXYC-164 PO; -OXYC1TAB3 PO; -OXYSR/40 PO; -RXC5 PO; -VLTG EXT
[2017-11-03 12:07] LABS: ALBUMIN 3.7 gm/dl (3.4-5.0); ALKALINE PHOSPHATASE 245 U/L (45-117); ALT/SGPT 27 U/L (12-78); AST/SGOT 22 U/L (15-37); BLOOD UREA NITROGEN 8 mg/dl (7-18); CARBON DIOXIDE 23 mmol/L (21-32); CREATININE 0.76 mg/dl (0.60-1.20); GLUCOSE 160 mg/dl (70-99); HEMATOCRIT 34.9 % (37-47); HEMOGLOBIN 11.5 g/dL (12.0-16.0); MEAN CELL VOLUME 81.9 fL (80-100); PLATELET COUNT 267 K/uL (130-400); POTASSIUM 3.8 mmol/L (3.5-5.1); RED CELL DISTRIBUTION WIDTH CV 15.1 % (11.5-14.5); RED CELL DISTRIBUTION WIDTH SD 43.4 fL (36.4-46.3); SODIUM 133 mmol/L (136-145); TOTAL PROTEIN 7.4 gm/dl (6.4-8.2); WHITE BLOOD COUNT 1.58 K/uL (4.8-10.8)
[2017-11-03 12:10] LABS: BASO % 1.9 %; BASO ABS # 0.03 K/uL (0-0.2); EOS % 1.9 %; EOS ABS # 0.03 K/uL (0-0.5); IG# 0.01 K/uL (0.00-0.02); LYMPH % 24.1 %; LYMPH ABS # 0.38 K/uL (1.2-3.4); MONO % 5.7 %; MONO ABS # 0.09 K/uL (0.11-0.59); NEUT % 65.8 %; NEUT ABS # 1.04 K/uL (1.4-6.5)
== END | disposition home or self-care (01) ==
LOC: C.LABSPEC 11:27
PROVIDERS: ATTEND Internal Medicine Hematology & Oncology
DX: C50.411 Malignant neoplasm of upper-outer quadrant of right female breast (principal)

== ENCOUNTER → 2017-11-17 | Outpatient (CLI) | payer OTHER ==
[2017-11-17 12:29] LABS: BASO % 0.3 %; BASO ABS # 0.02 K/uL (0-0.2); EOS % 1.2 %; EOS ABS # 0.08 K/uL (0-0.5); HEMATOCRIT 34.9 % (37-47); HEMOGLOBIN 11.8 g/dL (12.0-16.0); IG# 0.03 K/uL (0.00-0.02); LYMPH % 19.2 %; LYMPH ABS # 1.29 K/uL (1.2-3.4); MEAN CELL VOLUME 81.9 fL (80-100); MEAN CORPUSCULAR HEMOGLOBIN 27.7 pg (25-34); MEAN CORPUSCULAR HGB CONC 33.8 g/dl (32-36); MEAN PLATELET VOLUME 9.1 fL (7.4-10.4); MONO % 10.1 %; MONO ABS # 0.68 K/uL (0.11-0.59); NEUT % 68.8 %; NEUT ABS # 4.61 K/uL (1.4-6.5); PLATELET COUNT 274 K/uL (130-400); RED CELL DISTRIBUTION WIDTH CV 17.3 % (11.5-14.5); RED CELL DISTRIBUTION WIDTH SD 51.2 fL (36.4-46.3); WHITE BLOOD COUNT 6.71 K/uL (4.8-10.8)
[2017-11-17 12:57] LABS: ALBUMIN 3.7 gm/dl (3.4-5.0); ALKALINE PHOSPHATASE 222 U/L (45-117); ALT/SGPT 18 U/L (12-78); AST/SGOT 29 U/L (15-37); BLOOD UREA NITROGEN 9 mg/dl (7-18); CALCIUM 9.9 mg/dl (8.5-10.1); CARBON DIOXIDE 23 mmol/L (21-32); CREATININE 0.61 mg/dl (0.60-1.20); GLUCOSE 166 mg/dl (70-99); POTASSIUM 3.1 mmol/L (3.5-5.1); SODIUM 131 mmol/L (136-145); TOTAL PROTEIN 7.4 gm/dl (6.4-8.2)
== END ==
LOC: C.LABSPEC 11:48
PROVIDERS: ATTEND Internal Medicine Hematology & Oncology
DX: C50.411 Malignant neoplasm of upper-outer quadrant of right female breast (principal)

== ENCOUNTER → 2017-11-24 | Outpatient (CLI) | payer OTHER ==
[2017-11-24 13:28] LABS: BASO % 0.6 %; BASO ABS # 0.03 K/uL (0-0.2); EOS ABS # 0.19 K/uL (0-0.5); HEMATOCRIT 35.9 % (37-47); HEMOGLOBIN 11.6 g/dL (12.0-16.0); IG# 0.02 K/uL (0.00-0.02); LYMPH % 27.8 %; LYMPH ABS # 1.31 K/uL (1.2-3.4); MEAN CELL VOLUME 85.1 fL (80-100); MEAN CORPUSCULAR HEMOGLOBIN 27.5 pg (25-34); MEAN CORPUSCULAR HGB CONC 32.3 g/dl (32-36); MEAN PLATELET VOLUME 9.5 fL (7.4-10.4); MONO % 9.6 %; MONO ABS # 0.45 K/uL (0.11-0.59); NEUT % 57.6 %; NEUT ABS # 2.71 K/uL (1.4-6.5); PLATELET COUNT 199 K/uL (130-400); RED CELL DISTRIBUTION WIDTH CV 18.3 % (11.5-14.5); RED CELL DISTRIBUTION WIDTH SD 56.7 fL (36.4-46.3); WHITE BLOOD COUNT 4.71 K/uL (4.8-10.8)
[2017-11-24 13:53] LABS: ALBUMIN 3.4 gm/dl (3.4-5.0); ALKALINE PHOSPHATASE 232 U/L (45-117); ALT/SGPT 27 U/L (12-78); AST/SGOT 37 U/L (15-37); BLOOD UREA NITROGEN 7 mg/dl (7-18); CALCIUM 9.5 mg/dl (8.5-10.1); CARBON DIOXIDE 26 mmol/L (21-32); CREATININE 0.61 mg/dl (0.60-1.20); GLUCOSE 148 mg/dl (70-99); POTASSIUM 3.2 mmol/L (3.5-5.1); SODIUM 134 mmol/L (136-145); TOTAL PROTEIN 6.9 gm/dl (6.4-8.2)
== END | disposition home or self-care (01) ==
LOC: C.LABSPEC 13:18
PROVIDERS: ATTEND Internal Medicine Hematology & Oncology
DX: C50.411 Malignant neoplasm of upper-outer quadrant of right female breast (principal)

== ENCOUNTER → 2017-12-01 | Outpatient (CLI) | payer OTHER ==
[2017-12-01 13:46] VITALS: BP 109/69; PULSE 102; TEMP 37.2; O2SAT 98
--- NOTE | 2017-12-01 14:47 | Radiation Oncology Follow-Up ---
Radiation Oncology Follow-Up Date of Visit Dec 01, 2017. 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 Placement of intramedullary alyson. Status post mammogram revealing 2 suspicious lesions of the right breast August 25, 2017 Status post biopsies September 02, 2017 revealing ductal carcinoma Status post brain MRI October 04, 2017 revealing metastatic disease Status post completion of whole brain radiation 10/29/17 Last Edited By: Oralia Mcmillan on Nov 08, 2017 12:09 History of Present Illness Ms. Baig presented with low back pain and was ultimately diagnosed with metastatic breast cancer. 07/23/2017 --- lumbar x-ray --- IMPRESSION: 1. Interval development of L1 and L3 fractures since exam of August 18, 2016 with moderate loss of height of L3. Heterogeneity of L3 could be seen with a benign compression fracture however the appearance raises the possibility of a pathologic fracture in the setting of metastatic disease or multiple myeloma. An MRI of the lumbar spine is recommended for further evaluation. 2. Mild multilevel degenerative disc disease and mild to moderate multilevel facet arthrosis. 07/30/2017 --- MRI of lumbar spine --- IMPRESSION: Enhancing lesions at L1 and L3 resulting in the pathologic compression fractures as described above. These lesions demonstrate a small amount of epidural extension. However, there is no significant central canal narrowing at this time. This is consistent with metastatic disease until proven otherwise 08/11/2017 --- CT of head --- IMPRESSION: 1. There is no hemorrhage, enhancing mass, or evidence of acute territorial ischemia by CT criteria. 2. 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 No additional calvarial lesion is suggested. 08/25/2017 --- bilateral diagnostic mammogram with targeted right ultrasound --- IMPRESSION: ACR BI-RADS CATEGORY 5: HIGHLY SUGGESTIVE OF MALIGNANCY, TARGETED ULTRASOUND ACR BI-RADS CATEGORY 5: HIGHLY SUGGESTIVE OF MALIGNANCY 1. Ultrasound -guided core biopsy 2 is recommended in the right breast for a newly visualized ill-defined solid mass in the 9:00 axis measuring 12 mm, and a newly visualized 7 mm mass in the 11:00 axis. The larger mass in the 9:00 axis is felt to correlate with the CT finding. 2. No suspicious right axillary lymphadenopathy identified on targeted ultrasound. 3. Stable mammographic appearance of the left breast, without mammographic evidence of malignancy 09/01/2017 --- CT of chest --- IMPRESSION: 1. Multiple lytic skeletal metastasis as above including a large destructive lesion involving the vertebral body and posterior elements at T6 with extension into the region of the posterior epidural space likely causing a degree of central canal and foraminal encroachment. Pathologic fracture involves a lytic lesion of the right sixth rib. 2. No acute aortic pathology or pulmonary thromboembolic disease. 3. 1.3 cm lobular soft tissue attenuating lesion of the right middle lobe abutting the minor fissure has not significantly changed from comparison study. 4. Soft tissue nodules of the abdomen, further discussed on CT abdomen and pelvis study of same day. 5. Additional findings as above. 09/01/2017 --- CT of abdomen/pelvis --- IMPRESSION: 1. Redemonstration of the 13 mm right breast mass with scattered metastatic osseous lesions. There are also 2 small soft tissue nodules within the left side the abdomen which are highly suspicious for metastatic peritoneal disease. 2. The L3 pathologic compression fracture has slightly progressed with progressive mild to moderate central canal narrowing and severe right L3-L4 neural foraminal narrowing. 3. Stable nodular thickening of the adrenal glands. 4. No bowel wall thickening or obstruction. 5. Postoperative changes within the right femur. Fracture of the right greater trochanter likely due to the recent postoperative change. 6. Additional findings as described above. 09/02/2017 --- ultrasound-guided biopsy of right breast mass 9:00 and 11:00 --- biopsy, 9:00: Invasive ductal carcinoma, grade 2, ER/KS negative, HER-2 negative. Biopsy, 11:00: Invasive ductal carcinoma, grade 2, ER positive, KS negative, Her2 negative. 09/22/2017 --- CT of head --- Impression: 1. Developing soft tissue mass posterior and inferior to the left globe measuring 1.5 x 1.3 cm. 2. This creates a slight degree of left globe proptosis. 3. Metastatic lesion must be considered given the patient's history. 10/04/2017 --- MRI orbits ---IMPRESSION: 1. Multiple scattered enhancing supra and infratentorial parenchymal brain nodules. Given history of breast carcinoma , metastatic disease is the diagnosis of exclusion 2. 12 mm retro-orbital intraconal enhancing mass within the right orbit. 25 x 23 x 10 mm lobulated left intraorbital mass located inferior to the left globe. Given history of known metastatic breast carcinoma, intraorbital metastasis is the diagnosis of exclusion. We have been asked to evaluate the patient for consideration of palliative external beam radiation therapy. Currently, the patient does complain of diplopia. According to the patient, Dr. Montilla does plan to give chemotherapy systemically. 10/29/2017--- status post completion of whole brain radiation therapy October 29, 2017. She received 3750 cGy Interim History While on treatment the patient had steady improvement of the diplopia. She also had headaches. These have steadily decreased over time. Headaches are minimal and are relieved by Tylenol. She is now receiving systemic chemotherapy. Treatments are given every 2 weeks and then the third week she is off treatment. She denied any blurred vision. She continues to have low back pain. This is chronic. Currently her pain medications are being managed through medical oncology. She does feel that the pain medications are causing her to have nightmares. She plans to talk to medical oncology about the side effects. Allergies Coded Allergies: Morphine (Verified Allergy, Intermediate, DELIRIUM, 10/13/17) Chlorpromazine (Verified Allergy, Unknown, PHENOTHIAZINES-UNKNOWN, 10/13/17 ) Colistin (Verified Allergy, Unknown, UNKNOWN, 10/13/17) Gentamicin (Verified Allergy, Unknown, UNKNOWN, 10/13/17) Imipenem (Verified Allergy, Unknown, UNKNOWN, 10/13/17) Kanamycin (Verified Allergy, Unknown, UNKNOWN, 10/13/17) Neomycin (Verified Allergy, Unknown, UNKNOWN, 10/13/17) Polymyxin B (Verified Allergy, Unknown, UNKNOWN, 10/13/17) Procainamide (Verified Allergy, Unknown, UNKNOWN, 10/13/17) Propranolol (Verified Allergy, Unknown, UNKNOWN, 10/13/17) Quinidine (Verified Allergy, Unknown, UNKNOWN, 10/13/17) Streptomycin (Verified Allergy, Unknown, UNKNOWN, 10/13/17) Tetracycline (Verified Allergy, Unknown, UNKNOWN, 10/13/17) Home Medications Scheduled Acetaminophen (Tylenol), 650 MG PO Q4 Aspirin (Ecotrin Low Strength), 81 MG PO QAM Bisacodyl (Dulcolax), 2 TAB PO UD Buspirone Hcl (Buspirone Hcl), 10 MG PO TID Cholecalciferol (D3 Maximum Strength), 5,000 UNITS PO QAM Clopidogrel Bisulfate (Plavix), 75 MG PO QAM Fentanyl (Duragesic), 2 MCG TD [id number] Ferrous Gluconate (Ferrous Gluconate), 324 MG PO BID Fluoxetine Hcl (Prozac), 40 MG PO QAM Insulin Aspart (Novolog), 8 UNITS SC AC Insulin Glargine (Lantus), 25 UNITS SC QPM Isosorbide Mononitrate Ext Rel (Imdur Ext Rel), 30 MG PO QAM Metoclopramide Hcl (Reglan), 5 MG PO AC Metoprolol Succ (Toprol Xl) (Toprol-Xl), 50 MG PO QAM Mycophenolate Mofetil (Mycophenolate Mofetil), 1,000 MG PO BID Probiotic Product (Acidophilus), 1 TAB PO QAM Rosuvastatin Calcium (Crestor), 40 MG PO QAM Senna (Senokot), 8.6 MG PO HS Scheduled PRN Cyclobenzaprine HCl (Cyclobenzaprine HCl), 10 MG PO BID PRN for Muscle Spasms Diclofenac Sodium (Topical) (Voltaren 1% Top Gel), 1 APPLN TOP QID PRN for Pain Nitroglycerin (Nitrostat), 0.4 MG UT UD PRN for Chest Pain Ondansetron Hcl (Zofran), 4 MG PO Q8 PRN for Nausea Oxycodone Hcl (Oxycodone Hcl), 10 MG PO Q4H PRN for Moderate Pain Polyethylene Glycol 3350 (Miralax), 17 GM PO DAILY PRN for Constipation Review of Systems Gastrointestinal: Symptoms: Vomiting GI Comments: vomitted right before she came in to office. Not daily. Has antiemetic. Oral: Symptoms: No Problems Respiratory: Symptoms: WNL Urinary: Symptoms: WNL Skin: Symptoms: No Problems Physical Exam Vital Signs Date Time Temp Pulse Resp B/P (MAP) Pulse Ox O2 Delivery O2 Flow Rate FiO2 12/01/17 13:46 37.2 102 18 109/69 98 ECOG Performance Status: 2 Fatigue: Moderate General Appearance: + pertinent finding (pale and alopecia) Eyes: normal inspection, EOMI ENT: normal ENT inspection, hearing grossly normal, + pertinent finding (mouth mildly dehydrated) Respiratory/Chest: no respiratory distress, no accessory muscle use, + decreased breath sounds Cardiovascular: regular rate, rhythm, no gallop, no murmur Neurologic/Psychiatric: no motor/sensory deficits, alert, normal mood/affect Skin: warm/dry Pain Management Patient Reports Pain: Yes Pain Location: Back Patient Preferred Pain Scale: 0 - 10 Initial Pain Intensity: 6.0 Pain Management Plan She has chronic back pain. Pain management is currently through her medical oncologist. Laboratory Laboratory Results: were reviewed Pathology Pathology Results: were reviewed, and pertinent findings noted in HPI Imaging Imaging Studies: not applicable Assessment & Plan Plan: Continue regular follow-up with Dr. Montilla. She was seen today by Dr. Flowers. She has had resolution of the diplopia. Her headaches are minimal. She continues on chemotherapy. Recommendation has been for an MRI of the brain in 2 months. We will see her following recheck MRI. Recheck scanning per Dr. Negrita Marshall. She is going to speak with Dr. Montilla about the side effect of nightmares that she has been having. She may call our office if she has any questions or concerns before her next visit. Assessment & Plan (Attending) I agree with note created by Oralia Mcmillan PA-C. I reviewed the patient's chart and information with her. I have examined and evaluated the patient. I reviewed relevant clinical information and answered the patient's and/or family' s questions. HEALTHCARE INTERPRETER Total Time In Follow-Up I spent 20 minutes speaking to the patient in performing examination. I spent 15 minutes reviewing information and completing this note. [place] Total Time (Attending) In Follow-Up I spent 15 minutes examining and counseling the patient. HEALTHCARE INTERPRETER Copy To Amanda Sequeira C.R.N.P; Zia Montilla MD
== END | disposition home or self-care (01) ==
LOC: C.ONC 13:10
PROVIDERS: ATTEND Physician Assistant Medical
DX: Z08 Encounter for follow-up examination after completed treatment for malignant neoplasm (principal); Z92.3 Personal history of irradiation; Z85.3 Personal history of malignant neoplasm of breast; Z85.841 Personal history of malignant neoplasm of brain

== ENCOUNTER → 2017-12-01 | Outpatient (CLI) | payer OTHER ==
[2017-12-01 15:04] LABS: BASO % 0.7 %; BASO ABS # 0.02 K/uL (0-0.2); EOS % 2.5 %; EOS ABS # 0.07 K/uL (0-0.5); HEMATOCRIT 34.6 % (37-47); HEMOGLOBIN 11.3 g/dL (12.0-16.0); IG# 0.01 K/uL (0.00-0.02); LYMPH % 14.1 %; LYMPH ABS # 0.39 K/uL (1.2-3.4); MEAN CELL VOLUME 85.2 fL (80-100); MEAN CORPUSCULAR HEMOGLOBIN 27.8 pg (25-34); MEAN CORPUSCULAR HGB CONC 32.7 g/dl (32-36); MEAN PLATELET VOLUME 9.1 fL (7.4-10.4); MONO % 5.1 %; MONO ABS # 0.14 K/uL (0.11-0.59); NEUT % 77.2 %; NEUT ABS # 2.14 K/uL (1.4-6.5); PLATELET COUNT 186 K/uL (130-400); RED CELL DISTRIBUTION WIDTH CV 17.2 % (11.5-14.5); RED CELL DISTRIBUTION WIDTH SD 53.8 fL (36.4-46.3); WHITE BLOOD COUNT 2.77 K/uL (4.8-10.8)
[2017-12-01 15:38] LABS: ALBUMIN 3.3 gm/dl (3.4-5.0); ALKALINE PHOSPHATASE 242 U/L (45-117); ALT/SGPT 39 U/L (12-78); AST/SGOT 42 U/L (15-37); BLOOD UREA NITROGEN 6 mg/dl (7-18); CALCIUM 9.5 mg/dl (8.5-10.1); CARBON DIOXIDE 23 mmol/L (21-32); CREATININE 0.58 mg/dl (0.60-1.20); GLUCOSE 212 mg/dl (70-99); POTASSIUM 3.6 mmol/L (3.5-5.1); SODIUM 130 mmol/L (136-145); TOTAL PROTEIN 7.6 gm/dl (6.4-8.2)
== END | disposition home or self-care (01) ==
LOC: C.LABSPEC 14:49
PROVIDERS: ATTEND Internal Medicine Hematology & Oncology
DX: C50.411 Malignant neoplasm of upper-outer quadrant of right female breast (principal)